=== PATIENT | male | born 1950 | race Caucasian/White ===

== ENCOUNTER 2017-05-31 15:18 | Inpatient (IN) | payer MEDICARE, MEDICAID ==
[~2017-05-31] VITALS: Ht 177.8 cm; Wt 97.5 kg
[2017-05-31 16:43] LABS: Basophils # (auto) 0.1 uL; Basophils % (auto) 0.7 % (0.0-2.0); Eosinophils # (auto) 0 uL; Eosinophils % (auto) 0.2 % (0.0-7.0); Hemoglobin 13.5 g/dL (13.5-17.5); Lymphocytes # (auto) 1.8 uL; Lymphocytes % (auto) 10.9 % (10.0-50.0); Mean Corpuscular Hemoglobin 31.7 pg (28.0-32.0); Mean Corpuscular Hgb Conc. 33.8 g/dL (32.0-36.0); Mean Corpuscular Volume 93.9 fL (80.0-100.0); Monocytes # (auto) 1.3 uL; Monocytes % (auto) 7.5 % (0.0-12.0); Neutrophils # (auto) 13.5 uL; Neutrophils % (auto) 80.7 % (37.0-80.0); Nucleated Red Blood Cells % 0.1 %; Platelet Count (auto) 427 10^3/uL (140-450); Red Blood Cells 4.26 10^6/uL (4.5-5.90); Red Cell Distribution Width 13.4 % (11.8-14.3); White Blood Cell 16.8 10^3/uL (4.4-10.8)
[2017-05-31 16:59] LABS: Albumin 3.6 g/dL (3.4-5.0); BUN/Creatinine Ratio 23.4; Calcium 8.9 mg/dL (8.5-10.1); Potassium 3.9 mmol/L (3.5-5.1)
[2017-05-31 17:01] LABS: Bilirubin, Total 0.5 mg/dL (0.2-1.0); Total Protein 7.9 g/dL (6.4-8.2)
[2017-05-31] MEDS ORDERED: SODIUM CHLORIDE 0.9% 1,000 ML IV ONE ×2 (17:38→23:15)
[2017-05-31] MEDS ORDERED: cefTRIAXone 1GM/10ml IVPUSH 10 ML IV ONE (19:45)
[2017-05-31] MEDS ORDERED: metroNIDAZOLE 500MG/100ML 100 ML IV ONE (19:45)
[2017-05-31] MEDS ORDERED: AZITHROMYCIN 500MG/ 250ML 250 ML IV ONE (20:45)
[2017-05-31] MEDS ORDERED: ACETAMINOPHEN 500 MG TAB PO PRN (20:45)
[2017-05-31] MEDS ORDERED: ONDANSETRON HCL 4 MG/2 ML VIAL IV PRN (20:45)
[2017-05-31 21:06] LABS: Urine Bacteria NONE SEEN /hpf (None Seen); Urine Blood 1+ /uL (Negative); Urine Mucus FEW (None Seen); Urine WBC 3 /hpf (0 - 3)
[2017-05-31] MEDS: HYDROcodone-ACET 5/325MG TAB PO PRN (21:11)
[2017-06-01 00:38] LABS: Alcohol, Urine < 3.0 mg/dL (0-5); Amphetamine Screen, Urine POSITIVE (NEGATIVE); Barbiturate Scree,Urine NEGATIVE (NEGATIVE); Benzodiazephine Screen, Urine POSITIVE (NEGATIVE); Cannabinoid Screen, Urine POSITIVE (NEGATIVE); Cocaine Screen, Urine NEGATIVE (NEGATIVE); Opiate Scree,Urine NEGATIVE (NEGATIVE); Phencyclidine Screen, Urine NEGATIVE (NEGATIVE)
[2017-06-01 07:56] LABS: Basophils # (auto) 0 uL; Basophils % (auto) 0.2 % (0.0-2.0); Eosinophils # (auto) 0.1 uL; Eosinophils % (auto) 1.2 % (0.0-7.0); Hematocrit 38.4 % (41.0-53.0); Hemoglobin 12.8 g/dL (13.5-17.5); Lymphocytes % (auto) 15.7 % (10.0-50.0); Mean Corpuscular Hemoglobin 31.1 pg (28.0-32.0); Mean Corpuscular Hgb Conc. 33.4 g/dL (32.0-36.0); Monocytes # (auto) 1.2 uL; Monocytes % (auto) 9.2 % (0.0-12.0); Neutrophils # (auto) 9.5 uL; Neutrophils % (auto) 73.7 % (37.0-80.0); Platelet Count (auto) 418 10^3/uL (140-450); Red Blood Cells 4.12 10^6/uL (4.5-5.90); Red Cell Distribution Width 13.3 % (11.8-14.3); White Blood Cell 12.9 10^3/uL (4.4-10.8)
[2017-06-01 08:13] LABS: BUN/Creatinine Ratio 17.4; Calcium 8.3 mg/dL (8.5-10.1); Potassium 3.4 mmol/L (3.5-5.1)
[2017-06-01] MEDS: AZITHROMYCIN 500MG/ 250ML 250 ML IV SCH (09:37)
[2017-06-01] MEDS: cefTRIAXone 1GM/10ml IVPUSH 10 ML IV SCH (09:37)
[2017-06-01] MEDS ORDERED: POTASSIUM CHL 20 Meq TABLET PO ONE (12:30)
[2017-06-01 15:52] VITALS: BP 134/74
[2017-06-01 18:34] VITALS: BP 148/76
[2017-06-01] MEDS: HYDROcodone-ACET 5/325MG TAB PO PRN (19:44)
[2017-06-01 20:14] LABS: INR 0.95 (0.9-1.15); Partial Thromboplastin Time 32.2 sec (22.64-33.71); Prothrombin Time 10.3 sec (9.37-12.3)
[2017-06-01 22:45] VITALS: BP 136/75
[2017-06-02 05:29] VITALS: BP 143/90
[2017-06-02] MEDS ORDERED: POVIDONE IODINE 10 % TOPICAL OINT 30GM TOP ONE (06:58)
[2017-06-02] MEDS ORDERED: ceFAZolin 1GM/50ML 50 ML IV ONE (07:01)
[2017-06-02] MEDS ORDERED: GLYCOPYRROLATE 0.2 MG/ML 1ML VIAL IV ONE (08:05)
[2017-06-02] MEDS ORDERED: NEOSTIGMINE 1 MG/ML INJ (10mg/10ML VIAL) IV ONE (08:05)
[2017-06-02] MEDS ORDERED: PROPOFOL 10 MG/ML 20 ML IV ONE (08:11)
[2017-06-02] MEDS ORDERED: MIDAZOLAM HCL 1MG/1ML-2 ML VIAL ONE (08:11)
[2017-06-02] MEDS ORDERED: fentaNYL CITRATE 100 MCG/2 ML VL ONE (08:11)
[2017-06-02] MEDS ORDERED: ROCURONIUM 10MG/ML 10ML VIAL IV ONE (08:11)
[2017-06-02] MEDS ORDERED: hydrALAZINE HCL 20 MG/ML VL IV PRN (09:30)
[2017-06-02] MEDS ORDERED: ONDANSETRON HCL 4 MG/2 ML VIAL IV ONE (09:30)
[2017-06-02] MEDS ORDERED: MORPHINE SULFATE 4 MG/ML SYR/VIAL IV PRN (09:30)
[2017-06-02] MEDS ORDERED: ePHEDrine SULFATE 50 MG/ML AMP IV PRN (09:30)
[2017-06-02] MEDS: cefTRIAXone 1GM/10ml IVPUSH 10 ML IV SCH (10:58)
[2017-06-02] MEDS: AZITHROMYCIN 500MG/ 250ML 250 ML IV SCH (11:01)
[2017-06-02] MEDS ORDERED: D5W/ SOD CHL 0.9%/KCL 20MEQ 1,000 ML IV ONE (11:15)
[2017-06-02] MEDS ORDERED: POTASSIUM CHL 20 Meq TABLET PO ONE (11:15)
[2017-06-02 12:00] VITALS: BP 133/84
[2017-06-02 12:20] LABS: BUN/Creatinine Ratio 14.1; Calcium 8.4 mg/dL (8.5-10.1); Potassium 3.9 mmol/L (3.5-5.1)
[2017-06-02 12:26] LABS: Basophils # (auto) 0 uL; Basophils % (auto) 0.2 % (0.0-2.0); Eosinophils # (auto) 0.1 uL; Eosinophils % (auto) 0.8 % (0.0-7.0); Hematocrit 37.4 % (41.0-53.0); Hemoglobin 12.5 g/dL (13.5-17.5); Lymphocytes # (auto) 1.5 uL; Lymphocytes % (auto) 12.1 % (10.0-50.0); Mean Corpuscular Hemoglobin 30.9 pg (28.0-32.0); Mean Corpuscular Hgb Conc. 33.3 g/dL (32.0-36.0); Mean Corpuscular Volume 92.7 fL (80.0-100.0); Monocytes # (auto) 1.4 uL; Monocytes % (auto) 11.6 % (0.0-12.0); Neutrophils # (auto) 9.2 uL; Neutrophils % (auto) 75.3 % (37.0-80.0); Nucleated Red Blood Cells % 0.2 %; Platelet Count (auto) 452 10^3/uL (140-450); Red Blood Cells 4.04 10^6/uL (4.5-5.90); Red Cell Distribution Width 13.2 % (11.8-14.3); White Blood Cell 12.2 10^3/uL (4.4-10.8)
[2017-06-02 16:47] VITALS: BP 115/74
[2017-06-02] MEDS: HYDROcodone-ACET 5/325MG TAB PO PRN (20:10)
[2017-06-02 22:44] VITALS: BP 133/72
[2017-06-03 05:22] VITALS: BP 123/79
[2017-06-03] MEDS: HYDROcodone-ACET 5/325MG TAB PO PRN ×2 (06:18→19:26)
[2017-06-03 06:34] LABS: Basophils # (auto) 0.1 uL; Basophils % (auto) 0.5 % (0.0-2.0); Eosinophils # (auto) 0.2 uL; Hematocrit 36.2 % (41.0-53.0); Hemoglobin 12.3 g/dL (13.5-17.5); Lymphocytes # (auto) 2.7 uL; Lymphocytes % (auto) 23.9 % (10.0-50.0); Mean Corpuscular Hemoglobin 31.8 pg (28.0-32.0); Mean Corpuscular Hgb Conc. 34.1 g/dL (32.0-36.0); Mean Corpuscular Volume 93.3 fL (80.0-100.0); Monocytes # (auto) 1.6 uL; Monocytes % (auto) 14.7 % (0.0-12.0); Neutrophils # (auto) 6.5 uL; Neutrophils % (auto) 58.9 % (37.0-80.0); Nucleated Red Blood Cells % 0.1 %; Platelet Count (auto) 489 10^3/uL (140-450); Red Blood Cells 3.88 10^6/uL (4.5-5.90); Red Cell Distribution Width 13.3 % (11.8-14.3); White Blood Cell 11.1 10^3/uL (4.4-10.8)
[2017-06-03 06:47] LABS: BUN/Creatinine Ratio 15.7; Calcium 8.3 mg/dL (8.5-10.1); Potassium 4.1 mmol/L (3.5-5.1)
[2017-06-03 08:00] VITALS: BP 134/87
[2017-06-03 09:00] VITALS: BP 134/87
[2017-06-03] MEDS ORDERED: CEFD300C2 PO (09:12)
[2017-06-03] MEDS ORDERED: AZIT250T8 PO (09:12)
[2017-06-03] MEDS: cefTRIAXone 1GM/10ml IVPUSH 10 ML IV SCH (09:49)
[2017-06-03] MEDS: AZITHROMYCIN 500MG/ 250ML 250 ML IV SCH (09:49)
[2017-06-03 13:00] VITALS: BP 129/83
[2017-06-03 16:59] VITALS: BP 129/83
[2017-06-03 17:00] VITALS: BP 151/83
== END 2017-06-03 19:40 | disposition home or self-care (01) | DRG 853 ==
LOC: ER 15:18 → TELE 15:19 → TELE-WESTW 06-01 15:23
PROVIDERS: ADMIT Nurse Practitioner Family; ATTEND Internal Medicine
PROC: 0FT44ZZ Resection of Gallbladder, Percutaneous Endoscopic Approach (ICD-10-PCS; principal; 2017-06-02 08:08)
DX: A41.9 Sepsis, unspecified organism (principal); J18.1 Lobar pneumonia, unspecified organism; E87.1 Hypo-osmolality and hyponatremia; E66.01 Morbid (severe) obesity due to excess calories; K80.10 Calculus of gallbladder with chronic cholecystitis without obstruction; J44.0 Chronic obstructive pulmonary disease with (acute) lower respiratory infection; F12.90 Cannabis use, unspecified, uncomplicated; F17.210 Nicotine dependence, cigarettes, uncomplicated; Z87.442 Personal history of urinary calculi; Z68.30 Body mass index [BMI] 30.0-30.9, adult
CPT/HCPCS: 36415; 71045; 71046; 74176; 76705; 80048; 80053; 80307; 81001; 82247; 83605; 83690; 85025; 85610; 85730; 86850; 86900; 86901; 87040; 87081; 93005; 94761; 96365; 96375; 96376; J0690; J2250; J2405; J2704; J3490

== ENCOUNTER 2017-06-16 16:35 | Emergency (ER) | payer MEDICAID, MEDICARE ==
[~2017-06-16] VITALS: Ht 177.8 cm; Wt 97.5 kg
[~2017-06-16 16:35] MED LIST: AZIT250T8 PO; CEFD300C2 PO
[2017-06-16 16:51] VITALS: BP 148/90
== END 2017-06-16 21:35 | disposition left against medical advice (07) ==
LOC: ER 16:38
DX: Z98.890 Other specified postprocedural states (principal); Z53.21 Procedure and treatment not carried out due to patient leaving prior to being seen by health care provider

== ENCOUNTER → 2017-06-17 12:56 | Emergency (ER) | payer MEDICARE ==
[~2017-06-17] VITALS: Ht 177.8 cm; Wt 97.5 kg
[2017-06-17 18:22] VITALS: BP 144/95
== END | disposition home or self-care (01) ==
LOC: ER 12:56
DX: J44.9 Chronic obstructive pulmonary disease, unspecified (principal); R10.9 Unspecified abdominal pain; F17.210 Nicotine dependence, cigarettes, uncomplicated; Z90.49 Acquired absence of other specified parts of digestive tract; Z98.890 Other specified postprocedural states

== ENCOUNTER 2024-10-26 22:34 | Inpatient (IN) | payer OTHER ==
[~2024-10-26] VITALS: Ht 177.8 cm; Wt 92.0 kg
[~2024-10-26 22:34] MED LIST changes: +AZIT-185 PO; -AZIT250T8 PO
[2024-10-26 22:45] VITALS: PULSE 133; RESP 18; O2SAT 100
--- NOTE | 2024-10-26 22:49 | ED.PDOC ---
SOB-HPI HPI Comments 74 year old male with a Hx of COPD, and HTN was BIBA for the c/c of SOB w/ associated Bilateral Leg Edema, and A-Flutter. Per EMS pt was at an Urgent Care nearby [facility] when the Urgent Care provider noticed his irregular heart rhythm. Pt was then transported to [facility] and is still in A-Flutter in the 130's. Pt Denies ever being Dx with CHF, and denies any CP, ABD pain, N/V/D, or any other associated symptoms at this time. Chief Complaint: Shortness of Breath Time Seen by MD: 22:43 Primary Care Provider: NONE Reviewed notes: Nurses Notes, Manager [employer] Notes, Medications, Allergies Information Source: Patient, Emergency Med Personnel Mode of Arrival: EMS Severity: Moderate Timing: Days Duration: Intermittent, Days Context: At Rest PE Risk Factors: None History of: None Prehospital treatment: 12 Lead EKG, Oxygen Modifying Factors: Exertion Associated Signs and Symptoms: Wheeze Radiation: No Radiation If cough with SOB: Non-Productive Past Medical History PAST MEDICAL HISTORY: COPD, HTN Surgical History: Cholecystectomy, Tonsillectomy Family History Family History: Unobtainable Social History Smoker: Cigarettes Alcohol: Occasionally Drugs: Marijuana Lives In: Home Constitutional: denies: chills, diaphoresis, fatigue, fever, malaise, sweats, weakness, others EENTM: denies: blurred vision, double vision, ear bleeding, ear discharge, ear drainage, ear pain, ear ringing, eye pain, eye redness, hearing loss, mouth pain, mouth swelling, nasal discharge, nose bleeding, nose congestion, nose pain, photophobia, tearing, throat pain, throat swelling, voice changes, others Respiratory: reports: SOB at rest, shortness of breath; denies: cough, hemoptysis, orthopnea, SOB with excertion, stridor, wheezing, others Cardiovascular: denies: chest pain, dizzy spells, diaphoresis, Dyspnea on exertion, edema, irregular heart beat, left arm pain, lightheadedness, palpitations, PND, syncope, others Gastrointestinal: denies: abdomen distended, abdominal pain, blood streaked bowels, constipated, diarrhea, dysphagia, difficulty swallowing, hematemesis, melena, nausea, poor appetite, poor fluid intake, rectal bleeding, rectal pain, vomiting, others Genitourinary: denies: burning, dysuria, flank pain, frequency, hematuria, incontinence, penile discharge, penile sore, pain, testicle pain, testicle s welling, urgency, others Neurological: denies: dizziness, fainting, headache, left sided numbness, left sided weakness, numbness, paresthesia, pre-existing deficit, right sided numbness, right sided weakness, seizure, speech problems, tingling, tremors, weakness, others Musculoskeletal: reports: others (bilateral leg edema); denies: back pain, gout, joint pain, joint swelling, muscle pain, muscle stiffness, neck pain Integumetry: denies: bruises, change in color, change in hair/nails, dryness, laceration, lesions, lumps, rash, wounds, others Allergic/Immunocompromised: denies: Difficulty Healing, Frequent Infections, Hives, Itching, others Hematologic/Lymphatic: denies: anemia, blood clots, easy bleeding, easy bruising, swollen glands, others Endocrine: denies: excessive hunger, excessive sweating, excessive thirst, excessive urination, flushing, intolerance to cold, intolerance to heat, unexplained weight gain, unexplained weight loss, others Psychiatric: denies: anxiety, bipolar disorder, depression, hopeless, panic disorder, schizophrenia, sleepless, suicidal, others All Other Systems: Reviewed and Negative Physical Exam General Appearance: Moderate Distress, Normal, Obese HEENT: Normal ENT Inspection, Pharynx Normal, TMs Normal Neck: Full Range of Motion, Non-Tender, Normal, Normal Inspection Respiratory: Chest Non-Tender, No Accessory Muscle Use, Normal Breath Sounds, Rhonchi, Wheezing Cardiovascular: Irregular, No JVD, No Murmur, Regular Rate/Rhythm, Tachycardia Breast Exam: Deferred Gastrointestinal: Non Tender, No Pulsatile Mass, Normal Bowel Sounds, Soft Genitalia: Deferred Pelvic: Deferred Rectal: Deferred Extremities: Decreased range of motion, Leg edema, No calf tenderness, Normal range of motion, Non-tender, Pedal edema, Swelling Musculoskeletal : Apperance: Normal Neurologic: Alert, No Motor Deficits, Normal Affect, Normal Mood, No Sensory Deficits Cerebellar Function: Normal Reflexes: Normal Skin: Dry, Normal Color, Warm Lymphatic: No Adenopathy Was a procedure done? Was a procedure done?: No Differential Dx Differential Diagnosis: Anxiety, Asthma, Bronchitis, CHF, COPD, Dysrhythmia, Hypertension, Hyponatremia, Panic Attack, Pneumonia, Pneumothorax, Pulmonary Embolism, Respiratory Distress, Sinusitis, Pharyngitis X-Ray, Labs, Meds, VS Vital Signs Date Time Temp Pulse Resp B/P (MAP) Pulse Ox O2 Delivery O2 Flow Rate FiO2 10/27/24 01:04 133 10/26/24 23:52 133 10/26/24 23:20 133 141/106 10/26/24 23:19 141/106 10/26/24 22:58 132 10/26/24 22:45 133 18 100 Nasal Cannula* 2 28 10/26/24 22:45 98.3 133 18 141/106 (118) 100 98.3 10/26/24 22:42 133 10/26/24 22:38 98.5 133 20 135/78 (97) 95 98.5 Lab Test 10/26/24 23:48 10/26/24 22:55 Range/Units Troponin I High Sensitivity 52 60 *H </=54 ng/L White Blood Count 10.9 H 4.4-10.8 10^3/uL Red Blood Count 4.23 L 4.5-5.90 10^6/uL Hemoglobin 13.6 13.5-17.5 g/dL Hematocrit 40.4 L 41.0-53.0 % Mean Corpuscular Volume 95.5 80.0-100.0 fL Mean Corpuscular Hemoglobin 32.2 H 28.0-32.0 pg Mean Corpuscular Hemoglobin Concent 33.7 32.0-36.0 g/dL Red Cell Distribution Width 14.8 H 11.8-14.3 % Platelet Count 482 H 140-450 10^3/uL Mean Platelet Volume 8.0 6.9-10.8 fL Neutrophils (%) (Auto) 85.5 H 37.0-80.0 % Lymphocytes (%) (Auto) 11.4 10.0-50.0 % Monocytes (%) (Auto) 2.4 0.0-12.0 % Eosinophils (%) (Auto) 0.3 0.0-7.0 % Basophils (%) (Auto) 0.4 0.0-2.0 % Neutrophils # (Auto) 9.3 H 1.6-8.6 10 ^3/uL Lymphocytes # (Auto) 1.2 0.4-5.4 10 ^3/uL Monocytes # (Auto) 0.3 0-1.3 10 ^3/uL Eosinophils # (Auto) 0 0-0.8 10 ^3/uL Basophils # (Auto) 0 0-0.2 10 ^3/uL Nucleated Red Blood Cells 0.0 % Prothrombin Time 12.0 H 9.3-11.8 sec Prothrombin Time INR 1.15 0.9-1.15 Activated Partial Thromboplast Time 28.8 24.5-34.5 SEC Sodium Level 142 136-145 mmol/L Potassium Level 4.6 3.5-5.1 mmol/L Chloride Level 105 98-107 mmol/L Carbon Dioxide Level 26 20-31 mmol/L Anion Gap 11 5-15 Blood Urea Nitrogen 22 9-23 mg/dL Creatinine 1.24 0.700-1.30 mg/dL Glomerular Filtration Rate Calc 62 >90 mL/min BUN/Creatinine Ratio 17.7 10.0-20.0 Serum Glucose 151 H 74-106 mg/dL Calcium Level 9.6 8.7-10.4 mg/dL Magnesium Level 1.9 1.6-2.6 mg/dL Total Bilirubin 0.8 0.2-1.0 mg/dL Aspartate Amino Transferase (AST) 43 H 13-40 U/L Alanine Aminotransferase (ALT) 44 H 7-40 U/L Alkaline Phosphatase 171 H 46-116 U/L B-Type Natriuretic Peptide 494.52 0-100 pg/mL Total Protein 7.7 5.7-8.2 g/dL Albumin 4.8 3.2-4.8 g/dL Current Medications Medications (Trade) Dose Ordered Sig/Darin Route Start Time Stop Time Status Last Admin Aspirin 81 mg ONCE ONCE PO 10/26/24 22:45 10/26/24 22:46 DC 10/26/24 23:20 Metoprolol Tartrate (Lopressor) 5 mg Q5M IV 10/26/24 22:45 10/26/24 23:57 DC 10/26/24 23:20 Furosemide (Lasix Injection) 20 mg ONCE ONCE IV 10/26/24 22:45 10/26/24 22:46 DC 10/26/24 23:19 Amiodarone HCl 100 ml @ 600 mls/hr ONCE ONCE IV 10/26/24 23:45 10/26/24 23:54 DC 10/27/24 00:09 PATIENT: ULISES HECTOR ACCT: [id number] UNIT: [id number] : 1950 LOC: ER ROOM / BED: / AGE / SEX: 74 / M ADM STATUS: REG ER SERVICE 41 ORDERING PHYSICIAN: AILYN DANIELS MD PROCEDURE(s): CXRP - CHEST PORTABLE REASON: SOB ORDER NUMBER(s): [id number], ACCESSION NUMBER(s): [id number] CHEST RADIOGRAPH Indication: SOB Technique: Single frontal view of the chest was obtained COMPARISON: None FINDINGS: Lines and Tubes: None Lungs: Mild pulmonary vascular congestion. No pulmonary infiltrates identified. Pleura: No effusion. No pneumothorax. Cardiomediastinal contours: Mild cardiomegaly. IMPRESSION: Mild cardiomegaly and mild pulmonary vascular congestion. Time of 1ST Reevaluation: 23:14 Reevaluation 1ST: Unchanged Patient Education/Counseling: Diagnosis, Treatment, Need For Follow Up Family Education/Counseling: No Family Present SEPSIS Sepsis Screen Physician Orders Chest Portable (10/26/24 22:42) Heplock Iv (10/26/24 22:42) Oxygen (10/26/24 22:42) Collection Specialist (10/26/24 22:42) Troponin-I Hs (10/27/24 01:42) Electrocardigram (10/26/24 23:04) Electrocardigram (10/27/24 00:04) Amiodarone 360mg/200ml Premix (Nexterone (10/27/24 00:00) Amiodarone 360mg/200ml Premix (Nexterone (10/27/24 06:00) Vital Signs Date Time Temp Pulse Resp B/P (MAP) Pulse Ox O2 Delivery O2 Flow Rate FiO2 10/27/24 01:04 133 10/26/24 23:52 133 10/26/24 23:20 133 141/106 10/26/24 23:19 141/106 10/26/24 22:58 132 10/26/24 22:45 133 18 100 Nasal Cannula* 2 28 10/26/24 22:45 98.3 133 18 141/106 (118) 100 98.3 10/26/24 22:42 133 10/26/24 22:38 98.5 133 20 135/78 (97) 95 98.5 Laboratory Tests Test 10/26/24 22:55 White Blood Count 10.9 10^3/uL (4.4-10.8) H Medications Medications Dose Ordered Sig/Darin Route Start Time Stop Time Status Last Admin Dose Admin Amiodarone HCl 100 ml @ 600 mls/hr ONCE ONCE IV 10/26/24 23:45 10/26/24 23:54 DC 10/27/24 00:09 Aspirin 81 mg ONCE ONCE PO 10/26/24 22:45 10/26/24 22:46 DC 10/26/24 23:20 Furosemide 20 mg ONCE ONCE IV 10/26/24 22:45 10/26/24 22:46 DC 10/26/24 23:19 Metoprolol Tartrate 5 mg Q5M IV 10/26/24 22:45 10/26/24 23:57 DC 10/26/24 23:20 Departure 1 Departure Time of Disposition: 01:08 Impression: Primary Impression: New onset atrial fibrillation Additional Impressions: Congestive heart failure Atrial flutter with rapid ventricular response Disposition: ADMITTED INPATIENT Admit to: Tele Condition: Guarded Discharged With: Self Comments Shortness of Breath, Lower Extremity Edema, and New Onset Atrial Fibrillation Chief Complaint: Shortness of breath and bilateral lower extremity edema for 3-4 days History of Present Illness: Patient is a 74-year-old male with a history of COPD and hypertension who presented to the Emergency Department via ambulance with complaints of shortness of breath and bilateral lower extremity swelling for the past 3-4 days. EMS noted that the patient had a rapid irregular heartbeat during transport. The patient has no prior history of atrial fibrillation. His symptoms have been progressively worsening over the past few days, limiting his daily activities. The patient reports increased difficulty breathing, especially when lying flat, and has noticed increasing swelling in both legs below the knees. Review of Systems: Cardiovascular: Palpitations, irregular heartbeat, lower extremity edema. Respiratory: Shortness of breath, dyspnea. Constitutional: No fever reported. All other systems: Limited review due to acute presentation. Medications: Home medications not specified in qc analyst. Medications administered in ED: - Aspirin - IV Metoprolol (dose not specified) - Amiodarone bolus followed by infusion - Furosemide (Lasix) 20 mg IV Allergies: No known allergies documented in qc analyst. Past Medical History: 1. Chronic Obstructive Pulmonary Disease (COPD) 2. Hypertension 3. No prior history of atrial fibrillation Vital Signs: Heart rate: Tachycardic (specific rate not provided) Rhythm: Irregular irregular Other vital signs not specified in qc analyst. Physical Exam: Cardiovascular: Irregular irregular rhythm with tachycardic rate. Respiratory: Mild bibasilar rales on lung examination. Extremities: 2+ pitting edema to bilateral lower extremities below the knee. Other systems not documented in qc analyst. Lab Results: CBC: - WBC: 10.9 (slightly elevated) - Platelets: 482 (elevated) Chemistry: - Glucose: 151 (elevated) - AST: 43 (slightly elevated) - ALT: 44 (slightly elevated) - Alkaline phosphatase: 171 (slightly elevated) Cardiac markers: - Troponin: 60 (borderline elevated) - BNP: 494.5 (elevated) Imaging and Other Relevant Results: Chest X-ray: Shows mild pulmonary vascular congestion consistent with congestive heart failure. Medical Decision Making: Summary Statement: 74-year-old male with history of COPD and hypertension presenting with shortness of breath, bilateral lower extremity edema, and new- onset atrial fibrillation with rapid ventricular response. Clinical findings, elevated BNP, and chest X-ray are consistent with congestive heart failure. Borderline elevated troponin suggests possible acute coronary syndrome. Problem List: 1. New-onset atrial fibrillation with rapid ventricular response 2. Congestive heart failure 3. Possible acute coronary syndrome 4. COPD 5. Hypertension Differential Diagnosis: For the patient's presentation, differential diagnoses include acute decompensated heart failure, new-onset atrial fibrillation, acute coronary syndrome, COPD exacerbation, pulmonary embolism, pneumonia, and volume overload from renal dysfunction. ED Course: Patient was administered aspirin for possible ACS. IV metoprolol was given for rate control but showed no improvement in heart rate. Subsequently, amiodarone bolus and infusion were initiated for rhythm control. Furosemide 20 mg IV was administered to address volume overload and congestive heart failure. Decision was made to admit the patient for further management of acute coronary syndrome, new-onset atrial fibrillation with rapid ventricular response, and congestive heart failure. Assessment and Plan: 1. New-onset Atrial Fibrillation with Rapid Ventricular Response: - Failed rate control with IV metoprolol - Initiated amiodarone bolus and infusion - Continuous cardiac monitoring during admission - Consider anticoagulation after assessing stroke risk - Cardiology consultation 2. Congestive Heart Failure: - Administered Lasix 20 mg IV in ED with good response - Continue diuresis as inpatient - Daily weights and strict I/O monitoring - Echocardiogram to assess cardiac function 3. Acute Coronary Syndrome: - Administered aspirin in ED - Serial cardiac enzymes - Consider cardiac catheterization based on troponin trend 4. COPD: - Continue home medications - Monitor oxygen saturation - Caution with beta-blockers due to COPD history 5. Hypertension: - Continue home antihypertensive medications - Monitor blood pressure during admission Disposition: Admit to telemetry unit under Cardiology service for management of the above conditions. Additional Notes: Patient requires admission for acute coronary syndrome, new onset atrial fibrillation with rapid ventricular response, and congestive heart failure. Billing Information: ICD-10: I48.91 - Unspecified atrial fibrillation ICD-10: I50.9 - Heart failure, unspecified ICD-10: I21.9 - Acute myocardial infarction, unspecified ICD-10: J44.9 - Chronic obstructive pulmonary disease, unspecified ICD-10: I10 - Essential (primary) hypertension Critical Care Note Critical Care Time?: Yes (35 min-critical care time only) Critical care comment: Total critical care time: Approximately 36 minutes Due to a high probability of clinically significant, life threatening deterioration, the patient required my highest level of preparedness to intervene emergently and I personally spent this critical care time directly and personally managing the patient. This critical care time included obtaining a history; examining the patient; pulse oximetry; ordering and review of studies; arranging urgent treatment with development of a management plan; evaluation of patient's response to treatment; frequent reassessment; and, discussions with other providers. This critical care time was performed to assess and manage the high probability of imminent, life-threatening deterioration that could result in multi-organ failure. It was exclusive of separately billable procedures and treating other patients. Stability Stability form required: No Heart Score Heart Score: Heart Score Response (Comments) Value History Moderate Suspicious 1 EKG Repolarization Disturb 1 Age >65 2 Risk Factors >3 or Hx ASHD 2 Troponin 1-2 x's Normal limit 1 Total 7 I personally scribed for AILYN DANIELS MD ([email or web address]) on 10/26/24 at 22:48. Electronically submitted by Kilo Thakur ([email or web address]). I personally scribed for AILYN DANIELS MD ([email or web address]) on 10/26/24 at 23:41. Electronically submitted by Kilo Thakur ([email or web address]). AILYN DANIELS MD Oct 26, 2024 22:48
[2024-10-26 23:06] LABS: Hematocrit 40.4 % (41.0-53.0); Hemoglobin 13.6 g/dL (13.5-17.5); Mean Corpuscular Hemoglobin 32.2 pg (28.0-32.0); Mean Corpuscular Volume 95.5 fL (80.0-100.0); Nucleated Red Blood Cells % 0.0 %
[2024-10-26] MEDS: FUROSEMIDE 20 MG/2 ML VIAL IV ONE (23:19)
[2024-10-26 23:20] LABS: INR 1.15 (0.9-1.15); Partial Thromboplastin Time 28.8 SEC (24.5-34.5); Prothrombin Time 12.0 sec (9.3-11.8)
[2024-10-26] MEDS: METOPROLOL TARTRATE 1MG/1ML-5ML VIAL IV SCH (23:20)
[2024-10-26 23:22] LABS: Albumin 4.8 g/dL (3.2-4.8); Anion Gap 11 (5-15); BUN/Creatinine Ratio 17.7 (10.0-20.0); Blood Urea Nitrogen 22 mg/dL (9-23); Calcium 9.6 mg/dL (8.7-10.4); Carbon Dioxide 26 mmol/L (20-31); Chloride 105 mmol/L (98-107); Magnesium 1.9 mg/dL (1.6-2.6); Potassium 4.6 mmol/L (3.5-5.1); Sodium 142 mmol/L (136-145); Total Protein 7.7 g/dL (5.7-8.2)
[2024-10-26 23:23] LABS: Bilirubin, Total 0.8 mg/dL (0.2-1.0)
[2024-10-26 23:25] LABS: Alanine Aminotransferase 44 U/L (7-40); Alkaline Phosphatase 171 U/L (46-116); Glucose 151 mg/dL (74-106)
--- NOTE | 2024-10-26 23:29 | DVH ---
CHEST RADIOGRAPH Indication: SOB Technique: Single frontal view of the chest was obtained COMPARISON: None FINDINGS: Lines and Tubes: None Lungs: Mild pulmonary vascular congestion. No pulmonary infiltrates identified. Pleura: No effusion. No pneumothorax. Cardiomediastinal contours: Mild cardiomegaly. IMPRESSION: Mild cardiomegaly and mild pulmonary vascular congestion.
[2024-10-27] VITALS (18 sets, daily range): BP systolic 108–125; BP diastolic 87–94; PULSE 102–125; RESP 15–24; TEMP 96.8–98.2; O2SAT 94–100
[2024-10-27] MEDS: AMIODARONE BOLUS KIT 100 ML IV ONE (00:09)
[2024-10-27] MEDS: AMIODARONE 360mg/200mL PREMIX 200 ML IV ONE (00:27)
[2024-10-27] MEDS ORDERED: ONDANSETRON HCL 4 MG/2 ML VIAL IV PRN (02:15)
[2024-10-27] MEDS ORDERED: ACETAMINOPHEN 325 MG TAB PO PRN (02:15)
[2024-10-27] MEDS ORDERED: DOCUSATE SOD 100 MG CAP PO PRN (02:15)
--- NOTE | 2024-10-27 03:10 | DVHHP2 ---
History of Present Illness Reason for Visit: New onset atrial fibrillation History of Present Illness The patient is a 74-year-old male with past medical history of COPD and hypertension who presented to [facility] ED with complaint of shortness of breaths. Patient reports symptoms progressively get worse with pool ateral lower extremity edema, new onset of atrial fibrillation, increased work of breathing, getting worse that prompted this visit. Patient reports he initially went to urgent care, but the provider notice is irregular heart rhythm and was transported to [facility] for higher level of care. Patient was seen and evaluated in the ED with heart rate in the 130s a flutter, temperature 98.3 F, O2 saturation 99% on oxygen, blood pressure 141/106, laboratory data shows WBC 10.9, platelets 482, sodium 140, potassium 4.6, BUN 22, creatinine 1.24, glucose 151, calcium 9.6, troponin 60 trending down to 52, AST 43, ALT 44, BNP 494.52. Chest x-ray revealing mild cardiomegaly and mild pulmonary vascular congestion. Patient was started on amiodarone IV per protocol, please see medication orders section in the computer. On my assessment, patient denied chest pain, no headache, no dizziness, no diaphoresis, currently on oxygen, no nausea, no vomiting, no fever, no chills. Patient was admitted for further evaluation and medical management. Past Medical History COPD, HTN Past Surgical History Cholecystectomy, Tonsillectomy Family History Reviewed, noncontributory to the management of this case. Past Social History The patient lives at home, smokes cigarettes, drinks alcohol occasionally, uses marijuana. Review of Systems Constitutional: No: Fever, Chills, Sweats, Weakness, Malaise, Other Eyes: No: Pain, Vision change, Conjunctivae inflammation, Eyelid inflammation, Other, Redness ENT: No: Ear pain, Ear discharge, Nose pain, Nose discharge, Nose congestion, Mouth pain, Mouth swelling, Throat pain, Throat swelling, Other Respiratory: Shortness of breath, Other (SOB at rest); No: Cough, Dry, SOB with excertion, Wheezing, Hemoptysis, Pleuritic Pain, Sputum, Wheezing Cardiovascular: Other (Atrial fibrillation); No: Chest Pain, Palpitations, Orthopnea, Paroxysmal Noc. Dyspnea, Edema, Lt Headedness Gastrointestinal: No: Nausea, Vomiting, Abdominal Pain, Diarrhea, Constipation, Melena, Hematochezia, Other Genitourinary: No Dysuria, No Frequency, No Incontinence, No Hematuria, No Retention, No Other Musculoskeletal: No: other, neck pain, shoulder pain, arm pain, back pain, hand pain, leg pain, foot pain Skin: No: Rash, Lesions, Jaundice, Bruising, Other Neurological: No: Weakness, Numbness, Incoordination, Change in speech, Confusion, Seizures, Other Allergies: Coded Allergies: NO KNOWN ALLERGIES (Unverified , 05/31/17) Medications Current Medications Medications Dose Ordered Sig/Darin Route Start Time Stop Time Status Last Admin Dose Admin Aspirin 81 mg DAILY PO 10/27/24 10:00 Atorvastatin Calcium 10 mg HS PO 10/27/24 22:00 Carvedilol 12.5 mg Q12HR PO 10/27/24 10:00 Clonidine HCl 0.1 mg Q4HP PRN PO 10/27/24 02:15 Furosemide 20 mg DAILY IV 10/27/24 10:00 Levalbuterol HCl 0.625 mg Q6HR NEB 10/27/24 06:00 Sodium Chloride 10 ml Q8HR IV 10/27/24 06:00 Acetaminophen/ Hydrocodone Bitart 1 tab Q4HP PRN PO 10/27/24 02:15 Ondansetron HCl 4 mg Q4HP PRN IV 10/27/24 02:15 Docusate Sodium 100 mg BIDPRN PRN PO 10/27/24 02:15 Acetaminophen 650 mg Q6HP PRN PO 10/27/24 02:15 Exam Vital Signs Vital Signs Date Time Temp Pulse Resp B/P (MAP) Pulse Ox O2 Delivery O2 Flow Rate FiO2 10/27/24 02:00 126 18 119/94 (102) 100 10/26/24 22:45 Nasal Cannula* 2 28 10/26/24 22:45 98.3 98.3 General Appearance: Alert, Oriented X3, Cooperative, No acute distress HEENT: Atraumatic, PERRLA, EOMI, Mucous membr. moist/pink Respiratory: Normal air movement Cardiovascular: Normal S1, Normal S2, No murmurs, Other (Irregular heart rate) Abdominal: Normal bowel sounds, Soft, No tenderness, No hepatospenomegaly, No masses Extremities: No clubbing, No cyanosis, No edema, Normal pulses, No tendernes s/swelling Skin: No rashes, No breakdown, No significant lesion Neuro: Normal gait, Normal speech, Strength at 5/5 X4 ext, Normal tone, Sensation intact, Cranial nerves 3-12 NL, Reflexes 2+ Psych/Mental Status: Mental status NL, Mood NL Labs/Xrays Labs Test 10/27/24 01:30 10/26/24 22:55 Range/Units Troponin I High Sensitivity 51 </=54 ng/L White Blood Count 10.9 H 4.4-10.8 10^3/uL Red Blood Count 4.23 L 4.5-5.90 10^6/uL Hemoglobin 13.6 13.5-17.5 g/dL Hematocrit 40.4 L 41.0-53.0 % Mean Corpuscular Volume 95.5 80.0-100.0 fL Mean Corpuscular Hemoglobin 32.2 H 28.0-32.0 pg Mean Corpuscular Hemoglobin Concent 33.7 32.0-36.0 g/dL Red Cell Distribution Width 14.8 H 11.8-14.3 % Platelet Count 482 H 140-450 10^3/uL Mean Platelet Volume 8.0 6.9-10.8 fL Neutrophils (%) (Auto) 85.5 H 37.0-80.0 % Lymphocytes (%) (Auto) 11.4 10.0-50.0 % Monocytes (%) (Auto) 2.4 0.0-12.0 % Eosinophils (%) (Auto) 0.3 0.0-7.0 % Basophils (%) (Auto) 0.4 0.0-2.0 % Neutrophils # (Auto) 9.3 H 1.6-8.6 10 ^3/uL Lymphocytes # (Auto) 1.2 0.4-5.4 10 ^3/uL Monocytes # (Auto) 0.3 0-1.3 10 ^3/uL Eosinophils # (Auto) 0 0-0.8 10 ^3/uL Basophils # (Auto) 0 0-0.2 10 ^3/uL Nucleated Red Blood Cells 0.0 % Prothrombin Time 12.0 H 9.3-11.8 sec Prothrombin Time INR 1.15 0.9-1.15 Activated Partial Thromboplast Time 28.8 24.5-34.5 SEC Sodium Level 142 136-145 mmol/L Potassium Level 4.6 3.5-5.1 mmol/L Chloride Level 105 98-107 mmol/L Carbon Dioxide Level 26 20-31 mmol/L Anion Gap 11 5-15 Blood Urea Nitrogen 22 9-23 mg/dL Creatinine 1.24 0.700-1.30 mg/dL Glomerular Filtration Rate Calc 62 >90 mL/min BUN/Creatinine Ratio 17.7 10.0-20.0 Serum Glucose 151 H 74-106 mg/dL Calcium Level 9.6 8.7-10.4 mg/dL Magnesium Level 1.9 1.6-2.6 mg/dL Total Bilirubin 0.8 0.2-1.0 mg/dL Aspartate Amino Transferase (AST) 43 H 13-40 U/L Alanine Aminotransferase (ALT) 44 H 7-40 U/L Alkaline Phosphatase 171 H 46-116 U/L B-Type Natriuretic Peptide 494.52 0-100 pg/mL Total Protein 7.7 5.7-8.2 g/dL Albumin 4.8 3.2-4.8 g/dL PATIENT: ULISES HECTOR ACCT: [id number] UNIT: [id number] : 1950 LOC: ER ROOM / BED: / AGE / SEX: 74 / M ADM STATUS: REG ER SERVICE 41 ORDERING PHYSICIAN: AILYN DANIELS MD PROCEDURE(s): CXRP - CHEST PORTABLE REASON: SOB ORDER NUMBER(s): [id number], ACCESSION NUMBER(s): [id number] CHEST RADIOGRAPH Indication: SOB Technique: Single frontal view of the chest was obtained COMPARISON: None FINDINGS: Lines and Tubes: None Lungs: Mild pulmonary vascular congestion. No pulmonary infiltrates identified. Pleura: No effusion. No pneumothorax. Cardiomediastinal contours: Mild cardiomegaly. IMPRESSION: Mild cardiomegaly and mild pulmonary vascular congestion. SEPSIS Sepsis Screen Date sepsis recognized/suspect: Oct 26, 2024 Time Sepsis recognized/suspect: 2333 Recent Procedure: No On Antibiotic Therapy: No Respiratory Rate >20: No Heart Rate >90: Yes Temp<36 C (96.8 F) or >38.3 C: No SBP <90 or MAP <65 mmHG: No New Acute Mental Status Change: No Is the patient on CPAP, BIPAP,: No Physician Orders Chest Portable (10/26/24 22:42) Heplock Iv (10/26/24 22:42) Oxygen (10/26/24 22:42) Data Assistant (10/26/24 22:42) Electrocardigram (10/26/24 23:04) Electrocardigram (10/27/24 00:04) Amiodarone 360mg/200ml Premix (Nexterone (10/27/24 00:00) Amiodarone 360mg/200ml Premix (Nexterone (10/27/24 06:00) Complete Blood Count (10/27/24 04:00) Comprehensive Metabolic Panel (10/27/24 04:00) Aspirin Tablet (10/27/24 10:00) Atorvastatin (Lipitor) (10/27/24 22:00) Carvedilol Tablet (Coreg Tablet) (10/27/24 10:00) Clonidine Hcl Tablet (Catapres Tablet) (10/27/24 02:15) Furosemide Injection (Lasix Injection) (10/27/24 10:00) Levalbuterol Hcl (Xopenex Medneb) (10/27/24 06:00) Allergies (10/27/24 02:10) Code Status (10/27/24 02:10) Sodium Chloride Lock (Saline Lock Ns) (10/27/24 06:00) Oxygen Per Hour (10/27/24 02:10) Hydrocodone-Acet 5/325mg Tab ([place] 5/32 (10/27/24 02:15) Ondansetron Hcl (Zofran) (10/27/24 02:15) Docusate Sodium Capsule (Colace Capsule) (10/27/24 02:15) Complete Blood Count (10/28/24 04:00) Comprehensive Metabolic Panel (10/28/24 04:00) Cardiac Diet-2gna,Lofat,Lochol (10/27/24 Breakfast) Echo 2d Mode Cardiac Dop (10/27/24 02:10) Condition: Serious (10/27/24 02:10) Acetaminophen Tablet (Tylenol Tablet) (10/27/24 02:15) Bedrest With Bathroom Privileg (10/27/24 02:10) Sequential Compression Device (10/27/24 ) * Cardiology Consult (10/27/24 02:15) Vital Signs Date Time Temp Pulse Resp B/P (MAP) Pulse Ox O2 Delivery O2 Flow Rate FiO2 10/27/24 02:00 126 18 119/94 (102) 100 10/27/24 01:04 133 10/27/24 00:00 132 23 140/113 (122) 100 10/26/24 23:52 133 10/26/24 23:20 133 141/106 10/26/24 23:19 141/106 10/26/24 22:58 132 10/26/24 22:45 133 18 100 Nasal Cannula* 2 28 10/26/24 22:45 98.3 133 18 141/106 (118) 100 98.3 10/26/24 22:42 133 10/26/24 22:38 98.5 133 20 135/78 (97) 95 98.5 Laboratory Tests Test 10/26/24 22:55 White Blood Count 10.9 10^3/uL (4.4-10.8) H Medications Medications Dose Ordered Sig/Darin Route Start Time Stop Time Status Last Admin Dose Admin Amiodarone HCl 100 ml @ 600 mls/hr ONCE ONCE IV 10/26/24 23:45 10/26/24 23:54 DC 10/27/24 00:09 600 MLS/HR Aspirin 81 mg ONCE ONCE PO 10/26/24 22:45 10/26/24 22:46 DC 10/26/24 23:20 81 MG Furosemide 20 mg ONCE ONCE IV 10/26/24 22:45 10/26/24 22:46 DC 10/26/24 23:19 20 MG Metoprolol Tartrate 5 mg Q5M IV 10/26/24 22:45 10/26/24 23:57 DC 10/26/24 23:20 5 MG Assessment/Plan Assessment/Plan New onset atrial fibrillation Hyperglycemia Congestive heart failure Atrial flutter with rapid ventricular response COPD with acute exacerbation Plan 1. Admit to telemetry unit 2. Breathing treatment 3. Pain control management 4. Management of fluids and electrolytes 5. Consultation for Cardiology/hospitalist 6. Diagnostic tests chest x-ray 7. DVT prophylaxis-on aspirin 8. Repeat labs CBC, CMP in a.m. 9. Continue with current medical management 10. Treatment plan discussed with patient and RN. Patient verbalized understanding. Plan discussed with: Patient, Other (RN) My Orders Orders - BISHOP CROOKS DNP Procedure Category Date Status Time Complete Blood Count LAB 10/27/24 Logged 04:00 Comprehensive LAB 10/27/24 Logged Metabolic Panel 04:00 Aspirin Tablet PHA 10/27/24 In Process 10:00 Atorvastatin (Lipitor) PHA 10/27/24 In Process 22:00 Carvedilol Tablet PHA 10/27/24 In Process (Coreg Tablet) 10:00 Clonidine Hcl Tablet PHA 10/27/24 In Process (Catapres Tablet) 02:15 Furosemide Injection PHA 10/27/24 In Process (Lasix Injection) 10:00 Levalbuterol Hcl PHA 10/27/24 In Process (Xopenex Medneb) 06:00 Allergies OLRA 10/27/24 In Process 02:10 Code Status CODE 10/27/24 Transmitted 02:10 Sodium Chloride Lock PHA 10/27/24 In Process (Saline Lock Ns) 06:00 Oxygen Per Hour RT 10/27/24 Transmitted 02:10 Hydrocodone-Acet PHA 10/27/24 In Process 5/325mg Tab ([place] 02:15 Ondansetron Hcl PHA 10/27/24 In Process (Zofran) 02:15 Docusate Sodium PHA 10/27/24 In Process Capsule (Colace 02:15 Complete Blood Count LAB 10/28/24 Verified 04:00 Comprehensive LAB 10/28/24 Verified Metabolic Panel 04:00 Cardiac DIET 10/27/24 Transmitted Diet-2gna,Lofat,Lochol Breakfast Echo 2d Mode Cardiac US 10/27/24 Logged DOP 02:10 Condition: Serious LORA 10/27/24 In Process 02:10 Acetaminophen Tablet PHA 10/27/24 In Process (Tylenol Tablet) 02:15 Bedrest With Bathroom OLRA 10/27/24 In Process Privileg 02:10 Sequential LORA 10/27/24 In Process Compression Device * Cardiology Consult CONS 10/27/24 Transmitted 02:15 Problem List: (1) New onset atrial fibrillation (2) Hyperglycemia (3) Congestive heart failure (4) Atrial flutter with rapid ventricular response (5) COPD with acute exacerbation Date of Service: Oct 27, 2024 Billing Provider: BISHOP CROOKS DNP Common Visit Codes: [id number] INP/OBS CARE (HIGH) BISHOP CROOKS DNP Oct 27, 2024 03:10
[2024-10-27] MEDS ORDERED: NITROGLYCERIN 0.4 MG SL TAB SL PRN (03:15)
[2024-10-27] MEDS ORDERED: MORPHINE SULFATE INJ 2 MG/ml SYRG IV PRN (03:15)
[2024-10-27] MEDS: SODIUM CHLOR 0.9% PF (SALINE LOCK) 10ML VIAL/SYR IV SCH (06:00)
[2024-10-27] MEDS: AMIODARONE 360mg/200mL PREMIX 200 ML IV SCH (06:08)
[2024-10-27] MEDS: LEVALBUTEROL HCL 1.25 MG/3 ML NEB NEB SCH (06:21)
--- NOTE | 2024-10-27 06:41 | ECG ---
[facility] Test Date: 2024-10-26 Test Time: 23:52:29 Pat Name: ULISES HECTOR Department: ED Room: [address] [place] [address] Gender: M Director Equipment: GREGG : 1950 Requested By: AILYN DANIELS Order Number: [id number] Reading MD: Alex Rodriguez Measurements Intervals [place] Rate: 133 P: 243 KS: 144 QRS: 96 QRSD: 84 T: 0 QT: 328 QTc: 488 Interpretive Statements Ectopic atrial tachycardia, unifocal Right axis deviation Anteroseptal infarct, old Repol abnrm suggests ischemia, diffuse leads Electronically Signed On 11-01-2024 17:43:29 PDT by Alex Rodriguez Please click the below link to view image of tracing.
--- NOTE | 2024-10-27 07:24 | ECG ---
[facility] Test Date: 2024-10-26 Test Time: 22:42:24 Pat Name: ULISES HECTOR Department: ED Room: [address] [place] [address] Gender: M Rn Plastic Surgery: GREGG : 1950 Requested By: AILYN DANIELS Order Number: [id number] Reading MD: Alex Rodriguez Measurements Intervals [place] Rate: 133 P: 238 NE: 135 QRS: 90 QRSD: 183 T: -89 QT: 292 QTc: 435 Interpretive Statements Ectopic atrial tachycardia, unifocal IVCD, consider atypical RBBB Anteroseptal infarct, old Borderline ST depression, lateral leads Electronically Signed On 11-01-2024 17:43:19 PDT by Alex Rodriguez Please click the below link to view image of tracing.
[2024-10-27 07:43] LABS: Alanine Aminotransferase 45 U/L (7-40)
[2024-10-27 07:49] LABS: Albumin 4.5 g/dL (3.2-4.8); Anion Gap 11 (5-15); BUN/Creatinine Ratio 18.5 (10.0-20.0); Bilirubin, Total 0.6 mg/dL (0.2-1.0); Blood Urea Nitrogen 22 mg/dL (9-23); Calcium 9.9 mg/dL (8.7-10.4); Carbon Dioxide 22 mmol/L (20-31); Chloride 106 mmol/L (98-107); Potassium 4.5 mmol/L (3.5-5.1); Sodium 139 mmol/L (136-145); Total Protein 7.2 g/dL (5.7-8.2)
[2024-10-27 07:50] LABS: Alkaline Phosphatase 154 U/L (46-116); Glucose 181 mg/dL (74-106)
[2024-10-27 08:51] LABS: Hematocrit 37.2 % (41.0-53.0); Hemoglobin 12.5 g/dL (13.5-17.5); Mean Corpuscular Hemoglobin 31.9 pg (28.0-32.0); Mean Corpuscular Volume 94.8 fL (80.0-100.0); Nucleated Red Blood Cells % 0.0 %
[2024-10-27] MEDS: CARVEDILOL 12.5 MG TAB PO SCH (10:07)
[2024-10-27] MEDS: FUROSEMIDE 20 MG/2 ML VIAL IV SCH ×2 (10:08→17:09)
[2024-10-27] MEDS: ADENOSINE 6 MG/2 ML INJ IV ONE ×4 (13:15→13:57)
--- NOTE | 2024-10-27 15:20 | DVHINCON2 ---
Date Seen: Oct 27, 2024 Referring Physician JAY Holm Reason for Consultation "New onset Afib" History of Present Illness This is a 74-year-old male patient who presents to emergency room with chief complaint of bilateral lower extremity edema and shortness of breath for approximately one week. He decided to come to the emergency room for further evaluation. Initial twelve lead electrocardiogram reveals a narrow complex tachycardia. Attempted to slow down patient's rate to further evaluate rhythm. Adenosine IV was given at bedside, a total of three doses, without success. A twelve lead electrocardiogram using Yang lead placement was obtained and reveals a junctional tachycardia (reviewed with ). Initial troponin level of 60ng/L with down trend thereafter. Significant past medical history includes hypertension, type 2 diabetes mellitus, tobacco use and morbid obesity. The patient denies any history of arrhythmias or ever seeing a educational advisor in the past. Past Medical History Past medical history reviewed. No other significant than mentioned above. Past Surgical History Tonsillectomy Cholecystectomy Family History: Diabetes mellitus AUNT Family History Family history reviewed. Social History Patient has a 35 pack-year history, smokes approximately half a pack per day Admits to occasional marijuana use. Toxicology screen positive for amphetamines Patient states he drinks approximately 1-2 alcoholic drinks per week Allergies: Coded Allergies: NO KNOWN ALLERGIES (Unverified , 05/31/17) Home Meds Active Scripts Azithromycin (ZITHROMAX TABLET) 250 Mg Tb, 250 MG PO DAILY for 5 Days, #5 TAB 0 Refills Prov:ANAYA MEEK 06/03/17 Cefdinir (Cefdinir) 300 Mg Cap, 1 CAP PO BID, #10 CAP Prov:ANAYA MEEK 06/03/17 Home Meds Home medications reviewed. Current Medications Current Medications Medications (Trade) Dose Ordered Sig/Darin Route PRN Reason Start Time Stop Time Status Last Admin Metoprolol Tartrate (Lopressor) 5 mg Q5M IV 10/26/24 22:45 10/26/24 23:57 DC 10/26/24 23:20 Aspirin 81 mg DAILY PO 10/27/24 10:00 10/27/24 10:07 Atorvastatin Calcium (Lipitor) 10 mg HS PO 10/27/24 22:00 Carvedilol (Coreg Tablet) 12.5 mg Q12HR PO 10/27/24 10:00 10/27/24 10:07 Clonidine HCl (Catapres Tablet) 0.1 mg Q4HP PRN PO SBP>150 10/27/24 02:15 Furosemide (Lasix Injection) 20 mg DAILY IV 10/27/24 10:00 10/27/24 10:08 Levalbuterol HCl (Xopenex Medneb) 0.625 mg Q6HR NEB 10/27/24 06:00 10/27/24 11:33 Sodium Chloride (Saline Lock Ns) 10 ml Q8HR IV 10/27/24 06:00 10/27/24 13:58 Acetaminophen/ Hydrocodone Bitart ([place] 5/325MG Tab) 1 tab Q4HP PRN PO MODERATE PAIN (4-6 PAIN SCALE) 10/27/24 02:15 Ondansetron HCl (Zofran) 4 mg Q4HP PRN IV NAUSEA / VOMITING 10/27/24 02:15 Docusate Sodium (Colace Capsule) 100 mg BIDPRN PRN PO FOR CONSTIPATION 10/27/24 02:15 Acetaminophen (Tylenol Tablet) 650 mg Q6HP PRN PO PAIN SCALE 1-3 OR TEMP>100.4 10/27/24 02:15 Nitroglycerin (Ntrostat Sublingual) 0.4 mg Q5MINP PRN SL FOR CHEST PAIN 10/27/24 03:15 Morphine Sulfate 2 mg Q30M PRN IV FOR CHEST PAIN 10/27/24 03:15 Review of Systems Constitutional: No symptom reported Ears, Nose, & Throat: No symptom reported Eyes: No symptom reported Neurological: No symptoms reported Pulmonary/Respiratory: Shortness of breath Cardiovascular: Bilateral lower extremity edema Gastrointestinal: No symptom reported Genitourinary: No symptom reported Musculoskeletal: No symptom reported Skin: No symptom reported Psychiatric: No symptom reported Endocrine: No symptom reported Hematologic/Lymphatic: No symptom reported Vital Signs Vital Signs Date Time Temp Pulse Resp B/P (MAP) Pulse Ox O2 Delivery O2 Flow Rate FiO2 10/27/24 12:37 97.6 123 20 119/94 (102) 95 97.6 10/27/24 11:33 Nasal Cannula* 1 24 Physical Exam General Appearance: Cooperative. Morbidly obese Pulmonary/Respiratory: Clear, bilateral breaths sounds. Cardiovascular/Chest: Regular rate and rhythm. Peripheral Pulses: 2+ Radial (R). 2+ Radial (L). 2+ Pedal (R). 2+ Pedal (L) Abdominal Exam: Normal bowel sounds. Ankle Exam: 3+ pitting edema Lower extremities: 3+ pitting edema Neuro/Mental Status: A/OX4, coherent. Thoughts/Psych: Normal thought pattern. Appropriate mood and affect. Good judgment and insight. Appearance: No acute distress. Skin Exam: Hyperpigmented bilateral lower extremities Labs/Diagnostic Data Labs Test 10/27/24 08:36 10/27/24 01:30 10/26/24 22:55 Range/Units White Blood Count 8.5 4.4-10.8 10^3/uL Red Blood Count 3.92 L 4.5-5.90 10^6/uL Hemoglobin 12.5 L 13.5-17.5 g/dL Hematocrit 37.2 L 41.0-53.0 % Mean Corpuscular Volume 94.8 80.0-100.0 fL Mean Corpuscular Hemoglobin 31.9 28.0-32.0 pg Mean Corpuscular Hemoglobin Concent 33.7 32.0-36.0 g/dL Red Cell Distribution Width 14.6 H 11.8-14.3 % Platelet Count 468 H 140-450 10^3/uL Mean Platelet Volume 8.3 6.9-10.8 fL Neutrophils (%) (Auto) 82.5 H 37.0-80.0 % Lymphocytes (%) (Auto) 14.8 10.0-50.0 % Monocytes (%) (Auto) 2.4 0.0-12.0 % Eosinophils (%) (Auto) 0.0 0.0-7.0 % Basophils (%) (Auto) 0.3 0.0-2.0 % Neutrophils # (Auto) 7.0 1.6-8.6 10 ^3/uL Lymphocytes # (Auto) 1.3 0.4-5.4 10 ^3/uL Monocytes # (Auto) 0.2 0-1.3 10 ^3/uL Eosinophils # (Auto) 0 0-0.8 10 ^3/uL Basophils # (Auto) 0 0-0.2 10 ^3/uL Nucleated Red Blood Cells 0.0 % Hemoglobin A1c 6.8 H <5.7 % A1C Sodium Level 139 136-145 mmol/L Potassium Level 4.5 3.5-5.1 mmol/L Chloride Level 106 98-107 mmol/L Carbon Dioxide Level 22 20-31 mmol/L Anion Gap 11 5-15 Blood Urea Nitrogen 22 9-23 mg/dL Creatinine 1.19 0.700-1.30 mg/dL Glomerular Filtration Rate Calc 65 >90 mL/min BUN/Creatinine Ratio 18.5 10.0-20.0 Serum Glucose 181 H 74-106 mg/dL Calcium Level 9.9 8.7-10.4 mg/dL Total Bilirubin 0.6 0.2-1.0 mg/dL Aspartate Amino Transferase (AST) 44 H 13-40 U/L Alanine Aminotransferase (ALT) 45 H 7-40 U/L Alkaline Phosphatase 154 H 46-116 U/L Troponin I High Sensitivity 51 </=54 ng/L Total Protein 7.2 5.7-8.2 g/dL Albumin 4.5 3.2-4.8 g/dL Prothrombin Time 12.0 H 9.3-11.8 sec Prothrombin Time INR 1.15 0.9-1.15 Activated Partial Thromboplast Time 28.8 24.5-34.5 SEC Magnesium Level 1.9 1.6-2.6 mg/dL B-Type Natriuretic Peptide 494.52 0-100 pg/mL Assessment Junctional tachycardia NSTEMI, likely type 2 secondary to above Rule out structural heart disease Hypertension Type 2 diabetes mellitus Tobacco use Amphetamine use Morbid obesity Plan/Recommendation We will continue with the following plan/recommendations (Dr. Rodriguez): * Transthoracic echocardiogram to evaluate cardiac function * Strict intake and output, daily weights, maintain fluid restriction * Continue amiodarone * Consider beta-graeme after patient properly diuresed * Peripheral arterial ultrasound * Check thyroid level * Close cardiac surveillance Case discussed with . Thank you for allowing us to care for this patient. Please call with any questions or concerns. Critical care time spent: 44 minutes This medical document was created using an electronic medical record system with voice recognition software and computerized dictation system. Although this document has been carefully reviewed, there might still be some phonetic and typographical errors. Occasional wrong-word or ``sound-alike substitutions may have occurred due to the inherent limitations of voice recognition software. These areas are purely typographical due to imperfections of the software programs and do not reflect any compromise in the patient's medical care. Please read the chart carefully and recognize, using context, where these substitutions have occurred. Plan discussed with: Patient NYHA Physical activity limitations: Class3(Marked) ordinary (activity causes symtoms) Date of Service: Oct 27, 2024 Billing Provider: LÓPEZ WEBER Cardiology Common Codes: [id number] INP/OBS CARE (High) Cardiology Consultation Codes: [id number] CONSULT <45MIN LÓPEZ WEBER Oct 27, 2024 15:20
[2024-10-27] MEDS ORDERED: METOPROLOL TARTRATE 1MG/1ML-5ML VIAL IV ONE (15:30)
[2024-10-27 15:42] LABS: Urine Protein, UAD Negative (Negative)
[2024-10-27 15:46] LABS: Triglycerides 36 mg/dL (< 150)
[2024-10-27 15:48] LABS: Cholesterol 136 mg/dL (< 200); HDL Cholesterol 36 mg/dL (40-59)
[2024-10-27 15:59] LABS: Cannabinoid Screen, Urine Neg (NEGATIVE)
[2024-10-27 16:00] LABS: Amphetamine Screen, Urine Pos (NEGATIVE); Barbiturate Scree,Urine Neg (NEGATIVE); Benzodiazephine Screen, Urine Neg (NEGATIVE); Cocaine Screen, Urine Neg (NEGATIVE); Opiate Scree,Urine Neg (NEGATIVE); Phencyclidine Screen, Urine Neg (NEGATIVE)
[2024-10-27] MEDS: HYDROcodone-ACET 5/325MG TAB PO PRN (17:39)
[2024-10-27 19:52] LABS: Free T3 2.02 pg/mL (2.3-4.2); Free T4 (Free Thyroxine) 1.11 ng/dL (0.89-1.76)
--- NOTE | 2024-10-27 20:51 | DVH ---
BILATERAL Lower Extremity Arterial Duplex Date: 10/27/2024 07:29 PM Clinical History: rule out PAD Comparison: None Technique: Duplex Doppler evaluation including color Doppler and spectral/pulsed waveform analysis of the lower extremity arteries was performed. Finding: RIGHT: Peak systolic velocities are as follows: PUBLIC HE[employer] AIDE 54 cm/s Deep femoral 26 cm/s SFA proximal 42 cm/s SFA mid-portion 44 cm/s SFA distal 41 cm/s Popliteal 31 cm/s Posterior tibial 82 cm/s Anterior tibial 49 cm/s Dorsalis pedis 71 cm/s The waveforms are triphasic with diastolic flow. Soft tissue edema of the right lower extremity. LEFT: Peak systolic velocities are as follows: PUBLIC HEALTH AIDE 50 cm/s Deep femoral 19 cm/s SFA proximal 42 cm/s SFA mid-portion 49 cm/s SFA distal 46 cm/s Popliteal 31 cm/s Posterior tibial 77 cm/s Anterior tibial 30 cm/s Dorsalis pedis 7 cm/s The waveforms are triphasic with diastolic flow. Soft tissue edema of the left lower extremity. IMPRESSION: There is about 50% stenosis of bilateral posterior tibial arteries based on peak systolic velocity ra tios. Low velocity within the left dorsalis pedis artery which may be from atherosclerotic disease. REFERENCE VALUES, [facility] ([facility]) vascular Imaging Lab Criteria: Peak systolic velocity ranges (in cm/sec) are as follows: <150 cm/s - <20 % stenosis 150-200 cm/s - 20-49% stenosis 200-300 cm/s - 50-75% stenosis >300 cm/s -> 75% stenosis
[2024-10-27] MEDS: ATORVASTATIN 20 MG TAB PO SCH (21:48)
[2024-10-28] VITALS (21 sets, daily range): BP systolic 105–126; BP diastolic 75–91; PULSE 63–124; RESP 16–24; TEMP 97.5–98; O2SAT 92–100
[2024-10-28] MEDS: LEVALBUTEROL HCL 1.25 MG/3 ML NEB NEB ONE (03:28)
[2024-10-28 04:52] LABS: Hemoglobin 13.3 g/dL (13.5-17.5)
[2024-10-28 04:57] LABS: Hematocrit 39.3 % (41.0-53.0); Mean Corpuscular Hemoglobin 31.8 pg (28.0-32.0); Mean Corpuscular Volume 94.2 fL (80.0-100.0); Nucleated Red Blood Cells % 0.2 %
[2024-10-28 05:12] LABS: Alanine Aminotransferase 201 U/L (7-40); Albumin 4.6 g/dL (3.2-4.8); Alkaline Phosphatase 152 U/L (46-116); Anion Gap 10 (5-15); BUN/Creatinine Ratio 24.6 (10.0-20.0); Blood Urea Nitrogen 41 mg/dL (9-23); Calcium 10.2 mg/dL (8.7-10.4); Carbon Dioxide 28 mmol/L (20-31); Chloride 100 mmol/L (98-107); Glucose 132 mg/dL (74-106); Potassium 4.4 mmol/L (3.5-5.1); Sodium 138 mmol/L (136-145); Total Protein 7.3 g/dL (5.7-8.2)
[2024-10-28 05:13] LABS: Bilirubin, Total 0.6 mg/dL (0.2-1.0)
[2024-10-28] MEDS: FAMOTIDINE (10MG/ML) 2ML VL IV ONE (06:33)
[2024-10-28] MEDS: methylPREDNISolone SOD SUCC 125 MG/2 ML VL IV ONE (06:33)
[2024-10-28] MEDS: FAMOTIDINE (10MG/ML) 2ML VL IV SCH (08:39)
[2024-10-28] MEDS: methylPREDNISolone SOD SUCC 40 MG/ML VL IV SCH (08:39)
[2024-10-28 09:10] LABS: Base Excess -3.6 mmol/L (-2.0-3.0)
--- NOTE | 2024-10-28 09:28 | ECG ---
[facility] Test Date: 2024-10-27 Test Time: 12:42:39 Pat Name: ULISES HECTOR Department: Room: [address] [place] [address] Gender: M Zookeeper: Mika MONTGOMERY : 1950 Requested By: LÓPEZ WEBER Order Number: [id number] Reading MD: Alex Rdoriguez Measurements Intervals [place] Rate: 125 P: 0 NV: 107 QRS: -10 QRSD: 100 T: 146 QT: 354 QTc: 511 Interpretive Statements Sinus tachycardia Anterior infarct, old Repol abnrm suggests ischemia, diffuse leads Prolonged QT interval Baseline wander in lead(s) V2 Electronically Signed On 11-01-2024 13:51:40 PDT by Alex Rodriguez Please click the below link to view image of tracing.
--- NOTE | 2024-10-28 09:40 | DVH ---
XY CHEST XRAY 1 VIEW, HISTORY: SOB COMPARISON: XY CHEST PORTABLE on DOS: 10/26/24 XY CHEST PORTABLE on DOS: 10/26/24 TECHNICAL DATA: 1 view of the chest was obtained. FINDINGS: Lines and tubes: None Cardiomediastinal silhouette: Prominent Pulmonary vasculature: Prominent Lung expansion: normal Lung airspace: normal Lung interstitium: normal Pleura: normal Pneumothorax: no Bones: Unremarkable Other: no IMPRESSION: Cardiomegaly with pulmonary congestion.
[2024-10-28] MEDS: FUROSEMIDE 40 MG/4 ML VIAL IV SCH ×2 (09:43→15:52)
[2024-10-28] MEDS: LORazepam 2MG/ML-1ML VIAL IV ONE ×2 (10:38→15:51)
[2024-10-28 12:18] LABS: Base Excess -5.6 mmol/L (-2.0-3.0)
--- NOTE | 2024-10-28 13:39 | DVHPN2 ---
Progress Note - Dictate Date Seen: Oct 28, 2024 Medical Necessity Reason Pt with a Central, PICC or Fol: Yes Subjective Patient complaining of shortness of breath this morning. Crackles are audibly heard. Patient was noted to use BiPAP earlier but removed due to anxiety. vital signs Vital Sign Date Time Temp Pulse Resp B/P (MAP) Pulse Ox O2 Delivery O2 Flow Rate FiO2 10/28/24 10:59 109 98 Facial BiPAP Mask 30 10/28/24 10:00 3 10/28/24 09:43 126/94 10/28/24 09:00 97.9 22 97.9 Total Intake and Output 10/27/24 10/27/24 10/28/24 15:00 23:00 07:00 Intake Total 1016.66 ml 300 ml Output Total 700 ml Balance 1016.66 ml -400 ml medications Current Medications Medications Dose Ordered Sig/Darin Route Start Time Stop Time Status Last Admin Dose Admin Aspirin 81 mg DAILY PO 10/27/24 10:00 10/28/24 08:38 81 MG Atorvastatin Calcium 10 mg HS PO 10/27/24 22:00 10/27/24 21:48 10 MG Carvedilol 12.5 mg Q12HR PO 10/27/24 10:00 10/28/24 08:40 12.5 MG Clonidine HCl 0.1 mg Q4HP PRN PO 10/27/24 02:15 Levalbuterol HCl 0.625 mg Q6HR NEB 10/27/24 06:00 10/28/24 11:23 0.625 MG Sodium Chloride 10 ml Q8HR IV 10/27/24 06:00 10/28/24 06:21 10 ML Acetaminophen/ Hydrocodone Bitart 1 tab Q4HP PRN PO 10/27/24 02:15 10/28/24 10:45 1 TAB Ondansetron HCl 4 mg Q4HP PRN IV 10/27/24 02:15 Docusate Sodium 100 mg BIDPRN PRN PO 10/27/24 02:15 Acetaminophen 650 mg Q6HP PRN PO 10/27/24 02:15 Nitroglycerin 0.4 mg Q5MINP PRN SL 10/27/24 03:15 Morphine Sulfate 2 mg Q30M PRN IV 10/27/24 03:15 Methylprednisolone Sodium Succinate 40 mg BID IV 10/28/24 10:00 10/28/24 08:39 40 MG Famotidine 20 mg Q12HR IV 10/28/24 10:00 10/28/24 08:39 20 MG Furosemide 40 mg BIDD IV 10/28/24 16:00 objective General appearance: Mild distress Respiratory: Coarse crackles. Cardiovascular: Irregular rate and rhythm, no murmurs. No edema Abdomen: Soft, nondistended, nontender, bowel sounds present MSK: Normal range of motion. Neuro: Alert, no neurological deficits Psych: Appropriate mood and affect. laboratory and microbiology Laboratory Tests 10/28/24 04:31 Test 10/28/24 04:31 Range/Units Serum Glucose 132 H 74-106 mg/dL Problem List 1. Atrial Fibrillation with RVR 2. Acute Respiratory Failure, Hypoxia 3. CHF Exacerbation 4. Morbid Obesity with Risk Factors HTN, CHF 5. KEEGAN Plan: - Cardiology consulted TTE pending - Lasix 40 mg IV twice daily - Strict I's and O's - Started due to pulmonary vascular congestion. Ativan given due to anxiety - Pulmonary consulted for BiPAP management -Nephrology consulted due to KEEGAN. Renal US pending. - Cardiac diet - Daily CBC and BMP - Full code Plan discussed with: Patient NIYA PATTEN DO Oct 28, 2024 13:39
[2024-10-28] MEDS: ALBUMIN 25% 50 ML IV ONE (13:40)
--- NOTE | 2024-10-28 15:40 | DVH ---
EXAM DESCRIPTION: RENAL ULTRASOUND CLINICAL HISTORY: KEEGAN COMPARISON: None TECHNIQUE: Multiplanar ultrasound examination of the kidneys and urinary bladder was performed. FINDINGS: Limited exam with poor visualization. The right kidney measures 11.8 cm. No renal calculus. No hydronephrosis.. No solid renal masses. The left kidney measures 11.1 cm. No renal calculus. No hydronephrosis.. No solid renal masses. The echogenicity of the kidneys is within normal limits. The bladder was not visualized. Small volume ascites noted IMPRESSION: Limited exam with poor visualization. 1. Within the limits, the kidneys are unremarkable. 2. The bladder was not visualized 3. Small volume ascities.
[2024-10-28] MEDS ORDERED: FUROSEMIDE 40 MG/4 ML VIAL IV SCH (16:00)
[2024-10-28] MEDS: HALOPERIDOL LACTATE 5 MG/ML INJ VIAL ONE (17:20)
[2024-10-28] MEDS: HALOPERIDOL LACTATE 5 MG/ML INJ VIAL IM ONE (17:38)
--- NOTE | 2024-10-28 17:47 | DVHPN2 ---
Subjective Shortness of breath Pulmonary congestion Changes from previous H/P or p: Changes Eyes: No Pain, No Vision change, No Conjunctivae inflammation, No Eyelid inflammation, No Other, No Redness ENT: No Ear pain, No Ear discharge, No Nose pain, No Nose discharge, No Nose congestion, No Mouth pain, No Mouth swelling, No Throat pain, No Throat swelling, No Other Cardiovascular: No Chest Pain, No Palpitations, No Orthopnea, No Paroxysmal Noc. Dyspnea, No Edema, No Lt Headedness; Other (Atrial fibrillation) Respiratory: No Cough, No Dry; Shortness of breath; No SOB with excertion, No Wheezing, No Hemoptysis, No Pleuritic Pain, No Sputum; Other (SOB, pulmonary congestion) Gastrointestinal: No Nausea, No Vomiting, No Abdominal Pain, No Diarrhea, No Constipation, No Melena, No Hematochezia, No Other Genitourinary: No Dysuria, No Frequency, No Incontinence, No Hematuria, No Retention, No Other Musculoskeletal: No other, No neck pain, No shoulder pain, No arm pain, No back pain, No hand pain, No leg pain, No foot pain Skin: No Rash, No Lesions, No Jaundice, No Bruising, No Other Objective Vitals Vital Signs Date Time Temp Pulse Resp B/P (MAP) Pulse Ox O2 Delivery O2 Flow Rate FiO2 10/28/24 17:00 97.5 115 20 114/80 (91) 99 97.5 10/28/24 13:43 Facial BiPAP Mask 30 10/28/24 10:00 3 Intake/Output Intake and Output 10/28/24 07:00 Intake Total 1316.66 ml Output Total 700 ml Balance 616.66 ml Intake Oral 1100 ml IV Total 216.66 ml Output Urine Total 700 ml # Voids 2 # Bowel Movements 1 General Appearance: moderate distress, Other (Combative) Cardiovascular: Other (Junctional rhythm) Medications Current Medications Medications Dose Ordered Sig/Darin Route Start Time Stop Time Status Last Admin Dose Admin Aspirin 81 mg DAILY PO 10/27/24 10:00 10/28/24 08:38 81 MG Atorvastatin Calcium 10 mg HS PO 10/27/24 22:00 10/27/24 21:48 10 MG Carvedilol 12.5 mg Q12HR PO 10/27/24 10:00 10/28/24 08:40 12.5 MG Clonidine HCl 0.1 mg Q4HP PRN PO 10/27/24 02:15 Levalbuterol HCl 0.625 mg Q6HR NEB 10/27/24 06:00 10/28/24 11:23 0.625 MG Sodium Chloride 10 ml Q8HR IV 10/27/24 06:00 10/28/24 14:02 10 ML Acetaminophen/ Hydrocodone Bitart 1 tab Q4HP PRN PO 10/27/24 02:15 10/28/24 10:45 1 TAB Ondansetron HCl 4 mg Q4HP PRN IV 10/27/24 02:15 Docusate Sodium 100 mg BIDPRN PRN PO 10/27/24 02:15 Acetaminophen 650 mg Q6HP PRN PO 10/27/24 02:15 Nitroglycerin 0.4 mg Q5MINP PRN SL 10/27/24 03:15 Morphine Sulfate 2 mg Q30M PRN IV 10/27/24 03:15 Methylprednisolone Sodium Succinate 40 mg BID IV 10/28/24 10:00 10/28/24 08:39 40 MG Famotidine 20 mg Q12HR IV 10/28/24 10:00 10/28/24 08:39 20 MG Furosemide 40 mg BIDD IV 10/28/24 16:00 10/28/24 15:52 40 MG Laboratory Results Laboratory Tests 10/28/24 04:31 Chemistry Test 10/28/24 04:31 Albumin 4.6 g/dL (3.2-4.8) Calcium Level 10.2 mg/dL (8.7-10.4) Total Protein 7.3 g/dL (5.7-8.2) Coagulation Test 10/28/24 04:31 D-Dimer, Quantitative 1.87 mg/L FEU (0.0-0.49) H Cardiac Markers Test 10/28/24 09:31 B-Type Natriuretic Peptide 333.33 pg/mL (0-100) LFT Test 10/28/24 04:31 Alanine Aminotransferase (ALT) 201 U/L (7-40) H Alkaline Phosphatase 152 U/L (46-116) H Aspartate Amino Transferase (AST) 227 U/L (13-40) H Total Bilirubin 0.6 mg/dL (0.2-1.0) Urinalysis Test 10/27/24 15:22 Urine Color Colorless (Yellow) Urine Clarity Clear (Clear) Urine pH 5.0 (5.0-9.0) Urine Specific [place] 1.006 (1.001-1.035) Urine Protein Negative (Negative) Urine Ketones Negative (Negative) Urine Blood Negative /uL (Negative) Urine Nitrite Negative (Negative) Urine Bilirubin Negative (Negative) Urine Urobilinogen Normal mg/dL (Negative) Urine Leukocyte Esterase Negative /uL (Negative) Urine RBC None seen /hpf (0 - 3) Urine Microscopic WBC < 1 /HPF (0-3) Urine Squamous Epithelial Cells Few /hpf (<5) Urine Bacteria Few /hpf (None Seen) H Urine Glucose Normal mg/dL (Normal) Blood Gas Results Test 10/28/24 09:04 10/28/24 12:12 Arterial Blood pH 7.330 (7.350-7.450) 7.362 (7.350-7.450) FiO2 % 32.0 30.0 Assessment/Plan Assessment/Plan Junctional tachycardia NSTEMI, likely type 2 secondary to above Rule out structural heart disease Hypertension Type 2 diabetes mellitus Tobacco use Amphetamine use Morbid obesity Plan/Recommendation We will continue with the following plan/recommendations (Dr. 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 To further evaluate the severity of aortic stenosis in the setting of reduced EF, a dobutamine stress echocardiogram is planned to assessed contractile reserve and differentiate true severe from pseudo-severe aortic stenosis. A tentative plan is also in place for left and right heart catheterization to obtain definitive hemodynamic measurements and to evaluate coronary anatomy in preparation or possible valve intervention. In the meantime, the patient will continue on furosemide 40 mg b.i.d. for volume management. Renal function and electrolytes will be closely monitored. Continue with close cardiac surveillance. Case discussed with . Thank you for allowing us to care for this patient. Please call with any questions or concerns. Critical care time spent: 44 minutes This medical document was created using an electronic medical record system with voice recognition software and computerized dictation system. Although this document has been carefully reviewed, there might still be some phonetic and typographical errors. Occasional wrong-word or ``sound-alike substitutions may have occurred due to the inherent limitations of voice recognition software. These areas are purely typographical due to imperfections of the software programs and do not reflect any compromise in the patient's medical care. Please read the chart carefully and recognize, using context, where these substitutions have occurred. Plan discussed with: Patient Plan discussed with: Patient Date of Service: Oct 28, 2024 Billing Provider: LOENEL RODRIGUEZ Sr., MD Common Visit Codes: CONSULT ONLY Consultation Codes: 66036-[id number] CONSULT <60MIN SILVANA DAVALOSP Oct 28, 2024 17:47
--- NOTE | 2024-10-28 18:08 | DVHSR ---
APPROVED REPORT EXAM: Two-dimensional and M-mode echocardiogram with Doppler and color Doppler. Blood Pressure: 108/87 mmHg INDICATION CHF EXACERBATION, UNSPECIFIED RISK FACTORS Obesity: Height: 5'10, Weight: 240 DIMENSIONS LVDd5.2 (3.8-5.7cm)LA (2D)4.1 (1.9-4.0cm)Aortic Root3.5 (2.0-3.7cm) LVDs4.8 (2.5-4.0cm)LA (MM) (1.9-4.0cm)Aortic Cusp Exc0.6 (1.5-2.0cm) EF (%) 15.0 (55-70%)Rt. Atrium4.8 (1.9-4.0cm)Asc. Aorta3.4 cm IVSd1.2 (0.7-1.1cm)RV (D)5.5 (1.8-2.4cm) PWd1.5 (0.7-1.1cm) Mitral Valve MitralMitral Stenosis E wave1.01m/sMV Mean GR.2mmHg A wavem/sMV Peak GR.100mmHg E/A ratio0.02D MVAcm2 Aortic Valve Aortic ValveAortic Stenosis V10.58m/Santy Mean GR.18mmHg V22.67m/Santy Peak GR.27mmHg LVOT Diameter2.7 (1.8-2.4cm)Doppler AVA1.24cm2 AI P 1/2 [id number] Pulmonic Valve V20.56m/s Tricuspid Valve TR Velocity2.78m/s [id number] Other Information Quality : Technically LimitedRhythm : Technically limited study due to PT BREATHING HEAVY, body habitus. Conclusion Technically good study. Undetermined rhythm. Left atrial and left ventricular enlargement. Mitral valve appears to be structurally normal. The aortic valve is sclerotic and calcified. There is significantly diminished movement of the aortic leaflets. Notable aortic stenosis present. The t ricuspid and pulmonic or structurally normal. Left ventricular systolic performance is markedly diminished. EF is approximately 20% with severe gl obal hypokinesis. Diminished right ventricular function. There is moderate tricuspid regurgitation. [id number] mitral insufficiency. Noted pulmonary h ypertension. There appears to be a gradient across the aortic valve however 2D imaging suggests sign ificant aortic stenosis. This is consistent with low gradient aortic stenosis with diminished left v entricular function. Clinical correlation recommended. No pericardial effusion masses or vegetations.
[2024-10-28 18:13] LABS: Base Excess -6.5 mmol/L (-2.0-3.0)
--- NOTE | 2024-10-28 22:23 | DVHINCON2 ---
Date of service: Oct 28, 2024 Referring Physician Abram Clement DO Reason for Consultation Acute hypoxic respiratory failure and COPD exacerbation History of Present Illness A 74-year-old man with past medical history of COPD and hypertension who presented to the ED on 10/27/24 with complaint of shortness of breath. Patient reported symptoms progressively worsened with bilateral lower extremity edema, new onset of atrial fibrillation, and increased work of breathing that prompted this visit. Patient initially went to urgent care, where he was noted to have irregular heart rhythm and was transported to [facility] for higher level of care. Patient was seen and evaluated in the ED with heart rate in the 130s, A-flutter, temperature 98.3 F, O2 saturation 99% on oxygen, blood pressure 141/106. Labs showed WBC 10.9, platelets 482, sodium 140, potassium 4.6, BUN 22, creatinine 1.24, glucose 151, calcium 9.6, troponin 60 trending down to 52, AST 43, ALT 44, BNP 494.52. Chest x-ray revealed mild cardiomegaly and mild pulmonary vascular congestion. Patient was admitted for further care. Pulmonary consultation is requested for evaluation and management of acute hypoxic respiratory failure and COPD exacerbation. Review of Systems: 14-point review of systems negative unless otherwise noted above. Past Medical History COPD and hypertension. Past Surgical History Cholecystectomy, Tonsillectomy Medications: Reviewed. Allergies: No known drug allergies. Family History: No family history of premature CAD. No family history of lung disorders. Social History: The patient smokes cigarettes, drinks alcohol occasionally, and uses marijuana. Family History: Diabetes mellitus AUNT Allergies: Coded Allergies: NO KNOWN ALLERGIES (Unverified , 05/31/17) Home Meds Active Scripts Azithromycin (ZITHROMAX TABLET) 250 Mg Tb, 250 MG PO DAILY for 5 Days, #5 TAB 0 Refills Prov:ANAYA MEEK 06/03/17 Cefdinir (Cefdinir) 300 Mg Cap, 1 CAP PO BID, #10 CAP Prov:ANAYA MEEKCP 06/03/17 Current Medications Current Medications Medications (Trade) Dose Ordered Sig/Darin Route PRN Reason Start Time Stop Time Status Last Admin Methylprednisolone Sodium Succinate (Solu Medrol) 40 mg BID IV 10/28/24 10:00 10/28/24 08:39 Famotidine (Pepcid Injection) 20 mg Q12HR IV 10/28/24 10:00 10/28/24 08:39 Furosemide (Lasix Injection) 40 mg BIDD IV 10/28/24 09:45 10/28/24 13:04 DC 10/28/24 09:43 Furosemide (Lasix Injection) 40 mg BIDD IV 10/28/24 16:00 10/28/24 13:09 DC Furosemide (Lasix Injection) 40 mg BIDD IV 10/28/24 16:00 10/28/24 15:52 Vital Signs Vital Signs Date Time Temp Pulse Resp B/P (MAP) Pulse Ox O2 Delivery O2 Flow Rate FiO2 10/28/24 21:20 97.6 112 18 126/91 (103) 95 97.6 10/28/24 20:00 Nasal Cannula* 2 28 Physical Exam Gen.: Patient lying in bed in no apparent distress. On BiPAP Head: Normocephalic, atraumatic. Eyes: EOMI/PERRLA. Ears: Normal hearing. Normal anatomy. Neck/trachea: Trachea midline, supple. Nose: Normal external anatomy. Mouth: Moist mucous membranes. Chest: Decreased air entry bilaterally. No wheezing or rhonchi. Cardiovascular: Positive S1, positive S2. Regular rate and rhythm. Abdomen: Positive bowel sounds in all 4 quadrants. Soft, non-tender, non- distended. : Deferred. Rectal: Deferred. Skin: Warm, dry. Intact. Extremities: 2+ radial pulses bilaterally. No lower extremity edema. Neuro: Awake, alert, oriented x3. No gross motor or sensory deficits. Cranial nerves II through XII intact. Gait not assessed. Labs/Diagnostic Data Labs Test 10/28/24 18:00 10/28/24 12:12 10/28/24 09:31 10/28/24 04:31 Range/Units Blood Gas Specimen Type Arterial Blood Gas Sample Site Right brachial Blood Gas Patient Temperature 37.0 Arterial Blood Date Drawn [id number] Arterial Blood pH 7.274 L 7.350-7.450 Arterial Blood Partial Pressure CO2 44.7 35.0-48.0 mmHg Arterial Blood Partial Pressure O2 80.3 L 83.0-108.0 mmHg Arterial Blood HCO3 20.3 L 21.0-28.0 mmol/L Arterial Blood Oxygen Saturation 92.1 L 94.0-98.0 % Arterial Blood Base Excess -6.5 L -2.0-3.0 mmol/L Arterial Blood Oxyhemoglobin 91.1 L 94.0-98.0 % Arterial Blood Carboxyhemoglobin 0.7 0.5-1.5 % Arterial Blood Methemoglobin 0.4 0.0-1.5 % Cristhian Test N/a Blood Gas Total Hemoglobin 14.00 13.5-17.5 g/dL Blood Gas Liter Flow 2.00 Blood Gas Modality Nasal cannula FiO2 % 28.0 Blood Gas Set Respiration Rate 16.0 Blood Gas EPAP 6 Blood Gas IPAP 14 B-Type Natriuretic Peptide 333.33 0-100 pg/mL White Blood Count 15.4 #H 4.4-10.8 10^3/uL Red Blood Count 4.17 L 4.5-5.90 10^6/uL Hemoglobin 13.3 L 13.5-17.5 g/dL Hematocrit 39.3 L 41.0-53.0 % Mean Corpuscular Volume 94.2 80.0-100.0 fL Mean Corpuscular Hemoglobin 31.8 28.0-32.0 pg Mean Corpuscular Hemoglobin Concent 33.8 32.0-36.0 g/dL Red Cell Distribution Width 14.5 H 11.8-14.3 % Platelet Count 471 H 140-450 10^3/uL Mean Platelet Volume 8.4 6.9-10.8 fL Neutrophils (%) (Auto) 67.8 37.0-80.0 % Lymphocytes (%) (Auto) 20.2 10.0-50.0 % Monocytes (%) (Auto) 11.4 0.0-12.0 % Eosinophils (%) (Auto) 0.1 0.0-7.0 % Basophils (%) (Auto) 0.5 0.0-2.0 % Neutrophils # (Auto) 10.5 H 1.6-8.6 10 ^3/uL Lymphocytes # (Auto) 3.1 0.4-5.4 10 ^3/uL Monocytes # (Auto) 1.8 H 0-1.3 10 ^3/uL Eosinophils # (Auto) 0 0-0.8 10 ^3/uL Basophils # (Auto) 0.1 0-0.2 10 ^3/uL Nucleated Red Blood Cells 0.2 % D-Dimer, Quantitative 1.87 H 0.0-0.49 mg/L FEU Sodium Level 138 136-145 mmol/L Potassium Level 4.4 3.5-5.1 mmol/L Chloride Level 100 98-107 mmol/L Carbon Dioxide Level 28 20-31 mmol/L Anion Gap 10 5-15 Blood Urea Nitrogen 41 #H 9-23 mg/dL Creatinine 1.67 H 0.700-1.30 mg/dL Glomerular Filtration Rate Calc 43 >90 mL/min BUN/Creatinine Ratio 24.6 H 10.0-20.0 Serum Glucose 132 H 74-106 mg/dL Calcium Level 10.2 8.7-10.4 mg/dL Total Bilirubin 0.6 0.2-1.0 mg/dL Aspartate Amino Transferase (AST) 227 H 13-40 U/L Alanine Aminotransferase (ALT) 201 H 7-40 U/L Alkaline Phosphatase 152 H 46-116 U/L Total Protein 7.3 5.7-8.2 g/dL Albumin 4.6 3.2-4.8 g/dL Test 10/27/24 19:24 10/27/24 15:22 10/27/24 08:36 10/27/24 01:30 Range/Units Free Thyroxine (T4) Calculated 1.11 0.89-1.76 ng/dL Free Triiodothyronine (T3) pg/mL 2.02 L 2.3-4.2 pg/mL Urine Color Colorless Yellow Urine Clarity Clear Clear Urine pH 5.0 5.0-9.0 Urine Specific [place] 1.006 1.001-1.035 Urine Protein Negative Negative Urine Ketones Negative Negative Urine Blood Negative Negative /uL Urine Nitrite Negative Negative Urine Bilirubin Negative Negative Urine Urobilinogen Normal Negative mg/dL Urine Leukocyte Esterase Negative Negative /uL Urine RBC None seen 0 - 3 /hpf Urine Microscopic WBC < 1 0-3 /HPF Urine Squamous Epithelial Cells Few <5 /hpf Urine Bacteria Few H None Seen /hpf Urine Glucose Normal Normal mg/dL Urine Opiates Screen Neg NEGATIVE Urine Fentanyl Screen Neg NEGATIVE Urine Barbiturates Screen Neg NEGATIVE Urine Phencyclidine Screen Neg NEGATIVE Urine Amphetamines Screen Pos NEGATIVE Urine Benzodiazepines Screen Neg NEGATIVE Urine Cocaine Screen Neg NEGATIVE Urine Cannabinoids Screen Neg NEGATIVE Hemoglobin A1c 6.8 H <5.7 % A1C Triglycerides Level 36 < 150 mg/dL Cholesterol Level 136 < 200 mg/dL LDL Cholesterol 90 < 100 mg/dL HDL Cholesterol 36 L 40-59 mg/dL Thyroid Stimulating Hormone (TSH) 0.29 L 0.55-4.78 uIU/mL Troponin I High Sensitivity 51 </=54 ng/L Test 10/26/24 22:55 Range/Units Prothrombin Time 12.0 H 9.3-11.8 sec Prothrombin Time INR 1.15 0.9-1.15 Activated Partial Thromboplast Time 28.8 24.5-34.5 SEC Magnesium Level 1.9 1.6-2.6 mg/dL Assessment Impression: Acute hypoxic respiratory failure On NIPPV Atrial fibrillation CHF, possible Dyspnea COPD exacerbation Nicotine dependence Obesity BMI 34.5 Plan: On BiPAP with IPAP 14, EPAP 6, FiO2 30% Titrate to keep O2 sats above 92%. Taper as tolerated, transition to supplemental oxygen Continue bronchodilators. IV steroids On Amiodarone drip for atrial fibrillation Follow up Cardiology recommendations Diurese with Lasix Fluid and salt restriction Monitor renal function. Monitor electrolytes. Supplement as necessary. Monitor ins and outs. Smoking cessation discussed for greater than 10 minutes DVT prophylaxis. Prognosis: Poor given patient's multiple co-morbidities. Rest of plan per hospitalist and other consultants. Thank you, Dr. Clement, for allowing me to participate in this patient's care. Further recommendations will depend on the patient's clinical course. Please do not hesitate to contact me if you have any questions or concerns. This medical document was created using an electronic medical record system with Wengo dictation system. Although these documentations are being carefully reviewed, there may still be some phonetic and typographical changes. The errors are purely typographical, due to imperfection on the software program, and do not reflect any compromise in the patient's medical care. Plan discussed with: Other (VALENTINA Brennan/) DIRK LEVIN MD Oct 28, 2024 22:23
[2024-10-29] VITALS (17 sets, daily range): BP systolic 116–132; BP diastolic 72–94; PULSE 110–117; RESP 17–22; TEMP 97.6–98.3; O2SAT 94–100
[2024-10-29 12:06] LABS: Hematocrit 38.1 % (41.0-53.0); Hemoglobin 12.9 g/dL (13.5-17.5); Mean Corpuscular Hemoglobin 31.7 pg (28.0-32.0); Mean Corpuscular Volume 93.5 fL (80.0-100.0); Nucleated Red Blood Cells % 0.1 %
[2024-10-29 12:25] LABS: Albumin 3.8 g/dL (3.2-4.8); Anion Gap 12 (5-15); BUN/Creatinine Ratio 30.4 (10.0-20.0); Calcium 9.1 mg/dL (8.7-10.4); Carbon Dioxide 27 mmol/L (20-31); Chloride 99 mmol/L (98-107); Potassium 4.1 mmol/L (3.5-5.1); Sodium 138 mmol/L (136-145); Total Protein 6.1 g/dL (5.7-8.2)
[2024-10-29 12:26] LABS: Alkaline Phosphatase 134 U/L (46-116); Bilirubin, Total 0.6 mg/dL (0.2-1.0); Blood Urea Nitrogen 56 mg/dL (9-23); Glucose 229 mg/dL (74-106)
[2024-10-29 12:38] LABS: Alanine Aminotransferase 1794 U/L (7-40)
--- NOTE | 2024-10-29 13:47 | DVHPN2 ---
Progress Note - Dictate Date Seen: Oct 29, 2024 Medical Necessity Reason Pt with a Central, PICC or Fol: Yes Subjective Patient noted to be very agitated yesterday. Responded well to Haldol. Discussed with patient today positive drug screen methamphetamine use. Patient notes she has been using for many years. He notes his last use was several weeks ago. Discussed findings of heart failure and need for methamphetamine cessation which patient was in agreement. vital signs Vital Sign Date Time Temp Pulse Resp B/P (MAP) Pulse Ox O2 Delivery O2 Flow Rate FiO2 10/29/24 13:00 97.9 115 19 121/80 (94) 95 97.9 10/29/24 11:48 Nasal Cannula 3.0 10/29/24 11:48 32 Total Intake and Output 10/28/24 10/28/24 10/29/24 15:00 23:00 07:00 Intake Total 230 ml 200 ml Output Total 500 ml 1275 ml Balance -270 ml -1075 ml medications Current Medications Medications Dose Ordered Sig/Darin Route Start Time Stop Time Status Last Admin Dose Admin Aspirin 81 mg DAILY PO 10/27/24 10:00 10/29/24 09:15 81 MG Atorvastatin Calcium 10 mg HS PO 10/27/24 22:00 10/27/24 21:48 10 MG Carvedilol 12.5 mg Q12HR PO 10/27/24 10:00 10/29/24 09:20 12.5 MG Clonidine HCl 0.1 mg Q4HP PRN PO 10/27/24 02:15 Levalbuterol HCl 0.625 mg Q6HR NEB 10/27/24 06:00 10/29/24 11:48 0.625 MG Sodium Chloride 10 ml Q8HR IV 10/27/24 06:00 10/29/24 06:01 10 ML Acetaminophen/ Hydrocodone Bitart 1 tab Q4HP PRN PO 10/27/24 02:15 10/28/24 10:45 1 TAB Ondansetron HCl 4 mg Q4HP PRN IV 10/27/24 02:15 Docusate Sodium 100 mg BIDPRN PRN PO 10/27/24 02:15 Acetaminophen 650 mg Q6HP PRN PO 10/27/24 02:15 Nitroglycerin 0.4 mg Q5MINP PRN SL 10/27/24 03:15 Morphine Sulfate 2 mg Q30M PRN IV 10/27/24 03:15 Methylprednisolone Sodium Succinate 40 mg BID IV 10/28/24 10:00 10/29/24 09:15 40 MG Famotidine 20 mg Q12HR IV 10/28/24 10:00 10/29/24 09:15 20 MG Furosemide 40 mg BIDD IV 10/28/24 16:00 10/29/24 06:02 40 MG Haloperidol Lactate 2.5 mg ONCE PRN IV 10/29/24 10:05 objective General appearance:Comfortable Respiratory: Crackles Cardiovascular: Irregular rate and rhythm, no murmurs. No edema Abdomen: Soft, nondistended, nontender, bowel sounds present MSK: Normal range of motion. Neuro: Alert, lethargic, A/O x2 name and , not date Psych: Appropriate mood and affect. laboratory and microbiology Laboratory Tests 10/29/24 11:58 Test 10/29/24 11:58 Range/Units Serum Glucose 229 H 74-106 mg/dL Problem List 1. Atrial Fibrillation with RVR 2. Acute Respiratory Failure, Hypoxia 3. CHF Exacerbation 4. Morbid Obesity with Risk Factors HTN, CHF 5. KEEGAN 6. Methamphetamine abuse Plan: - Cardiology consulted - TTE shows end-stage CHF with aortic stenosis. - Lasix 40 mg IV twice daily - Strict I's and O's - Started due to pulmonary vascular congestion. Ativan given due to anxiety. Haldol PRN ordered - Pulmonary consulted for acute respiratory failure. Continue nasal cannula -Nephrology consulted due to KEEGAN. Renal US wnl. Shows some ascites. Renal function worsening today. -Lasix decreased to 40mg IV daily due to worsening KEEGAN. -Counseled on methamphetamine cessation - Cardiac diet - Daily CBC and BMP - Full code Dietary Evaluation Review Recommendations by RD: Dietary education by RD Comments: 1) Initiate MVI @ 1 tb qd 2) Add 60g CCHO restriction to cardiac diet 3) Advise patient to limit intake of added sugars including sugar-sweetened beverages, desserts, candy, etc. Aim for a consistent intake of complex carbohydrates spread throughout the day, paired with protein to promote glycemic control 4) Send order for glucometer to pharmacy. Review ADA SMBG guidelines: 80-130 mg/dL before meals and < 180 mg/dL 2-hr postprandial 5) Encourage optimal PO intake 6) Refer to outpatient RD/[facility] for diabetes education and weight management 7) Follow-up with cardiology, pulmonology, and nephrology 8) Follow-upw with delinquency prevention social worker r/t substance abuse 9) Continue to monitor I&O, labs, and skin integrity Expected Outcomes/Goals: 1) appetite and labs to improve 2) wound to improve 3) f/u in 3-5 days Plan discussed with: Patient NIYA PATTEN DO Oct 29, 2024 13:47
[2024-10-29 16:25] LABS: Urine Protein, UAD Negative (Negative)
[2024-10-29] MEDS: HALOPERIDOL LACTATE 5 MG/ML INJ VIAL IV PRN (16:35)
--- NOTE | 2024-10-29 18:04 | DVHINCON2 ---
Date of service: Oct 29, 2024 Referring Physician Urbano Reason for Consultation Elevated RFT History of Present Illness 74-year-old male with history of COPD, HTN, Type 2 diabetes, chief complaint of dyspnea and worsening BLE edema. Was admitted with a diagnosis of new onset A- Fib, CHF. The patient reports he was in urgent care, and the provider recommended he go the hospital due to irregular heart rhythm. The patient also has history of HTN x1 year has not been controlled. The patient reports history of meth use. The patient denies history of CKD. Although he reports he does not follow up with PCP regularly. The patient denies NSAID use. Denies issues including gross hematuria. On admission patient presented with creatinine 1.24, GFR 62. Repeat labs on 10/29 BUN 56 creatinine 1.84, GFR 38. The patient is currently on per furosemide cardiology recommendations. Consult received for elevated RFT Past Medical History COPD, HTN Allergies: Coded Allergies: NO KNOWN ALLERGIES (Unverified , 05/31/17) Home Meds Active Scripts Azithromycin (ZITHROMAX TABLET) 250 Mg Tb, 250 MG PO DAILY for 5 Days, #5 TAB 0 Refills Prov:ANAYA MEEK 06/03/17 Cefdinir (Cefdinir) 300 Mg Cap, 1 CAP PO BID, #10 CAP Prov:ANAYA MEEKCP 06/03/17 Current Medications Current Medications Medications (Trade) Dose Ordered Sig/Darin Route PRN Reason Start Time Stop Time Status Last Admin Haloperidol Lactate (Haldol) 2.5 mg ONCE PRN IV AGITATION 10/29/24 10:05 10/29/24 16:35 Furosemide (Lasix Injection) 40 mg DAILY IV 10/30/24 10:00 Family History: Diabetes mellitus AUNT Review of Systems 10 systems reviewed and negative except as per HPI H&P Exam Vital Signs/I&O Vital Sign Date Time Temp Pulse Resp B/P (MAP) Pulse Ox O2 Delivery O2 Flow Rate FiO2 10/29/24 17:04 115 19 100 10/29/24 17:04 98.2 118/94 (102) 98.2 10/29/24 16:58 Nasal Cannula* 3 32 Intake and Output 10/28/24 10/29/24 19:00 07:00 Intake Total 230 ml 200 ml Output Total 500 ml 1275 ml Balance -270 ml -1075 ml Intake Oral 0 ml 0 ml IV Total 230 ml 200 ml Output Urine Total 500 ml 1275 ml Physical Exam Gen: Appears stated age, NAD HEENT: PERRLA, mucous membranes moist. Lungs: Bilateral air entry, wheezing Heart: Irregular rate and rhythm Abd: Soft, nondistended, normoactive bowel sounds Ext: BLE edema Neuro: Alert and oriented x4 Labs/Diagnostic Data Labs/Diagnostic Data Laboratory Tests Test 10/29/24 15:25 10/29/24 11:58 10/28/24 18:00 10/28/24 12:12 Range/Units Urine Color Yellow Yellow Urine Clarity Clear Clear Urine pH 5.0 5.0-9.0 Urine Specific [place] 1.018 1.001-1.035 Urine Protein Negative Negative Urine Ketones Negative Negative Urine Blood 2+ H Negative /uL Urine Nitrite Negative Negative Urine Bilirubin Negative Negative Urine Urobilinogen Normal Negative mg/dL Urine Leukocyte Esterase Negative Negative /uL Urine RBC 8 0 - 3 /hpf Urine Microscopic WBC 3 0-3 /HPF Urine Squamous Epithelial Cells Few <5 /hpf Urine Bacteria None seen None Seen /hpf Urine Hyaline Casts Few 0 - 2 /lpf Urine Mucus Few None Seen Urine Creatinine 88.52 30.0-125.0 mg/dL Urine Sodium < 10 L 40-220 mmol/L Urine Glucose Normal Normal mg/dL White Blood Count 10.7 # 4.4-10.8 10^3/uL Red Blood Count 4.08 L 4.5-5.90 10^6/uL Hemoglobin 12.9 L 13.5-17.5 g/dL Hematocrit 38.1 L 41.0-53.0 % Mean Corpuscular Volume 93.5 80.0-100.0 fL Mean Corpuscular Hemoglobin 31.7 28.0-32.0 pg Mean Corpuscular Hemoglobin Concent 33.9 32.0-36.0 g/dL Red Cell Distribution Width 14.6 H 11.8-14.3 % Platelet Count 376 140-450 10^3/uL Mean Platelet Volume 8.3 6.9-10.8 fL Neutrophils (%) (Auto) 87.2 H 37.0-80.0 % Lymphocytes (%) (Auto) 6.3 L 10.0-50.0 % Monocytes (%) (Auto) 6.5 0.0-12.0 % Eosinophils (%) (Auto) 0.0 0.0-7.0 % Basophils (%) (Auto) 0.0 0.0-2.0 % Neutrophils # (Auto) 9.4 H 1.6-8.6 10 ^3/uL Lymphocytes # (Auto) 0.7 0.4-5.4 10 ^3/uL Monocytes # (Auto) 0.7 0-1.3 10 ^3/uL Eosinophils # (Auto) 0 0-0.8 10 ^3/uL Basophils # (Auto) 0 0-0.2 10 ^3/uL Nucleated Red Blood Cells 0.1 % Sodium Level 138 136-145 mmol/L Potassium Level 4.1 3.5-5.1 mmol/L Chloride Level 99 98-107 mmol/L Carbon Dioxide Level 27 20-31 mmol/L Anion Gap 12 5-15 Blood Urea Nitrogen 56 #H 9-23 mg/dL Creatinine 1.84 H 0.700-1.30 mg/dL Glomerular Filtration Rate Calc 38 >90 mL/min BUN/Creatinine Ratio 30.4 H 10.0-20.0 Serum Glucose 229 H 74-106 mg/dL Calcium Level 9.1 8.7-10.4 mg/dL Total Bilirubin 0.6 0.2-1.0 mg/dL Aspartate Amino Transferase (AST) 1550 H 13-40 U/L Alanine Aminotransferase (ALT) 1794 H 7-40 U/L Alkaline Phosphatase 134 H 46-116 U/L Total Protein 6.1 5.7-8.2 g/dL Albumin 3.8 3.2-4.8 g/dL Blood Gas Specimen Type Arterial Arterial Blood Gas Sample Site Right brachial Left radial Blood Gas Patient Temperature 37.0 37.0 Arterial Blood Date Drawn [id number] Arterial Blood pH 7.274 L 7.362 7.350-7.450 Arterial Blood Partial Pressure CO2 44.7 34.1 L 35.0-48.0 mmHg Arterial Blood Partial Pressure O2 80.3 L 75.5 L 83.0-108.0 mmHg Arterial Blood HCO3 20.3 L 18.9 L 21.0-28.0 mmol/L Arterial Blood Oxygen Saturation 92.1 L 92.2 L 94.0-98.0 % Arterial Blood Base Excess -6.5 L -5.6 L -2.0-3.0 mmol/L Arterial Blood Oxyhemoglobin 91.1 L 91.5 L 94.0-98.0 % Arterial Blood Carboxyhemoglobin 0.7 0.6 0.5-1.5 % Arterial Blood Methemoglobin 0.4 0.2 0.0-1.5 % Cristhian Test N/a Yes Blood Gas Total Hemoglobin 14.00 14.20 13.5-17.5 g/dL Blood Gas Liter Flow 2.00 Blood Gas Modality Nasal cannula Mask - bipap FiO2 % 28.0 30.0 Blood Gas Set Respiration Rate 16.0 Blood Gas EPAP 6 Blood Gas IPAP 14 Test 10/28/24 09:31 10/28/24 09:04 10/28/24 04:31 10/27/24 19:24 Range/Units B-Type Natriuretic Peptide 333.33 0-100 pg/mL Blood Gas Specimen Type Arterial Blood Gas Sample Site Left radial Blood Gas Patient Temperature 37.0 Arterial Blood Date Drawn [id number] Arterial Blood pH 7.330 L 7.350-7.450 Arterial Blood Partial Pressure CO2 43.1 35.0-48.0 mmHg Arterial Blood Partial Pressure O2 80.6 L 83.0-108.0 mmHg Arterial Blood HCO3 22.2 21.0-28.0 mmol/L Arterial Blood Oxygen Saturation 93.1 L 94.0-98.0 % Arterial Blood Base Excess -3.6 L -2.0-3.0 mmol/L Arterial Blood Oxyhemoglobin 92.1 L 94.0-98.0 % Arterial Blood Carboxyhemoglobin 0.7 0.5-1.5 % Arterial Blood Methemoglobin 0.4 0.0-1.5 % Cristhian Test Yes Blood Gas Total Hemoglobin 14.00 13.5-17.5 g/dL Blood Gas Liter Flow 3.00 Blood Gas Modality Nasal cannula FiO2 % 32.0 White Blood Count 15.4 #H 4.4-10.8 10^3/uL Red Blood Count 4.17 L 4.5-5.90 10^6/uL Hemoglobin 13.3 L 13.5-17.5 g/dL Hematocrit 39.3 L 41.0-53.0 % Mean Corpuscular Volume 94.2 80.0-100.0 fL Mean Corpuscular Hemoglobin 31.8 28.0-32.0 pg Mean Corpuscular Hemoglobin Concent 33.8 32.0-36.0 g/dL Red Cell Distribution Width 14.5 H 11.8-14.3 % Platelet Count 471 H 140-450 10^3/uL Mean Platelet Volume 8.4 6.9-10.8 fL Neutrophils (%) (Auto) 67.8 37.0-80.0 % Lymphocytes (%) (Auto) 20.2 10.0-50.0 % Monocytes (%) (Auto) 11.4 0.0-12.0 % Eosinophils (%) (Auto) 0.1 0.0-7.0 % Basophils (%) (Auto) 0.5 0.0-2.0 % Neutrophils # (Auto) 10.5 H 1.6-8.6 10 ^3/uL Lymphocytes # (Auto) 3.1 0.4-5.4 10 ^3/uL Monocytes # (Auto) 1.8 H 0-1.3 10 ^3/uL Eosinophils # (Auto) 0 0-0.8 10 ^3/uL Basophils # (Auto) 0.1 0-0.2 10 ^3/uL Nucleated Red Blood Cells 0.2 % D-Dimer, Quantitative 1.87 H 0.0-0.49 mg/L FEU Sodium Level 138 136-145 mmol/L Potassium Level 4.4 3.5-5.1 mmol/L Chloride Level 100 98-107 mmol/L Carbon Dioxide Level 28 20-31 mmol/L Anion Gap 10 5-15 Blood Urea Nitrogen 41 #H 9-23 mg/dL Creatinine 1.67 H 0.700-1.30 mg/dL Glomerular Filtration Rate Calc 43 >90 mL/min BUN/Creatinine Ratio 24.6 H 10.0-20.0 Serum Glucose 132 H 74-106 mg/dL Calcium Level 10.2 8.7-10.4 mg/dL Total Bilirubin 0.6 0.2-1.0 mg/dL Aspartate Amino Transferase (AST) 227 H 13-40 U/L Alanine Aminotransferase (ALT) 201 H 7-40 U/L Alkaline Phosphatase 152 H 46-116 U/L Total Protein 7.3 5.7-8.2 g/dL Albumin 4.6 3.2-4.8 g/dL Free Thyroxine (T4) Calculated 1.11 0.89-1.76 ng/dL Free Triiodothyronine (T3) pg/mL 2.02 L 2.3-4.2 pg/mL Test 10/27/24 15:22 10/27/24 08:36 10/27/24 01:30 10/26/24 23:48 Range/Units Urine Color Colorless Yellow Urine Clarity Clear Clear Urine pH 5.0 5.0-9.0 Urine Specific [place] 1.006 1.001-1.035 Urine Protein Negative Negative Urine Ketones Negative Negative Urine Blood Negative Negative /uL Urine Nitrite Negative Negative Urine Bilirubin Negative Negative Urine Urobilinogen Normal Negative mg/dL Urine Leukocyte Esterase Negative Negative /uL Urine RBC None seen 0 - 3 /hpf Urine Microscopic WBC < 1 0-3 /HPF Urine Squamous Epithelial Cells Few <5 /hpf Urine Bacteria Few H None Seen /hpf Urine Glucose Normal Normal mg/dL Urine Opiates Screen Neg NEGATIVE Urine Fentanyl Screen Neg NEGATIVE Urine Barbiturates Screen Neg NEGATIVE Urine Phencyclidine Screen Neg NEGATIVE Urine Amphetamines Screen Pos NEGATIVE Urine Benzodiazepines Screen Neg NEGATIVE Urine Cocaine Screen Neg NEGATIVE Urine Cannabinoids Screen Neg NEGATIVE White Blood Count 8.5 4.4-10.8 10^3/uL Red Blood Count 3.92 L 4.5-5.90 10^6/uL Hemoglobin 12.5 L 13.5-17.5 g/dL Hematocrit 37.2 L 41.0-53.0 % Mean Corpuscular Volume 94.8 80.0-100.0 fL Mean Corpuscular Hemoglobin 31.9 28.0-32.0 pg Mean Corpuscular Hemoglobin Concent 33.7 32.0-36.0 g/dL Red Cell Distribution Width 14.6 H 11.8-14.3 % Platelet Count 468 H 140-450 10^3/uL Mean Platelet Volume 8.3 6.9-10.8 fL Neutrophils (%) (Auto) 82.5 H 37.0-80.0 % Lymphocytes (%) (Auto) 14.8 10.0-50.0 % Monocytes (%) (Auto) 2.4 0.0-12.0 % Eosinophils (%) (Auto) 0.0 0.0-7.0 % Basophils (%) (Auto) 0.3 0.0-2.0 % Neutrophils # (Auto) 7.0 1.6-8.6 10 ^3/uL Lymphocytes # (Auto) 1.3 0.4-5.4 10 ^3/uL Monocytes # (Auto) 0.2 0-1.3 10 ^3/uL Eosinophils # (Auto) 0 0-0.8 10 ^3/uL Basophils # (Auto) 0 0-0.2 10 ^3/uL Nucleated Red Blood Cells 0.0 % Hemoglobin A1c 6.8 H <5.7 % A1C Triglycerides Level 36 < 150 mg/dL Cholesterol Level 136 < 200 mg/dL LDL Cholesterol 90 < 100 mg/dL HDL Cholesterol 36 L 40-59 mg/dL Thyroid Stimulating Hormone (TSH) 0.29 L 0.55-4.78 uIU/mL Sodium Level 139 136-145 mmol/L Potassium Level 4.5 3.5-5.1 mmol/L Chloride Level 106 98-107 mmol/L Carbon Dioxide Level 22 20-31 mmol/L Anion Gap 11 5-15 Blood Urea Nitrogen 22 9-23 mg/dL Creatinine 1.19 0.700-1.30 mg/dL Glomerular Filtration Rate Calc 65 >90 mL/min BUN/Creatinine Ratio 18.5 10.0-20.0 Serum Glucose 181 H 74-106 mg/dL Calcium Level 9.9 8.7-10.4 mg/dL Total Bilirubin 0.6 0.2-1.0 mg/dL Aspartate Amino Transferase (AST) 44 H 13-40 U/L Alanine Aminotransferase (ALT) 45 H 7-40 U/L Alkaline Phosphatase 154 H 46-116 U/L Troponin I High Sensitivity 51 52 </=54 ng/L Total Protein 7.2 5.7-8.2 g/dL Albumin 4.5 3.2-4.8 g/dL Test 10/26/24 22:55 Range/Units White Blood Count 10.9 H 4.4-10.8 10^3/uL Red Blood Count 4.23 L 4.5-5.90 10^6/uL Hemoglobin 13.6 13.5-17.5 g/dL Hematocrit 40.4 L 41.0-53.0 % Mean Corpuscular Volume 95.5 80.0-100.0 fL Mean Corpuscular Hemoglobin 32.2 H 28.0-32.0 pg Mean Corpuscular Hemoglobin Concent 33.7 32.0-36.0 g/dL Red Cell Distribution Width 14.8 H 11.8-14.3 % Platelet Count 482 H 140-450 10^3/uL Mean Platelet Volume 8.0 6.9-10.8 fL Neutrophils (%) (Auto) 85.5 H 37.0-80.0 % Lymphocytes (%) (Auto) 11.4 10.0-50.0 % Monocytes (%) (Auto) 2.4 0.0-12.0 % Eosinophils (%) (Auto) 0.3 0.0-7.0 % Basophils (%) (Auto) 0.4 0.0-2.0 % Neutrophils # (Auto) 9.3 H 1.6-8.6 10 ^3/uL Lymphocytes # (Auto) 1.2 0.4-5.4 10 ^3/uL Monocytes # (Auto) 0.3 0-1.3 10 ^3/uL Eosinophils # (Auto) 0 0-0.8 10 ^3/uL Basophils # (Auto) 0 0-0.2 10 ^3/uL Nucleated Red Blood Cells 0.0 % Prothrombin Time 12.0 H 9.3-11.8 sec Prothrombin Time INR 1.15 0.9-1.15 Activated Partial Thromboplast Time 28.8 24.5-34.5 SEC Sodium Level 142 136-145 mmol/L Potassium Level 4.6 3.5-5.1 mmol/L Chloride Level 105 98-107 mmol/L Carbon Dioxide Level 26 20-31 mmol/L Anion Gap 11 5-15 Blood Urea Nitrogen 22 9-23 mg/dL Creatinine 1.24 0.700-1.30 mg/dL Glomerular Filtration Rate Calc 62 >90 mL/min BUN/Creatinine Ratio 17.7 10.0-20.0 Serum Glucose 151 H 74-106 mg/dL Calcium Level 9.6 8.7-10.4 mg/dL Magnesium Level 1.9 1.6-2.6 mg/dL Total Bilirubin 0.8 0.2-1.0 mg/dL Aspartate Amino Transferase (AST) 43 H 13-40 U/L Alanine Aminotransferase (ALT) 44 H 7-40 U/L Alkaline Phosphatase 171 H 46-116 U/L Troponin I High Sensitivity 60 *H </=54 ng/L B-Type Natriuretic Peptide 494.52 0-100 pg/mL Total Protein 7.7 5.7-8.2 g/dL Albumin 4.8 3.2-4.8 g/dL Plan/Recommendation IMP 1. KEEGAN hemodynamically mediated on CKD-baseline serum creatinine unknown to this medical writer 2. CHF 3. New onset AFib 4. History of HTN-not well-controlled 5. History of meth use 6. COPD 7. Type 2 diabetes REC -serial chemistry panels -CBC with differential, phos, uric acid, UA, urine creatinine, urine sodium -renal ultrasound -agree with the use of loop diuretics to achieve ECF volume -cardiology on board -blood pressure control, glycemic control -avoidance of nephrotoxins during time course of KEEGAN -avoidance of contrast studies if able -strict I&Os Thank you for the consultation Case discussed with Dr. Henrik Francois Plan discussed with: Patient [facility] Oct 29, 2024 18:04
--- NOTE | 2024-10-29 20:44 | DVHPN2 ---
Subjective Denies chest pain or shortness of breath No cardiac event reported Changes from previous H/P or p: No Changes Eyes: No Pain, No Vision change, No Conjunctivae inflammation, No Eyelid inflammation, No Other, No Redness ENT: No Ear pain, No Ear discharge, No Nose pain, No Nose discharge, No Nose congestion, No Mouth pain, No Mouth swelling, No Throat pain, No Throat swelling, No Other Cardiovascular: No Chest Pain, No Palpitations, No Orthopnea, No Paroxysmal Noc. Dyspnea, No Edema, No Lt Headedness; Other (Atrial fibrillation) Respiratory: No Cough, No Dry; Shortness of breath; No SOB with excertion, No Wheezing, No Hemoptysis, No Pleuritic Pain, No Sputum; Other Gastrointestinal: No Nausea, No Vomiting, No Abdominal Pain, No Diarrhea, No Constipation, No Melena, No Hematochezia, No Other Genitourinary: No Dysuria, No Frequency, No Incontinence, No Hematuria, No Retention, No Other Musculoskeletal: No other, No neck pain, No shoulder pain, No arm pain, No back pain, No hand pain, No leg pain, No foot pain Skin: No Rash, No Lesions, No Jaundice, No Bruising, No Other Objective Vitals Vital Signs Date Time Temp Pulse Resp B/P (MAP) Pulse Ox O2 Delivery O2 Flow Rate FiO2 10/29/24 20:08 97 Nasal Cannula* 2 28 10/29/24 17:04 115 19 10/29/24 17:04 98.2 118/94 (102) 98.2 Intake/Output Intake and Output 10/29/24 07:00 Intake Total 430 ml Output Total 1775 ml Balance -1345 ml Intake Oral 0 ml IV Total 430 ml Output Urine Total 1775 ml General Appearance: moderate distress, Other (Combative) Cardiovascular: Other (Atrial ) Medications Current Medications Medications Dose Ordered Sig/Darin Route Start Time Stop Time Status Last Admin Dose Admin Aspirin 81 mg DAILY PO 10/27/24 10:00 10/29/24 09:15 81 MG Atorvastatin Calcium 10 mg HS PO 10/27/24 22:00 10/27/24 21:48 10 MG Carvedilol 12.5 mg Q12HR PO 10/27/24 10:00 10/29/24 09:20 12.5 MG Clonidine HCl 0.1 mg Q4HP PRN PO 10/27/24 02:15 Levalbuterol HCl 0.625 mg Q6HR NEB 10/27/24 06:00 10/29/24 16:58 0.625 MG Sodium Chloride 10 ml Q8HR IV 10/27/24 06:00 10/29/24 14:30 10 ML Acetaminophen/ Hydrocodone Bitart 1 tab Q4HP PRN PO 10/27/24 02:15 10/28/24 10:45 1 TAB Ondansetron HCl 4 mg Q4HP PRN IV 10/27/24 02:15 Docusate Sodium 100 mg BIDPRN PRN PO 10/27/24 02:15 Acetaminophen 650 mg Q6HP PRN PO 10/27/24 02:15 Nitroglycerin 0.4 mg Q5MINP PRN SL 10/27/24 03:15 Morphine Sulfate 2 mg Q30M PRN IV 10/27/24 03:15 Methylprednisolone Sodium Succinate 40 mg BID IV 10/28/24 10:00 10/29/24 09:15 40 MG Famotidine 20 mg Q12HR IV 10/28/24 10:00 10/29/24 09:15 20 MG Haloperidol Lactate 2.5 mg ONCE PRN IV 10/29/24 10:05 10/29/24 16:35 2.5 MG Furosemide 40 mg DAILY IV 10/30/24 10:00 Laboratory Results Laboratory Tests 10/29/24 11:58 Chemistry Test 10/29/24 11:58 Albumin 3.8 g/dL (3.2-4.8) Calcium Level 9.1 mg/dL (8.7-10.4) Total Protein 6.1 g/dL (5.7-8.2) LFT Test 10/29/24 11:58 Alanine Aminotransferase (ALT) 1794 U/L (7-40) H Alkaline Phosphatase 134 U/L (46-116) H Aspartate Amino Transferase (AST) 1550 U/L (13-40) H Total Bilirubin 0.6 mg/dL (0.2-1.0) Urinalysis Test 10/29/24 15:25 Urine Color Yellow (Yellow) Urine Clarity Clear (Clear) Urine pH 5.0 (5.0-9.0) Urine Specific [place] 1.018 (1.001-1.035) Urine Protein Negative (Negative) Urine Ketones Negative (Negative) Urine Blood 2+ /uL (Negative) H Urine Nitrite Negative (Negative) Urine Bilirubin Negative (Negative) Urine Urobilinogen Normal mg/dL (Negative) Urine Leukocyte Esterase Negative /uL (Negative) Urine RBC 8 /hpf (0 - 3) Urine Microscopic WBC 3 /HPF (0-3) Urine Squamous Epithelial Cells Few /hpf (<5) Urine Bacteria None seen /hpf (None Seen) Urine Hyaline Casts Few /lpf (0 - 2) Urine Mucus Few (None Seen) Urine Creatinine 88.52 mg/dL (30.0-125.0) Urine Sodium < 10 mmol/L (40-220) L Urine Glucose Normal mg/dL (Normal) Assessment/Plan Assessment/Plan Junctional tachycardia NSTEMI, likely type 2 secondary to above Rule out structural heart disease Hypertension Type 2 diabetes mellitus Tobacco use Amphetamine use Morbid obesity Plan/Recommendation We will continue with the following plan/recommendations (Dr. Rodriguez): 10/29/24 -- A-flutter 115. Continue with carvedilol, amiodarone drip, and Lasix 40mg qd. Monitor kidney function closely. 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 To further evaluate the severity of aortic stenosis in the setting of reduced EF, a dobutamine stress echocardiogram is planned to assessed contractile reserve and differentiate true severe from pseudo-severe aortic stenosis. A tentative plan is also in place for left and right heart catheterization to obtain definitive hemodynamic measurements and to evaluate coronary anatomy in preparation or possible valve intervention. In the meantime, the patient will continue on furosemide 40 mg b.i.d. for volume management. Renal function and electrolytes will be closely monitored. Continue with close cardiac surveillance. Case discussed with . Thank you for allowing us to care for this patient. Please call with any questions or concerns. Critical care time spent: 44 minutes This medical document was created using an electronic medical record system with voice recognition software and computerized dictation system. Although this document has been carefully reviewed, there might still be some phonetic and typographical errors. Occasional wrong-word or ``sound-alike substitutions may have occurred due to the inherent limitations of voice recognition software. These areas are purely typographical due to imperfections of the software programs and do not reflect any compromise in the patient's medical care. Please read the chart carefully and recognize, using context, where these substitutions have occurred. Plan discussed with: Patient Plan discussed with: Patient Date of Service: Oct 29, 2024 Billing Provider: LEONEL RODRIGUEZ Sr., MD Common Visit Codes: CONSULT ONLY Consultation Codes: [id number] CONSULT <45MIN [facility] CONSULTANT Oct 29, 2024 20:44
[2024-10-29] MEDS: LORazepam 2MG/ML-1ML VIAL IV ONE (23:33)
--- NOTE | 2024-10-29 23:37 | DVHPN2 ---
Progress Note - Dictate Date Seen: Oct 29, 2024 Medical Necessity Reason Pt with a Central, PICC or Fol: Yes The following are medically ne: Shah Catheter Reason for shah catheter: Strict I&O Subjective Patient seen and examined at bedside. Currently on supplemental oxygen Overnight events reviewed. vital signs Vital Sign Date Time Temp Pulse Resp B/P (MAP) Pulse Ox O2 Delivery O2 Flow Rate FiO2 10/29/24 22:21 117 125/92 10/29/24 21:00 98.3 22 99 98.3 10/29/24 20:08 Nasal Cannula* 2 28 Total Intake and Output 10/28/24 10/28/24 10/29/24 15:00 23:00 07:00 Intake Total 230 ml 200 ml Output Total 500 ml 1275 ml Balance -270 ml -1075 ml medications Current Medications Medications Dose Ordered Sig/Darin Route Start Time Stop Time Status Last Admin Dose Admin Aspirin 81 mg DAILY PO 10/27/24 10:00 10/29/24 09:15 81 MG Atorvastatin Calcium 10 mg HS PO 10/27/24 22:00 10/29/24 21:21 10 MG Carvedilol 12.5 mg Q12HR PO 10/27/24 10:00 10/29/24 21:21 12.5 MG Clonidine HCl 0.1 mg Q4HP PRN PO 10/27/24 02:15 Levalbuterol HCl 0.625 mg Q6HR NEB 10/27/24 06:00 10/29/24 16:58 0.625 MG Sodium Chloride 10 ml Q8HR IV 10/27/24 06:00 10/29/24 21:21 10 ML Acetaminophen/ Hydrocodone Bitart 1 tab Q4HP PRN PO 10/27/24 02:15 10/28/24 10:45 1 TAB Ondansetron HCl 4 mg Q4HP PRN IV 10/27/24 02:15 Docusate Sodium 100 mg BIDPRN PRN PO 10/27/24 02:15 Acetaminophen 650 mg Q6HP PRN PO 10/27/24 02:15 Nitroglycerin 0.4 mg Q5MINP PRN SL 10/27/24 03:15 Morphine Sulfate 2 mg Q30M PRN IV 10/27/24 03:15 Methylprednisolone Sodium Succinate 40 mg BID IV 10/28/24 10:00 10/29/24 21:20 40 MG Famotidine 20 mg Q12HR IV 10/28/24 10:00 10/29/24 21:21 20 MG Haloperidol Lactate 2.5 mg ONCE PRN IV 10/29/24 10:05 10/29/24 16:35 2.5 MG Furosemide 40 mg DAILY IV 10/30/24 10:00 objective Gen.: Patient lying in bed in no apparent distress. On supplemental oxygen Head: Normocephalic, atraumatic. Eyes: EOMI/PERRLA. Ears: Normal hearing. Normal anatomy. Neck/trachea: Trachea midline, supple. Nose: Normal external anatomy. Mouth: Moist mucous membranes. Chest: Decreased air entry bilaterally. No wheezing or rhonchi. Cardiovascular: Positive S1, positive S2. Regular rate and rhythm. Abdomen: Positive bowel sounds in all 4 quadrants. Soft, non-tender, non- distended. : Deferred. Rectal: Deferred. Skin: Warm, dry. Intact. Extremities: 2+ radial pulses bilaterally. No lower extremity edema. Neuro: Awake, alert, oriented x3. No gross motor or sensory deficits. Cranial nerves II through XII intact. Gait not assessed. laboratory and microbiology Laboratory Tests 10/29/24 11:58 Test 10/29/24 11:58 Range/Units Serum Glucose 229 H 74-106 mg/dL Assessment/Plan Impression: Acute hypoxic respiratory failure Dependence on supplemental oxygen Atrial fibrillation CHF, possible Dyspnea COPD exacerbation Nicotine dependence Events: Off BiPAP Currently on supplemental oxygen at 3 LPM NC Taper O2 as tolerated Patient received Haldol Maintaining 1:1 sitter for safety. Continue bronchodilators - on Xopenex due to tachycardia IV steroids Amiodarone drip for AFib Follow up Cardiology recs Plan for stress echo Pepcid for GI prophylaxis Labs and imaging reviewed. Rest of plan as noted below. Plan: Supplemental oxygen Titrate to keep O2 sats above 92%. Continue bronchodilators. IV steroids On Amiodarone drip for atrial fibrillation Follow up Cardiology recommendations Diurese with Lasix Fluid and salt restriction Monitor renal function. Monitor electrolytes. Supplement as necessary. Monitor ins and outs. Smoking cessation discussed for greater than 10 minutes DVT prophylaxis. Prognosis: Poor given patient's multiple co-morbidities. Rest of plan per hospitalist and other consultants. Thank you, Dr. Clement, for allowing me to participate in this patient's care. Further recommendations will depend on the patient's clinical course. Please do not hesitate to contact me if you have any questions or concerns. This medical document was created using an electronic medical record system with [employer] dictation system. Although these documentations are being carefully reviewed, there may still be some phonetic and typographical changes. The errors are purely typographical, due to imperfection on the software program, and do not reflect any compromise in the patient's medical care. Dietary Evaluation Review Recommendations by RD: Dietary education by RD Comments: 1) Initiate MVI @ 1 tb qd 2) Add 60g CCHO restriction to cardiac diet 3) Advise patient to limit intake of added sugars including sugar-sweetened beverages, desserts, candy, etc. Aim for a consistent intake of complex carbohydrates spread throughout the day, paired with protein to promote glycemic control 4) Send order for glucometer to pharmacy. Review ADA SMBG guidelines: 80-130 mg/dL before meals and < 180 mg/dL 2-hr postprandial 5) Encourage optimal PO intake 6) Refer to outpatient RD/CDCES for diabetes education and weight management 7) Follow-up with cardiology, pulmonology, and nephrology 8) Follow-upw with social media strategist r/t substance abuse 9) Continue to monitor I&O, labs, and skin integrity Expected Outcomes/Goals: 1) appetite and labs to improve 2) wound to improve 3) f/u in 3-5 days Plan discussed with: Patient, Other (VALENTINA Miller) DIRK LEVIN MD Oct 29, 2024 23:37
[2024-10-30] VITALS (18 sets, daily range): BP systolic 118–159; BP diastolic 74–100; PULSE 115–119; RESP 18–22; TEMP 97.3–98.4; O2SAT 94–99
[2024-10-30 07:07] LABS: Hematocrit 38.8 % (41.0-53.0); Hemoglobin 13.1 g/dL (13.5-17.5); Mean Corpuscular Hemoglobin 32.1 pg (28.0-32.0); Mean Corpuscular Volume 95.2 fL (80.0-100.0); Nucleated Red Blood Cells % 0.0 %
[2024-10-30 07:13] LABS: Albumin 3.9 g/dL (3.2-4.8); Anion Gap 8 (5-15); BUN/Creatinine Ratio 32.7 (10.0-20.0); Bilirubin, Total 0.5 mg/dL (0.2-1.0); Carbon Dioxide 28 mmol/L (20-31); Chloride 101 mmol/L (98-107); Potassium 4.4 mmol/L (3.5-5.1); Sodium 137 mmol/L (136-145); Total Protein 6.3 g/dL (5.7-8.2)
[2024-10-30 07:27] LABS: Alanine Aminotransferase 1491 U/L (7-40); Alkaline Phosphatase 139 U/L (46-116); Blood Urea Nitrogen 50 mg/dL (9-23); Calcium 8.6 mg/dL (8.7-10.4); Glucose 198 mg/dL (74-106); Uric Acid 13.1 mg/dL (3.7-9.2)
[2024-10-30] MEDS: FUROSEMIDE 40 MG/4 ML VIAL IV SCH (08:52)
[2024-10-30] MEDS: HYALURONIDASE 150 UNIT/1 ML SUBCUT ONE (11:35)
--- NOTE | 2024-10-30 13:20 | DVHPN2 ---
Progress Note - Dictate Date Seen: Oct 30, 2024 Medical Necessity Reason Pt with a Central, PICC or Fol: Yes The following are medically ne: Shah Catheter Reason for shah catheter: Strict I&O Subjective Patient comfortable this AM. No overnight events. vital signs Vital Sign Date Time Temp Pulse Resp B/P (MAP) Pulse Ox O2 Delivery O2 Flow Rate FiO2 10/30/24 11:26 118 18 99 10/30/24 11:20 Nasal Cannula* 2 10/30/24 09:53 128/98 10/30/24 09:00 97.6 97.6 Total Intake and Output 10/29/24 10/29/24 10/30/24 15:00 23:00 07:00 Intake Total 866 ml 410 ml Output Total 1400 ml 750 ml Balance -534 ml -340 ml medications Current Medications Medications Dose Ordered Sig/Darin Route Start Time Stop Time Status Last Admin Dose Admin Aspirin 81 mg DAILY PO 10/27/24 10:00 10/30/24 08:53 81 MG Atorvastatin Calcium 10 mg HS PO 10/27/24 22:00 10/29/24 21:21 10 MG Clonidine HCl 0.1 mg Q4HP PRN PO 10/27/24 02:15 Levalbuterol HCl 0.625 mg Q6HR NEB 10/27/24 06:00 10/30/24 11:20 0.625 MG Sodium Chloride 10 ml Q8HR IV 10/27/24 06:00 10/30/24 06:42 10 ML Acetaminophen/ Hydrocodone Bitart 1 tab Q4HP PRN PO 10/27/24 02:15 10/30/24 08:54 1 TAB Ondansetron HCl 4 mg Q4HP PRN IV 10/27/24 02:15 Docusate Sodium 100 mg BIDPRN PRN PO 10/27/24 02:15 Acetaminophen 650 mg Q6HP PRN PO 10/27/24 02:15 Nitroglycerin 0.4 mg Q5MINP PRN SL 10/27/24 03:15 Morphine Sulfate 2 mg Q30M PRN IV 10/27/24 03:15 Methylprednisolone Sodium Succinate 40 mg BID IV 10/28/24 10:00 10/30/24 08:50 40 MG Famotidine 20 mg Q12HR IV 10/28/24 10:00 10/30/24 08:50 20 MG Furosemide 40 mg DAILY IV 10/30/24 10:00 10/30/24 08:52 40 MG Lorazepam 1 mg Q6HP PRN IV 10/30/24 09:45 Carvedilol 25 mg Q12HR PO 10/30/24 18:00 UNV objective General appearance:Comfortable Respiratory: Fine basilar crackles Cardiovascular: Irregular rate and rhythm, no murmurs. No edema Abdomen: Soft, nondistended, nontender, bowel sounds present MSK: Normal range of motion. Neuro: Alert Psych: Appropriate mood and affect. laboratory and microbiology Laboratory Tests 10/30/24 05:30 Test 10/30/24 05:30 Range/Units Serum Glucose 198 H 74-106 mg/dL Problem List 1. Atrial Fibrillation with RVR 2. Acute Respiratory Failure, Hypoxia 3. CHF Exacerbation 4. Morbid Obesity with Risk Factors HTN, CHF 5. KEEGAN 6. Methamphetamine abuse Plan: - Cardiology consulted - TTE shows end-stage CHF with aortic stenosis. - Lasix 40 mg IV once daily - Strict I's and O's - Ativan PRN for agitation. - Pulmonary consulted for acute respiratory failure. Continue nasal cannula. Home oxygen ordered. -Nephrology consulted due to KEEGAN. Renal US wnl. Shows some ascites. Renal function stable today. -Counseled on methamphetamine cessation - Cardiac diet -Coreg increased to 25mg BID due to tachycardia - Daily CBC and BMP - Full code Dietary Evaluation Review Recommendations by RD: Dietary education by RD Comments: 1) Initiate MVI @ 1 tb qd 2) Add 60g CCHO restriction to cardiac diet 3) Advise patient to limit intake of added sugars including sugar-sweetened beverages, desserts, candy, etc. Aim for a consistent intake of complex carbohydrates spread throughout the day, paired with protein to promote glycemic control 4) Send order for glucometer to pharmacy. Review ADA SMBG guidelines: 80-130 mg/dL before meals and < 180 mg/dL 2-hr postprandial 5) Encourage optimal PO intake 6) Refer to outpatient RD/CDCES for diabetes education and weight management 7) Follow-up with cardiology, pulmonology, and nephrology 8) Follow-upw with social sciences professor r/t substance abuse 9) Continue to monitor I&O, labs, and skin integrity Expected Outcomes/Goals: 1) appetite and labs to improve 2) wound to improve 3) f/u in 3-5 days Plan discussed with: Patient SANDORNIYA Ortiz DO Oct 30, 2024 13:20
[2024-10-30] MEDS: CARVEDILOL 12.5 MG TAB PO ONE (14:13)
--- NOTE | 2024-10-30 15:19 | DVHPN2 ---
Progress Note Date Seen: Oct 30, 2024 Medical Necessity Reason Pt with a Central, PICC or Fol: Yes The following are medically ne: Shah Catheter Reason for shah catheter: Strict I&O Subjective Patient reports: No new complaints Review of Systems: Deferred Objective vital signs Vital Sign Date Time Temp Pulse Resp B/P (MAP) Pulse Ox O2 Delivery O2 Flow Rate FiO2 10/30/24 14:13 115 132/80 10/30/24 13:00 98.4 18 96 98.4 10/30/24 11:20 Nasal Cannula* 2 28 Total Intake and Output 10/29/24 10/29/24 10/30/24 15:00 23:00 07:00 Intake Total 866 ml 410 ml Output Total 1400 ml 750 ml Balance -534 ml -340 ml medications Current Medications Medications Dose Ordered Sig/Darin Route Start Time Stop Time Status Last Admin Dose Admin Aspirin 81 mg DAILY PO 10/27/24 10:00 10/30/24 08:53 81 MG Atorvastatin Calcium 10 mg HS PO 10/27/24 22:00 10/29/24 21:21 10 MG Clonidine HCl 0.1 mg Q4HP PRN PO 10/27/24 02:15 Levalbuterol HCl 0.625 mg Q6HR NEB 10/27/24 06:00 10/30/24 11:20 0.625 MG Sodium Chloride 10 ml Q8HR IV 10/27/24 06:00 10/30/24 13:32 10 ML Acetaminophen/ Hydrocodone Bitart 1 tab Q4HP PRN PO 10/27/24 02:15 10/30/24 08:54 1 TAB Ondansetron HCl 4 mg Q4HP PRN IV 10/27/24 02:15 Docusate Sodium 100 mg BIDPRN PRN PO 10/27/24 02:15 Acetaminophen 650 mg Q6HP PRN PO 10/27/24 02:15 Nitroglycerin 0.4 mg Q5MINP PRN SL 10/27/24 03:15 Morphine Sulfate 2 mg Q30M PRN IV 10/27/24 03:15 Methylprednisolone Sodium Succinate 40 mg BID IV 10/28/24 10:00 10/30/24 08:50 40 MG Famotidine 20 mg Q12HR IV 10/28/24 10:00 10/30/24 08:50 20 MG Furosemide 40 mg DAILY IV 10/30/24 10:00 10/30/24 08:52 40 MG Lorazepam 1 mg Q6HP PRN IV 10/30/24 09:45 Carvedilol 25 mg Q12HR PO 10/30/24 22:00 Examination: GENERAL:Normal, CVS:Abnormal, MSK:Normal, NEURO:Normal laboratory and microbiology Laboratory Tests 10/30/24 05:30 Test 10/30/24 05:30 Range/Units Serum Glucose 198 H 74-106 mg/dL Problem List/Assessment/Plan Problem List/Assessment/Plan 1. KEEGAN hemodynamically mediated on CKD-baseline serum creatinine unknown 2. CHF 3. New onset AFib 4. History of HTN-not well-controlled 5. History of meth use 6. COPD 7. Type 2 diabetes recs On IV Lasix Renal function stable We will follow closely Plan discussed with: Patient Dietary Evaluation Review Recommendations by RD: Dietary education by RD Comments: 1) Initiate MVI @ 1 tb qd 2) Add 60g CCHO restriction to cardiac diet 3) Advise patient to limit intake of added sugars including sugar-sweetened beverages, desserts, candy, etc. Aim for a consistent intake of complex carbohydrates spread throughout the day, paired with protein to promote glycemic control 4) Send order for glucometer to pharmacy. Review ADA SMBG guidelines: 80-130 mg/dL before meals and < 180 mg/dL 2-hr postprandial 5) Encourage optimal PO intake 6) Refer to outpatient RD/CDCES for diabetes education and weight management 7) Follow-up with cardiology, pulmonology, and nephrology 8) Follow-upw with high school social science teacher r/t substance abuse 9) Continue to monitor I&O, labs, and skin integrity Expected Outcomes/Goals: 1) appetite and labs to improve 2) wound to improve 3) f/u in 3-5 days REE RIOS MD Oct 30, 2024 15:19
[2024-10-30] MEDS: LORazepam 2MG/ML-1ML VIAL IV PRN (15:48)
[2024-10-30] MEDS: BUMETANIDE 1mg/4ml VIAL (0.25mg/ml) IV ONE (15:48)
[2024-10-30] MEDS: NICOTINE 21MG/24 HR TOPICAL PATCH TD SCH (19:48)
[2024-10-30] MEDS: BUDESONIDE (INHALATION) 0.5 MG/2 ML NEB NEB SCH (19:54)
--- NOTE | 2024-10-30 20:00 | DVH ---
COMPUTERIZED TOMOGRAPHY OF THE HEAD WITHOUT CONTRAST REASON FOR STUDY: AMS COMPARISON: None TECHNIQUE: Helical tomographic scans were obtained through the brain. 2-D coronal and sagittal refor matted images are provided. Radiation optimization: All CT scans at this facility use at least one of these dose optimization techniques: Automated exposure control mA and/or kV adjustment per patient s ize (includes targeted exams where dose is matched to clinical indication) or iterative reconstructio n. RADIATION DOSE: CTDI: 61 mGy DLP: 1472 mGy-cm FINDINGS: Evaluation is degraded by motion artifact. No suspicious intracranial hyperdensity to sugge st acute blood. 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 There is no mass effect no r midline shift. There is mild generalized volume loss with compensatory enlargement of the CSF space s. There is no hydrocephalus. The suprasellar cistern is intact. There are scattered periventricular and deep white matter hypodensities that are most consistent with chronic microangiopathic changes. T he calvarium is intact. The visualized mastoid air cells and paranasal sinuses are clear. IMPRESSION: No acute intracranial abnormality within the limitations of motion artifact. Mild generalized volume loss with chronic small vessel ischemic change.
[2024-10-30] MEDS: CARVEDILOL 12.5 MG TAB PO SCH (21:30)
--- NOTE | 2024-10-30 21:59 | DVHPN2 ---
Progress Note - Dictate Date Seen: Oct 30, 2024 Medical Necessity Reason Pt with a Central, PICC or Fol: Yes The following are medically ne: Shah Catheter Reason for shah catheter: Strict I&O Subjective Patient seen and examined at bedside. Remains on supplemental oxygen Overnight events reviewed. vital signs Vital Sign Date Time Temp Pulse Resp B/P (MAP) Pulse Ox O2 Delivery O2 Flow Rate FiO2 10/30/24 21:30 115 120/87 10/30/24 20:15 20 97 Nasal Cannula* 2 10/30/24 17:00 98.0 98.0 Total Intake and Output 10/29/24 10/29/24 10/30/24 15:00 23:00 07:00 Intake Total 866 ml 410 ml Output Total 1400 ml 750 ml Balance -534 ml -340 ml medications Current Medications Medications Dose Ordered Sig/Darin Route Start Time Stop Time Status Last Admin Dose Admin Aspirin 81 mg DAILY PO 10/27/24 10:00 10/30/24 08:53 81 MG Atorvastatin Calcium 10 mg HS PO 10/27/24 22:00 10/30/24 21:31 10 MG Clonidine HCl 0.1 mg Q4HP PRN PO 10/27/24 02:15 Levalbuterol HCl 0.625 mg Q6HR NEB 10/27/24 06:00 10/30/24 19:54 0.625 MG Sodium Chloride 10 ml Q8HR IV 10/27/24 06:00 10/30/24 21:30 10 ML Acetaminophen/ Hydrocodone Bitart 1 tab Q4HP PRN PO 10/27/24 02:15 10/30/24 19:34 1 TAB Ondansetron HCl 4 mg Q4HP PRN IV 10/27/24 02:15 Docusate Sodium 100 mg BIDPRN PRN PO 10/27/24 02:15 Acetaminophen 650 mg Q6HP PRN PO 10/27/24 02:15 Nitroglycerin 0.4 mg Q5MINP PRN SL 10/27/24 03:15 Morphine Sulfate 2 mg Q30M PRN IV 10/27/24 03:15 Methylprednisolone Sodium Succinate 40 mg BID IV 10/28/24 10:00 10/30/24 21:30 40 MG Famotidine 20 mg Q12HR IV 10/28/24 10:00 10/30/24 21:30 20 MG Furosemide 40 mg DAILY IV 10/30/24 10:00 10/30/24 08:52 40 MG Lorazepam 1 mg Q6HP PRN IV 10/30/24 09:45 10/30/24 15:48 1 MG Carvedilol 25 mg Q12HR PO 10/30/24 22:00 10/30/24 21:30 25 MG Budesonide 0.5 mg BID NEB 10/30/24 22:00 10/30/24 19:54 0.5 MG Lorazepam 2 mg ONCE PRN IV 10/30/24 18:00 Nicotine 1 patch DAILY TD 10/30/24 19:45 10/30/24 19:48 1 PATCH objective Gen.: Patient lying in bed in no apparent distress. On supplemental oxygen Head: Normocephalic, atraumatic. Eyes: EOMI/PERRLA. Ears: Normal hearing. Normal anatomy. Neck/trachea: Trachea midline, supple. Nose: Normal external anatomy. Mouth: Moist mucous membranes. Chest: Decreased air entry bilaterally. Wheezing heard. No rhonchi. Cardiovascular: Positive S1, positive S2. Regular rate and rhythm. Abdomen: Positive bowel sounds in all 4 quadrants. Soft, non-tender, non- distended. : Deferred. Rectal: Deferred. Skin: Warm, dry. Intact. Extremities: 2+ radial pulses bilaterally. No lower extremity edema. Neuro: Awake, alert, oriented x3. No gross motor or sensory deficits. Cranial nerves II through XII intact. Gait not assessed. laboratory and microbiology Laboratory Tests 10/30/24 05:30 Test 10/30/24 05:30 Range/Units Serum Glucose 198 H 74-106 mg/dL Assessment/Plan Impression: Acute hypoxic respiratory failure Dependence on supplemental oxygen Atrial fibrillation CHF, possible Dyspnea COPD exacerbation Nicotine dependence Obesity BMI 34.5 Events: Remains on supplemental oxygen at 3 LPM NC Taper O2 as tolerated Maintaining 1:1 sitter for safety. Received Haldol yesterday. Continue bronchodilators - on Xopenex due to tachycardia Wheezing - on IV steroids Start Pulmicort 0.5 mg q.12 hours. Blood pressure control Amiodarone drip for AFib Follow up Cardiology recs Awaiting stress echocardiogram. Pepcid for GI prophylaxis Diurese with Bumex and Lasix Monitor renal function Monitor ins and outs Shah removed. Obtain chest x-ray in AM to assess for interval changes. Labs and imaging reviewed. Rest of plan as noted below. Plan: Supplemental oxygen Titrate to keep O2 sats above 92%. Continue bronchodilators. IV steroids On Amiodarone drip for atrial fibrillation Follow up Cardiology recommendations Diurese to euvolemia Fluid and salt restriction Monitor renal function. Monitor electrolytes. Supplement as necessary. Monitor ins and outs. Smoking cessation discussed for greater than 10 minutes DVT prophylaxis. Prognosis: Poor given patient's multiple co-morbidities. Rest of plan per hospitalist and other consultants. Thank you, Dr. Clement, for allowing me to participate in this patient's care. Further recommendations will depend on the patient's clinical course. Please do not hesitate to contact me if you have any questions or concerns. This medical document was created using an electronic medical record system with [employer] system. Although these documentations are being carefully reviewed, there may still be some phonetic and typographical changes. The errors are purely typographical, due to imperfection on the software program, and do not reflect any compromise in the patient's medical care. Dietary Evaluation Review Recommendations by RD: Dietary education by RD Comments: 1) Initiate MVI @ 1 tb qd 2) Add 60g CCHO restriction to cardiac diet 3) Advise patient to limit intake of added sugars including sugar-sweetened beverages, desserts, candy, etc. Aim for a consistent intake of complex carbohydrates spread throughout the day, paired with protein to promote glycemic control 4) Send order for glucometer to pharmacy. Review ADA SMBG guidelines: 80-130 mg/dL before meals and < 180 mg/dL 2-hr postprandial 5) Encourage optimal PO intake 6) Refer to outpatient RD/CDCES for diabetes education and weight management 7) Follow-up with cardiology, pulmonology, and nephrology 8) Follow-upw with social insurance specialist r/t substance abuse 9) Continue to monitor I&O, labs, and skin integrity Expected Outcomes/Goals: 1) appetite and labs to improve 2) wound to improve 3) f/u in 3-5 days Plan discussed with: Patient, Other (VALENTINA Hart) DIRK LEVIN MD Oct 30, 2024 21:59
[2024-10-31] VITALS (15 sets, daily range): BP systolic 102–135; BP diastolic 61–85; PULSE 68–121; RESP 17–22; TEMP 97.1–97.6; O2SAT 94–100
[2024-10-31] MEDS: LORazepam 2MG/ML-1ML VIAL IV PRN (04:24)
--- NOTE | 2024-10-31 06:28 | DVH ---
CHEST RADIOGRAPH Indication: Interval changes Technique: Single frontal view of the chest was obtained COMPARISON: XY CHEST XRAY 1 VIEW on DOS: 10/28/24, XY CHEST PORTABLE on DOS: 10/26/24 FINDINGS: Lines and Tubes: None Lungs: New mild right hemidiaphragmatic elevation. Right basilar pulmonary airspace disease and/or pl eural effusion is not excluded. The left lung is clear. No pneumothorax. Cardiomediastinal contours: Unremarkable Bones: Unremarkable IMPRESSION: 1. Right hemidiaphragmatic elevation with question of right basilar pulmonary airspace disease and/or pleural effusion.
[2024-10-31 07:36] LABS: Alanine Aminotransferase 911 U/L (7-40); Albumin 3.9 g/dL (3.2-4.8); Alkaline Phosphatase 131 U/L (46-116); Anion Gap 12 (5-15); BUN/Creatinine Ratio 29.7 (10.0-20.0); Bilirubin, Total 0.5 mg/dL (0.2-1.0); Blood Urea Nitrogen 58 mg/dL (9-23); Calcium 9.5 mg/dL (8.7-10.4); Carbon Dioxide 27 mmol/L (20-31); Chloride 96 mmol/L (98-107); Glucose 317 mg/dL (74-106); Potassium 4.4 mmol/L (3.5-5.1); Sodium 135 mmol/L (136-145); Total Protein 6.1 g/dL (5.7-8.2)
[2024-10-31] MEDS ORDERED: DEXTROSE (50%) 50ML SYRG IV PRN (09:00)
[2024-10-31] MEDS: ALBUMIN 25% 100 ML IV ONE (10:36)
[2024-10-31] MEDS: methylPREDNISolone SOD SUCC 40 MG/ML VL IV SCH (10:37)
--- NOTE | 2024-10-31 11:20 | DVHPN2 ---
Progress Note - Dictate Date Seen: Oct 31, 2024 Medical Necessity Reason Pt with a Central, PICC or Fol: Yes The following are medically ne: Shah Catheter Reason for shah catheter: Strict I&O Subjective Patient noted to have episodes of confusion and agitation overnight. vital signs Vital Sign Date Time Temp Pulse Resp B/P (MAP) Pulse Ox O2 Delivery O2 Flow Rate FiO2 10/31/24 10:37 114 155/78 10/31/24 08:58 97.2 18 100 97.2 10/31/24 06:21 Nasal Cannula 5.0 10/31/24 06:21 40 Total Intake and Output 10/30/24 10/30/24 10/31/24 15:00 23:00 07:00 Intake Total 200 ml 800 ml 1000 ml Output Total 950 ml 700 ml Balance 200 ml -150 ml 300 ml medications Current Medications Medications Dose Ordered Sig/Darin Route Start Time Stop Time Status Last Admin Dose Admin Aspirin 81 mg DAILY PO 10/27/24 10:00 10/30/24 08:53 81 MG Atorvastatin Calcium 10 mg HS PO 10/27/24 22:00 10/30/24 21:31 10 MG Clonidine HCl 0.1 mg Q4HP PRN PO 10/27/24 02:15 Levalbuterol HCl 0.625 mg Q6HR NEB 10/27/24 06:00 10/31/24 06:21 0.625 MG Sodium Chloride 10 ml Q8HR IV 10/27/24 06:00 10/31/24 05:00 10 ML Acetaminophen/ Hydrocodone Bitart 1 tab Q4HP PRN PO 10/27/24 02:15 10/31/24 02:47 1 TAB Ondansetron HCl 4 mg Q4HP PRN IV 10/27/24 02:15 Docusate Sodium 100 mg BIDPRN PRN PO 10/27/24 02:15 Acetaminophen 650 mg Q6HP PRN PO 10/27/24 02:15 Nitroglycerin 0.4 mg Q5MINP PRN SL 10/27/24 03:15 Morphine Sulfate 2 mg Q30M PRN IV 10/27/24 03:15 Famotidine 20 mg Q12HR IV 10/28/24 10:00 10/31/24 10:36 20 MG Furosemide 40 mg DAILY IV 10/30/24 10:00 10/31/24 10:36 40 MG Lorazepam 1 mg Q6HP PRN IV 10/30/24 09:45 10/31/24 10:54 1 MG Carvedilol 25 mg Q12HR PO 10/30/24 22:00 10/30/24 21:30 25 MG Budesonide 0.5 mg BID NEB 10/30/24 22:00 10/31/24 06:21 0.5 MG Lorazepam 2 mg ONCE PRN IV 10/30/24 18:00 10/31/24 04:24 2 MG Nicotine 1 patch DAILY TD 10/30/24 19:45 10/30/24 19:48 1 PATCH Methylprednisolone Sodium Succinate 40 mg DAILY IV 10/31/24 10:00 10/31/24 10:37 40 MG Diagnostic Test (Pha) 1 strip ACHS 10/31/24 11:30 Insulin Human Regular ACHS SC 10/31/24 11:30 Dextrose 50 ml UD PRN IV 10/31/24 09:00 objective General appearance:Comfortable Respiratory: Fine basilar crackles Cardiovascular: Irregular rate and rhythm, no murmurs. No edema Abdomen: Soft, nondistended, nontender, bowel sounds present MSK: Normal range of motion. Neuro: Alert Psych: Appropriate mood and affect. laboratory and microbiology Laboratory Tests 10/31/24 06:05 10/30/24 05:30 Test 10/31/24 06:05 Range/Units Serum Glucose 317 #H 74-106 mg/dL Problem List 1. Atrial Fibrillation with RVR 2. Acute Respiratory Failure, Hypoxia 3. CHF Exacerbation 4. Morbid Obesity with Risk Factors HTN, CHF 5. KEEGAN 6. Methamphetamine abuse 7. Metabolic Encephalopathy Plan: - Cardiology consulted - TTE shows end-stage CHF with aortic stenosis. - Lasix 40 mg IV once daily - Strict I's and O's - Ativan PRN for agitation. - Pulmonary consulted for acute respiratory failure. Continue nasal cannula. Home oxygen ordered. -Nephrology consulted due to KEEGAN. Renal US wnl. Shows some ascites. Renal function worsening likely exacerbated by diuresis. -Counseled on methamphetamine cessation - Cardiac diet -Coreg increased to 25mg BID due to tachycardia -CT Brain WO contrast done, negative. Confusion multifactorial due to drug use, uremia, hypoxia. -PT eval ordered -Blood cultures ordered due to tachycardia -Solumedrol decreased. Accuchecks ordered with ICS. -Ativan PRN for agitation - Daily CBC and BMP - Full code Dietary Evaluation Review Recommendations by RD: Dietary education by RD Comments: 1) Initiate MVI @ 1 tb qd 2) Add 60g CCHO restriction to cardiac diet 3) Advise patient to limit intake of added sugars including sugar-sweetened beverages, desserts, candy, etc. Aim for a consistent intake of complex carbohydrates spread throughout the day, paired with protein to promote glycemic control 4) Send order for glucometer to pharmacy. Review ADA SMBG guidelines: 80-130 mg/dL before meals and < 180 mg/dL 2-hr postprandial 5) Encourage optimal PO intake 6) Refer to outpatient RD/CDCES for diabetes education and weight management 7) Follow-up with cardiology, pulmonology, and nephrology 8) Follow-upw with social media manager r/t substance abuse 9) Continue to monitor I&O, labs, and skin integrity Expected Outcomes/Goals: 1) appetite and labs to improve 2) wound to improve 3) f/u in 3-5 days Plan discussed with: Other NIYA PATTEN DO Oct 31, 2024 11:20
[2024-10-31] MEDS: InsuLIN REG 1unit/0.01ml Soln (100units/ml) SC SCH (11:30)
[2024-10-31] MEDS: ACCU-CHEK COMFORT CURVE STRIP VI SCH (11:30)
--- NOTE | 2024-10-31 11:56 | DVH ---
CHEST RADIOGRAPH Indication: SOB Technique: Single frontal view of the chest was obtained Comparison: XY CHEST XRAY 1 VIEW on DOS: 10/31/24, XY CHEST XRAY 1 VIEW on DOS: 10/28/24, XY CHEST PORT ABLE on DOS: 10/26/24 FINDINGS: Lines and Tubes: None Lungs: No focal consolidation. Pleura: No effusion. No pneumothorax. Cardiomediastinal contours: Cardiomegaly Bones: No acute osseous abnormality. IMPRESSION: Cardiomgealy with chf
--- NOTE | 2024-10-31 14:28 | DVHPN2 ---
Consult Progress Note Subjective Other Systems: The patient became combative overnight. The patient having episodes of confusion Objective vital signs Vital Sign Date Time Temp Pulse Resp B/P (MAP) Pulse Ox O2 Delivery O2 Flow Rate FiO2 10/31/24 11:37 120 20 100 10/31/24 11:31 Nasal Cannula* 5 40 10/31/24 10:37 155/78 10/31/24 08:58 97.2 97.2 Total Intake and Output 10/30/24 10/30/24 10/31/24 15:00 23:00 07:00 Intake Total 200 ml 800 ml 1000 ml Output Total 950 ml 700 ml Balance 200 ml -150 ml 300 ml medications Current Medications Medications Dose Ordered Sig/Darin Route Start Time Stop Time Status Last Admin Dose Admin Aspirin 81 mg DAILY PO 10/27/24 10:00 10/30/24 08:53 81 MG Atorvastatin Calcium 10 mg HS PO 10/27/24 22:00 10/30/24 21:31 10 MG Clonidine HCl 0.1 mg Q4HP PRN PO 10/27/24 02:15 Levalbuterol HCl 0.625 mg Q6HR NEB 10/27/24 06:00 10/31/24 11:31 0.625 MG Sodium Chloride 10 ml Q8HR IV 10/27/24 06:00 10/31/24 14:16 10 ML Acetaminophen/ Hydrocodone Bitart 1 tab Q4HP PRN PO 10/27/24 02:15 10/31/24 02:47 1 TAB Ondansetron HCl 4 mg Q4HP PRN IV 10/27/24 02:15 Docusate Sodium 100 mg BIDPRN PRN PO 10/27/24 02:15 Acetaminophen 650 mg Q6HP PRN PO 10/27/24 02:15 Nitroglycerin 0.4 mg Q5MINP PRN SL 10/27/24 03:15 Morphine Sulfate 2 mg Q30M PRN IV 10/27/24 03:15 Famotidine 20 mg Q12HR IV 10/28/24 10:00 10/31/24 10:36 20 MG Lorazepam 1 mg Q6HP PRN IV 10/30/24 09:45 10/31/24 10:54 1 MG Carvedilol 25 mg Q12HR PO 10/30/24 22:00 10/30/24 21:30 25 MG Budesonide 0.5 mg BID NEB 10/30/24 22:00 10/31/24 06:21 0.5 MG Lorazepam 2 mg ONCE PRN IV 10/30/24 18:00 10/31/24 04:24 2 MG Nicotine 1 patch DAILY TD 10/30/24 19:45 10/30/24 19:48 1 PATCH Methylprednisolone Sodium Succinate 40 mg DAILY IV 10/31/24 10:00 10/31/24 10:37 40 MG Diagnostic Test (Pha) 1 strip ACHS 10/31/24 11:30 Insulin Human Regular ACHS SC 10/31/24 11:30 Dextrose 50 ml UD PRN IV 10/31/24 09:00 Furosemide 40 mg BID IV 10/31/24 22:00 Examination: LUNGS:Normal, CVS:Abnormal (Atrial flutter), NEURO:Abnormal (Confused) laboratory and microbiology Laboratory Tests 10/31/24 06:05 10/30/24 05:30 Test 10/31/24 06:05 Range/Units Serum Glucose 317 #H 74-106 mg/dL Problem List/Assessment/Plan Problem List/Assessment/Plan Atrial flutter, new onset Junctional tachycardia NSTEMI, likely type 2 secondary to above Moderate tricuspid valve regurgitation Hypertension Type 2 diabetes mellitus Pulmonary hypertension Tobacco use Amphetamine use Morbid obesity Plan/recommendations (Dr. Rodriguez): Case discussed with Dr. Rodriguez. A transthoracic echocardiogram reveals an EF of approximately 20% with severe global hypokinesis, RVSP 51 mmHg. There are also findings to suggest low gradient aortic valve stenosis. Given these findings, the patient is recommended to undergo a dobutamine stress echocardiogram. The patient became combative overnight and altered this morning, this patient not an ideal candidate at this time to undergo procedure. In the meantime, continue guideline directed medical therapy for CHF as renal function permits. Initiate ARNI with improved creatinine function. Hold off on MRA (spironolactone) at this time given worsening renal function. Hold off on SGLT2i, given low GFR at this time. Consider left and right heart catheterization eventually to obtain definitive hemodynamic measurements and evaluate coronary anatomy. [id number] score: 3 points, HAS-BLED: 1 point. Initiate therapeutic Lovenox, consider transitioning to NOAC therapy when appropriate. Continue amiodarone drip. Continue beta-graeme for rate control. Continue with close cardiac surveillance. Thank you for allowing us to care for this patient. Please call with any questions or concerns. This medical document was created using an electronic medical record system with voice recognition software and computerized dictation system. Although this document has been carefully reviewed, there might still be some phonetic and typographical errors. Occasional wrong-word or ``sound-alike substitutions may have occurred due to the inherent limitations of voice recognition software. These areas are purely typographical due to imperfections of the software programs and do not reflect any compromise in the patient's medical care. Please read the chart carefully and recognize, using context, where these substitutions have occurred. Plan discussed with: Patient Dietary Evaluation Review Recommendations by RD: Dietary education by RD Comments: 1) Initiate MVI @ 1 tb qd 2) Add 60g CCHO restriction to cardiac diet 3) Advise patient to limit intake of added sugars including sugar-sweetened beverages, desserts, candy, etc. Aim for a consistent intake of complex carbohydrates spread throughout the day, paired with protein to promote glycemic control 4) Send order for glucometer to pharmacy. Review ADA SMBG guidelines: 80-130 mg/dL before meals and < 180 mg/dL 2-hr postprandial 5) Encourage optimal PO intake 6) Refer to outpatient RD/CDCES for diabetes education and weight management 7) Follow-up with cardiology, pulmonology, and nephrology 8) Follow-upw with mental health social worker r/t substance abuse 9) Continue to monitor I&O, labs, and skin integrity Expected Outcomes/Goals: 1) appetite and labs to improve 2) wound to improve 3) f/u in 3-5 days Date of Service: Oct 31, 2024 Billing Provider: LÓPEZ WEBER Common Visit Codes: [id number] INP/OBS CARE(HIGH) LÓPEZ WEBER Oct 31, 2024 14:28
--- NOTE | 2024-10-31 15:57 | DVHINCON2 ---
Date of service: Oct 31, [address] Rizvi Reason for Consultation Elevated LFTS History of Present Illness The patient is a 74-year-old male with past medical history of COPD and hypertension who admitted via ER with complaint of shortness of breaths. Patient reports symptoms progressively get worse with bilateral lower extremity edema, new onset of atrial fibrillation, increased work of breathing, getting worse that prompted this visit. In the ED with heart rate in the 130s a fib flutter, , BNP 494.52. Chest x-ray revealing mild cardiomegaly and mild pulmonary vascular congestion. Patient was started on amiodarone IV per protocol and now he is on oral amiodarone. GI was consulted because of elevated liver enzymes. Patient had moderate elevation of his transaminases over 1000 which are now trending down. There was no nausea vomiting GI bleeding or melena., patient had periods of agitation and confusion last night Past Medical History Past Medical History COPD, HTN Past Surgical History Past Surgical History Cholecystectomy, Tonsillectomy;Vasectomy Family History: Diabetes mellitus AUNT Social History Family History Reviewed, noncontributory to the management of this case. Past Social History The patient lives at home, smokes cigarettes, drinks alcohol occasionally, uses marijuana. Allergies: Coded Allergies: NO KNOWN ALLERGIES (Unverified , 05/31/17) Home Meds Active Scripts Azithromycin (ZITHROMAX TABLET) 250 Mg Tb, 250 MG PO DAILY for 5 Days, #5 TAB 0 Refills Prov:ANAYA MEEK 06/03/17 Cefdinir (Cefdinir) 300 Mg Cap, 1 CAP PO BID, #10 CAP Prov:ANAYA MEEKCP 06/03/17 Current Medications Current Medications Medications (Trade) Dose Ordered Sig/Darin Route PRN Reason Start Time Stop Time Status Last Admin Carvedilol (Coreg Tablet) 25 mg Q12HR PO 10/30/24 22:00 10/30/24 21:30 Budesonide (Pulmicort) 0.5 mg BID NEB 10/30/24 22:00 10/31/24 06:21 Lorazepam (Ativan Inj) 2 mg ONCE PRN IV agitation 10/30/24 18:00 10/31/24 04:24 Nicotine (Nicoderm 21MG/ 24HR) 1 patch DAILY TD 10/30/24 19:45 10/30/24 19:48 Methylprednisolone Sodium Succinate (Solu Medrol) 40 mg DAILY IV 10/31/24 10:00 10/31/24 10:37 Diagnostic Test (Pha) (Accu-Chek Comfort Curve T) 1 strip ACHS 10/31/24 11:30 Insulin Human Regular (InsuLIN R) ACHS SC 10/31/24 11:30 Dextrose 50 ml UD PRN IV Blood Sugar LESS THAN 60 10/31/24 09:00 Furosemide (Lasix Injection) 40 mg BID IV 10/31/24 22:00 Enoxaparin Sodium (Lovenox) 110 mg Q12HR SC 10/31/24 22:00 Vital Signs Vital Signs Date Time Temp Pulse Resp B/P (MAP) Pulse Ox O2 Delivery O2 Flow Rate FiO2 10/31/24 11:37 120 20 100 10/31/24 11:31 Nasal Cannula* 5 40 10/31/24 10:37 155/78 10/31/24 08:58 97.2 97.2 Physical Exam Examination: LUNGS:Normal, CVS:Abnormal (Atrial flutter), NEURO:Abnormal (Confused) Labs/Diagnostic Data Labs Test 10/31/24 09:51 10/31/24 06:05 10/30/24 05:30 10/29/24 15:25 Range/Units Ammonia 29 11-32 umol/L Sodium Level 135 L 136-145 mmol/L Potassium Level 4.4 3.5-5.1 mmol/L Chloride Level 96 L 98-107 mmol/L Carbon Dioxide Level 27 20-31 mmol/L Anion Gap 12 5-15 Blood Urea Nitrogen 58 H 9-23 mg/dL Creatinine 1.95 H 0.700-1.30 mg/dL Glomerular Filtration Rate Calc 36 >90 mL/min BUN/Creatinine Ratio 29.7 H 10.0-20.0 Serum Glucose 317 #H 74-106 mg/dL Calcium Level 9.5 8.7-10.4 mg/dL Total Bilirubin 0.5 0.2-1.0 mg/dL Aspartate Amino Transferase (AST) 256 H 13-40 U/L Alanine Aminotransferase (ALT) 911 H 7-40 U/L Alkaline Phosphatase 131 H 46-116 U/L Total Protein 6.1 5.7-8.2 g/dL Albumin 3.9 3.2-4.8 g/dL White Blood Count 11.8 H 4.4-10.8 10^3/uL Red Blood Count 4.07 L 4.5-5.90 10^6/uL Hemoglobin 13.1 L 13.5-17.5 g/dL Hematocrit 38.8 L 41.0-53.0 % Mean Corpuscular Volume 95.2 80.0-100.0 fL Mean Corpuscular Hemoglobin 32.1 H 28.0-32.0 pg Mean Corpuscular Hemoglobin Concent 33.8 32.0-36.0 g/dL Red Cell Distribution Width 14.6 H 11.8-14.3 % Platelet Count 334 140-450 10^3/uL Mean Platelet Volume 8.8 6.9-10.8 fL Neutrophils (%) (Auto) 88.0 H 37.0-80.0 % Lymphocytes (%) (Auto) 5.2 L 10.0-50.0 % Monocytes (%) (Auto) 6.8 0.0-12.0 % Eosinophils (%) (Auto) 0.0 0.0-7.0 % Basophils (%) (Auto) 0.0 0.0-2.0 % Neutrophils # (Auto) 10.3 H 1.6-8.6 10 ^3/uL Lymphocytes # (Auto) 0.6 0.4-5.4 10 ^3/uL Monocytes # (Auto) 0.8 0-1.3 10 ^3/uL Eosinophils # (Auto) 0 0-0.8 10 ^3/uL Basophils # (Auto) 0 0-0.2 10 ^3/uL Nucleated Red Blood Cells 0.0 % Uric Acid 13.1 H 3.7-9.2 mg/dL Phosphorus Level 4.0 2.4-5.1 mg/dL Urine Color Yellow Yellow Urine Clarity Clear Clear Urine pH 5.0 5.0-9.0 Urine Specific [place] 1.018 1.001-1.035 Urine Protein Negative Negative Urine Ketones Negative Negative Urine Blood 2+ H Negative /uL Urine Nitrite Negative Negative Urine Bilirubin Negative Negative Urine Urobilinogen Normal Negative mg/dL Urine Leukocyte Esterase Negative Negative /uL Urine RBC 8 0 - 3 /hpf Urine Microscopic WBC 3 0-3 /HPF Urine Squamous Epithelial Cells Few <5 /hpf Urine Bacteria None seen None Seen /hpf Urine Hyaline Casts Few 0 - 2 /lpf Urine Mucus Few None Seen Urine Creatinine 88.52 30.0-125.0 mg/dL Urine Sodium < 10 L 40-220 mmol/L Urine Glucose Normal Normal mg/dL Test 10/28/24 18:00 10/28/24 12:12 10/28/24 09:31 10/28/24 04:31 Range/Units Blood Gas Specimen Type Arterial Blood Gas Sample Site Right brachial Blood Gas Patient Temperature 37.0 Arterial Blood Date Drawn [id number] Arterial Blood pH 7.274 L 7.350-7.450 Arterial Blood Partial Pressure CO2 44.7 35.0-48.0 mmHg Arterial Blood Partial Pressure O2 80.3 L 83.0-108.0 mmHg Arterial Blood HCO3 20.3 L 21.0-28.0 mmol/L Arterial Blood Oxygen Saturation 92.1 L 94.0-98.0 % Arterial Blood Base Excess -6.5 L -2.0-3.0 mmol/L Arterial Blood Oxyhemoglobin 91.1 L 94.0-98.0 % Arterial Blood Carboxyhemoglobin 0.7 0.5-1.5 % Arterial Blood Methemoglobin 0.4 0.0-1.5 % Cristhian Test N/a Blood Gas Total Hemoglobin 14.00 13.5-17.5 g/dL Blood Gas Liter Flow 2.00 Blood Gas Modality Nasal cannula FiO2 % 28.0 Blood Gas Set Respiration Rate 16.0 Blood Gas EPAP 6 Blood Gas IPAP 14 B-Type Natriuretic Peptide 333.33 0-100 pg/mL D-Dimer, Quantitative 1.87 H 0.0-0.49 mg/L FEU Test 10/27/24 19:24 10/27/24 15:22 10/27/24 08:36 10/27/24 01:30 Range/Units Free Thyroxine (T4) Calculated 1.11 0.89-1.76 ng/dL Free Triiodothyronine (T3) pg/mL 2.02 L 2.3-4.2 pg/mL Urine Opiates Screen Neg NEGATIVE Urine Fentanyl Screen Neg NEGATIVE Urine Barbiturates Screen Neg NEGATIVE Urine Phencyclidine Screen Neg NEGATIVE Urine Amphetamines Screen Pos NEGATIVE Urine Benzodiazepines Screen Neg NEGATIVE Urine Cocaine Screen Neg NEGATIVE Urine Cannabinoids Screen Neg NEGATIVE Hemoglobin A1c 6.8 H <5.7 % A1C Triglycerides Level 36 < 150 mg/dL Cholesterol Level 136 < 200 mg/dL LDL Cholesterol 90 < 100 mg/dL HDL Cholesterol 36 L 40-59 mg/dL Thyroid Stimulating Hormone (TSH) 0.29 L 0.55-4.78 uIU/mL Troponin I High Sensitivity 51 </=54 ng/L Test 10/26/24 22:55 Range/Units Prothrombin Time 12.0 H 9.3-11.8 sec Prothrombin Time INR 1.15 0.9-1.15 Activated Partial Thromboplast Time 28.8 24.5-34.5 SEC Magnesium Level 1.9 1.6-2.6 mg/dL Problems(with codes): (1) COPD with acute exacerbation (2) Atrial flutter with rapid ventricular response (3) New onset atrial fibrillation (4) Congestive heart failure (5) Hyperglycemia Plan/Recommendation Assessment plan Suspected elevated liver enzymes likely related to hypoxic liver injury due to cardiac arrhythmia hypotension Liver enzymes are trending down and patient just needs continued observation Hepatitis panel, ferritin, right upper quadrant ultrasound, monitor labs;check ammonia I will follow up patient with you Plan discussed with: Other (None) KRISTY GONZALEZ MD Oct 31, 2024 15:57
[2024-10-31 16:08] LABS: Amphetamine Screen, Urine Neg (NEGATIVE); Barbiturate Scree,Urine Neg (NEGATIVE); Benzodiazephine Screen, Urine Neg (NEGATIVE); Cannabinoid Screen, Urine Pos (NEGATIVE); Cocaine Screen, Urine Neg (NEGATIVE); Opiate Scree,Urine Neg (NEGATIVE); Phencyclidine Screen, Urine Neg (NEGATIVE)
[2024-10-31] MEDS: METOPROLOL TARTRATE 1MG/1ML-5ML VIAL IV ONE (16:45)
--- NOTE | 2024-10-31 16:49 | DVH ---
ULTRASOUND ABDOMEN, LIMITED RIGHT UPPER QUADRANT: REASON FOR EXAM: elevated liver tests COMPARISON: RENAL ULTRASOUND 10/28/2024 TECHNIQUE: Real-time sector scans in the transverse and longitudinal planes were obtained through th e right upper quadrant of the abdomen. FINDINGS: The liver is enlarged at 19.3 cm in length. The liver demonstrates coarse echogenicity an d there is nodularity of the capsule. There is hepatopetal flow in the portal vein. There is no intr ahepatic nor extrahepatic biliary ductal dilatation. The common bile duct is not visualized due to b owel gas. The gallbladder is absent. There is no sonographic stone's sign. The pancreas is obscured by bowel gas. The right kidney appears grossly unchanged from the recent renal ultrasound. The visualized portions of the abdominal aorta demonstrate no evidence of aneurysmal dilatation. The visualized inferior vena cava is unremarkable. There is small to moderate ascites, the largest pocket seen in the right lower quadrant. There is inc idental note of trace bilateral pleural effusion. IMPRESSION: Enlarged, nodular liver consistent with cirrhosis. Small to moderate ascites with the largest pocket seen in the right lower quadrant. Incidental note of trace bilateral pleural effusions. Prior cholecystectomy
--- NOTE | 2024-10-31 17:15 | DVHPN2 ---
Progress Note Date Seen: Oct 31, 2024 Medical Necessity Reason Pt with a Central, PICC or Fol: Yes The following are medically ne: Shah Catheter Reason for shah catheter: Strict I&O Subjective Patient reports: Other Objective vital signs Vital Sign Date Time Temp Pulse Resp B/P (MAP) Pulse Ox O2 Delivery O2 Flow Rate FiO2 10/31/24 16:45 117 129/100 10/31/24 16:45 97.1 18 96 97.1 10/31/24 11:31 Nasal Cannula* 5 40 Total Intake and Output 10/30/24 10/30/24 10/31/24 15:00 23:00 07:00 Intake Total 200 ml 800 ml 1000 ml Output Total 950 ml 700 ml Balance 200 ml -150 ml 300 ml medications Current Medications Medications Dose Ordered Sig/Darin Route Start Time Stop Time Status Last Admin Dose Admin Aspirin 81 mg DAILY PO 10/27/24 10:00 10/30/24 08:53 81 MG Atorvastatin Calcium 10 mg HS PO 10/27/24 22:00 10/30/24 21:31 10 MG Clonidine HCl 0.1 mg Q4HP PRN PO 10/27/24 02:15 Levalbuterol HCl 0.625 mg Q6HR NEB 10/27/24 06:00 10/31/24 11:31 0.625 MG Sodium Chloride 10 ml Q8HR IV 10/27/24 06:00 10/31/24 14:16 10 ML Acetaminophen/ Hydrocodone Bitart 1 tab Q4HP PRN PO 10/27/24 02:15 10/31/24 02:47 1 TAB Ondansetron HCl 4 mg Q4HP PRN IV 10/27/24 02:15 Docusate Sodium 100 mg BIDPRN PRN PO 10/27/24 02:15 Acetaminophen 650 mg Q6HP PRN PO 10/27/24 02:15 Nitroglycerin 0.4 mg Q5MINP PRN SL 10/27/24 03:15 Morphine Sulfate 2 mg Q30M PRN IV 10/27/24 03:15 Famotidine 20 mg Q12HR IV 10/28/24 10:00 10/31/24 10:36 20 MG Lorazepam 1 mg Q6HP PRN IV 10/30/24 09:45 10/31/24 10:54 1 MG Carvedilol 25 mg Q12HR PO 10/30/24 22:00 10/30/24 21:30 25 MG Budesonide 0.5 mg BID NEB 10/30/24 22:00 10/31/24 06:21 0.5 MG Lorazepam 2 mg ONCE PRN IV 10/30/24 18:00 10/31/24 04:24 2 MG Nicotine 1 patch DAILY TD 10/30/24 19:45 10/30/24 19:48 1 PATCH Methylprednisolone Sodium Succinate 40 mg DAILY IV 10/31/24 10:00 10/31/24 10:37 40 MG Diagnostic Test (Pha) 1 strip ACHS 10/31/24 11:30 Insulin Human Regular ACHS SC 10/31/24 11:30 Dextrose 50 ml UD PRN IV 10/31/24 09:00 Furosemide 40 mg BID IV 10/31/24 22:00 Enoxaparin Sodium 110 mg Q12HR SC 10/31/24 22:00 Examination: GENERAL:Abnormal, NEURO:Abnormal (altered) laboratory and microbiology Laboratory Tests 10/31/24 06:05 10/30/24 05:30 Test 10/31/24 06:05 Range/Units Serum Glucose 317 #H 74-106 mg/dL Problem List/Assessment/Plan Problem List/Assessment/Plan 1. KEEGAN hemodynamically mediated on CKD-baseline serum creatinine unknown 2. CHF 3. New onset AFib 4. History of HTN-not well-controlled 5. History of meth use 6. COPD 7. Type 2 diabetes transaminitis-- recs On IV Lasix We will follow closely gi eval Plan discussed with: Spouse My Orders My Orders Orders - REE RIOS MD Procedure Category Date Status Time Furosemide Injection PHA 10/31/24 In Process (Lasix Injection) 22:00 Dietary Evaluation Review Recommendations by RD: Dietary education by RD Comments: 1) Initiate MVI @ 1 tb qd 2) Add 60g CCHO restriction to cardiac diet 3) Advise patient to limit intake of added sugars including sugar-sweetened beverages, desserts, candy, etc. Aim for a consistent intake of complex carbohydrates spread throughout the day, paired with protein to promote glycemic control 4) Send order for glucometer to pharmacy. Review ADA SMBG guidelines: 80-130 mg/dL before meals and < 180 mg/dL 2-hr postprandial 5) Encourage optimal PO intake 6) Refer to outpatient RD/CDCES for diabetes education and weight management 7) Follow-up with cardiology, pulmonology, and nephrology 8) Follow-upw with high school social science teacher r/t substance abuse 9) Continue to monitor I&O, labs, and skin integrity Expected Outcomes/Goals: 1) appetite and labs to improve 2) wound to improve 3) f/u in 3-5 days REE RIOS MD Oct 31, 2024 17:15
[2024-10-31] MEDS: LORazepam 2MG/ML-1ML VIAL IV ONE (17:30)
[2024-10-31] MEDS: FUROSEMIDE 40 MG/4 ML VIAL IV SCH (22:48)
[2024-10-31] MEDS: ENOXAPARIN SOD 100 MG/1 ML SYRINGE SC SCH (22:48)
--- NOTE | 2024-10-31 22:49 | DVHPN2 ---
Progress Note - Dictate Date Seen: Oct 31, 2024 Medical Necessity Reason Pt with a Central, PICC or Fol: Yes The following are medically ne: Shah Catheter Reason for shah catheter: Strict I&O Subjective Patient seen and examined at bedside. Remains on supplemental oxygen Overnight events reviewed. vital signs Vital Sign Date Time Temp Pulse Resp B/P (MAP) Pulse Ox O2 Delivery O2 Flow Rate FiO2 10/31/24 21:00 97.3 118 17 115/65 (82) 96 97.3 10/31/24 20:23 Nasal Cannula* 4 36 Total Intake and Output 10/30/24 10/30/24 10/31/24 15:00 23:00 07:00 Intake Total 200 ml 800 ml 1000 ml Output Total 950 ml 700 ml Balance 200 ml -150 ml 300 ml medications Current Medications Medications Dose Ordered Sig/Darin Route Start Time Stop Time Status Last Admin Dose Admin Aspirin 81 mg DAILY PO 10/27/24 10:00 10/30/24 08:53 81 MG Atorvastatin Calcium 10 mg HS PO 10/27/24 22:00 10/30/24 21:31 10 MG Clonidine HCl 0.1 mg Q4HP PRN PO 10/27/24 02:15 Levalbuterol HCl 0.625 mg Q6HR NEB 10/27/24 06:00 10/31/24 11:31 0.625 MG Sodium Chloride 10 ml Q8HR IV 10/27/24 06:00 10/31/24 14:16 10 ML Acetaminophen/ Hydrocodone Bitart 1 tab Q4HP PRN PO 10/27/24 02:15 10/31/24 02:47 1 TAB Ondansetron HCl 4 mg Q4HP PRN IV 10/27/24 02:15 Docusate Sodium 100 mg BIDPRN PRN PO 10/27/24 02:15 Acetaminophen 650 mg Q6HP PRN PO 10/27/24 02:15 Nitroglycerin 0.4 mg Q5MINP PRN SL 10/27/24 03:15 Morphine Sulfate 2 mg Q30M PRN IV 10/27/24 03:15 Famotidine 20 mg Q12HR IV 10/28/24 10:00 10/31/24 10:36 20 MG Lorazepam 1 mg Q6HP PRN IV 10/30/24 09:45 10/31/24 20:10 1 MG Carvedilol 25 mg Q12HR PO 10/30/24 22:00 10/30/24 21:30 25 MG Budesonide 0.5 mg BID NEB 10/30/24 22:00 10/31/24 06:21 0.5 MG Lorazepam 2 mg ONCE PRN IV 10/30/24 18:00 10/31/24 04:24 2 MG Nicotine 1 patch DAILY TD 10/30/24 19:45 10/30/24 19:48 1 PATCH Methylprednisolone Sodium Succinate 40 mg DAILY IV 10/31/24 10:00 10/31/24 10:37 40 MG Diagnostic Test (Pha) 1 strip ACHS 10/31/24 11:30 10/31/24 17:30 1 STRIP Insulin Human Regular ACHS SC 10/31/24 11:30 10/31/24 17:30 6 UNITS Dextrose 50 ml UD PRN IV 10/31/24 09:00 Furosemide 40 mg BID IV 10/31/24 22:00 Enoxaparin Sodium 110 mg Q12HR SC 10/31/24 22:00 objective Gen.: Patient lying in bed in no apparent distress. On supplemental oxygen Head: Normocephalic, atraumatic. Eyes: EOMI/PERRLA. Ears: Normal hearing. Normal anatomy. Neck/trachea: Trachea midline, supple. Nose: Normal external anatomy. Mouth: Moist mucous membranes. Chest: Decreased air entry bilaterally. Wheezing heard. No rhonchi. Cardiovascular: Positive S1, positive S2. Regular rate and rhythm. Abdomen: Positive bowel sounds in all 4 quadrants. Soft, non-tender, non- distended. : Deferred. Rectal: Deferred. Skin: Warm, dry. Intact. Extremities: 2+ radial pulses bilaterally. No lower extremity edema. Neuro: Awake, alert, oriented x3. No gross motor or sensory deficits. Cranial nerves II through XII intact. Gait not assessed. laboratory and microbiology Laboratory Tests 10/31/24 06:05 10/30/24 05:30 Test 10/31/24 06:05 Range/Units Serum Glucose 317 #H 74-106 mg/dL Assessment/Plan Impression: Acute hypoxic respiratory failure Dependence on supplemental oxygen Atrial fibrillation CHF, possible Dyspnea COPD exacerbation Nicotine dependence Obesity BMI 34.5 Events: Remains on supplemental oxygen Currently on 3 LPM -->4 LPM NC Taper O2 as tolerated Maintaining 1:1 sitter for safety. Patient is AAO x1. Head of bed elevation Aspiration precautions. CXR reviewed, notable for right lower lobe opacities. Continue bronchodilators - on Xopenex due to tachycardia Wheezing - on IV steroids Pulmicort 0.5 mg q.12 hours. Blood pressure control Follow up Cardiology recs Awaiting stress echocardiogram. Pepcid for GI prophylaxis Diurese with Bumex BID Monitor renal function Monitor ins and outs Shah removed. Obtain chest x-ray in AM to assess for interval changes. Labs and imaging reviewed. Rest of plan as noted below. Plan: Supplemental oxygen Titrate to keep O2 sats above 92%. Continue bronchodilators. IV steroids Follow up Cardiology recommendations Diurese to euvolemia Fluid and salt restriction Monitor renal function. Monitor electrolytes. Supplement as necessary. Monitor ins and outs. Smoking cessation discussed for greater than 10 minutes DVT prophylaxis. Prognosis: Poor given patient's multiple co-morbidities. Rest of plan per hospitalist and other consultants. Thank you, Dr. Clement, for allowing me to participate in this patient's care. Further recommendations will depend on the patient's clinical course. Please do not hesitate to contact me if you have any questions or concerns. This medical document was created using an electronic medical record system with [employer] computerized dictation system. Although these documentations are being carefully reviewed, there may still be some phonetic and typographical changes. The errors are purely typographical, due to imperfection on the software program, and do not reflect any compromise in the patient's medical care. Dietary Evaluation Review Recommendations by RD: Dietary education by RD Comments: 1) Initiate MVI @ 1 tb qd 2) Add 60g CCHO restriction to cardiac diet 3) Advise patient to limit intake of added sugars including sugar-sweetened beverages, desserts, candy, etc. Aim for a consistent intake of complex carbohydrates spread throughout the day, paired with protein to promote glycemic control 4) Send order for glucometer to pharmacy. Review ADA SMBG guidelines: 80-130 mg/dL before meals and < 180 mg/dL 2-hr postprandial 5) Encourage optimal PO intake 6) Refer to outpatient RD/CDCES for diabetes education and weight management 7) Follow-up with cardiology, pulmonology, and nephrology 8) Follow-upw with social security assessor r/t substance abuse 9) Continue to monitor I&O, labs, and skin integrity Expected Outcomes/Goals: 1) appetite and labs to improve 2) wound to improve 3) f/u in 3-5 days Plan discussed with: Patient, Other (VALENTINA Hart) DIRK LEVIN MD Oct 31, 2024 22:49
[2024-11-01] VITALS (51 sets, daily range): BP systolic 103–168; BP diastolic 79–112; PULSE 91–123; RESP 15–29; TEMP 96.8–98.7; O2SAT 90–100
--- NOTE | 2024-11-01 06:34 | DVH ---
CHEST RADIOGRAPH Indication: interval changes Technique: Single frontal view of the chest was obtained COMPARISON: XY CHEST XRAY 1 VIEW on DOS: 10/31/24, XY CHEST XRAY 1 VIEW on DOS: 10/31/24, XY CHEST XRAY 1 VIEW on DOS: 10/28/24, XY CHEST PORTABLE on DOS: 10/26/24 FINDINGS: Lines and Tubes: None Lungs: Grossly Stable appearing moderate diffuse increased prominence of the pulmonary vasculature wi thout evidence of focal consolidation. Pleura: No effusion. No pneumothorax. Cardiomediastinal contours: Cardiomegaly. Bones: Unremarkable IMPRESSION: 1. Cardiomegaly and stable appearing moderate diffuse increased prominence of the pulmonary vasculatu re without evidence of focal consolidation.
[2024-11-01 07:53] LABS: Anion Gap 10 (5-15); BUN/Creatinine Ratio 31.5 (10.0-20.0); Calcium 9.6 mg/dL (8.7-10.4); Carbon Dioxide 30 mmol/L (20-31); Chloride 99 mmol/L (98-107); Potassium 4.1 mmol/L (3.5-5.1); Sodium 139 mmol/L (136-145); Total Protein 6.3 g/dL (5.7-8.2)
[2024-11-01 07:54] LABS: Albumin 4.1 g/dL (3.2-4.8); Bilirubin, Total 0.8 mg/dL (0.2-1.0)
[2024-11-01 08:00] LABS: Alkaline Phosphatase 125 U/L (46-116); Blood Urea Nitrogen 56 mg/dL (9-23); Glucose 184 mg/dL (74-106)
[2024-11-01 08:01] LABS: Alanine Aminotransferase 789 U/L (7-40); Bilirubin, Direct 0.4 mg/dL (<0.3)
[2024-11-01] MEDS: METOPROLOL TARTRATE 1MG/1ML-5ML VIAL IV SCH (10:11)
[2024-11-01 11:13] LABS: Hepatitis A Total Antibody Negative (Negative); Hepatitis B Surface Antigen Negative (Negative); Hepatitis C Antibody Negative (Negative)
--- NOTE | 2024-11-01 11:21 | DVHPN2 ---
Progress Note - Dictate Date Seen: Nov 01, 2024 Medical Necessity Reason Pt with a Central, PICC or Fol: Yes The following are medically ne: Shah Catheter Reason for shah catheter: Strict I&O Subjective Patient remains alert and oriented to self only. Mental status worsening. No focal deficits noted. vital signs Vital Sign Date Time Temp Pulse Resp B/P (MAP) Pulse Ox O2 Delivery O2 Flow Rate FiO2 11/01/24 08:30 98.7 116 22 144/103 (117) 96 98.7 11/01/24 06:20 Nasal Cannula 3.0 11/01/24 06:20 32 Total Intake and Output 10/31/24 10/31/24 11/01/24 15:00 23:00 07:00 Intake Total 300 ml 200 ml 340 ml Output Total 1100 ml 2100 ml Balance 300 ml -900 ml -1760 ml medications Current Medications Medications Dose Ordered Sig/Darin Route Start Time Stop Time Status Last Admin Dose Admin Aspirin 81 mg DAILY PO 10/27/24 10:00 10/30/24 08:53 81 MG Atorvastatin Calcium 10 mg HS PO 10/27/24 22:00 10/30/24 21:31 10 MG Clonidine HCl 0.1 mg Q4HP PRN PO 10/27/24 02:15 Levalbuterol HCl 0.625 mg Q6HR NEB 10/27/24 06:00 11/01/24 06:20 0.625 MG Sodium Chloride 10 ml Q8HR IV 10/27/24 06:00 11/01/24 05:06 10 ML Acetaminophen/ Hydrocodone Bitart 1 tab Q4HP PRN PO 10/27/24 02:15 10/31/24 02:47 1 TAB Ondansetron HCl 4 mg Q4HP PRN IV 10/27/24 02:15 Docusate Sodium 100 mg BIDPRN PRN PO 10/27/24 02:15 Acetaminophen 650 mg Q6HP PRN PO 10/27/24 02:15 Nitroglycerin 0.4 mg Q5MINP PRN SL 10/27/24 03:15 Morphine Sulfate 2 mg Q30M PRN IV 10/27/24 03:15 Famotidine 20 mg Q12HR IV 10/28/24 10:00 10/31/24 22:48 20 MG Budesonide 0.5 mg BID NEB 10/30/24 22:00 11/01/24 06:20 0.5 MG Lorazepam 2 mg ONCE PRN IV 10/30/24 18:00 10/31/24 04:24 2 MG Nicotine 1 patch DAILY TD 10/30/24 19:45 10/30/24 19:48 1 PATCH Methylprednisolone Sodium Succinate 40 mg DAILY IV 10/31/24 10:00 10/31/24 10:37 40 MG Diagnostic Test (Pha) 1 strip ACHS 10/31/24 11:30 11/01/24 06:53 1 STRIP Insulin Human Regular ACHS SC 10/31/24 11:30 11/01/24 06:54 3 UNITS Dextrose 50 ml UD PRN IV 10/31/24 09:00 Furosemide 40 mg BID IV 10/31/24 22:00 10/31/24 22:48 40 MG Enoxaparin Sodium 110 mg Q12HR SC 10/31/24 22:00 10/31/24 22:48 110 MG Lorazepam 2 mg Q6HP PRN IV 11/01/24 12:00 Metoprolol Tartrate 5 mg BID IV 11/01/24 10:00 objective General appearance:Confused Respiratory: Fine basilar crackles Cardiovascular: Irregular rate and rhythm, no murmurs. No edema Abdomen: Soft, nondistended, nontender, bowel sounds present MSK: Normal range of motion. Neuro: Alert to self only Psych: Agitated laboratory and microbiology Laboratory Tests 11/01/24 06:37 10/30/24 05:30 Test 11/01/24 06:37 Range/Units Serum Glucose 184 #H 74-106 mg/dL Problem List 1. Atrial Fibrillation with RVR 2. Acute Respiratory Failure, Hypoxia 3. CHF Exacerbation 4. Morbid Obesity with Risk Factors HTN, CHF 5. KEEGAN 6. Methamphetamine abuse 7. Metabolic Encephalopathy Plan: - Cardiology consulted. Requesting stress test. - TTE shows end-stage CHF with aortic stenosis. -Lovenox for atrial fibrillation - Lasix 40 mg IV increased to BID - Strict I's and O's - Ativan PRN for agitation. - Pulmonary consulted for acute respiratory failure. Continue nasal cannula. Home oxygen ordered. -Nephrology consulted due to KEEGAN. Renal US wnl. Shows some ascites. Renal function worsening likely exacerbated by diuresis. - Cardiac diet -Coreg increased to 25mg BID due to tachycardia -CT Brain WO contrast done, negative. Confusion multifactorial due to drug use, uremia, hypoxia. -Blood cultures ordered due to tachycardia -Solumedrol decreased. Accuchecks ordered with ICS. -Ativan PRN for agitation -Neurology consulted for AMS. MRI brain ordered. Mittens placed due to pulling on lines. Pupils noted to be equal and reactive. Patient only responding to name - Daily CBC and BMP - Full code AMA Discussion: Discussed with , Celina who is requesting take the patient AMA given his worsening neurological status. Discussion was held via phone at bedside. Nurse Piedra with washhouse worker present at time of call. Risk-management was made aware of the case as well. An extensive discussion was had at approximately 9:42 AM on 11/01/2024. Patient's is noted to be the decision maker as patient is altered. She was able to provide marriage certificate proof. She expressed frustration with patient's worsening neurological status. I reviewed the patient's clinical course and informed her that the patient has indeed declined neurologically. CT brain without contrast was done 2 days prior which did not reveal any acute intracranial abnormalities. I informed her that the patient was noted to continue to decline after this point was initially presumed that his altered mental status was multifactorial secondary to methamphetamine use, KEEGAN, hypoxia and end-stage CHF. I informed her that his altered mental status has become concerning given its change. I informed her that we are still pending MRI brain and neurology consult at this time. I advised against taking the patient out of the hospital given his critical condition. I informed her that the patient has a very high chance of deteriorating and even . Celina replied "I understand these risks. I would like to take him to [address]." I again reiterated that this is a very risky move given the patient's condition and again recommended against it. She notes that she has oxygen to bring from home. She insisted on taking the patient AMA. I again reiterated the risk of decompensation and . AMA form was ultimately signed. Dietary Evaluation Review Recommendations by RD: Dietary education by RD Comments: 1) Initiate MVI @ 1 tb qd 2) Add 60g CCHO restriction to cardiac diet 3) Advise patient to limit intake of added sugars including sugar-sweetened beverages, desserts, candy, etc. Aim for a consistent intake of complex carbohydrates spread throughout the day, paired with protein to promote glycemic control 4) Send order for glucometer to pharmacy. Review ADA SMBG guidelines: 80-130 mg/dL before meals and < 180 mg/dL 2-hr postprandial 5) Encourage optimal PO intake 6) Refer to outpatient RD/CDCES for diabetes education and weight management 7) Follow-up with cardiology, pulmonology, and nephrology 8) Follow-upw with social services designee r/t substance abuse 9) Continue to monitor I&O, labs, and skin integrity Expected Outcomes/Goals: 1) appetite and labs to improve 2) wound to improve 3) f/u in 3-5 days Plan discussed with: Spouse NIYA PATTEN DO Nov 01, 2024 11:21
[2024-11-01] MEDS: NALOXONE HCL 1MG/ML 2ML SYRINGE IV ONE ×2 (11:30→11:57)
[2024-11-01 12:11] LABS: Base Excess 4.8 mmol/L (-2.0-3.0)
--- NOTE | 2024-11-01 12:15 | DVH ---
PROCEDURE: MRI BRAIN HEAD WO CONTRAST INDICATION: AMS EXAM DATE: 11/01/2024 11:33 AM COMPARISON: CT HEAD WITHOUT CONTRAST on DOS: 10/30/24 TECHNIQUE: MRI of the brain without intravenous contrast. FINDINGS: Diffusion weighted images of the brain demonstrate no evidence of acute infarction. There is no evidence of acute intracranial hemorrhage, extra-axial collection, mass effect, midline s hift, herniation or hydrocephalus. The ventricles, sulci and cisterns appear age appropriate. [id number] changes of chronic microvascular ischemic disease. Fluid signal tracking along the bilateral optic nerves. There are no signal abnormalities on the susceptibility weighted sequences. The major vascular flow voids are present. The visualized paranasal sinuses and mastoid air cells are clear. The surrounding soft tissues and o sseous structures are unremarkable. IMPRESSION: 1. No evidence of acute infarction, intracranial hemorrhage, mass effect or hydrocephalus. Mild-to-mo derate changes of chronic microvascular ischemic disease. Fluid tracking along the bilateral optic n erves which can be seen with papilledema. Clinical correlation is recommended. HS:Y
[2024-11-01] MEDS: ROCURONIUM 10MG/ML 10ML VIAL IV ONE (12:26)
[2024-11-01] MEDS: NOREPINEPHRINE 8 MG/250ML KIT 0 ML IV ONE (12:26)
[2024-11-01] MEDS: ETOMIDATE (2MG/ML) 20ML VIAL IV ONE (12:26)
[2024-11-01] MEDS: NALOXONE HCL 1MG/ML 2ML SYRINGE ONE (12:29)
[2024-11-01] MEDS: NALOXONE HCL 0.4 MG/ML VIAL ONE (12:29)
[2024-11-01] MEDS: PROPOFOL 100 ML IV SCH (12:45)
[2024-11-01] MEDS: NOREPINEPHRINE 8 MG/250ML KIT 250 ML IV SCH (12:45)
[2024-11-01] MEDS: MIDAZOLAM DRIP 50 mg/50mL 50 ML IV SCH (12:45)
[2024-11-01] MEDS: NALOXONE HCL 0.4 MG/ML VIAL IV ONE (12:45)
[2024-11-01] MEDS: fentaNYL Drip 2500mCg/250mlNS 250 ML IV SCH (12:45)
[2024-11-01] MEDS ORDERED: NALOXONE HCL 1MG/ML 2ML SYRINGE IV ONE (12:45)
[2024-11-01 14:36] LABS: Amphetamine Screen, Urine Neg (NEGATIVE); Barbiturate Scree,Urine Neg (NEGATIVE); Benzodiazephine Screen, Urine Neg (NEGATIVE)
[2024-11-01 14:37] LABS: Cannabinoid Screen, Urine Pos (NEGATIVE); Cocaine Screen, Urine Neg (NEGATIVE); Opiate Scree,Urine Neg (NEGATIVE); Phencyclidine Screen, Urine Neg (NEGATIVE)
--- NOTE | 2024-11-01 16:53 | DVHPN2 ---
Progress Note Date Seen: Nov 01, 2024 Medical Necessity Reason Pt with a Central, PICC or Fol: Yes The following are medically ne: Shah Catheter Reason for shah catheter: Strict I&O Subjective Patient reports: Other (Patient seen and examined in ICU with bedside) Review of Systems: Deferred Objective vital signs Vital Sign Date Time Temp Pulse Resp B/P (MAP) Pulse Ox O2 Delivery O2 Flow Rate FiO2 11/01/24 12:45 130/104 11/01/24 10:00 94 Nasal Cannula 2.0 11/01/24 10:00 28 11/01/24 08:30 98.7 116 22 98.7 Total Intake and Output 10/31/24 10/31/24 11/01/24 15:00 23:00 07:00 Intake Total 300 ml 200 ml 340 ml Output Total 1100 ml 2100 ml Balance 300 ml -900 ml -1760 ml medications Current Medications Medications Dose Ordered Sig/Darin Route Start Time Stop Time Status Last Admin Dose Admin Aspirin 81 mg DAILY PO 10/27/24 10:00 10/30/24 08:53 81 MG Atorvastatin Calcium 10 mg HS PO 10/27/24 22:00 10/30/24 21:31 10 MG Clonidine HCl 0.1 mg Q4HP PRN PO 10/27/24 02:15 Levalbuterol HCl 0.625 mg Q6HR NEB 10/27/24 06:00 11/01/24 06:20 0.625 MG Sodium Chloride 10 ml Q8HR IV 10/27/24 06:00 11/01/24 14:00 10 ML Acetaminophen/ Hydrocodone Bitart 1 tab Q4HP PRN PO 10/27/24 02:15 10/31/24 02:47 1 TAB Ondansetron HCl 4 mg Q4HP PRN IV 10/27/24 02:15 Docusate Sodium 100 mg BIDPRN PRN PO 10/27/24 02:15 Acetaminophen 650 mg Q6HP PRN PO 10/27/24 02:15 Nitroglycerin 0.4 mg Q5MINP PRN SL 10/27/24 03:15 Morphine Sulfate 2 mg Q30M PRN IV 10/27/24 03:15 Famotidine 20 mg Q12HR IV 10/28/24 10:00 10/31/24 22:48 20 MG Budesonide 0.5 mg BID NEB 10/30/24 22:00 11/01/24 06:20 0.5 MG Lorazepam 2 mg ONCE PRN IV 10/30/24 18:00 10/31/24 04:24 2 MG Nicotine 1 patch DAILY TD 10/30/24 19:45 10/30/24 19:48 1 PATCH Methylprednisolone Sodium Succinate 40 mg DAILY IV 10/31/24 10:00 10/31/24 10:37 40 MG Diagnostic Test (Pha) 1 strip ACHS 10/31/24 11:30 11/01/24 06:53 1 STRIP Insulin Human Regular ACHS SC 10/31/24 11:30 11/01/24 06:54 3 UNITS Dextrose 50 ml UD PRN IV 10/31/24 09:00 Furosemide 40 mg BID IV 10/31/24 22:00 10/31/24 22:48 40 MG Enoxaparin Sodium 110 mg Q12HR SC 10/31/24 22:00 10/31/24 22:48 110 MG Lorazepam 2 mg Q6HP PRN IV 11/01/24 12:00 Metoprolol Tartrate 5 mg BID IV 11/01/24 10:00 Norepinephrine Bitartrate 250 ml @ 3.75 mls/hr Q24H IV 11/01/24 12:45 Propofol 100 ml @ 3.246 mls/ hr Q24H IV 11/01/24 12:45 Midazolam HCl 50 ml @ 1 mls/hr Q24H IV 11/01/24 12:45 Fentanyl Citrate 250 ml @ 2.5 mls/hr Q24H IV 11/01/24 12:45 Examination: MSK:Abnormal (Positive edema), NEURO:Abnormal (Altered) laboratory and microbiology Laboratory Tests 11/01/24 06:37 10/30/24 05:30 Test 11/01/24 06:37 Range/Units Serum Glucose 184 #H 74-106 mg/dL Microbiology Date/Time Source Procedure Growth Status 10/31/24 09:51 Blood Blood Culture - Preliminary NO GROWTH AFTER 24 HOURS OF INCUBATION. Resulted Problem List/Assessment/Plan Problem List/Assessment/Plan 1. KEEGAN hemodynamically mediated on CKD-baseline serum creatinine unknown 2. CHF 3. New onset AFib 4. History of HTN-not well-controlled 5. History of meth use 6. COPD 7. Type 2 diabetes transaminitis-- recs On IV Lasix We will follow closely Seen in ICU Remains nonoliguric Stable renal function Plan discussed with: Spouse Dietary Evaluation Review Recommendations by RD: Dietary education by RD Comments: 1) Initiate MVI @ 1 tb qd 2) Add 60g CCHO restriction to cardiac diet 3) Advise patient to limit intake of added sugars including sugar-sweetened beverages, desserts, candy, etc. Aim for a consistent intake of complex carbohydrates spread throughout the day, paired with protein to promote glycemic control 4) Send order for glucometer to pharmacy. Review ADA SMBG guidelines: 80-130 mg/dL before meals and < 180 mg/dL 2-hr postprandial 5) Encourage optimal PO intake 6) Refer to outpatient RD/CDCES for diabetes education and weight management 7) Follow-up with cardiology, pulmonology, and nephrology 8) Follow-upw with oncology social worker r/t substance abuse 9) Continue to monitor I&O, labs, and skin integrity Expected Outcomes/Goals: 1) appetite and labs to improve 2) wound to improve 3) f/u in 3-5 days REE RIOS MD Nov 01, 2024 16:53
--- NOTE | 2024-11-01 18:26 | DVHPN2 ---
Progress Note - Dictate Date Seen: Nov 01, 2024 Medical Necessity Reason Pt with a Central, PICC or Fol: Yes The following are medically ne: Shah Catheter Reason for shah catheter: Strict I&O Subjective Patient was seen in ICU bed 111 Patient was very agitated today and finally has been sedated enough for further management Liver enzymes are trending down, ammonia level was up to 100 today vital signs Vital Sign Date Time Temp Pulse Resp B/P (MAP) Pulse Ox O2 Delivery O2 Flow Rate FiO2 11/01/24 18:00 121 17 130/95 (107) 96 11/01/24 17:49 Nasal Cannula* 3 32 11/01/24 16:00 97.6 97.6 Total Intake and Output 10/31/24 10/31/24 11/01/24 15:00 23:00 07:00 Intake Total 300 ml 200 ml 340 ml Output Total 1100 ml 2100 ml Balance 300 ml -900 ml -1760 ml medications Current Medications Medications Dose Ordered Sig/Darin Route Start Time Stop Time Status Last Admin Dose Admin Aspirin 81 mg DAILY PO 10/27/24 10:00 10/30/24 08:53 81 MG Atorvastatin Calcium 10 mg HS PO 10/27/24 22:00 10/30/24 21:31 10 MG Clonidine HCl 0.1 mg Q4HP PRN PO 10/27/24 02:15 Levalbuterol HCl 0.625 mg Q6HR NEB 10/27/24 06:00 11/01/24 18:15 0.625 MG Sodium Chloride 10 ml Q8HR IV 10/27/24 06:00 11/01/24 14:00 10 ML Acetaminophen/ Hydrocodone Bitart 1 tab Q4HP PRN PO 10/27/24 02:15 10/31/24 02:47 1 TAB Ondansetron HCl 4 mg Q4HP PRN IV 10/27/24 02:15 Docusate Sodium 100 mg BIDPRN PRN PO 10/27/24 02:15 Acetaminophen 650 mg Q6HP PRN PO 10/27/24 02:15 Nitroglycerin 0.4 mg Q5MINP PRN SL 10/27/24 03:15 Morphine Sulfate 2 mg Q30M PRN IV 10/27/24 03:15 Famotidine 20 mg Q12HR IV 10/28/24 10:00 10/31/24 22:48 20 MG Budesonide 0.5 mg BID NEB 10/30/24 22:00 11/01/24 18:15 0.5 MG Lorazepam 2 mg ONCE PRN IV 10/30/24 18:00 11/01/24 17:04 2 MG Nicotine 1 patch DAILY TD 10/30/24 19:45 10/30/24 19:48 1 PATCH Methylprednisolone Sodium Succinate 40 mg DAILY IV 10/31/24 10:00 10/31/24 10:37 40 MG Diagnostic Test (Pha) 1 strip ACHS 10/31/24 11:30 11/01/24 17:05 1 STRIP Insulin Human Regular ACHS SC 10/31/24 11:30 11/01/24 17:10 3 UNITS Dextrose 50 ml UD PRN IV 10/31/24 09:00 Furosemide 40 mg BID IV 10/31/24 22:00 10/31/24 22:48 40 MG Enoxaparin Sodium 110 mg Q12HR SC 10/31/24 22:00 10/31/24 22:48 110 MG Lorazepam 2 mg Q6HP PRN IV 11/01/24 12:00 Metoprolol Tartrate 5 mg BID IV 11/01/24 10:00 Norepinephrine Bitartrate 250 ml @ 3.75 mls/hr Q24H IV 11/01/24 12:45 Propofol 100 ml @ 3.246 mls/ hr Q24H IV 11/01/24 12:45 Midazolam HCl 50 ml @ 1 mls/hr Q24H IV 11/01/24 12:45 Fentanyl Citrate 250 ml @ 2.5 mls/hr Q24H IV 11/01/24 12:45 objective General appearance:Confused Respiratory: Fine basilar crackles Cardiovascular: Irregular rate and rhythm, tachycardic no murmurs. No edema Abdomen: Soft, nondistended, nontender, bowel sounds present MSK: Normal range of motion. Neuro: Alert to self only Psych: Agitated laboratory and microbiology Laboratory Tests 11/01/24 06:37 10/30/24 05:30 Test 11/01/24 06:37 Range/Units Serum Glucose 184 #H 74-106 mg/dL Right upper quadrant ultrasound IMPRESSION: Enlarged, nodular liver consistent with cirrhosis. Small to moderate ascites with the largest pocket seen in the right lower quadrant. Incidental note of trace bilateral pleural effusions. Prior cholecystectomy Problems(with codes): (1) Hepatic encephalopathy (2) Shock liver (3) Elevated liver enzymes (4) COPD with acute exacerbation (5) Hyperglycemia (6) Atrial flutter with rapid ventricular response (7) New onset atrial fibrillation (8) Congestive heart failure (9) Ascites (10) Cirrhosis of liver Prognosis Plan Insert NG tube or OG tube Patient will be given lactulose 30 mL via NG tube twice a day Add antibiotic coverage for possible underlying SBP MELD score is 16 points Arrange ultrasound-guided paracentesis when the patient is more stable Continue to monitor labs Prognosis remains guarded Dietary Evaluation Review Recommendations by RD: Dietary education by RD Comments: 1) Initiate MVI @ 1 tb qd 2) Add 60g CCHO restriction to cardiac diet 3) Advise patient to limit intake of added sugars including sugar-sweetened beverages, desserts, candy, etc. Aim for a consistent intake of complex carbohydrates spread throughout the day, paired with protein to promote glycemic control 4) Send order for glucometer to pharmacy. Review ADA SMBG guidelines: 80-130 mg/dL before meals and < 180 mg/dL 2-hr postprandial 5) Encourage optimal PO intake 6) Refer to outpatient RD/CDCES for diabetes education and weight management 7) Follow-up with cardiology, pulmonology, and nephrology 8) Follow-upw with pediatric social worker r/t substance abuse 9) Continue to monitor I&O, labs, and skin integrity Expected Outcomes/Goals: 1) appetite and labs to improve 2) wound to improve 3) f/u in 3-5 days Plan discussed with: Other (Nurse Green) KRISTY GONZALEZ MD Nov 01, 2024 18:26
[2024-11-01] MEDS: LORazepam 2MG/ML-1ML VIAL IV PRN (21:27)
[2024-11-01] MEDS: LACTULOSE 20Gm/30ML SOLN PO SCH (21:43)
--- NOTE | 2024-11-01 22:34 | DVHINCON2 ---
Date of service: Nov 01, [address] Clement Reason for Consultation AMS History of Present Illness Mr. Mejia is a 74 years old gentleman with a history of hypertension, COPD, congestive heart failure, new onset AFib (1st noticed on 10/26/2024), he came to the [facility] on 10/26/2024 with a chief company of shortness breath, bilateral leg edema. On 11/01/2024, his requested the patient to leave AMA, and she signed the AMA paperwork, when the patient was in the wheelchair, about to leave, suddenly he became completely obtunded and started in the wheelchair (Dr. Clement's note on 11/01/2024 1351) and rapidly responsive to him was activated ( Hoda's note at 11/01/202404 03), he was resuscitated, and transferred to the ICU In the ICU, the patient was agitated, combative, he just received Ativan before I came, as a result, is only responsive to stroke painful stimuli He was signed out AMA by his , he was about to leave in the wheelchair but suddenly became complete obtunded and slumping in the wheelchair (Dr. Clement's note on 11/01/2024 1351) Rapid response ( Hoda's note at 11/01/2024 30) UDS, 10/27/2024: Amphetamine Urinalysis, 10/27/2024: No UTI ABG 10/28/24: Hypoxia, metabolic acidosis WBC/HB/PLT/MCV, 10/30/2024: 11.8/13.1/334/95.2 BUN/CR, 10/26/2024: Normal, 10/28/2024: 41/1.67, : 50/1.53, 11/01/2024: 66/1.78. TBI/AST/ALT/AP, 10/26/2024: 0.8/43/44/171, 10/28/24: 0.09/2270/201/152, 10/30/2024: 0.5/711/1491/139, 11/01/24: 0.8/172/789/125 NH3, 10/31/24: 29, 11/01/2024: 100 TG/HDL/LDL/HDL, 10/27/2024: 36/136/90/36 Chest x-ray, 11/01/2024: Cardiomegaly and stable appearing moderate diffuse increased prominence of the pulmonary vasculature without evidence of focal consolidation. MR head, 11/01/2024: No evidence of acute infarction, intracranial hemorrhage, mass effect or hydrocephalus. [id number] changes of chronic microvascular ischemic disease. Fluid tracking along the bilateral optic nerves which can be seen with papilledema. Clinical correlation is recommended Past Medical History Hypertension, COPD, congestive heart failure, new onset AFib (10/26/2024) Past Surgical History Cholecystectomy, tonsillectomy Family History: Diabetes mellitus AUNT Family History Diabetes Social History Smoker: Cigarettes Alcohol: Heavy alcohol consumption Drugs: Marijuana, methamphetamine Lives In: Home Allergies: Coded Allergies: NO KNOWN ALLERGIES (Unverified , 05/31/17) Home Meds Active Scripts Azithromycin (ZITHROMAX TABLET) 250 Mg Tb, 250 MG PO DAILY for 5 Days, #5 TAB 0 Refills Prov:ANAYA MEEK 06/03/17 Cefdinir (Cefdinir) 300 Mg Cap, 1 CAP PO BID, #10 CAP Prov:ANAYA MEEKCP 06/03/17 Current Medications Current Medications Medications (Trade) Dose Ordered Sig/Darin Route PRN Reason Start Time Stop Time Status Last Admin Lorazepam (Ativan Inj) 2 mg Q6HP PRN IV AGITATION 11/01/24 12:00 11/01/24 21:27 Metoprolol Tartrate (Lopressor) 5 mg BID IV 11/01/24 10:00 Norepinephrine Bitartrate 250 ml @ 3.75 mls/hr Q24H IV 11/01/24 12:45 Propofol 100 ml @ 3.246 mls/ hr Q24H IV 11/01/24 12:45 Midazolam HCl 50 ml @ 1 mls/hr Q24H IV 11/01/24 12:45 Fentanyl Citrate 250 ml @ 2.5 mls/hr Q24H IV 11/01/24 12:45 Ceftriaxone Sodium 50 ml @ 100 mls/hr DAILY@09 IV 11/02/24 09:00 Lactulose 30 ml BID PO 11/01/24 22:00 11/01/24 21:43 Review of Systems Unobtainable Vital Signs Vital Signs Date Time Temp Pulse Resp B/P (MAP) Pulse Ox O2 Delivery O2 Flow Rate FiO2 11/01/24 21:36 146/107 11/01/24 18:21 120 18 97 11/01/24 18:15 Nasal Cannula* 2 28 11/01/24 16:00 97.6 97.6 Physical Exam The patient is well-nourished and well-developed with no distress. HEENT: Normocephalic, neck supple, no carotid bruits Lungs: Clear to auscultation Cardiovascular: Regular rate and region, S1, S2, no murmurs Abdomen: Soft, nontender, normal bowel sounds MENTAL STATUS: Responsive to stroke painful stimuli CRANIAL NERVES: Pupils are equal, round and reactive.There are corneal reflexes and doll's eyes phenomenon. No signs of facial weakness. SENSATION: Responses to pain stimuli. MOTOR: Normal tone in the upper and lower extremity. Normal muscle bulk. No fasciculations. No spontaneous movement. REFLEXES: Deep tendon reflexes are symmetrical. No pathological reflexes. CEREBELLAR/COORDINATION: Deferred GAIT/STATION: deferred. Labs/Diagnostic Data Labs Test 11/01/24 21:57 11/01/24 14:05 11/01/24 12:05 11/01/24 06:37 Range/Units POC Glucose 167 H 70-106 mg/dl Urine Opiates Screen Neg NEGATIVE Urine Fentanyl Screen Neg NEGATIVE Urine Barbiturates Screen Neg NEGATIVE Urine Phencyclidine Screen Neg NEGATIVE Urine Amphetamines Screen Neg NEGATIVE Urine Benzodiazepines Screen Neg NEGATIVE Urine Cocaine Screen Neg NEGATIVE Urine Cannabinoids Screen Pos NEGATIVE Blood Gas Specimen Type Arterial Blood Gas Sample Site Right radial Blood Gas Patient Temperature 37.0 Arterial Blood Date Drawn [id number] Arterial Blood pH 7.414 7.350-7.450 Arterial Blood Partial Pressure CO2 48.6 H 35.0-48.0 mmHg Arterial Blood Partial Pressure O2 64.6 L 83.0-108.0 mmHg Arterial Blood HCO3 30.4 H 21.0-28.0 mmol/L Arterial Blood Oxygen Saturation 90.2 L 94.0-98.0 % Arterial Blood Base Excess 4.8 H -2.0-3.0 mmol/L Arterial Blood Oxyhemoglobin 88.9 L 94.0-98.0 % Arterial Blood Carboxyhemoglobin 1.0 0.5-1.5 % Arterial Blood Methemoglobin 0.4 0.0-1.5 % Cristhian Test Yes Blood Gas Total Hemoglobin 14.20 13.5-17.5 g/dL Blood Gas Liter Flow 3.00 Blood Gas Modality Nasal cannula FiO2 % 32.0 Sodium Level 139 136-145 mmol/L Potassium Level 4.1 3.5-5.1 mmol/L Chloride Level 99 98-107 mmol/L Carbon Dioxide Level 30 20-31 mmol/L Anion Gap 10 5-15 Blood Urea Nitrogen 56 H 9-23 mg/dL Creatinine 1.78 H 0.700-1.30 mg/dL Glomerular Filtration Rate Calc 40 >90 mL/min BUN/Creatinine Ratio 31.5 H 10.0-20.0 Serum Glucose 184 #H 74-106 mg/dL Calcium Level 9.6 8.7-10.4 mg/dL Ferritin 102.7 22-322 ng/mL Total Bilirubin 0.8 0.2-1.0 mg/dL Direct Bilirubin 0.4 H <0.3 mg/dL Aspartate Amino Transferase (AST) 172 H 13-40 U/L Alanine Aminotransferase (ALT) 789 H 7-40 U/L Alkaline Phosphatase 125 H 46-116 U/L Ammonia 100 H 11-32 umol/L Total Protein 6.3 5.7-8.2 g/dL Albumin 4.1 3.2-4.8 g/dL Hepatitis A Antibody Total Negative Negative Hepatitis B Surface Antigen Negative Negative Hepatitis B Surface Antibody Negative Negative Hepatitis B Core Total Antibody Negative Negative Hepatitis C Antibody Negative Negative Test 10/30/24 05:30 10/29/24 15:25 10/28/24 12:12 10/28/24 09:31 Range/Units White Blood Count 11.8 H 4.4-10.8 10^3/uL Red Blood Count 4.07 L 4.5-5.90 10^6/uL Hemoglobin 13.1 L 13.5-17.5 g/dL Hematocrit 38.8 L 41.0-53.0 % Mean Corpuscular Volume 95.2 80.0-100.0 fL Mean Corpuscular Hemoglobin 32.1 H 28.0-32.0 pg Mean Corpuscular Hemoglobin Concent 33.8 32.0-36.0 g/dL Red Cell Distribution Width 14.6 H 11.8-14.3 % Platelet Count 334 140-450 10^3/uL Mean Platelet Volume 8.8 6.9-10.8 fL Neutrophils (%) (Auto) 88.0 H 37.0-80.0 % Lymphocytes (%) (Auto) 5.2 L 10.0-50.0 % Monocytes (%) (Auto) 6.8 0.0-12.0 % Eosinophils (%) (Auto) 0.0 0.0-7.0 % Basophils (%) (Auto) 0.0 0.0-2.0 % Neutrophils # (Auto) 10.3 H 1.6-8.6 10 ^3/uL Lymphocytes # (Auto) 0.6 0.4-5.4 10 ^3/uL Monocytes # (Auto) 0.8 0-1.3 10 ^3/uL Eosinophils # (Auto) 0 0-0.8 10 ^3/uL Basophils # (Auto) 0 0-0.2 10 ^3/uL Nucleated Red Blood Cells 0.0 % Uric Acid 13.1 H 3.7-9.2 mg/dL Phosphorus Level 4.0 2.4-5.1 mg/dL Urine Color Yellow Yellow Urine Clarity Clear Clear Urine pH 5.0 5.0-9.0 Urine Specific [place] 1.018 1.001-1.035 Urine Protein Negative Negative Urine Ketones Negative Negative Urine Blood 2+ H Negative /uL Urine Nitrite Negative Negative Urine Bilirubin Negative Negative Urine Urobilinogen Normal Negative mg/dL Urine Leukocyte Esterase Negative Negative /uL Urine RBC 8 0 - 3 /hpf Urine Microscopic WBC 3 0-3 /HPF Urine Squamous Epithelial Cells Few <5 /hpf Urine Bacteria None seen None Seen /hpf Urine Hyaline Casts Few 0 - 2 /lpf Urine Mucus Few None Seen Urine Creatinine 88.52 30.0-125.0 mg/dL Urine Sodium < 10 L 40-220 mmol/L Urine Glucose Normal Normal mg/dL Blood Gas Set Respiration Rate 16.0 Blood Gas EPAP 6 Blood Gas IPAP 14 B-Type Natriuretic Peptide 333.33 0-100 pg/mL Test 10/28/24 04:31 10/27/24 19:24 10/27/24 08:36 10/27/24 01:30 Range/Units D-Dimer, Quantitative 1.87 H 0.0-0.49 mg/L FEU Free Thyroxine (T4) Calculated 1.11 0.89-1.76 ng/dL Free Triiodothyronine (T3) pg/mL 2.02 L 2.3-4.2 pg/mL Hemoglobin A1c 6.8 H <5.7 % A1C Triglycerides Level 36 < 150 mg/dL Cholesterol Level 136 < 200 mg/dL LDL Cholesterol 90 < 100 mg/dL HDL Cholesterol 36 L 40-59 mg/dL Thyroid Stimulating Hormone (TSH) 0.29 L 0.55-4.78 uIU/mL Troponin I High Sensitivity 51 </=54 ng/L Test 10/26/24 22:55 Range/Units Prothrombin Time 12.0 H 9.3-11.8 sec Prothrombin Time INR 1.15 0.9-1.15 Activated Partial Thromboplast Time 28.8 24.5-34.5 SEC Magnesium Level 1.9 1.6-2.6 mg/dL Microbiology Date/Time Source Procedure Growth Status 10/31/24 09:51 Blood Blood Culture - Preliminary NO GROWTH AFTER 24 HOURS OF INCUBATION. Resulted Assessment Altered mental status Metabolic encephalopathy Hypoxic encephalopathy Toxic encephalopathy Alcohol abuse Substance abuse Congestive heart failure COPD/respiratory failure Atrial fibrillation Plan/Recommendation Monitoring Supportive treatment ICU care Follow-up lab EEG Stabilize vitals Respiratory support Oxygen Lovenox 110 mg subcu b.i.d. Lipitor 10 mg daily Haldol 2.5 mg intramuscular Q 6 hours p.r.n. for agitation More recommendation per clinical course Prognosis: Poor, Critical Critical care time spent is 45 minutes This medical document was created using an electronic medical record system with [employer] dictation system. Although this document has been carefully reviewed, there may still be some phonetic and typographical errors. These areas are purely typographical due to imperfections of the software programs, and do not reflect any compromise in the patient's medical care. Plan discussed with: Other KOLBY MAHARAJ MD Nov 01, 2024 22:34
--- NOTE | 2024-11-01 22:58 | DVHPN2 ---
Progress Note - Dictate Date Seen: Nov 01, 2024 Medical Necessity Reason Pt with a Central, PICC or Fol: Yes The following are medically ne: Shah Catheter Reason for shah catheter: Strict I&O Subjective Patient seen and examined at bedside. Remains on supplemental oxygen Overnight events reviewed. vital signs Vital Sign Date Time Temp Pulse Resp B/P (MAP) Pulse Ox O2 Delivery O2 Flow Rate FiO2 11/01/24 21:36 146/107 11/01/24 18:21 120 18 97 11/01/24 18:15 Nasal Cannula* 2 11/01/24 16:00 97.6 97.6 Total Intake and Output 10/31/24 10/31/24 11/01/24 15:00 23:00 07:00 Intake Total 300 ml 200 ml 340 ml Output Total 1100 ml 2100 ml Balance 300 ml -900 ml -1760 ml medications Current Medications Medications Dose Ordered Sig/Darin Route Start Time Stop Time Status Last Admin Dose Admin Aspirin 81 mg DAILY PO 10/27/24 10:00 10/30/24 08:53 81 MG Atorvastatin Calcium 10 mg HS PO 10/27/24 22:00 10/30/24 21:31 10 MG Clonidine HCl 0.1 mg Q4HP PRN PO 10/27/24 02:15 Levalbuterol HCl 0.625 mg Q6HR NEB 10/27/24 06:00 11/01/24 18:15 0.625 MG Sodium Chloride 10 ml Q8HR IV 10/27/24 06:00 11/01/24 21:39 10 ML Acetaminophen/ Hydrocodone Bitart 1 tab Q4HP PRN PO 10/27/24 02:15 10/31/24 02:47 1 TAB Ondansetron HCl 4 mg Q4HP PRN IV 10/27/24 02:15 Docusate Sodium 100 mg BIDPRN PRN PO 10/27/24 02:15 Acetaminophen 650 mg Q6HP PRN PO 10/27/24 02:15 Nitroglycerin 0.4 mg Q5MINP PRN SL 10/27/24 03:15 Morphine Sulfate 2 mg Q30M PRN IV 10/27/24 03:15 Famotidine 20 mg Q12HR IV 10/28/24 10:00 11/01/24 21:43 20 MG Budesonide 0.5 mg BID NEB 10/30/24 22:00 11/01/24 18:15 0.5 MG Lorazepam 2 mg ONCE PRN IV 10/30/24 18:00 11/01/24 17:04 2 MG Nicotine 1 patch DAILY TD 10/30/24 19:45 10/30/24 19:48 1 PATCH Methylprednisolone Sodium Succinate 40 mg DAILY IV 10/31/24 10:00 10/31/24 10:37 40 MG Diagnostic Test (Pha) 1 strip ACHS 10/31/24 11:30 11/01/24 22:04 1 STRIP Insulin Human Regular ACHS SC 10/31/24 11:30 11/01/24 22:07 3 UNITS Dextrose 50 ml UD PRN IV 10/31/24 09:00 Furosemide 40 mg BID IV 10/31/24 22:00 11/01/24 21:36 40 MG Enoxaparin Sodium 110 mg Q12HR SC 10/31/24 22:00 11/01/24 21:37 110 MG Lorazepam 2 mg Q6HP PRN IV 11/01/24 12:00 11/01/24 21:27 2 MG Metoprolol Tartrate 5 mg BID IV 11/01/24 10:00 Norepinephrine Bitartrate 250 ml @ 3.75 mls/hr Q24H IV 11/01/24 12:45 Propofol 100 ml @ 3.246 mls/ hr Q24H IV 11/01/24 12:45 Midazolam HCl 50 ml @ 1 mls/hr Q24H IV 11/01/24 12:45 Fentanyl Citrate 250 ml @ 2.5 mls/hr Q24H IV 11/01/24 12:45 Ceftriaxone Sodium 50 ml @ 100 mls/hr DAILY@09 IV 11/02/24 09:00 Lactulose 30 ml BID PO 11/01/24 22:00 11/01/24 21:43 30 ML objective Gen.: Patient lying in bed in no apparent distress. On supplemental oxygen Head: Normocephalic, atraumatic. Eyes: EOMI/PERRLA. Ears: Normal hearing. Normal anatomy. Neck/trachea: Trachea midline, supple. Nose: Normal external anatomy. Mouth: Moist mucous membranes. Chest: Decreased air entry bilaterally. Wheezing heard. No rhonchi. Cardiovascular: Positive S1, positive S2. Regular rate and rhythm. Abdomen: Positive bowel sounds in all 4 quadrants. Soft, non-tender, non- distended. : Deferred. Rectal: Deferred. Skin: Warm, dry. Intact. Extremities: 2+ radial pulses bilaterally. No lower extremity edema. Neuro: Awake, alert, oriented x3. No gross motor or sensory deficits. Cranial nerves II through XII intact. Gait not assessed. laboratory and microbiology Laboratory Tests 11/01/24 06:37 10/30/24 05:30 Test 11/01/24 06:37 Range/Units Serum Glucose 184 #H 74-106 mg/dL Assessment/Plan Impression: Acute hypoxic respiratory failure Dependence on supplemental oxygen Atrial fibrillation CHF, possible Dyspnea COPD exacerbation Nicotine dependence Cannabinoid use Obesity BMI 34.5 Events: Remains on supplemental oxygen On 3 LPM NC Taper O2 as tolerated Maintaining 1:1 sitter for safety. Patient is AAO x1. Head of bed elevation Aspiration precautions. CXR reviewed, notable for cardiomegaly and stable-appearing moderate diffuse increased prominence of the pulmonary vasculature w/o evidence of focal consolidation. Brain MRI showed no acute infarction or intracranial hemorrhage. Nath-pb-shhtkjfu changes of chronic microvascular ischemic disease. Continue bronchodilators - on Xopenex due to tachycardia Pulmicort 0.5 mg q.12 hours. Blood pressure control Follow up Cardiology recs Awaiting stress echocardiogram. Note, rapid response was called U-tox noted to be cannabinoid positive. Patient received doses of Narcan Concern for patient getting substances from spouse. Pepcid for GI prophylaxis Accu-Cheks, ISS Diurese with Lasix Monitor renal function Monitor ins and outs - Shah was removed Labs and imaging reviewed. Rest of plan as noted below. Plan: Supplemental oxygen Titrate to keep O2 sats above 92%. Continue bronchodilators. Pulmicort BID Follow up Cardiology recommendations Diurese to euvolemia Fluid and salt restriction Monitor renal function. Monitor electrolytes. Supplement as necessary. Monitor ins and outs. Smoking cessation discussed for greater than 10 minutes Counseled against substance abuse. DVT prophylaxis. Prognosis: Poor given patient's multiple co-morbidities. Condition: Critical Rest of plan per hospitalist and other consultants. A total of 35 minutes of critical care time was spent reviewing the patient record, examining the patient, making a diagnostic and therapeutic plan, discussing this plan with the medical personnel, following up on diagnostic studies and following the patient for clinical stability excluding any and all procedures. At least 50% of this time was spent in direct, kerb-[id number] contact. Thank you, Dr. Clement, for allowing me to participate in this patient's care. Further recommendations will depend on the patient's clinical course. Please do not hesitate to contact me if you have any questions or concerns. This medical document was created using an electronic medical record system with [employer] dictation system. Although these documentations are being carefully reviewed, there may still be some phonetic and typographical changes. The errors are purely typographical, due to imperfection on the software program, and do not reflect any compromise in the patient's medical care. Dietary Evaluation Review Recommendations by RD: Dietary education by RD Comments: 1) Initiate MVI @ 1 tb qd 2) Add 60g CCHO restriction to cardiac diet 3) Advise patient to limit intake of added sugars including sugar-sweetened beverages, desserts, candy, etc. Aim for a consistent intake of complex carbohydrates spread throughout the day, paired with protein to promote glycemic control 4) Send order for glucometer to pharmacy. Review ADA SMBG guidelines: 80-130 mg/dL before meals and < 180 mg/dL 2-hr postprandial 5) Encourage optimal PO intake 6) Refer to outpatient RD/CDCES for diabetes education and weight management 7) Follow-up with cardiology, pulmonology, and nephrology 8) Follow-upw with director of social work r/t substance abuse 9) Continue to monitor I&O, labs, and skin integrity Expected Outcomes/Goals: 1) appetite and labs to improve 2) wound to improve 3) f/u in 3-5 days Plan discussed with: Other (VALENTINA Drummond) Critical Care Time(min): 35 DIRK LEVIN MD Nov 01, 2024 22:58
[2024-11-01] MEDS: FOLIC ACID 1 MG in D5W 5% 50 ML INJ ONE (23:45)
[2024-11-02] VITALS (68 sets, daily range): BP systolic 99–152; BP diastolic 59–108; PULSE 53–120; RESP 12–26; TEMP 98; O2SAT 88–100
--- NOTE | 2024-11-02 00:21 | DVH ---
CHEST RADIOGRAPH Indication: CONFIRM LEFT NGT PLACEMENT Technique: Single frontal view of the chest was obtained COMPARISON: XY CHEST XRAY 1 VIEW on DOS: 11/01/24, XY CHEST XRAY 1 VIEW on DOS: 10/31/24, XY CHEST XRAY 1 VIEW on DOS: 10/31/24, XY CHEST XRAY 1 VIEW on DOS: 10/28/24, XY CHEST PORTABLE on DOS: 10/26/24 FINDINGS: Lines and Tubes: Enteric catheter terminates within the left upper quadrant, presumably within the ga stric lumen. Lungs: Progressive right basilar pulmonary airspace disease and probable right pleural effusion. No pneumothorax. Cardiomediastinal contours: Cardiomegaly. Bones: Unremarkable IMPRESSION: 1. Enteric catheter as above. 2. Progressive right basilar pulmonary airspace disease and probable right pleural effusion. 3. Cardiomegaly.
[2024-11-02] MEDS: AMIODARONE 360mg/200mL PREMIX 200 ML IV SCH (01:26)
[2024-11-02] MEDS: THIAMINE 100mg/ml INJ (200mg/2ml VIAL) IV ONE (01:26)
[2024-11-02] MEDS: HALOPERIDOL LACTATE 5 MG/ML INJ VIAL IM PRN (02:20)
[2024-11-02 04:12] LABS: Hematocrit 42.5 % (41.0-53.0); Hemoglobin 14.1 g/dL (13.5-17.5); Mean Corpuscular Hemoglobin 30.9 pg (28.0-32.0); Mean Corpuscular Volume 93.2 fL (80.0-100.0); Nucleated Red Blood Cells % 0.2 %
[2024-11-02 04:31] LABS: Albumin 4.1 g/dL (3.2-4.8); Anion Gap 9 (5-15); BUN/Creatinine Ratio 36.9 (10.0-20.0); Bilirubin, Total 1.1 mg/dL (0.2-1.0); Calcium 9.2 mg/dL (8.7-10.4); Chloride 100 mmol/L (98-107); Potassium 3.8 mmol/L (3.5-5.1); Sodium 142 mmol/L (136-145); Total Protein 6.3 g/dL (5.7-8.2)
[2024-11-02 04:56] LABS: Alanine Aminotransferase 601 U/L (7-40); Alkaline Phosphatase 129 U/L (46-116); Blood Urea Nitrogen 55 mg/dL (9-23); Carbon Dioxide 33 mmol/L (20-31); Glucose 162 mg/dL (74-106)
--- NOTE | 2024-11-02 07:19 | DVHPN2 ---
Progress Note Date Seen: Nov 02, 2024 Has the PT tested + for MRSA If YES, has PT been informed?: No Medical Necessity Reason Pt with a Central, PICC or Fol: Yes The following are medically ne: Shah Catheter Reason for shah catheter: Strict I&O Subjective Patient reports: No new complaints Review of Systems: HEENT:Normal, CVS:Abnormal, RESPIRATORY:Abnormal, GI:Normal Objective vital signs Vital Sign Date Time Temp Pulse Resp B/P (MAP) Pulse Ox O2 Delivery O2 Flow Rate FiO2 11/02/24 06:54 115 14 100 11/02/24 06:46 Nasal Cannula* 3 32 11/02/24 00:08 118/88 11/01/24 23:45 96.8 96.8 Total Intake and Output 11/01/24 11/01/24 11/02/24 15:00 23:00 07:00 Intake Total 0 ml 60 ml Output Total 275 ml 1650 ml Balance -275 ml -1590 ml medications Current Medications Medications Dose Ordered Sig/Darin Route Start Time Stop Time Status Last Admin Dose Admin Aspirin 81 mg DAILY PO 10/27/24 10:00 10/30/24 08:53 81 MG Atorvastatin Calcium 10 mg HS PO 10/27/24 22:00 11/02/24 01:27 10 MG Clonidine HCl 0.1 mg Q4HP PRN PO 10/27/24 02:15 Levalbuterol HCl 0.625 mg Q6HR NEB 10/27/24 06:00 11/02/24 06:46 0.625 MG Sodium Chloride 10 ml Q8HR IV 10/27/24 06:00 11/02/24 05:59 10 ML Acetaminophen/ Hydrocodone Bitart 1 tab Q4HP PRN PO 10/27/24 02:15 10/31/24 02:47 1 TAB Ondansetron HCl 4 mg Q4HP PRN IV 10/27/24 02:15 Docusate Sodium 100 mg BIDPRN PRN PO 10/27/24 02:15 Acetaminophen 650 mg Q6HP PRN PO 10/27/24 02:15 Nitroglycerin 0.4 mg Q5MINP PRN SL 10/27/24 03:15 Morphine Sulfate 2 mg Q30M PRN IV 10/27/24 03:15 Famotidine 20 mg Q12HR IV 10/28/24 10:00 11/01/24 21:43 20 MG Budesonide 0.5 mg BID NEB 10/30/24 22:00 11/02/24 06:46 0.5 MG Lorazepam 2 mg ONCE PRN IV 10/30/24 18:00 11/01/24 17:04 2 MG Nicotine 1 patch DAILY TD 10/30/24 19:45 10/30/24 19:48 1 PATCH Methylprednisolone Sodium Succinate 40 mg DAILY IV 10/31/24 10:00 10/31/24 10:37 40 MG Diagnostic Test (Pha) 1 strip ACHS 10/31/24 11:30 11/02/24 07:00 1 STRIP Insulin Human Regular ACHS SC 10/31/24 11:30 11/02/24 06:00 3 UNITS Dextrose 50 ml UD PRN IV 10/31/24 09:00 Furosemide 40 mg BID IV 10/31/24 22:00 11/01/24 21:36 40 MG Enoxaparin Sodium 110 mg Q12HR SC 10/31/24 22:00 11/01/24 21:37 110 MG Lorazepam 2 mg Q6HP PRN IV 11/01/24 12:00 11/01/24 21:27 2 MG Metoprolol Tartrate 5 mg BID IV 11/01/24 10:00 11/01/24 23:08 5 MG Norepinephrine Bitartrate 250 ml @ 3.75 mls/hr Q24H IV 11/01/24 12:45 Propofol 100 ml @ 3.246 mls/ hr Q24H IV 11/01/24 12:45 Midazolam HCl 50 ml @ 1 mls/hr Q24H IV 11/01/24 12:45 Fentanyl Citrate 250 ml @ 2.5 mls/hr Q24H IV 11/01/24 12:45 Ceftriaxone Sodium 50 ml @ 100 mls/hr DAILY@09 IV 11/02/24 09:00 Lactulose 30 ml BID PO 11/01/24 22:00 11/02/24 01:00 30 ML Haloperidol Lactate 2.5 mg Q6HP PRN IM 11/01/24 23:45 11/02/24 02:20 2.5 MG Thiamine HCl 100 mg DAILY IV 11/02/24 10:00 Folic Acid 1 mg/ Dextrose 50.2 ml @ 200.8 mls/ hr DAILY INJ 11/02/24 10:00 Examination: GENERAL:Normal, LUNGS:Abnormal, CVS:Abnormal, ABDOMEN:Normal laboratory and microbiology Laboratory Tests 11/02/24 03:35 Test 11/02/24 03:35 Range/Units Serum Glucose 162 H 74-106 mg/dL Problem List/Assessment/Plan Problem List/Assessment/Plan 1) Acute respiratory failure, on 3L O2 2) Metabolic encephalopathy 3) Afib RVR 4) sCHF EF 20% 5) 6) Pulm HTN 7) KEEGAN 8) Meth abuse plan; 11/02------remains on 3L o2, amio gtt for afib RVR, echo shows ef 20% with and PHTN, cardio to plan for stress test, IV lasix for CHF, Cr downtrending, on IV rocephin, sitter at bedside for agitation and AMS, downgrade to tele, daily labs, will follow along, concern for possibly giving substances to patient Plan discussed with: Other (n) Dietary Evaluation Review Recommendations by RD: Dietary education by RD Comments: 1) Initiate MVI @ 1 tb qd 2) Add 60g CCHO restriction to cardiac diet 3) Advise patient to limit intake of added sugars including sugar-sweetened beverages, desserts, candy, etc. Aim for a consistent intake of complex carbohydrates spread throughout the day, paired with protein to promote glycemic control 4) Send order for glucometer to pharmacy. Review ADA SMBG guidelines: 80-130 mg/dL before meals and < 180 mg/dL 2-hr postprandial 5) Encourage optimal PO intake 6) Refer to outpatient RD/CDCES for diabetes education and weight management 7) Follow-up with cardiology, pulmonology, and nephrology 8) Follow-upw with sr. social media & mobile manager r/t substance abuse 9) Continue to monitor I&O, labs, and skin integrity Expected Outcomes/Goals: 1) appetite and labs to improve 2) wound to improve 3) f/u in 3-5 days HERO VAZQUEZ MD Nov 02, 2024 07:19
[2024-11-02] MEDS: THIAMINE 100mg/ml INJ (200mg/2ml VIAL) IV SCH (09:37)
[2024-11-02] MEDS: cefTRIAXone 1GM/50ML D5W 50 ML IV SCH (09:41)
--- NOTE | 2024-11-02 10:16 | DVH ---
PROCEDURE: Ultrasound-guided paracentesis Procedural Personnel Attending physician(s): Prince James Fellow physician(s): None Resident physician(s): None Advanced practice provider(s): None Pre-procedure diagnosis: Ascites Post-procedure diagnosis: Same Indication: ASCITES Additional clinical history: None Complications: No immediate complications. IMPRESSION: Ultrasound-guided paracentesis with drainage of 1100 mL of serous fluid. Plan: Resume care by clinical team. PROCEDURE SUMMARY: - Ultrasound-guided paracentesis - Additional procedure(s): None PROCEDURE DETAILS: Pre-procedure Consent: Informed consent for the procedure including risks, benefits and alternatives was obtained a nd time-out was performed prior to the procedure. Preparation: The site was prepared and draped using maximal sterile barrier technique including cutan eous antisepsis. Anesthesia/sedation Level of anesthesia/sedation: No sedation Anesthesia/sedation administered by: Not applicable Total intra-service sedation time (minutes): Not applicable Initial abdominal ultrasound Initial abdominal ultrasound was performed. Findings: Small ascites. Paracentesis Local anesthesia was administered. A safe window for paracentesis was identified with ultrasound. The peritoneal cavity was accessed and fluid return confirmed position. Ascites was drained. The cathete r was removed and a sterile dressing was applied. Catheter size (Fr):5 Fluid appearance: serous Volume drained (mL): 1100 Post-drainage ultrasound: No visible ascites Albumin Administration Grams of albumin given intravenously: None Additional Details Additional description of procedure: None Registry event: V/3/f Device used: None Equipment details: None Specimens removed: Aspirated fluid was sent for analysis. Estimated blood loss (mL): Less than 10 Standardized report: [email or web address] Attestation Signer name: Prince James I attest that I was present for the entire procedure. I reviewed the stored images and agree with the report as written.
--- NOTE | 2024-11-02 10:17 | DVHPN2 ---
Progress Note - Dictate Date Seen: Nov 02, 2024 Has the PT tested + for MRSA If YES, has PT been informed?: No Medical Necessity Reason Pt with a Central, PICC or Fol: Yes The following are medically ne: Shah Catheter Reason for shah catheter: Strict I&O Subjective Mr. Mejia is a 74 years old gentleman with a history of hypertension, COPD, congestive heart failure, new onset AFib (1st noticed on 10/26/2024), he came to the [facility] on 10/26/2024 with a chief company of shortness breath, bilateral leg edema. On 11/01/2024, his requested the patient to leave AMA, and she signed the A paperwork, when the patient was in the wheelchair, about to leave, suddenly he became completely obtunded and started in the wheelchair (Dr. Clement's note on 11/01/2024 1351) and rapidly responsive to him was activated ( Hoda's note at 11/01/2024 12 30), he was resuscitated, and transferred to the ICU I have seen and examined the patient, I have discussed with his nurse and other medical staff, he is awake, but does not know respond to verbal commands, he is moaning, keeps moving the arms UDS, 10/27/2024: Amphetamine, 10/31/24: Cannabinoids, 11/01/2024: Cannabinoids Urinalysis, 10/27/2024: No UTI ABG 10/28/24: Hypoxia, metabolic acidosis WBC/HB/PLT/MCV, 10/30/2024: 11.8/13.1/334/95.2 BUN/CR, 10/26/2024: Normal, 10/28/2024: 41/1.67, : 50/1.53, 11/01/2024: 66/1.78. TBI/AST/ALT/AP, 10/26/2024: 0.8/43/44/171, 10/28/24: 0.09/2270/201/152, 10/30/2024: 0.5/711/1491/139, 11/01/24: 0.8/172/789/125 NH3, 10/31/24: 29, 11/01/2024: 100 TG/HDL/LDL/HDL, 10/27/2024: 36/136/90/36 Chest x-ray, 11/01/2024: Cardiomegaly and stable appearing moderate diffuse increased prominence of the pulmonary vasculature without evidence of focal consolidation. MR head, 11/01/2024: No evidence of acute infarction, intracranial hemorrhage, mass effect or hydrocephalus. [id number] changes of chronic microvascular ischemic disease. Fluid tracking along the bilateral optic nerves which can be seen with papilledema. Clinical correlation is recommended vital signs Vital Sign Date Time Temp Pulse Resp B/P (MAP) Pulse Ox O2 Delivery O2 Flow Rate FiO2 11/02/24 09:38 133/98 11/02/24 09:37 117 11/02/24 06:54 14 100 11/02/24 06:46 Nasal Cannula* 3 32 11/01/24 23:45 96.8 96.8 Total Intake and Output 11/01/24 11/01/24 11/02/24 15:00 23:00 07:00 Intake Total 99.99 ml 326.64 ml Output Total 275 ml 1650 ml Balance -175.01 ml -1323.36 ml medications Current Medications Medications Dose Ordered Sig/Darni Route Start Time Stop Time Status Last Admin Dose Admin Aspirin 81 mg DAILY PO 10/27/24 10:00 11/02/24 09:36 81 MG Atorvastatin Calcium 10 mg HS PO 10/27/24 22:00 11/02/24 01:27 10 MG Clonidine HCl 0.1 mg Q4HP PRN PO 10/27/24 02:15 Levalbuterol HCl 0.625 mg Q6HR NEB 10/27/24 06:00 11/02/24 06:46 0.625 MG Sodium Chloride 10 ml Q8HR IV 10/27/24 06:00 11/02/24 05:59 10 ML Acetaminophen/ Hydrocodone Bitart 1 tab Q4HP PRN PO 10/27/24 02:15 11/02/24 09:53 1 TAB Ondansetron HCl 4 mg Q4HP PRN IV 10/27/24 02:15 Docusate Sodium 100 mg BIDPRN PRN PO 10/27/24 02:15 Acetaminophen 650 mg Q6HP PRN PO 10/27/24 02:15 Nitroglycerin 0.4 mg Q5MINP PRN SL 10/27/24 03:15 Morphine Sulfate 2 mg Q30M PRN IV 10/27/24 03:15 Famotidine 20 mg Q12HR IV 10/28/24 10:00 11/02/24 09:37 20 MG Budesonide 0.5 mg BID NEB 10/30/24 22:00 11/02/24 06:46 0.5 MG Lorazepam 2 mg ONCE PRN IV 10/30/24 18:00 11/01/24 17:04 2 MG Nicotine 1 patch DAILY TD 10/30/24 19:45 11/02/24 09:35 1 PATCH Methylprednisolone Sodium Succinate 40 mg DAILY IV 10/31/24 10:00 11/02/24 09:37 40 MG Diagnostic Test (Pha) 1 strip ACHS 10/31/24 11:30 11/02/24 07:00 1 STRIP Insulin Human Regular ACHS SC 10/31/24 11:30 11/02/24 06:00 3 UNITS Dextrose 50 ml UD PRN IV 10/31/24 09:00 Furosemide 40 mg BID IV 10/31/24 22:00 11/02/24 09:38 40 MG Enoxaparin Sodium 110 mg Q12HR SC 10/31/24 22:00 11/02/24 09:36 110 MG Lorazepam 2 mg Q6HP PRN IV 11/01/24 12:00 11/02/24 09:56 2 MG Metoprolol Tartrate 5 mg BID IV 11/01/24 10:00 11/02/24 09:37 5 MG Norepinephrine Bitartrate 250 ml @ 3.75 mls/hr Q24H IV 11/01/24 12:45 Propofol 100 ml @ 3.246 mls/ hr Q24H IV 11/01/24 12:45 Midazolam HCl 50 ml @ 1 mls/hr Q24H IV 11/01/24 12:45 Fentanyl Citrate 250 ml @ 2.5 mls/hr Q24H IV 11/01/24 12:45 Ceftriaxone Sodium 50 ml @ 100 mls/hr DAILY@09 IV 11/02/24 09:00 11/02/24 09:41 100 MLS/HR Lactulose 30 ml BID PO 11/01/24 22:00 11/02/24 09:36 30 ML Haloperidol Lactate 2.5 mg Q6HP PRN IM 11/01/24 23:45 11/02/24 02:20 2.5 MG Thiamine HCl 100 mg DAILY IV 11/02/24 10:00 11/02/24 09:37 100 MG Folic Acid 1 mg/ Dextrose 50.2 ml @ 200.8 mls/ hr DAILY INJ 11/02/24 10:00 objective The patient is well-nourished and well-developed with no distress. MENTAL STATUS: Subjective CRANIAL NERVES: Pupils are equal, round and reactive.There are corneal reflexes and doll's eyes phenomenon. No signs of facial weakness. SENSATION: Responses to pain stimuli. MOTOR: Normal tone in the upper and lower extremity. Normal muscle bulk. No fasciculations. He moves the arms and legs REFLEXES: Deep tendon reflexes are symmetrical. No pathological reflexes. CEREBELLAR/COORDINATION: Deferred GAIT/STATION: deferred laboratory and microbiology Laboratory Tests 11/02/24 03:35 Test 11/02/24 03:35 Range/Units Serum Glucose 162 H 74-106 mg/dL Problem List Altered mental status Metabolic encephalopathy Hypoxic encephalopathy Toxic encephalopathy Alcohol abuse Substance abuse Congestive heart failure COPD/respiratory failure Atrial fibrillation Assessment/Plan Monitoring Supportive treatment ICU care Follow-up lab EEG Stabilize vitals Respiratory support Oxygen Lovenox 110 mg subcu b.i.d. Lipitor 10 mg daily Haldol 2.5 mg intramuscular Q 6 hours p.r.n. for agitation More recommendation per clinical course This medical document was created using an electronic medical record system with [employer] dictation system. Although this document has been carefully reviewed, there may still be some phonetic and typographical errors. These areas are purely typographical due to imperfections of the software programs, and do not reflect any compromise in the patient's medical care. Prognosis Poor Dietary Evaluation Review Recommendations by RD: Dietary education by RD Comments: 1) Initiate MVI @ 1 tb qd 2) Add 60g CCHO restriction to cardiac diet 3) Advise patient to limit intake of added sugars including sugar-sweetened beverages, desserts, candy, etc. Aim for a consistent intake of complex carbohydrates spread throughout the day, paired with protein to promote glycemic control 4) Send order for glucometer to pharmacy. Review ADA SMBG guidelines: 80-130 mg/dL before meals and < 180 mg/dL 2-hr postprandial 5) Encourage optimal PO intake 6) Refer to outpatient RD/CDCES for diabetes education and weight management 7) Follow-up with cardiology, pulmonology, and nephrology 8) Follow-upw with social media director r/t substance abuse 9) Continue to monitor I&O, labs, and skin integrity Expected Outcomes/Goals: 1) appetite and labs to improve 2) wound to improve 3) f/u in 3-5 days Plan discussed with: Other Critical Care Time(min): 35 KOLBY MAHARAJ MD Nov 02, 2024 10:17
[2024-11-02] MEDS: FOLIC ACID 1 MG in D5W 5% 50 ML INJ SCH (10:20)
--- NOTE | 2024-11-02 14:27 | DVHPN2 ---
Consult Progress Note Subjective Other Systems: The patient currently undergoing EEG at time of assessment. Objective vital signs Vital Sign Date Time Temp Pulse Resp B/P (MAP) Pulse Ox O2 Delivery O2 Flow Rate FiO2 11/02/24 14:00 113 12 122/87 (99) 100 11/02/24 14:00 Nasal Cannula* 3 32 11/01/24 23:45 96.8 96.8 Total Intake and Output 11/01/24 11/01/24 11/02/24 15:00 23:00 07:00 Intake Total 99.99 ml 326.64 ml Output Total 275 ml 1650 ml Balance -175.01 ml -1323.36 ml medications Current Medications Medications Dose Ordered Sig/Darin Route Start Time Stop Time Status Last Admin Dose Admin Aspirin 81 mg DAILY PO 10/27/24 10:00 11/02/24 09:36 81 MG Atorvastatin Calcium 10 mg HS PO 10/27/24 22:00 11/02/24 01:27 10 MG Clonidine HCl 0.1 mg Q4HP PRN PO 10/27/24 02:15 Levalbuterol HCl 0.625 mg Q6HR NEB 10/27/24 06:00 11/02/24 11:52 0.625 MG Sodium Chloride 10 ml Q8HR IV 10/27/24 06:00 11/02/24 14:01 10 ML Acetaminophen/ Hydrocodone Bitart 1 tab Q4HP PRN PO 10/27/24 02:15 11/02/24 09:53 1 TAB Ondansetron HCl 4 mg Q4HP PRN IV 10/27/24 02:15 Docusate Sodium 100 mg BIDPRN PRN PO 10/27/24 02:15 Acetaminophen 650 mg Q6HP PRN PO 10/27/24 02:15 Nitroglycerin 0.4 mg Q5MINP PRN SL 10/27/24 03:15 Morphine Sulfate 2 mg Q30M PRN IV 10/27/24 03:15 Famotidine 20 mg Q12HR IV 10/28/24 10:00 11/02/24 09:37 20 MG Budesonide 0.5 mg BID NEB 10/30/24 22:00 11/02/24 06:46 0.5 MG Lorazepam 2 mg ONCE PRN IV 10/30/24 18:00 11/01/24 17:04 2 MG Nicotine 1 patch DAILY TD 10/30/24 19:45 11/02/24 09:35 1 PATCH Methylprednisolone Sodium Succinate 40 mg DAILY IV 10/31/24 10:00 11/02/24 09:37 40 MG Diagnostic Test (Pha) 1 strip ACHS 10/31/24 11:30 11/02/24 12:37 1 STRIP Insulin Human Regular ACHS SC 10/31/24 11:30 11/02/24 11:30 4 UNITS Dextrose 50 ml UD PRN IV 10/31/24 09:00 Furosemide 40 mg BID IV 10/31/24 22:00 11/02/24 09:38 40 MG Enoxaparin Sodium 110 mg Q12HR SC 10/31/24 22:00 11/02/24 09:36 110 MG Lorazepam 2 mg Q6HP PRN IV 11/01/24 12:00 11/02/24 09:56 2 MG Metoprolol Tartrate 5 mg BID IV 11/01/24 10:00 11/02/24 09:37 5 MG Norepinephrine Bitartrate 250 ml @ 3.75 mls/hr Q24H IV 11/01/24 12:45 Propofol 100 ml @ 3.246 mls/ hr Q24H IV 11/01/24 12:45 Midazolam HCl 50 ml @ 1 mls/hr Q24H IV 11/01/24 12:45 Fentanyl Citrate 250 ml @ 2.5 mls/hr Q24H IV 11/01/24 12:45 Ceftriaxone Sodium 50 ml @ 100 mls/hr DAILY@09 IV 11/02/24 09:00 11/02/24 09:41 100 MLS/HR Lactulose 30 ml BID PO 11/01/24 22:00 11/02/24 09:36 30 ML Haloperidol Lactate 2.5 mg Q6HP PRN IM 11/01/24 23:45 11/02/24 02:20 2.5 MG Thiamine HCl 100 mg DAILY IV 11/02/24 10:00 11/02/24 09:37 100 MG Folic Acid 1 mg/ Dextrose 50.2 ml @ 200.8 mls/ hr DAILY INJ 11/02/24 10:00 11/02/24 10:20 200.8 MLS/HR Examination: GENERAL:Abnormal (Generalized weakness), LUNGS:Normal, CVS:Normal (A flutter), NEURO:Abnormal (Confused) laboratory and microbiology Laboratory Tests 11/02/24 03:35 Test 11/02/24 03:35 Range/Units Serum Glucose 162 H 74-106 mg/dL Problem List/Assessment/Plan Problem List/Assessment/Plan Atrial flutter, new onset Junctional tachycardia NSTEMI, likely type 2 secondary to above Aortic valve stenosis Moderate tricuspid valve regurgitation Hypertension Type 2 diabetes mellitus Pulmonary hypertension Tobacco use Amphetamine use Morbid obesity Plan/recommendations (Dr. Rodriguez): Case discussed with Dr. Rodriguez. A transthoracic echocardiogram reveals an EF of approximately 20% with severe global hypokinesis, RVSP 51 mmHg. There are also findings to suggest low gradient aortic valve stenosis. Given these findings, the patient is recommended to undergo a dobutamine stress echocardiogram. The patient remains combative and confused. Unable to undergo dobutamine stress test at this time. In the meantime, continue guideline directed medical therapy for CHF as renal function permits. Initiate ARNI with improved creatinine function. Hold off on MRA (spironolactone) at this time given worsening renal function. Hold off on SGLT2i, given low GFR at this time. Consider left and right heart catheterization eventually to obtain definitive hemodynamic measurements and evaluate coronary anatomy. [id number] score: 3 points, HAS- BLED: 1 point. Continue therapeutic Lovenox, consider transitioning to NOAC therapy when appropriate. Continue amiodarone drip. Continue beta-graeme for rate control. Continue with close cardiac surveillance. Thank you for allowing us to care for this patient. Please call with any questions or concerns. This medical document was created using an electronic medical record system with voice recognition software and computerized dictation system. Although this document has been carefully reviewed, there might still be some phonetic and typographical errors. Occasional wrong-word or ``sound-alike substitutions may have occurred due to the inherent limitations of voice recognition software. These areas are purely typographical due to imperfections of the software programs and do not reflect any compromise in the patient's medical care. Please read the chart carefully and recognize, using context, where these substitutions have occurred. Plan discussed with: Other (Bedside RN) Dietary Evaluation Review Recommendations by RD: Dietary education by RD Comments: 1) Initiate MVI @ 1 tb qd 2) Add 60g CCHO restriction to cardiac diet 3) Advise patient to limit intake of added sugars including sugar-sweetened beverages, desserts, candy, etc. Aim for a consistent intake of complex carbohydrates spread throughout the day, paired with protein to promote glycemic control 4) Send order for glucometer to pharmacy. Review ADA SMBG guidelines: 80-130 mg/dL before meals and < 180 mg/dL 2-hr postprandial 5) Encourage optimal PO intake 6) Refer to outpatient RD/CDCES for diabetes education and weight management 7) Follow-up with cardiology, pulmonology, and nephrology 8) Follow-upw with social work manager r/t substance abuse 9) Continue to monitor I&O, labs, and skin integrity Expected Outcomes/Goals: 1) appetite and labs to improve 2) wound to improve 3) f/u in 3-5 days Date of Service: Nov 02, 2024 Billing Provider: LÓPEZ WEBER Common Visit Codes: [id number]-[id number] CARE 30-74 MIN LÓPEZ WEBER Nov 02, 2024 14:27
--- NOTE | 2024-11-02 21:16 | DVHEEG2 ---
Neurology EEG Procedural Note Procedural Note EXAM DATE: 11/02/2024 REFERRING DOCTOR: Dr. Maharaj TECHNIQUE: Eighteen channels of EEG, 2 channels of EOG, and 1 channel of EKG were recorded using the [employer] 10/20 system. CLINICAL DATA: The patient was referred for an EEG evaluation for the evidence of seizure disorder. MEDICATIONS: See the chart BACKGROUND ACTIVITY: There was movement in the recording, the record showed diffuse low amplitude theta activity, possibly worse on the left side ACTIVATION: Hyperventilation: Not down Photic Stimulation: Not done Sleep: Not seen IMPRESSION: This is an abnormal EEG, this EEG seen in cerebral dysfunction due to metabolic/hypoxic encephalopathy or medication effects, please correlate clinically The EKG channel showed a regular heart rate of 66 per minute [place] [address] KOLBY MAHARAJ MD Nov 02, 2024 21:16
--- NOTE | 2024-11-02 21:31 | DVHPN2 ---
Progress Note Date Seen: Nov 02, 2024 Resident Creating Document: CAILIN GUERRA RESIDENT Has the PT tested + for MRSA If YES, has PT been informed?: No Medical Necessity Reason Pt with a Central, PICC or Fol: Yes The following are medically ne: Shah Catheter Reason for shah catheter: Strict I&O Subjective Review of Systems 74 year-old male patient with cirrhosis (hepatitis serologies negative, THC positive), atrial flutter/fibrillation on amiodarone, and recent agitation for 3 days. * Agitation: Patient intermittently sedated; sitter at bedside for safety. * Encephalopathy: Elevated ammonia (100), managed with lactulose via NG tube. * Nutrition: NG tube confirmed in gastric lumen by chest radiograph; tube feeds scheduled to start tomorrow. * Recent Procedure: Underwent ultrasound-guided paracentesis today with drainage of 1100 mL serous fluid, no complications. * Antibiotics: Started on ceftriaxone for spontaneous bacterial peritonitis (SBP) prophylaxis. * Other Findings: Liver enzymes (AST 104, ALT 601) trending downward. Todays Progress / New Relevant Findings * Vitals: Tachycardia (HR 115-116), BP fluctuating (152/99 to 118/59), O2 sat 8996% on 3L NC, RR stable. * Imaging: * Chest X-ray: NG tube in proper position; progressive right basilar pulmonary airspace disease with probable right pleural effusion; cardiomegaly. * RUQ Ultrasound: Cirrhotic liver, small to moderate ascites, trace bilateral pleural effusions. * MRI Brain: No acute infarction; chronic microvascular ischemic disease; mild papilledema. * Labs: * WBC 12.8, Hgb 14.1, Plt 372. * BUN 55, Cr 1.49 (KEEGAN), CO2 33. * Albumin 4.1, Total bilirubin 1.1, AST 104, ALT 601. * Peritoneal fluid: WBC 130 (mononuclear predominant), RBC 242; protein/glucose/LDH pending. * Ascitic Fluid: No immediate evidence of SBP; cultures pending. Objective vital signs Vital Sign Date Time Temp Pulse Resp B/P (MAP) Pulse Ox O2 Delivery O2 Flow Rate FiO2 11/02/24 19:46 116 19 118/59 (78) 89 11/02/24 19:45 Nasal Cannula* 3 32 11/01/24 23:45 96.8 96.8 Total Intake and Output 711/01/24 11/02/24 15:00 23:00 07:00 Intake Total 99.99 ml 326.64 ml Output Total 275 ml 1650 ml Balance -175.01 ml -1323.36 ml medications Current Medications Medications Dose Ordered Sig/Darin Route Start Time Stop Time Status Last Admin Dose Admin Aspirin 81 mg DAILY PO 10/27/24 10:00 11/02/24 09:36 81 MG Atorvastatin Calcium 10 mg HS PO 10/27/24 22:00 11/02/24 01:27 10 MG Clonidine HCl 0.1 mg Q4HP PRN PO 10/27/24 02:15 Levalbuterol HCl 0.625 mg Q6HR NEB 10/27/24 06:00 11/02/24 18:43 0.625 MG Sodium Chloride 10 ml Q8HR IV 10/27/24 06:00 11/02/24 14:01 10 ML Acetaminophen/ Hydrocodone Bitart 1 tab Q4HP PRN PO 10/27/24 02:15 11/02/24 16:57 1 TAB Ondansetron HCl 4 mg Q4HP PRN IV 10/27/24 02:15 Docusate Sodium 100 mg BIDPRN PRN PO 10/27/24 02:15 Acetaminophen 650 mg Q6HP PRN PO 10/27/24 02:15 Nitroglycerin 0.4 mg Q5MINP PRN SL 10/27/24 03:15 Morphine Sulfate 2 mg Q30M PRN IV 10/27/24 03:15 Famotidine 20 mg Q12HR IV 10/28/24 10:00 11/02/24 09:37 20 MG Budesonide 0.5 mg BID NEB 10/30/24 22:00 11/02/24 06:46 0.5 MG Lorazepam 2 mg ONCE PRN IV 10/30/24 18:00 11/02/24 21:24 2 MG Nicotine 1 patch DAILY TD 10/30/24 19:45 11/02/24 09:35 1 PATCH Methylprednisolone Sodium Succinate 40 mg DAILY IV 10/31/24 10:00 11/02/24 09:37 40 MG Diagnostic Test (Pha) 1 strip ACHS 10/31/24 11:30 11/02/24 17:29 1 STRIP Insulin Human Regular ACHS SC 10/31/24 11:30 11/02/24 17:30 3 UNITS Dextrose 50 ml UD PRN IV 10/31/24 09:00 Furosemide 40 mg BID IV 10/31/24 22:00 11/02/24 09:38 40 MG Enoxaparin Sodium 110 mg Q12HR SC 10/31/24 22:00 11/02/24 09:36 110 MG Lorazepam 2 mg Q6HP PRN IV 11/01/24 12:00 11/02/24 09:56 2 MG Metoprolol Tartrate 5 mg BID IV 11/01/24 10:00 11/02/24 09:37 5 MG Norepinephrine Bitartrate 250 ml @ 3.75 mls/hr Q24H IV 11/01/24 12:45 Propofol 100 ml @ 3.246 mls/ hr Q24H IV 11/01/24 12:45 Midazolam HCl 50 ml @ 1 mls/hr Q24H IV 11/01/24 12:45 Fentanyl Citrate 250 ml @ 2.5 mls/hr Q24H IV 11/01/24 12:45 Ceftriaxone Sodium 50 ml @ 100 mls/hr DAILY@09 IV 11/02/24 09:00 11/02/24 09:41 100 MLS/HR Lactulose 30 ml BID PO 11/01/24 22:00 11/02/24 09:36 30 ML Haloperidol Lactate 2.5 mg Q6HP PRN IM 11/01/24 23:45 11/02/24 02:20 2.5 MG Thiamine HCl 100 mg DAILY IV 11/02/24 10:00 11/02/24 09:37 100 MG Folic Acid 1 mg/ Dextrose 50.2 ml @ 200.8 mls/ hr DAILY INJ 11/02/24 10:00 11/02/24 10:20 200.8 MLS/HR Examination * General: Sedated, intermittently agitated when arousable. * Abdomen: Distended but improved; soft, non-peritoneal signs; paracentesis site clean. * Bowel Sounds: Hypoactive. * Skin: No jaundice or stigmata of bleeding. * Other systems: Managed by primary and ICU teams. laboratory and microbiology Laboratory Tests 11/02/24 03:35 Test 11/02/24 03:35 Range/Units Serum Glucose 162 H 74-106 mg/dL Microbiology Date/Time Source Procedure Growth Status 10/31/24 09:51 Blood Blood Culture - Preliminary NO GROWTH AFTER 48 HOURS OF INCUBATION. Resulted Problem List/Assessment/Plan Problem List/Assessment/Plan Assessment 1. Decompensated Cirrhosis hepatitis negative, THC positive; MELD score 16. 2. Ascites s/p paracentesis with removal of 1100 mL fluid. 3. Hepatic Encephalopathy hyperammonemia, improved with NG lactulose. 4. Spontaneous Bacterial Peritonitis prophylaxis started with ceftriaxone . 5. Abnormal Liver Enzymes trending downward, likely shock liver in the setting of cirrhosis. 6. Malnutrition Risk enteral feeding initiation planned. Plan Gastrointestinal / Hepatic * Continue lactulose via NG 30 mL BID, titrate to 23 BMs/day. * Continue ceftriaxone IV for SBP prophylaxis until cultures confirm no infection. * Monitor for signs of infection; review ascitic fluid cultures once available. * Trend LFTs, INR, ammonia, renal function daily. * Consider adding rifaximin if hepatic encephalopathy persists. * Maintain low-sodium diet (<2 g/day) and fluid restriction if hyponatremia develops. Nutrition * Start tube feeding via NG tomorrow per dietitian protocol, advance as tolerated. * Provide albumin infusion if future paracentesis >5L is performed. Monitoring * Strict I/O and daily weight monitoring. * Abdominal girth assessment daily. * Repeat paracentesis only if symptomatic or if ascites reaccumulates rapidly. Case discussed in detail with the attending physician, including the clinical presentation, diagnostic workup, and comprehensive management plan. Plan discussed with: Spouse, Other (RN) Dietary Evaluation Review Recommendations by RD: Dietary education by RD Comments: 1) Initiate MVI @ 1 tb qd 2) Add 60g CCHO restriction to cardiac diet 3) Advise patient to limit intake of added sugars including sugar-sweetened beverages, desserts, candy, etc. Aim for a consistent intake of complex carbohydrates spread throughout the day, paired with protein to promote glycemic control 4) Send order for glucometer to pharmacy. Review ADA SMBG guidelines: 80-130 mg/dL before meals and < 180 mg/dL 2-hr postprandial 5) Encourage optimal PO intake 6) Refer to outpatient RD/CDCES for diabetes education and weight management 7) Follow-up with cardiology, pulmonology, and nephrology 8) Follow-upw with bilingual social worker r/t substance abuse 9) Continue to monitor I&O, labs, and skin integrity Expected Outcomes/Goals: 1) appetite and labs to improve 2) wound to improve 3) f/u in 3-5 days CAILIN GUERRA RESIDENT Nov 02, 2024 21:31
--- NOTE | 2024-11-02 21:47 | DVHPN2 ---
Progress Note Date Seen: Nov 02, 2024 Has the PT tested + for MRSA If YES, has PT been informed?: No Medical Necessity Reason Pt with a Central, PICC or Fol: Yes The following are medically ne: Shah Catheter Reason for shah catheter: Strict I&O Subjective Patient reports: No new complaints Review of Systems: Deferred Objective vital signs Vital Sign Date Time Temp Pulse Resp B/P (MAP) Pulse Ox O2 Delivery O2 Flow Rate FiO2 11/02/24 19:46 116 19 118/59 (78) 89 11/02/24 19:45 Nasal Cannula* 3 32 11/01/24 23:45 96.8 96.8 Total Intake and Output 11/01/24 11/01/24 11/02/24 15:00 23:00 07:00 Intake Total 99.99 ml 326.64 ml Output Total 275 ml 1650 ml Balance -175.01 ml -1323.36 ml medications Current Medications Medications Dose Ordered Sig/Darin Route Start Time Stop Time Status Last Admin Dose Admin Aspirin 81 mg DAILY PO 10/27/24 10:00 11/02/24 09:36 81 MG Atorvastatin Calcium 10 mg HS PO 10/27/24 22:00 11/02/24 01:27 10 MG Clonidine HCl 0.1 mg Q4HP PRN PO 10/27/24 02:15 Levalbuterol HCl 0.625 mg Q6HR NEB 10/27/24 06:00 11/02/24 18:43 0.625 MG Sodium Chloride 10 ml Q8HR IV 10/27/24 06:00 11/02/24 14:01 10 ML Acetaminophen/ Hydrocodone Bitart 1 tab Q4HP PRN PO 10/27/24 02:15 11/02/24 16:57 1 TAB Ondansetron HCl 4 mg Q4HP PRN IV 10/27/24 02:15 Docusate Sodium 100 mg BIDPRN PRN PO 10/27/24 02:15 Acetaminophen 650 mg Q6HP PRN PO 10/27/24 02:15 Nitroglycerin 0.4 mg Q5MINP PRN SL 10/27/24 03:15 Morphine Sulfate 2 mg Q30M PRN IV 10/27/24 03:15 Famotidine 20 mg Q12HR IV 10/28/24 10:00 11/02/24 09:37 20 MG Budesonide 0.5 mg BID NEB 10/30/24 22:00 11/02/24 06:46 0.5 MG Lorazepam 2 mg ONCE PRN IV 10/30/24 18:00 11/02/24 21:24 2 MG Nicotine 1 patch DAILY TD 10/30/24 19:45 11/02/24 09:35 1 PATCH Methylprednisolone Sodium Succinate 40 mg DAILY IV 10/31/24 10:00 11/02/24 09:37 40 MG Diagnostic Test (Pha) 1 strip ACHS 10/31/24 11:30 11/02/24 17:29 1 STRIP Insulin Human Regular ACHS SC 10/31/24 11:30 11/02/24 17:30 3 UNITS Dextrose 50 ml UD PRN IV 10/31/24 09:00 Furosemide 40 mg BID IV 10/31/24 22:00 11/02/24 09:38 40 MG Enoxaparin Sodium 110 mg Q12HR SC 10/31/24 22:00 11/02/24 09:36 110 MG Lorazepam 2 mg Q6HP PRN IV 11/01/24 12:00 11/02/24 09:56 2 MG Metoprolol Tartrate 5 mg BID IV 11/01/24 10:00 11/02/24 09:37 5 MG Norepinephrine Bitartrate 250 ml @ 3.75 mls/hr Q24H IV 11/01/24 12:45 Propofol 100 ml @ 3.246 mls/ hr Q24H IV 11/01/24 12:45 Midazolam HCl 50 ml @ 1 mls/hr Q24H IV 11/01/24 12:45 Fentanyl Citrate 250 ml @ 2.5 mls/hr Q24H IV 11/01/24 12:45 Ceftriaxone Sodium 50 ml @ 100 mls/hr DAILY@09 IV 11/02/24 09:00 11/02/24 09:41 100 MLS/HR Lactulose 30 ml BID PO 11/01/24 22:00 11/02/24 09:36 30 ML Haloperidol Lactate 2.5 mg Q6HP PRN IM 11/01/24 23:45 11/02/24 02:20 2.5 MG Thiamine HCl 100 mg DAILY IV 11/02/24 10:00 11/02/24 09:37 100 MG Folic Acid 1 mg/ Dextrose 50.2 ml @ 200.8 mls/ hr DAILY INJ 11/02/24 10:00 11/02/24 10:20 200.8 MLS/HR Examination: GENERAL:Abnormal, LUNGS:Abnormal, CVS:Abnormal, NEURO:Abnormal laboratory and microbiology Laboratory Tests 11/02/24 03:35 Test 11/02/24 03:35 Range/Units Serum Glucose 162 H 74-106 mg/dL Microbiology Date/Time Source Procedure Growth Status 10/31/24 09:51 Blood Blood Culture - Preliminary NO GROWTH AFTER 48 HOURS OF INCUBATION. Resulted Problem List/Assessment/Plan Problem List/Assessment/Plan 1. KEEGAN hemodynamically mediated on CKD-baseline serum creatinine unknown 2. CHF 3. New onset AFib 4. History of HTN-not well-controlled 5. History of meth use 6. COPD 7. Type 2 diabetes transaminitis-- recs IV Lasix We will follow closely Remains nonoliguric Stable renal function Plan discussed with: Other Dietary Evaluation Review Recommendations by RD: Dietary education by RD Comments: 1) Initiate MVI @ 1 tb qd 2) Add 60g CCHO restriction to cardiac diet 3) Advise patient to limit intake of added sugars including sugar-sweetened beverages, desserts, candy, etc. Aim for a consistent intake of complex carbohydrates spread throughout the day, paired with protein to promote glycemic control 4) Send order for glucometer to pharmacy. Review ADA SMBG guidelines: 80-130 mg/dL before meals and < 180 mg/dL 2-hr postprandial 5) Encourage optimal PO intake 6) Refer to outpatient RD/CDCES for diabetes education and weight management 7) Follow-up with cardiology, pulmonology, and nephrology 8) Follow-upw with director social service r/t substance abuse 9) Continue to monitor I&O, labs, and skin integrity Expected Outcomes/Goals: 1) appetite and labs to improve 2) wound to improve 3) f/u in 3-5 days REE RIOS MD Nov 02, 2024 21:47
[2024-11-02] MEDS: HALOPERIDOL LACTATE 5 MG/ML INJ VIAL IM ONE (22:50)
--- NOTE | 2024-11-02 23:51 | DVHPN2 ---
Progress Note - Dictate Date Seen: Nov 02, 2024 Has the PT tested + for MRSA If YES, has PT been informed?: No Medical Necessity Reason Pt with a Central, PICC or Fol: Yes The following are medically ne: Shah Catheter Reason for shah catheter: Strict I&O Subjective Patient seen and examined at bedside. Remains on supplemental oxygen Overnight events reviewed. vital signs Vital Sign Date Time Temp Pulse Resp B/P (MAP) Pulse Ox O2 Delivery O2 Flow Rate FiO2 11/02/24 23:38 114 129/87 11/02/24 23:27 22 98 11/02/24 23:19 Nasal Cannula* 3 32 11/02/24 21:00 98.0 98.0 Total Intake and Output 11/01/24 11/01/24 11/02/24 14:59 22:59 06:59 Intake Total 66.66 ml 326.64 ml Output Total 275 ml 1650 ml Balance -208.34 ml -1323.36 ml medications Current Medications Medications Dose Ordered Sig/Darin Route Start Time Stop Time Status Last Admin Dose Admin Aspirin 81 mg DAILY PO 10/27/24 10:00 11/02/24 09:36 81 MG Atorvastatin Calcium 10 mg HS PO 10/27/24 22:00 11/02/24 22:12 10 MG Clonidine HCl 0.1 mg Q4HP PRN PO 10/27/24 02:15 Levalbuterol HCl 0.625 mg Q6HR NEB 10/27/24 06:00 11/02/24 23:19 0.625 MG Sodium Chloride 10 ml Q8HR IV 10/27/24 06:00 11/02/24 22:13 10 ML Acetaminophen/ Hydrocodone Bitart 1 tab Q4HP PRN PO 10/27/24 02:15 11/02/24 16:57 1 TAB Ondansetron HCl 4 mg Q4HP PRN IV 10/27/24 02:15 Docusate Sodium 100 mg BIDPRN PRN PO 10/27/24 02:15 Acetaminophen 650 mg Q6HP PRN PO 10/27/24 02:15 Nitroglycerin 0.4 mg Q5MINP PRN SL 10/27/24 03:15 Morphine Sulfate 2 mg Q30M PRN IV 10/27/24 03:15 Famotidine 20 mg Q12HR IV 10/28/24 10:00 11/02/24 22:11 20 MG Budesonide 0.5 mg BID NEB 10/30/24 22:00 11/02/24 23:20 0.5 MG Lorazepam 2 mg ONCE PRN IV 10/30/24 18:00 11/02/24 21:24 2 MG Nicotine 1 patch DAILY TD 10/30/24 19:45 11/02/24 09:35 1 PATCH Methylprednisolone Sodium Succinate 40 mg DAILY IV 10/31/24 10:00 11/02/24 09:37 40 MG Diagnostic Test (Pha) 1 strip ACHS 10/31/24 11:30 11/02/24 22:24 1 STRIP Insulin Human Regular ACHS SC 10/31/24 11:30 11/02/24 22:16 8 UNITS Dextrose 50 ml UD PRN IV 10/31/24 09:00 Furosemide 40 mg BID IV 10/31/24 22:00 11/02/24 22:12 40 MG Enoxaparin Sodium 110 mg Q12HR SC 10/31/24 22:00 11/02/24 22:13 110 MG Lorazepam 2 mg Q6HP PRN IV 11/01/24 12:00 11/02/24 09:56 2 MG Metoprolol Tartrate 5 mg BID IV 11/01/24 10:00 11/02/24 22:12 5 MG Norepinephrine Bitartrate 250 ml @ 3.75 mls/hr Q24H IV 11/01/24 12:45 Propofol 100 ml @ 3.246 mls/ hr Q24H IV 11/01/24 12:45 Midazolam HCl 50 ml @ 1 mls/hr Q24H IV 11/01/24 12:45 Fentanyl Citrate 250 ml @ 2.5 mls/hr Q24H IV 11/01/24 12:45 Ceftriaxone Sodium 50 ml @ 100 mls/hr DAILY@09 IV 11/02/24 09:00 11/02/24 09:41 100 MLS/HR Lactulose 30 ml BID PO 11/01/24 22:00 11/02/24 22:11 30 ML Thiamine HCl 100 mg DAILY IV 11/02/24 10:00 11/02/24 09:37 100 MG Folic Acid 1 mg/ Dextrose 50.2 ml @ 200.8 mls/ hr DAILY INJ 11/02/24 10:00 11/02/24 10:20 200.8 MLS/HR Haloperidol Lactate 2.5 mg Q4HP PRN IM 11/02/24 22:30 objective Gen.: Patient lying in bed in no apparent distress. On supplemental oxygen Head: Normocephalic, atraumatic. Eyes: EOMI/PERRLA. Ears: Normal hearing. Normal anatomy. Neck/trachea: Trachea midline, supple. Nose: Normal external anatomy. Mouth: Moist mucous membranes. Chest: Decreased air entry bilaterally. Wheezing heard. No rhonchi. Cardiovascular: Positive S1, positive S2. Regular rate and rhythm. Abdomen: Positive bowel sounds in all 4 quadrants. Soft, non-tender, non- distended. : Deferred. Rectal: Deferred. Skin: Warm, dry. Intact. Extremities: 2+ radial pulses bilaterally. No lower extremity edema. Neuro: Arousable to painful stimuli. GCS of 9. No gross motor or sensory deficits. Cranial nerves II through XII intact. laboratory and microbiology Laboratory Tests 11/02/24 03:35 Test 11/02/24 03:35 Range/Units Serum Glucose 162 H 74-106 mg/dL Assessment/Plan Impression: Acute hypoxic respiratory failure Dependence on supplemental oxygen Atrial fibrillation CHF, possible Dyspnea COPD exacerbation Nicotine dependence Cannabinoid use Obesity BMI 34.5 Events: Remains on supplemental oxygen On 3 LPM NC Taper O2 as tolerated Maintaining 1:1 sitter for safety. Patient is arousable to painful stimuli. GCS of 9. Protecting the airway Head of bed elevation Aspiration precautions. Patient is s/p ultrasound-guided paracentesis today with drainage of 1100 mL of serous fluid. Continue bronchodilators - on Xopenex due to tachycardia Pulmicort 0.5 mg q.[address] - coffee-ground material Monitor hemoglobin On amiodarone Blood pressure control Follow up Cardiology recs Unable to do stress echocardiogram at this time. Obtain EEG - follow up results Follow up Neurology recommendations Rapid response was called on 11/01/24 - U-tox noted to be cannabinoid positive. Patient received doses of Narcan Concern for patient getting substances from spouse. Pepcid for GI prophylaxis Accu-Cheks, ISS Diurese with Lasix Monitor renal function Monitor ins and outs - Shah was removed Patient is stable for downgrade from the pulmonary standpoint. CXR on 11/01 notable for cardiomegaly and stable-appearing moderate diffuse increased prominence of the pulmonary vasculature w/o evidence of focal consolidation. Brain MRI showed no acute infarction or intracranial hemorrhage. [id number] changes of chronic microvascular ischemic disease. Labs and imaging reviewed. Rest of plan as noted below. Plan: Supplemental oxygen Titrate to keep O2 sats above 92%. Continue bronchodilators. Pulmicort BID Follow up Neurology recommendations Follow up Cardiology recommendations NGT in place Monitor hemoglobin Diurese to euvolemia Fluid and salt restriction Monitor renal function. Monitor electrolytes. Supplement as necessary. Monitor ins and outs. Smoking cessation discussed for greater than 10 minutes Counseled against substance abuse. DVT prophylaxis. Prognosis: Poor given patient's multiple co-morbidities. Condition: Critical Rest of plan per hospitalist and other consultants. A total of 35 minutes of critical care time was spent reviewing the patient record, examining the patient, making a diagnostic and therapeutic plan, discussing this plan with the medical personnel, following up on diagnostic studies and following the patient for clinical stability excluding any and all procedures. At least 50% of this time was spent in direct, [id number] contact. Thank you, Dr. Clement, for allowing me to participate in this patient's care. Further recommendations will depend on the patient's clinical course. Please do not hesitate to contact me if you have any questions or concerns. This medical document was created using an electronic medical record system with [employer] dictation system. Although these documentations are being carefully reviewed, there may still be some phonetic and typographical changes. The errors are purely typographical, due to imperfection on the software program, and do not reflect any compromise in the patient's medical care. Dietary Evaluation Review Recommendations by RD: Dietary education by RD Comments: 1) Initiate MVI @ 1 tb qd 2) Add 60g CCHO restriction to cardiac diet 3) Advise patient to limit intake of added sugars including sugar-sweetened beverages, desserts, candy, etc. Aim for a consistent intake of complex carbohydrates spread throughout the day, paired with protein to promote glycemic control 4) Send order for glucometer to pharmacy. Review ADA SMBG guidelines: 80-130 mg/dL before meals and < 180 mg/dL 2-hr postprandial 5) Encourage optimal PO intake 6) Refer to outpatient RD/CDCES for diabetes education and weight management 7) Follow-up with cardiology, pulmonology, and nephrology 8) Follow-upw with social research assistant r/t substance abuse 9) Continue to monitor I&O, labs, and skin integrity Expected Outcomes/Goals: 1) appetite and labs to improve 2) wound to improve 3) f/u in 3-5 days Plan discussed with: Other (VALENTINA Aguirre) Critical Care Time(min): 35 DIRK LEVIN MD Nov 02, 2024 23:51
[2024-11-03] VITALS (57 sets, daily range): BP systolic 95–138; BP diastolic 64–97; PULSE 90–118; RESP 11–30; TEMP 96.9–98.5; O2SAT 90–100
[2024-11-03 00:06] LABS: Opiate Scree,Urine Neg (NEGATIVE)
[2024-11-03 00:07] LABS: Cannabinoid Screen, Urine Neg (NEGATIVE)
[2024-11-03 00:18] LABS: Amphetamine Screen, Urine Neg (NEGATIVE); Barbiturate Scree,Urine Neg (NEGATIVE); Benzodiazephine Screen, Urine Neg (NEGATIVE); Cocaine Screen, Urine Neg (NEGATIVE); Phencyclidine Screen, Urine Neg (NEGATIVE)
[2024-11-03] MEDS: HALOPERIDOL LACTATE 5 MG/ML INJ VIAL IM PRN ×2 (05:18→15:15)
[2024-11-03 05:48] LABS: Hematocrit 44.7 % (41.0-53.0); Hemoglobin 14.8 g/dL (13.5-17.5); Mean Corpuscular Hemoglobin 31.1 pg (28.0-32.0); Mean Corpuscular Volume 93.5 fL (80.0-100.0); Nucleated Red Blood Cells % 0.1 %
[2024-11-03 05:59] LABS: BUN/Creatinine Ratio 31.0 (10.0-20.0); Calcium 9.7 mg/dL (8.7-10.4); Potassium 4.1 mmol/L (3.5-5.1); Total Protein 5.9 g/dL (5.7-8.2)
[2024-11-03 06:00] LABS: Albumin 3.9 g/dL (3.2-4.8); Bilirubin, Total 0.8 mg/dL (0.2-1.0)
[2024-11-03 06:09] LABS: Alanine Aminotransferase 469 U/L (7-40); Alkaline Phosphatase 132 U/L (46-116); Anion Gap 9.99999 (5-15); Blood Urea Nitrogen 48 mg/dL (9-23); Chloride 96 mmol/L (98-107); Glucose 152 mg/dL (74-106); Sodium 146 mmol/L (136-145)
[2024-11-03 06:11] LABS: Carbon Dioxide > 40 mmol/L (20-31)
--- NOTE | 2024-11-03 07:29 | DVHPN2 ---
Progress Note Date Seen: Nov 03, 2024 Has the PT tested + for MRSA If YES, has PT been informed?: No Medical Necessity Reason Pt with a Central, PICC or Fol: Yes The following are medically ne: Shah Catheter Reason for shah catheter: Strict I&O Subjective Patient reports: No new complaints Review of Systems: Not Done Objective vital signs Vital Sign Date Time Temp Pulse Resp B/P (MAP) Pulse Ox O2 Delivery O2 Flow Rate FiO2 11/03/24 07:00 118 24 113/78 (90) 98 11/03/24 06:18 Nasal Cannula* 3 32 11/03/24 05:00 98.1 98.1 Total Intake and Output 11/02/24 11/02/24 11/03/24 15:00 23:00 07:00 Intake Total 366.84 ml 666.64 ml 133.32 ml Output Total 2052 ml 250 ml Balance 366.84 ml -1385.36 ml -116.68 ml medications Current Medications Medications Dose Ordered Sig/Darin Route Start Time Stop Time Status Last Admin Dose Admin Aspirin 81 mg DAILY PO 10/27/24 10:00 11/02/24 09:36 81 MG Atorvastatin Calcium 10 mg HS PO 10/27/24 22:00 11/02/24 22:12 10 MG Clonidine HCl 0.1 mg Q4HP PRN PO 10/27/24 02:15 Levalbuterol HCl 0.625 mg Q6HR NEB 10/27/24 06:00 11/03/24 06:18 0.625 MG Sodium Chloride 10 ml Q8HR IV 10/27/24 06:00 11/03/24 06:00 10 ML Acetaminophen/ Hydrocodone Bitart 1 tab Q4HP PRN PO 10/27/24 02:15 11/02/24 16:57 1 TAB Ondansetron HCl 4 mg Q4HP PRN IV 10/27/24 02:15 Docusate Sodium 100 mg BIDPRN PRN PO 10/27/24 02:15 Acetaminophen 650 mg Q6HP PRN PO 10/27/24 02:15 Nitroglycerin 0.4 mg Q5MINP PRN SL 10/27/24 03:15 Morphine Sulfate 2 mg Q30M PRN IV 10/27/24 03:15 Famotidine 20 mg Q12HR IV 10/28/24 10:00 11/02/24 22:11 20 MG Budesonide 0.5 mg BID NEB 10/30/24 22:00 11/03/24 06:18 0.5 MG Lorazepam 2 mg ONCE PRN IV 10/30/24 18:00 11/02/24 21:24 2 MG Nicotine 1 patch DAILY TD 10/30/24 19:45 11/02/24 09:35 1 PATCH Methylprednisolone Sodium Succinate 40 mg DAILY IV 10/31/24 10:00 11/02/24 09:37 40 MG Diagnostic Test (Pha) 1 strip ACHS 10/31/24 11:30 11/03/24 07:01 1 STRIP Insulin Human Regular ACHS SC 10/31/24 11:30 11/03/24 07:01 3 UNITS Dextrose 50 ml UD PRN IV 10/31/24 09:00 Furosemide 40 mg BID IV 10/31/24 22:00 11/02/24 22:12 40 MG Enoxaparin Sodium 110 mg Q12HR SC 10/31/24 22:00 11/02/24 22:13 110 MG Lorazepam 2 mg Q6HP PRN IV 11/01/24 12:00 11/02/24 09:56 2 MG Metoprolol Tartrate 5 mg BID IV 11/01/24 10:00 11/02/24 22:12 5 MG Norepinephrine Bitartrate 250 ml @ 3.75 mls/hr Q24H IV 11/01/24 12:45 Propofol 100 ml @ 3.246 mls/ hr Q24H IV 11/01/24 12:45 Midazolam HCl 50 ml @ 1 mls/hr Q24H IV 11/01/24 12:45 Fentanyl Citrate 250 ml @ 2.5 mls/hr Q24H IV 11/01/24 12:45 Ceftriaxone Sodium 50 ml @ 100 mls/hr DAILY@09 IV 11/02/24 09:00 11/02/24 09:41 100 MLS/HR Lactulose 30 ml BID PO 11/01/24 22:00 11/02/24 22:11 30 ML Thiamine HCl 100 mg DAILY IV 11/02/24 10:00 11/02/24 09:37 100 MG Folic Acid 1 mg/ Dextrose 50.2 ml @ 200.8 mls/ hr DAILY INJ 11/02/24 10:00 11/02/24 10:20 200.8 MLS/HR Haloperidol Lactate 2.5 mg Q4HP PRN IM 11/02/24 22:30 11/03/24 05:18 2.5 MG Examination: GENERAL:Normal, LUNGS:Abnormal, CVS:Abnormal laboratory and microbiology Laboratory Tests 11/03/24 05:15 Test 11/03/24 05:15 Range/Units Serum Glucose 152 H 74-106 mg/dL Problem List/Assessment/Plan Problem List/Assessment/Plan n1) Acute respiratory failure, on 3L O2 2) Metabolic encephalopathy 3) Afib RVR 4) sCHF EF 20% 5) 6) Pulm HTN 7) KEEGAN 8) Meth abuse plan; 11/02------remains on 3L o2, amio gtt for afib RVR, echo shows ef 20% with and PHTN, cardio to plan for stress test, IV lasix for CHF, Cr downtrending, on IV rocephin, sitter at bedside for agitation and AMS, downgrade to tele, daily labs, will follow along, concern for possibly giving substances to patient 11/03---now transferred to [facility], remains on 3L, was agitated overnight as per nursing and received IM haldol, on amio gtt and not stable for stress test given overall condition, cardio recs appreciated, had paracentesis yesterday with 1.1L fluid out and remains on IV rocephin for SBP ppx, ammonia level <10 this AM, GI on board and recs appreciated, repeat UTox negative, EEG done yesterday by neuro, continue current care and will await to see if mental status improves enough for possible tele downgrade, cardio/renal/GI/neuro/pulm all on board Plan discussed with: Other (n) Dietary Evaluation Review Recommendations by RD: Dietary education by RD Comments: 1) Initiate MVI @ 1 tb qd 2) Add 60g CCHO restriction to cardiac diet 3) Advise patient to limit intake of added sugars including sugar-sweetened beverages, desserts, candy, etc. Aim for a consistent intake of complex carbohydrates spread throughout the day, paired with protein to promote glycemic control 4) Send order for glucometer to pharmacy. Review ADA SMBG guidelines: 80-130 mg/dL before meals and < 180 mg/dL 2-hr postprandial 5) Encourage optimal PO intake 6) Refer to outpatient RD/CDCES for diabetes education and weight management 7) Follow-up with cardiology, pulmonology, and nephrology 8) Follow-upw with social problems specialist r/t substance abuse 9) Continue to monitor I&O, labs, and skin integrity Expected Outcomes/Goals: 1) appetite and labs to improve 2) wound to improve 3) f/u in 3-5 days HERO VAZQUEZ MD Nov 03, 2024 07:28
--- NOTE | 2024-11-03 09:10 | DVHPN2 ---
Consult Progress Note Subjective Other Systems: Patient remains altered. Objective vital signs Vital Sign Date Time Temp Pulse Resp B/P (MAP) Pulse Ox O2 Delivery O2 Flow Rate FiO2 11/03/24 07:00 118 24 113/78 (90) 98 11/03/24 06:18 Nasal Cannula* 3 32 11/03/24 05:00 98.1 98.1 Total Intake and Output 11/02/24 11/02/24 11/03/24 15:00 23:00 07:00 Intake Total 366.84 ml 666.64 ml 233.31 ml Output Total 2052 ml 250 ml Balance 366.84 ml -1385.36 ml -16.69 ml medications Current Medications Medications Dose Ordered Sig/Darin Route Start Time Stop Time Status Last Admin Dose Admin Aspirin 81 mg DAILY PO 10/27/24 10:00 11/02/24 09:36 81 MG Atorvastatin Calcium 10 mg HS PO 10/27/24 22:00 11/02/24 22:12 10 MG Clonidine HCl 0.1 mg Q4HP PRN PO 10/27/24 02:15 Levalbuterol HCl 0.625 mg Q6HR NEB 10/27/24 06:00 11/03/24 06:18 0.625 MG Sodium Chloride 10 ml Q8HR IV 10/27/24 06:00 11/03/24 06:00 10 ML Acetaminophen/ Hydrocodone Bitart 1 tab Q4HP PRN PO 10/27/24 02:15 11/02/24 16:57 1 TAB Ondansetron HCl 4 mg Q4HP PRN IV 10/27/24 02:15 Docusate Sodium 100 mg BIDPRN PRN PO 10/27/24 02:15 Acetaminophen 650 mg Q6HP PRN PO 10/27/24 02:15 Nitroglycerin 0.4 mg Q5MINP PRN SL 10/27/24 03:15 Morphine Sulfate 2 mg Q30M PRN IV 10/27/24 03:15 Famotidine 20 mg Q12HR IV 10/28/24 10:00 11/02/24 22:11 20 MG Budesonide 0.5 mg BID NEB 10/30/24 22:00 11/03/24 06:18 0.5 MG Lorazepam 2 mg ONCE PRN IV 10/30/24 18:00 11/02/24 21:24 2 MG Nicotine 1 patch DAILY TD 10/30/24 19:45 11/02/24 09:35 1 PATCH Methylprednisolone Sodium Succinate 40 mg DAILY IV 10/31/24 10:00 11/02/24 09:37 40 MG Diagnostic Test (Pha) 1 strip ACHS 10/31/24 11:30 11/03/24 07:01 1 STRIP Insulin Human Regular ACHS SC 10/31/24 11:30 11/03/24 07:01 3 UNITS Dextrose 50 ml UD PRN IV 10/31/24 09:00 Enoxaparin Sodium 110 mg Q12HR SC 10/31/24 22:00 11/02/24 22:13 110 MG Lorazepam 2 mg Q6HP PRN IV 11/01/24 12:00 11/02/24 09:56 2 MG Metoprolol Tartrate 5 mg BID IV 11/01/24 10:00 11/02/24 22:12 5 MG Norepinephrine Bitartrate 250 ml @ 3.75 mls/hr Q24H IV 11/01/24 12:45 Propofol 100 ml @ 3.246 mls/ hr Q24H IV 11/01/24 12:45 Midazolam HCl 50 ml @ 1 mls/hr Q24H IV 11/01/24 12:45 Fentanyl Citrate 250 ml @ 2.5 mls/hr Q24H IV 11/01/24 12:45 Ceftriaxone Sodium 50 ml @ 100 mls/hr DAILY@09 IV 11/02/24 09:00 11/02/24 09:41 100 MLS/HR Lactulose 30 ml BID PO 11/01/24 22:00 11/02/24 22:11 30 ML Thiamine HCl 100 mg DAILY IV 11/02/24 10:00 11/02/24 09:37 100 MG Folic Acid 1 mg/ Dextrose 50.2 ml @ 200.8 mls/ hr DAILY INJ 11/02/24 10:00 11/02/24 10:20 200.8 MLS/HR Haloperidol Lactate 5 mg Q4HP PRN IM 11/03/24 08:00 Furosemide 40 mg BIDD IV 11/03/24 09:00 Examination: GENERAL:Abnormal, LUNGS:Normal, CVS:Normal, NEURO:Abnormal (Confusion) laboratory and microbiology Laboratory Tests 11/03/24 05:15 Test 11/03/24 05:15 Range/Units Serum Glucose 152 H 74-106 mg/dL Problem List/Assessment/Plan Problem List/Assessment/Plan Atrial flutter, new onset Junctional tachycardia NSTEMI, likely type 2 secondary to above Aortic valve stenosis Moderate tricuspid valve regurgitation Hypertension Type 2 diabetes mellitus Pulmonary hypertension Altered mental status Tobacco use Amphetamine use Morbid obesity Plan/recommendations (Dr. Rodriguez): Case discussed with Dr. Rodriguez. A transthoracic echocardiogram reveals an EF of approximately 20% with severe global hypokinesis, RVSP 51 mmHg. There are also findings to suggest low gradient aortic valve stenosis. Given these findings, the patient is recommended to undergo a dobutamine stress echocardiogram. The patient remains confused. Unable to undergo dobutamine stress test at this time. In the meantime, continue guideline directed medical therapy for CHF as renal function permits. Initiate ARNI with improved creatinine function. Hold off on MRA (spironolactone) at this time given worsening renal function. Hold off on SGLT2i, given low GFR at this time. Consider left and right heart catheterization eventually to obtain definitive hemodynamic measurements and evaluate coronary anatomy. [id number] score: 3 points, HAS-BLED: 1 point. Continue therapeutic Lovenox, consider transitioning to NOAC therapy when appropriate. Continue amiodarone drip. Continue beta-graeme for rate control. Continue with close cardiac surveillance. Thank you for allowing us to care for this patient. Please call with any questions or concerns. This medical document was created using an electronic medical record system with voice recognition software and computerized dictation system. Although this document has been carefully reviewed, there might still be some phonetic and typographical errors. Occasional wrong-word or ``sound-alike substitutions may have occurred due to the inherent limitations of voice recognition software. These areas are purely typographical due to imperfections of the software programs and do not reflect any compromise in the patient's medical care. Please read the chart carefully and recognize, using context, where these substitutions have occurred. Plan discussed with: Other (Bedside RN) Dietary Evaluation Review Recommendations by RD: Dietary education by RD Comments: 1) Initiate MVI @ 1 tb qd 2) Add 60g CCHO restriction to cardiac diet 3) Advise patient to limit intake of added sugars including sugar-sweetened beverages, desserts, candy, etc. Aim for a consistent intake of complex carbohydrates spread throughout the day, paired with protein to promote glycemic control 4) Send order for glucometer to pharmacy. Review ADA SMBG guidelines: 80-130 mg/dL before meals and < 180 mg/dL 2-hr postprandial 5) Encourage optimal PO intake 6) Refer to outpatient RD/CDCES for diabetes education and weight management 7) Follow-up with cardiology, pulmonology, and nephrology 8) Follow-upw with manager social media r/t substance abuse 9) Continue to monitor I&O, labs, and skin integrity Expected Outcomes/Goals: 1) appetite and labs to improve 2) wound to improve 3) f/u in 3-5 days Date of Service: Nov 03, 2024 Billing Provider: LÓPEZ WEBER Common Visit Codes: [id number] CARE 30-74 MIN LÓPEZ WEBER Nov 03, 2024 09:10
[2024-11-03] MEDS: FUROSEMIDE 40 MG/4 ML VIAL IV SCH (11:09)
--- NOTE | 2024-11-03 11:18 | DVH ---
CHEST RADIOGRAPH Indication: verify ng tube placement Technique: Single frontal view of the chest was obtained Comparison: XY CHEST PORTABLE on DOS: 11/01/24 FINDINGS: Lines and Tubes: The enteric tube courses below the left hemidiaphragm but the tip extends outside is suggested view. Lungs: Patchy bilateral airspace disease. Pleura: No effusion. No pneumothorax. Cardiomediastinal contours: Unremarkable Bones: No acute osseous abnormality. IMPRESSION: 1. Enteric tube terminates below the left hemidiaphragm and outside the field of view. 2. Patchy bilateral airspace disease which may reflect multifocal pneumonia.
[2024-11-03 12:07] LABS: Glucose, Body Fluid 174.0 mg/dL (.); LD, Body Fluid 90.0 IU/L (.)
[2024-11-03 13:25] LABS: Base Excess 13.6 mmol/L (-2.0-3.0)
[2024-11-03] MEDS ORDERED: VANCOMYCIN PER PHARMACY 0 MG IV SCH (14:15)
[2024-11-03] MEDS ORDERED: VANCOMYCIN 1GM/200ML PM 250 ML IV SCH (14:45)
--- NOTE | 2024-11-03 15:44 | DVHPN2 ---
Progress Note Date Seen: Nov 03, 2024 Has the PT tested + for MRSA If YES, has PT been informed?: No Medical Necessity Reason Pt with a Central, PICC or Fol: Yes The following are medically ne: Shah Catheter Reason for shah catheter: Strict I&O Subjective Review of Systems Pt will be having CT scan. Objective vital signs Vital Sign Date Time Temp Pulse Resp B/P (MAP) Pulse Ox O2 Delivery O2 Flow Rate FiO2 11/03/24 12:36 118 123/64 11/03/24 11:13 14 99 11/03/24 11:07 Nasal Cannula* 3 32 11/03/24 05:00 98.1 98.1 Total Intake and Output 11/02/24 11/02/24 11/03/24 15:00 23:00 07:00 Intake Total 366.84 ml 666.64 ml 233.31 ml Output Total 2052 ml 250 ml Balance 366.84 ml -1385.36 ml -16.69 ml medications Current Medications Medications Dose Ordered Sig/Darin Route Start Time Stop Time Status Last Admin Dose Admin Aspirin 81 mg DAILY PO 10/27/24 10:00 11/03/24 11:15 81 MG Atorvastatin Calcium 10 mg HS PO 10/27/24 22:00 11/02/24 22:12 10 MG Clonidine HCl 0.1 mg Q4HP PRN PO 10/27/24 02:15 Levalbuterol HCl 0.625 mg Q6HR NEB 10/27/24 06:00 11/03/24 11:07 0.625 MG Sodium Chloride 10 ml Q8HR IV 10/27/24 06:00 11/03/24 14:25 10 ML Acetaminophen/ Hydrocodone Bitart 1 tab Q4HP PRN PO 10/27/24 02:15 11/02/24 16:57 1 TAB Ondansetron HCl 4 mg Q4HP PRN IV 10/27/24 02:15 Docusate Sodium 100 mg BIDPRN PRN PO 10/27/24 02:15 Acetaminophen 650 mg Q6HP PRN PO 10/27/24 02:15 Nitroglycerin 0.4 mg Q5MINP PRN SL 10/27/24 03:15 Morphine Sulfate 2 mg Q30M PRN IV 10/27/24 03:15 Famotidine 20 mg Q12HR IV 10/28/24 10:00 11/03/24 11:36 20 MG Budesonide 0.5 mg BID NEB 10/30/24 22:00 11/03/24 06:18 0.5 MG Lorazepam 2 mg ONCE PRN IV 10/30/24 18:00 11/02/24 21:24 2 MG Nicotine 1 patch DAILY TD 10/30/24 19:45 11/03/24 11:17 1 PATCH Methylprednisolone Sodium Succinate 40 mg DAILY IV 10/31/24 10:00 11/03/24 11:15 40 MG Diagnostic Test (Pha) 1 strip ACHS 10/31/24 11:30 11/03/24 11:30 1 STRIP Insulin Human Regular ACHS SC 10/31/24 11:30 11/03/24 11:30 3 UNITS Dextrose 50 ml UD PRN IV 10/31/24 09:00 Enoxaparin Sodium 110 mg Q12HR SC 10/31/24 22:00 11/03/24 11:10 100 MG Lorazepam 2 mg Q6HP PRN IV 11/01/24 12:00 11/02/24 09:56 2 MG Metoprolol Tartrate 5 mg BID IV 11/01/24 10:00 11/03/24 11:36 5 MG Norepinephrine Bitartrate 250 ml @ 3.75 mls/hr Q24H IV 11/01/24 12:45 Propofol 100 ml @ 3.246 mls/ hr Q24H IV 11/01/24 12:45 Midazolam HCl 50 ml @ 1 mls/hr Q24H IV 11/01/24 12:45 Fentanyl Citrate 250 ml @ 2.5 mls/hr Q24H IV 11/01/24 12:45 Lactulose 30 ml BID PO 11/01/24 22:00 11/03/24 11:15 30 ML Thiamine HCl 100 mg DAILY IV 11/02/24 10:00 11/03/24 11:13 100 MG Folic Acid 1 mg/ Dextrose 50.2 ml @ 200.8 mls/ hr DAILY INJ 11/02/24 10:00 11/03/24 11:36 200.8 MLS/HR Haloperidol Lactate 5 mg Q4HP PRN IM 11/03/24 08:00 11/03/24 15:15 5 MG Furosemide 40 mg BIDD IV 11/03/24 09:00 11/03/24 11:09 40 MG Vancomycin HCl 0 ml @ 0 mls/hr UD IV 11/03/24 14:15 Piperacillin Sod/ Tazobactam Sod 100 ml @ 25 mls/hr Q8HR IV 11/03/24 22:00 Vancomycin HCl 250 ml @ 250 mls/hr Q1H IV 11/03/24 14:45 11/03/24 16:44 Cancel Enteral Nutritional Formula 1,000 ml 30ML/HR NG 11/03/24 15:45 UNV Examination Gen: NAD Lungs:bilateral air entry Heart: irregular RR Abd: Distended Ext: +edema Neuro: altered mental status laboratory and microbiology Laboratory Tests 11/03/24 05:15 Test 11/03/24 05:15 Range/Units Serum Glucose 152 H 74-106 mg/dL Microbiology Date/Time Source Procedure Growth Status 11/02/24 11:10 Ascities Fluid Gram Stain - Final Resulted 11/02/24 11:10 Ascities Fluid Body Fluid Culture - Preliminary Resulted 10/31/24 09:51 Blood Blood Culture - Preliminary NO GROWTH AFTER 72 HOURS OF INCUBATION. Resulted Labs and/or images reviewed: Labs reviewed by me Problem List/Assessment/Plan Problem List/Assessment/Plan IMP 1. KEEGAN hemodynamically mediated on CKD-baseline serum creatinine unknown 2. CHF 3. New onset AFib 4. History of HTN-not well-controlled 5. History of meth use 6. COPD 7. Type 2 diabetes 8.Transaminitis REC -Stable renal function eGFR 47 -Agree with diuresis with IV Lasix -Chemistry panel -We will continue to follow Plan discussed with: Other Dietary Evaluation Review Recommendations by RD: Dietary education by RD Comments: 1) Initiate MVI @ 1 tb qd 2) Add 60g CCHO restriction to cardiac diet 3) Advise patient to limit intake of added sugars including sugar-sweetened beverages, desserts, candy, etc. Aim for a consistent intake of complex carbohydrates spread throughout the day, paired with protein to promote glycemic control 4) Send order for glucometer to pharmacy. Review ADA SMBG guidelines: 80-130 mg/dL before meals and < 180 mg/dL 2-hr postprandial 5) Encourage optimal PO intake 6) Refer to outpatient RD/CDCES for diabetes education and weight management 7) Follow-up with cardiology, pulmonology, and nephrology 8) Follow-upw with social media intern r/t substance abuse 9) Continue to monitor I&O, labs, and skin integrity Expected Outcomes/Goals: 1) appetite and labs to improve 2) wound to improve 3) f/u in 3-5 days SANTIAGO QUEZADA [employer]IST Nov 03, 2024 15:44
[2024-11-03] MEDS ORDERED: Nepro With Carb Steady 1 Liter Bottle NG SCH (15:45)
--- NOTE | 2024-11-03 15:57 | DVH ---
CT CHEST WITHOUT CONTRAST INDICATION: INCREASED WORK OF BREATHING/ALOC EXAM DATE: 11/03/2024 03:17 PM COMPARISON: XY CHEST PORTABLE on DOS: 11/03/24, XY CHEST PORTABLE on DOS: 11/01/24, XY CHEST XRAY 1 VIEW on DOS: 11/01/24 RADIATION DOSE: CTDIvol: 29.65 mGy, DLP: 1115.7 mGy*cm PROCEDURE: Helical CT images were obtained of the chest without intravenous contrast. Sagittal and c oronal reconstructions are provided. ADDITIONAL IMAGES / REFORMATS: None All CT scans at this medical facility are performed using dose modulation techniques as appropriate t o a performed exam including the following: Automated exposure control was utilized; adjustment of th e MA and/or KV according to patient size; and use of iterative reconstruction technique. FINDINGS: Bones: Scattered degenerative changes are noted. Visualized Abdomen: Trace perihepatic fluid. Chest Wall: Normal. Soft tissues: Normal. Mediastinum: Normal. Heart: Coronary artery calcifications are noted. Vessels: Normal. Lymph Nodes: Normal. Pleura: Small bilateral effusion. Airways: Normal. Lung: Small bibasilar consolidation. Other: None IMPRESSION: Small bibasilar consolidation. Small bilateral effusion.
--- NOTE | 2024-11-03 16:12 | DVHPN2 ---
Progress Note Date Seen: Nov 03, 2024 Resident Creating Document: CAILIN GUERRA RESIDENT Has the PT tested + for MRSA If YES, has PT been informed?: No Medical Necessity Reason Pt with a Central, PICC or Fol: Yes The following are medically ne: Shah Catheter Reason for shah catheter: Strict I&O Subjective Review of Systems The patient is a [74]-year-old with decompensated cirrhosis (hepatitis , THC positive), admitted with hepatic encephalopathy and agitation. He has a history of atrial flutter/fibrillation on amiodarone, CHF with severely reduced EF, COPD, and KEEGAN. * Today: The patient remains restless and agitated. * Ammonia: Decreased to <12, suggesting improvement in hepatic encephalopathy. * Bowel Movements: Two bowel movements today. * Nutrition: NG tube in place; currently receiving Nepro with carb steady at 30 mL/hr. * Infections: WBC spiked to 13.9 (neutrophils 81%); repeat blood and sputum cultures sent, peritoneal cultures still pending. * Antibiotics: Currently on vancomycin + Zosyn for broad coverage. * Recent Procedures/Imaging: * Ultrasound-guided paracentesis previously performed (1100 mL serous ascitic fluid removed); fluid studies not consistent with SBP. * Transthoracic echocardiogram revealed EF ~20% with severe global hypokinesis and RVSP 51 mmHg. * Head CT and Chest CT performed today; reports pending. * Chest X-ray: NG tube terminates below left hemidiaphragm (outside field of view); patchy bilateral airspace disease, likely multilobar pneumonia. Todays Progress / New Relevant Findings * Vitals: HR 118 (tachycardia), BP stable, SpO? 99% on 3L nasal cannula. * Labs: * WBC 13.9 (?), neutrophils 81% (?). * Creatinine 1.55 (?), BUN elevated. * AST 63, ALT 496 (still elevated but trending downward). * Ammonia <12 (improved). * Peritoneal fluid: WBC 130 (not suggestive of SBP), RBC 242, mononuclear cells 95%, polymorphs 5%; cultures pending. * Imaging: * Chest X-ray with multilobar pneumonia pattern. * Chest CT/Head CT pending read. Objective vital signs Vital Sign Date Time Temp Pulse Resp B/P (MAP) Pulse Ox O2 Delivery O2 Flow Rate FiO2 11/03/24 12:36 118 123/64 11/03/24 11:13 14 99 11/03/24 11:07 Nasal Cannula* 3 32 11/03/24 05:00 98.1 98.1 Total Intake and Output 11/02/24 11/02/24 11/03/24 15:00 23:00 07:00 Intake Total 366.84 ml 666.64 ml 233.31 ml Output Total 2052 ml 250 ml Balance 366.84 ml -1385.36 ml -16.69 ml medications Current Medications Medications Dose Ordered Sig/Darin Route Start Time Stop Time Status Last Admin Dose Admin Aspirin 81 mg DAILY PO 10/27/24 10:00 11/03/24 11:15 81 MG Atorvastatin Calcium 10 mg HS PO 10/27/24 22:00 11/02/24 22:12 10 MG Clonidine HCl 0.1 mg Q4HP PRN PO 10/27/24 02:15 Levalbuterol HCl 0.625 mg Q6HR NEB 10/27/24 06:00 11/03/24 11:07 0.625 MG Sodium Chloride 10 ml Q8HR IV 10/27/24 06:00 11/03/24 14:25 10 ML Acetaminophen/ Hydrocodone Bitart 1 tab Q4HP PRN PO 10/27/24 02:15 11/02/24 16:57 1 TAB Ondansetron HCl 4 mg Q4HP PRN IV 10/27/24 02:15 Docusate Sodium 100 mg BIDPRN PRN PO 10/27/24 02:15 Acetaminophen 650 mg Q6HP PRN PO 10/27/24 02:15 Nitroglycerin 0.4 mg Q5MINP PRN SL 10/27/24 03:15 Morphine Sulfate 2 mg Q30M PRN IV 10/27/24 03:15 Famotidine 20 mg Q12HR IV 10/28/24 10:00 11/03/24 11:36 20 MG Budesonide 0.5 mg BID NEB 10/30/24 22:00 11/03/24 06:18 0.5 MG Lorazepam 2 mg ONCE PRN IV 10/30/24 18:00 11/02/24 21:24 2 MG Nicotine 1 patch DAILY TD 10/30/24 19:45 11/03/24 11:17 1 PATCH Methylprednisolone Sodium Succinate 40 mg DAILY IV 10/31/24 10:00 11/03/24 11:15 40 MG Diagnostic Test (Pha) 1 strip ACHS 10/31/24 11:30 11/03/24 11:30 1 STRIP Insulin Human Regular ACHS SC 10/31/24 11:30 11/03/24 11:30 3 UNITS Dextrose 50 ml UD PRN IV 10/31/24 09:00 Enoxaparin Sodium 110 mg Q12HR SC 10/31/24 22:00 11/03/24 11:10 100 MG Lorazepam 2 mg Q6HP PRN IV 11/01/24 12:00 11/02/24 09:56 2 MG Metoprolol Tartrate 5 mg BID IV 11/01/24 10:00 11/03/24 11:36 5 MG Norepinephrine Bitartrate 250 ml @ 3.75 mls/hr Q24H IV 11/01/24 12:45 Propofol 100 ml @ 3.246 mls/ hr Q24H IV 11/01/24 12:45 Midazolam HCl 50 ml @ 1 mls/hr Q24H IV 11/01/24 12:45 Fentanyl Citrate 250 ml @ 2.5 mls/hr Q24H IV 11/01/24 12:45 Lactulose 30 ml BID PO 11/01/24 22:00 11/03/24 11:15 30 ML Thiamine HCl 100 mg DAILY IV 11/02/24 10:00 11/03/24 11:13 100 MG Folic Acid 1 mg/ Dextrose 50.2 ml @ 200.8 mls/ hr DAILY INJ 11/02/24 10:00 11/03/24 11:36 200.8 MLS/HR Haloperidol Lactate 5 mg Q4HP PRN IM 11/03/24 08:00 11/03/24 15:15 5 MG Furosemide 40 mg BIDD IV 11/03/24 09:00 11/03/24 11:09 40 MG Vancomycin HCl 0 ml @ 0 mls/hr UD IV 11/03/24 14:15 Piperacillin Sod/ Tazobactam Sod 100 ml @ 25 mls/hr Q8HR IV 11/03/24 22:00 Vancomycin HCl 250 ml @ 250 mls/hr Q1H IV 11/03/24 14:45 11/03/24 16:44 Cancel Enteral Nutritional Formula 1,000 ml 30ML/HR NG 11/03/24 15:45 Examination * General: Restless, intermittently sedated. * Abdomen: Mildly distended, soft; no rebound or guarding. Paracentesis site clean. * Bowel Sounds: Hypoactive but present. * Skin: No jaundice. * Other: As per ICU. laboratory and microbiology Laboratory Tests 11/03/24 05:15 Test 11/03/24 05:15 Range/Units Serum Glucose 152 H 74-106 mg/dL Microbiology Date/Time Source Procedure Growth Status 11/02/24 11:10 Ascities Fluid Gram Stain - Final Resulted 11/02/24 11:10 Ascities Fluid Body Fluid Culture - Preliminary Resulted 10/31/24 09:51 Blood Blood Culture - Preliminary NO GROWTH AFTER 72 HOURS OF INCUBATION. Resulted Problem List/Assessment/Plan Problem List/Assessment/Plan Assessment 1. Decompensated Cirrhosis hepatitis negative, THC positive; MELD 16. 2. Ascites s/p paracentesis, no SBP by cell count, culture pending. 3. Hepatic Encephalopathy improving with lactulose; ammonia <12. 4. Abnormal Liver Enzymes ) still elevated but trending downward. 5. Malnutrition Risk receiving Nepro at 30 mL/hr via NG. 6. Pneumonia bilateral patchy infiltrates on CXR, likely multilobar pneumonia; on broad antibiotics. 7. Sepsis Concern WBC spike, neutrophilia, cultures pending. 8. Severely Reduced EF Heart Failure EF 20% with severe hypokinesis, RVSP 51 mmHg. Plan Gastrointestinal / Hepatic * Continue lactulose 30 mL NG BID, titrate to 23 bowel movements daily. * Maintain NG feeding with Nepro at 30 mL/hr; titrate as tolerated. * Monitor for ascites recurrence; repeat paracentesis only if indicated. * Continue vancomycin + Zosyn (covers SBP and pneumonia until cultures finalized). * Avoid hepatotoxic drugs; adjust medications for liver function. * Daily LFTs, INR, ammonia, monitor renal function closely. Infectious Disease * Broad antibiotics continued (Zosyn + Vanco) for pneumonia and SBP prophylaxis pending culture results. * Monitor culture results (blood, sputum, peritoneal fluid). * Consider de-escalation when sensitivities return. Nutrition * Continue enteral nutrition (Nepro) via NG, monitor for tolerance. * Supplement with vitamins (thiamine, folate) to prevent deficiency. Monitoring * Strict I/O (Shah output 0.91 mL/kg/hr). * Daily abdominal girth measurement. * Daily labs and imaging follow-up (Chest/Head CT results pending). * Observe for GI bleeding. Case discussed in detail with the attending physician, including the clinical presentation, diagnostic workup, and comprehensive management plan. Plan discussed with: Other (RN) My Orders My Orders Orders - CAILIN GUERRA Procedure Category Date Status Time Urine Bacterial LEO 11/03/24 In Process Culture 14:31 Dietary Evaluation Review Recommendations by RD: Dietary education by RD Comments: 1) Initiate MVI @ 1 tb qd 2) Add 60g CCHO restriction to cardiac diet 3) Advise patient to limit intake of added sugars including sugar-sweetened beverages, desserts, candy, etc. Aim for a consistent intake of complex carbohydrates spread throughout the day, paired with protein to promote glycemic control 4) Send order for glucometer to pharmacy. Review ADA SMBG guidelines: 80-130 mg/dL before meals and < 180 mg/dL 2-hr postprandial 5) Encourage optimal PO intake 6) Refer to outpatient RD/[facility] for diabetes education and weight management 7) Follow-up with cardiology, pulmonology, and nephrology 8) Follow-upw with social and human services assistant r/t substance abuse 9) Continue to monitor I&O, labs, and skin integrity Expected Outcomes/Goals: 1) appetite and labs to improve 2) wound to improve 3) f/u in 3-5 days CAILIN GUERRA RESIDENT Nov 03, 2024 16:12
--- NOTE | 2024-11-03 16:14 | DVH ---
CT HEAD WITHOUT CONTRAST INDICATION: ALOC EXAM DATE: 11/03/2024 03:14 PM COMPARISON: MRI BRAIN HEAD WO CONTRAST on DOS: 11/01/24, CT HEAD WITHOUT CONTRAST on DOS: 10/30/24 RADIATION DOSE: CTDIvol: 48 mGy, DLP: 908 mGy*cm PROCEDURE: CT scans of the head were obtained from the vertex to the skull base. Sagittal and coronal reconstructions were provided. All CT scans at this medical facility are performed using dose modulation techniques as appropriate t o a performed exam including the following: Automated exposure control was utilized; adjustment of th e MA and/or KV according to patient size; and use of iterative reconstruction technique. FINDINGS: There is sulcal and ventricular prominence. The brainshows normal morphology and rosas-whi te matter differentiation, without intracranial hemorrhage, extra-axial fluid collection, mass effect or acute large vessel infarct. The ventricles are normal in size. The basal cisterns are patent. The skull and visible facial bones are intact. The paranasal sinuses, mastoid air cells and middle ear c avities are well-aerated. The soft tissues of the scalp are unremarkable. IMPRESSION: No acute intracranial abnormality.
[2024-11-03] MEDS: VANCOMYCIN 1.5GM/300ML 300 ML IV ONE (16:39)
[2024-11-03] MEDS: PIPERACILLIN-TAZOB 3.375GM 100 ML IV ONE (16:39)
[2024-11-03] MEDS: PIPERACILLIN-TAZOB 3.375GM 100 ML IV SCH (22:00)
--- NOTE | 2024-11-03 22:18 | DVH ---
CHEST RADIOGRAPH Indication: NGT insertion Technique: Single frontal view of the chest was obtained Comparison: CT CHEST WITHOUT CONTRAST on DOS: 11/03/24, XY CHEST PORTABLE on DOS: 11/03/24, XY CHEST PORT ABLE on DOS: 11/01/24, XY CHEST XRAY 1 VIEW on DOS: 11/01/24, XY CHEST XRAY 1 VIEW on DOS: 10/31/24 FINDINGS: Lines and Tubes: Overlying leads. Lungs: Decreased lung volumes with vascular crowding, diffuse interstitial prominence, and patchy bib asilar airspace disease likely representing atelectasis. Pleura: Persistent small pleural effusions. Cardiomediastinal contours: Unchanged, mildly enlarged. Bones: Unchanged. IMPRESSION: 1. Decreased lung volumes without other significant interval change from same day comparison exams. P ersistent interstitial opacities and pleural effusions likely related to heart failure. Bibasilar air space disease most consistent with atelectasis.
--- NOTE | 2024-11-03 23:46 | DVHPN2 ---
Progress Note - Dictate Date Seen: Nov 03, 2024 Has the PT tested + for MRSA If YES, has PT been informed?: No Medical Necessity Reason Pt with a Central, PICC or Fol: Yes The following are medically ne: Shah Catheter Reason for shah catheter: Strict I&O Subjective Patient seen and examined at bedside. Remains on supplemental oxygen Overnight events reviewed. vital signs Vital Sign Date Time Temp Pulse Resp B/P (MAP) Pulse Ox O2 Delivery O2 Flow Rate FiO2 11/03/24 22:00 114 11/03/24 22:00 12 95 Nasal Cannula* 6 44 11/03/24 21:57 110/80 11/03/24 16:49 97.9 97.9 Total Intake and Output 11/02/24 11/02/24 11/03/24 15:00 23:00 07:00 Intake Total 366.84 ml 666.64 ml 266.64 ml Output Total 2052 ml 250 ml Balance 366.84 ml -1385.36 ml 16.64 ml medications Current Medications Medications Dose Ordered Sig/Darin Route Start Time Stop Time Status Last Admin Dose Admin Aspirin 81 mg DAILY PO 10/27/24 10:00 11/03/24 11:15 81 MG Atorvastatin Calcium 10 mg HS PO 10/27/24 22:00 11/03/24 21:59 10 MG Clonidine HCl 0.1 mg Q4HP PRN PO 10/27/24 02:15 Levalbuterol HCl 0.625 mg Q6HR NEB 10/27/24 06:00 11/03/24 19:42 0.625 MG Sodium Chloride 10 ml Q8HR IV 10/27/24 06:00 11/03/24 22:02 10 ML Acetaminophen/ Hydrocodone Bitart 1 tab Q4HP PRN PO 10/27/24 02:15 11/02/24 16:57 1 TAB Ondansetron HCl 4 mg Q4HP PRN IV 10/27/24 02:15 Docusate Sodium 100 mg BIDPRN PRN PO 10/27/24 02:15 Acetaminophen 650 mg Q6HP PRN PO 10/27/24 02:15 Nitroglycerin 0.4 mg Q5MINP PRN SL 10/27/24 03:15 Morphine Sulfate 2 mg Q30M PRN IV 10/27/24 03:15 Famotidine 20 mg Q12HR IV 10/28/24 10:00 11/03/24 21:59 20 MG Budesonide 0.5 mg BID NEB 10/30/24 22:00 11/03/24 06:18 0.5 MG Lorazepam 2 mg ONCE PRN IV 10/30/24 18:00 11/03/24 20:11 2 MG Nicotine 1 patch DAILY TD 10/30/24 19:45 11/03/24 11:17 1 PATCH Methylprednisolone Sodium Succinate 40 mg DAILY IV 10/31/24 10:00 11/03/24 11:15 40 MG Diagnostic Test (Pha) 1 strip ACHS 10/31/24 11:30 11/03/24 21:59 1 STRIP Insulin Human Regular ACHS SC 10/31/24 11:30 11/03/24 22:00 4 UNITS Dextrose 50 ml UD PRN IV 10/31/24 09:00 Enoxaparin Sodium 110 mg Q12HR SC 10/31/24 22:00 11/03/24 22:10 110 MG Lorazepam 2 mg Q6HP PRN IV 11/01/24 12:00 11/02/24 09:56 2 MG Metoprolol Tartrate 5 mg BID IV 11/01/24 10:00 11/03/24 21:57 5 MG Norepinephrine Bitartrate 250 ml @ 3.75 mls/hr Q24H IV 11/01/24 12:45 Propofol 100 ml @ 3.246 mls/ hr Q24H IV 11/01/24 12:45 Midazolam HCl 50 ml @ 1 mls/hr Q24H IV 11/01/24 12:45 Fentanyl Citrate 250 ml @ 2.5 mls/hr Q24H IV 11/01/24 12:45 Lactulose 30 ml BID PO 11/01/24 22:00 11/03/24 21:59 30 ML Thiamine HCl 100 mg DAILY IV 11/02/24 10:00 11/03/24 11:13 100 MG Folic Acid 1 mg/ Dextrose 50.2 ml @ 200.8 mls/ hr DAILY INJ 11/02/24 10:00 11/03/24 11:36 200.8 MLS/HR Haloperidol Lactate 5 mg Q4HP PRN IM 11/03/24 08:00 11/03/24 15:15 5 MG Furosemide 40 mg BIDD IV 11/03/24 09:00 11/03/24 19:00 40 MG Vancomycin HCl 0 ml @ 0 mls/hr UD IV 11/03/24 14:15 Piperacillin Sod/ Tazobactam Sod 100 ml @ 25 mls/hr Q8HR IV 11/03/24 22:00 Vancomycin HCl 250 ml @ 250 mls/hr Q1H IV 11/03/24 14:45 11/03/24 16:44 Cancel Enteral Nutritional Formula 1,000 ml 30ML/HR NG 11/03/24 15:45 objective Gen.: Patient lying in bed in no apparent distress. On supplemental oxygen Head: Normocephalic, atraumatic. Eyes: EOMI/PERRLA. Ears: Normal hearing. Normal anatomy. Neck/trachea: Trachea midline, supple. Nose: Normal external anatomy. Mouth: Moist mucous membranes. Chest: Decreased air entry bilaterally. Wheezing heard. No rhonchi. Cardiovascular: Positive S1, positive S2. Regular rate and rhythm. Abdomen: Positive bowel sounds in all 4 quadrants. Soft, non-tender, non- distended. : Deferred. Rectal: Deferred. Skin: Warm, dry. Intact. Extremities: 2+ radial pulses bilaterally. No lower extremity edema. Neuro: Awake, alert, agitated. No gross motor or sensory deficits. Cranial nerves II through XII intact. laboratory and microbiology Laboratory Tests 11/03/24 05:15 Test 11/03/24 05:15 Range/Units Serum Glucose 152 H 74-106 mg/dL Assessment/Plan Impression: Acute hypoxic respiratory failure Dependence on supplemental oxygen Atrial fibrillation CHF, possible Dyspnea COPD exacerbation Nicotine dependence Cannabinoid use Obesity BMI 34.5 Events: Remains on supplemental oxygen On 3 LPM --> 4 LPM NC Taper O2 as tolerated Maintaining 1:1 sitter for safety. Patient is agitated. ABG reviewed, notable for alkalemia CT chest revealed small bibasilar consolidation. Small bilateral pleural effusions and atelectasis. Head of bed elevation Aspiration precautions. Plan for right thoracentesis for evacuation of pleural effusion. Updated next of kin at bedside. Risks and benefits of the procedure were explained in detail and all questions answered to their satisfaction. S/p ultrasound-guided paracentesis on 11/02/24 with drainage of 1100 mL of serous fluid. Continue bronchodilators - on Xopenex due to tachycardia Pulmicort 0.5 mg q.12 hours. IV steroids NGT with coffee-ground material - Monitor hemoglobin Blood pressure control Follow up Cardiology recs CT head revealed no intracranial hemorrhage or stroke. Neurology recommendations appreciated. Follow up results of EEG Rapid response was called on 11/01/24 - U-tox noted to be cannabinoid positive. Patient received doses of Narcan Concern for patient getting substances from spouse. Pepcid for GI prophylaxis Accu-Cheks, ISS Monitor renal function Monitor electrolytes, supplement as necessary K of 4.1 Monitor ins and outs - Shah in place Labs and imaging reviewed. Rest of plan as noted below. Plan: Supplemental oxygen Titrate to keep O2 sats above 92%. Continue bronchodilators. Pulmicort BID IV steroids Follow up Neurology recommendations Follow up Cardiology recommendations NGT in place Monitor hemoglobin Diurese to euvolemia Fluid and salt restriction Monitor renal function. Monitor electrolytes. Supplement as necessary. Monitor ins and outs. Smoking cessation discussed for greater than 10 minutes Counseled against substance abuse. DVT prophylaxis. Prognosis: Poor given patient's multiple co-morbidities. Rest of plan per hospitalist and other consultants. Thank you, Dr. Clement, for allowing me to participate in this patient's care. Further recommendations will depend on the patient's clinical course. Please do not hesitate to contact me if you have any questions or concerns. This medical document was created using an electronic medical record system with [employer] dictation system. Although these documentations are being carefully reviewed, there may still be some phonetic and typographical changes. The errors are purely typographical, due to imperfection on the software program, and do not reflect any compromise in the patient's medical care. Dietary Evaluation Review Recommendations by RD: Dietary education by RD Comments: 1) Initiate MVI @ 1 tb qd 2) Add 60g CCHO restriction to cardiac diet 3) Advise patient to limit intake of added sugars including sugar-sweetened beverages, desserts, candy, etc. Aim for a consistent intake of complex carbohydrates spread throughout the day, paired with protein to promote glycemic control 4) Send order for glucometer to pharmacy. Review ADA SMBG guidelines: 80-130 mg/dL before meals and < 180 mg/dL 2-hr postprandial 5) Encourage optimal PO intake 6) Refer to outpatient RD/CD[facility] for diabetes education and weight management 7) Follow-up with cardiology, pulmonology, and nephrology 8) Follow-upw with social work professor r/t substance abuse 9) Continue to monitor I&O, labs, and skin integrity Expected Outcomes/Goals: 1) appetite and labs to improve 2) wound to improve 3) f/u in 3-5 days Plan discussed with: Patient, Other (VALENTINA Lindsay) DIRK LEVIN MD Nov 03, 2024 23:46
[2024-11-04] VITALS (56 sets, daily range): BP systolic 90–133; BP diastolic 54–98; PULSE 113–120; RESP 10–22; TEMP 96.4–98.5; O2SAT 92–100
[2024-11-04 07:11] LABS: Hematocrit 41.5 % (41.0-53.0); Hemoglobin 14.1 g/dL (13.5-17.5); Mean Corpuscular Hemoglobin 31.4 pg (28.0-32.0); Mean Corpuscular Volume 92.5 fL (80.0-100.0); Nucleated Red Blood Cells % 0.2 %
[2024-11-04 07:20] LABS: Albumin 3.7 g/dL (3.2-4.8); BUN/Creatinine Ratio 26.1 (10.0-20.0); Calcium 8.9 mg/dL (8.7-10.4); Potassium 3.6 mmol/L (3.5-5.1); Total Protein 5.7 g/dL (5.7-8.2)
[2024-11-04 07:21] LABS: Bilirubin, Total 0.8 mg/dL (0.2-1.0)
--- NOTE | 2024-11-04 07:21 | DVHPN2 ---
Progress Note Date Seen: Nov 04, 2024 Has the PT tested + for MRSA If YES, has PT been informed?: No Medical Necessity Reason Pt with a Central, PICC or Fol: Yes The following are medically ne: Shah Catheter Reason for shah catheter: Strict I&O Subjective Patient reports: Other Review of Systems: Not Done Objective vital signs Vital Sign Date Time Temp Pulse Resp B/P (MAP) Pulse Ox O2 Delivery O2 Flow Rate FiO2 11/04/24 06:30 114 19 103/65 (78) 98 11/04/24 06:02 Nasal Cannula 3.0 11/04/24 06:02 32 11/04/24 04:00 96.4 96.4 Total Intake and Output 11/03/24 11/03/24 11/04/24 14:59 22:59 06:59 Intake Total 266.64 ml 299.97 ml 366.64 ml Output Total 1600 ml 2450 ml Balance 266.64 ml -1300.03 ml -2083.36 ml medications Current Medications Medications Dose Ordered Sig/Darin Route Start Time Stop Time Status Last Admin Dose Admin Aspirin 81 mg DAILY PO 10/27/24 10:00 11/03/24 11:15 81 MG Atorvastatin Calcium 10 mg HS PO 10/27/24 22:00 11/03/24 21:59 10 MG Clonidine HCl 0.1 mg Q4HP PRN PO 10/27/24 02:15 Levalbuterol HCl 0.625 mg Q6HR NEB 10/27/24 06:00 11/04/24 06:02 0.625 MG Sodium Chloride 10 ml Q8HR IV 10/27/24 06:00 11/04/24 05:38 10 ML Acetaminophen/ Hydrocodone Bitart 1 tab Q4HP PRN PO 10/27/24 02:15 11/02/24 16:57 1 TAB Ondansetron HCl 4 mg Q4HP PRN IV 10/27/24 02:15 Docusate Sodium 100 mg BIDPRN PRN PO 10/27/24 02:15 Acetaminophen 650 mg Q6HP PRN PO 10/27/24 02:15 Nitroglycerin 0.4 mg Q5MINP PRN SL 10/27/24 03:15 Morphine Sulfate 2 mg Q30M PRN IV 10/27/24 03:15 Famotidine 20 mg Q12HR IV 10/28/24 10:00 11/03/24 21:59 20 MG Budesonide 0.5 mg BID NEB 10/30/24 22:00 11/04/24 06:02 0.5 MG Lorazepam 2 mg ONCE PRN IV 10/30/24 18:00 11/03/24 20:11 2 MG Nicotine 1 patch DAILY TD 10/30/24 19:45 11/03/24 11:17 1 PATCH Methylprednisolone Sodium Succinate 40 mg DAILY IV 10/31/24 10:00 11/03/24 11:15 40 MG Diagnostic Test (Pha) 1 strip ACHS 10/31/24 11:30 11/04/24 06:29 1 STRIP Insulin Human Regular ACHS SC 10/31/24 11:30 11/04/24 06:29 3 UNITS Dextrose 50 ml UD PRN IV 10/31/24 09:00 Enoxaparin Sodium 110 mg Q12HR SC 10/31/24 22:00 11/03/24 22:10 110 MG Lorazepam 2 mg Q6HP PRN IV 11/01/24 12:00 11/04/24 04:49 2 MG Metoprolol Tartrate 5 mg BID IV 11/01/24 10:00 11/03/24 21:57 5 MG Norepinephrine Bitartrate 250 ml @ 3.75 mls/hr Q24H IV 11/01/24 12:45 Propofol 100 ml @ 3.246 mls/ hr Q24H IV 11/01/24 12:45 Midazolam HCl 50 ml @ 1 mls/hr Q24H IV 11/01/24 12:45 Fentanyl Citrate 250 ml @ 2.5 mls/hr Q24H IV 11/01/24 12:45 Lactulose 30 ml BID PO 11/01/24 22:00 11/03/24 21:59 30 ML Thiamine HCl 100 mg DAILY IV 11/02/24 10:00 11/03/24 11:13 100 MG Folic Acid 1 mg/ Dextrose 50.2 ml @ 200.8 mls/ hr DAILY INJ 11/02/24 10:00 11/03/24 11:36 200.8 MLS/HR Haloperidol Lactate 5 mg Q4HP PRN IM 11/03/24 08:00 11/04/24 02:44 5 MG Furosemide 40 mg BIDD IV 11/03/24 09:00 11/04/24 05:38 40 MG Vancomycin HCl 0 ml @ 0 mls/hr UD IV 11/03/24 14:15 Piperacillin Sod/ Tazobactam Sod 100 ml @ 25 mls/hr Q8HR IV 11/03/24 22:00 11/04/24 05:38 25 MLS/HR Vancomycin HCl 250 ml @ 250 mls/hr Q1H IV 11/03/24 14:45 11/03/24 16:44 Cancel Enteral Nutritional Formula 1,000 ml 30ML/HR NG 11/03/24 15:45 Examination: GENERAL:Normal, LUNGS:Abnormal, CVS:Abnormal laboratory and microbiology Laboratory Tests 11/04/24 06:23 Test 11/04/24 06:23 Range/Units Serum Glucose Pending Problem List/Assessment/Plan Problem List/Assessment/Plan n1) Acute respiratory failure, on 3L O2 2) Metabolic encephalopathy 3) Afib RVR 4) sCHF EF 20% 5) 6) Pulm HTN 7) KEEGAN 8) Meth abuse plan; 11/02------remains on 3L o2, amio gtt for afib RVR, echo shows ef 20% with and PHTN, cardio to plan for stress test, IV lasix for CHF, Cr downtrending, on IV rocephin, sitter at bedside for agitation and AMS, downgrade to tele, daily labs, will follow along, concern for possibly giving substances to patient 11/03---now transferred to [facility], remains on 3L, was agitated overnight as per nursing and received IM haldol, on amio gtt and not stable for stress test given overall condition, cardio recs appreciated, had paracentesis yesterday with 1.1L fluid out and remains on IV rocephin for SBP ppx, ammonia level <10 this AM, GI on board and recs appreciated, repeat UTox negative, EEG done yesterday by neuro, continue current care and will await to see if mental status improves enough for possible tele downgrade, cardio/renal/GI/neuro/pulm all on board 11/04----remains in [place], still on 3L o2, remains confused with episodes of agitation, had to be given ativan/haldol overnight, head CT from yesterday negative, CT chest from yesterday essentially no acute findings, IV Abx broadened to vanco/zosyn with repeat BCx and sputum if he is able to offer one, renewable energy consultant input from cardio/pulm/renal/GI appreciated, continue care, will discuss with family in regards to really no improvement in mental status over last few days Plan discussed with: Other (n) Dietary Evaluation Review Recommendations by RD: Dietary education by RD Comments: 1) Initiate MVI @ 1 tb qd 2) Add 60g CCHO restriction to cardiac diet 3) Advise patient to limit intake of added sugars including sugar-sweetened beverages, desserts, candy, etc. Aim for a consistent intake of complex carbohydrates spread throughout the day, paired with protein to promote glycemic control 4) Send order for glucometer to pharmacy. Review ADA SMBG guidelines: 80-130 mg/dL before meals and < 180 mg/dL 2-hr postprandial 5) Encourage optimal PO intake 6) Refer to outpatient RD/[facility] for diabetes education and weight management 7) Follow-up with cardiology, pulmonology, and nephrology 8) Follow-upw with protective services social worker r/t substance abuse 9) Continue to monitor I&O, labs, and skin integrity Expected Outcomes/Goals: 1) appetite and labs to improve 2) wound to improve 3) f/u in 3-5 days HERO VAZQUEZ MD Nov 04, 2024 07:21
[2024-11-04 07:23] LABS: Anion Gap 10.99999 (5-15); Chloride 94 mmol/L (98-107); Glucose 171 mg/dL (74-106); Sodium 145 mmol/L (136-145)
[2024-11-04 07:24] LABS: Alanine Aminotransferase 343 U/L (7-40); Alkaline Phosphatase 127 U/L (46-116); Blood Urea Nitrogen 37 mg/dL (9-23)
[2024-11-04 07:28] LABS: Carbon Dioxide > 40 mmol/L (20-31)
--- NOTE | 2024-11-04 10:56 | DVHPN2 ---
Progress Note - Dictate Date Seen: Nov 04, 2024 Has the PT tested + for MRSA If YES, has PT been informed?: No Medical Necessity Reason Pt with a Central, PICC or Fol: Yes The following are medically ne: Shah Catheter Reason for shah catheter: Strict I&O Subjective Patient was [place] 244 5 On 3L o2, remains confused with episodes of agitation Ativan/haldol overnight, head CT from yesterday negative, CT chest from yesterday essentially no acute findings, IV Abx broadened to vanco/zosyn with repeat BCx and sputum if he is able to offer one, LFTs are trending downwards Ammonia level was normal yesterday Underlying cirrhosis with a ascites Hepatitis panel negative Mild leukocytosis likely from steroids Ascitic fluid showed no evidence of SBP vital signs Vital Sign Date Time Temp Pulse Resp B/P (MAP) Pulse Ox O2 Delivery O2 Flow Rate FiO2 11/04/24 10:30 116 12 102/73 (83) 95 11/04/24 10:00 Nasal Cannula 3.0 11/04/24 10:00 32 11/04/24 08:00 97.7 97.7 Total Intake and Output 11/03/24 11/03/24 11/04/24 15:00 23:00 07:00 Intake Total 266.64 ml 299.97 ml 333.31 ml Output Total 1600 ml 2450 ml Balance 266.64 ml -1300.03 ml -2116.69 ml medications Current Medications Medications Dose Ordered Sig/Darin Route Start Time Stop Time Status Last Admin Dose Admin Aspirin 81 mg DAILY PO 10/27/24 10:00 11/04/24 09:52 81 MG Atorvastatin Calcium 10 mg HS PO 10/27/24 22:00 11/03/24 21:59 10 MG Clonidine HCl 0.1 mg Q4HP PRN PO 10/27/24 02:15 Levalbuterol HCl 0.625 mg Q6HR NEB 10/27/24 06:00 11/04/24 06:02 0.625 MG Sodium Chloride 10 ml Q8HR IV 10/27/24 06:00 11/04/24 05:38 10 ML Acetaminophen/ Hydrocodone Bitart 1 tab Q4HP PRN PO 10/27/24 02:15 11/02/24 16:57 1 TAB Ondansetron HCl 4 mg Q4HP PRN IV 10/27/24 02:15 Docusate Sodium 100 mg BIDPRN PRN PO 10/27/24 02:15 Acetaminophen 650 mg Q6HP PRN PO 10/27/24 02:15 Nitroglycerin 0.4 mg Q5MINP PRN SL 10/27/24 03:15 Morphine Sulfate 2 mg Q30M PRN IV 10/27/24 03:15 Famotidine 20 mg Q12HR IV 10/28/24 10:00 11/04/24 09:48 20 MG Budesonide 0.5 mg BID NEB 10/30/24 22:00 11/04/24 06:02 0.5 MG Lorazepam 2 mg ONCE PRN IV 10/30/24 18:00 11/03/24 20:11 2 MG Nicotine 1 patch DAILY TD 10/30/24 19:45 11/04/24 09:53 1 PATCH Methylprednisolone Sodium Succinate 40 mg DAILY IV 10/31/24 10:00 11/04/24 09:48 40 MG Diagnostic Test (Pha) 1 strip ACHS 10/31/24 11:30 11/04/24 06:29 1 STRIP Insulin Human Regular ACHS SC 10/31/24 11:30 11/04/24 06:29 3 UNITS Dextrose 50 ml UD PRN IV 10/31/24 09:00 Enoxaparin Sodium 110 mg Q12HR SC 10/31/24 22:00 11/04/24 09:53 110 MG Lorazepam 2 mg Q6HP PRN IV 11/01/24 12:00 11/04/24 04:49 2 MG Metoprolol Tartrate 5 mg BID IV 11/01/24 10:00 11/03/24 21:57 5 MG Norepinephrine Bitartrate 250 ml @ 3.75 mls/hr Q24H IV 11/01/24 12:45 Propofol 100 ml @ 3.246 mls/ hr Q24H IV 11/01/24 12:45 Midazolam HCl 50 ml @ 1 mls/hr Q24H IV 11/01/24 12:45 Fentanyl Citrate 250 ml @ 2.5 mls/hr Q24H IV 11/01/24 12:45 Lactulose 30 ml BID PO 11/01/24 22:00 11/04/24 09:52 30 ML Thiamine HCl 100 mg DAILY IV 11/02/24 10:00 11/04/24 09:49 100 MG Haloperidol Lactate 5 mg Q4HP PRN IM 11/03/24 08:00 11/04/24 02:44 5 MG Furosemide 40 mg BIDD IV 11/03/24 09:00 11/04/24 05:38 40 MG Vancomycin HCl 0 ml @ 0 mls/hr UD IV 11/03/24 14:15 Piperacillin Sod/ Tazobactam Sod 100 ml @ 25 mls/hr Q8HR IV 11/03/24 22:00 11/04/24 05:38 25 MLS/HR Vancomycin HCl 250 ml @ 250 mls/hr Q1H IV 11/03/24 14:45 11/03/24 16:44 Cancel Enteral Nutritional Formula 1,000 ml 30ML/HR NG 11/03/24 15:45 objective General appearance:Confused Respiratory: Fine basilar crackles Cardiovascular: Irregular rate and rhythm, tachycardic no murmurs. No edema Abdomen: Soft, nondistended, nontender, bowel sounds present MSK: Normal range of motion. Neuro: Alert to self only Psych: Agitated laboratory and microbiology Laboratory Tests 11/04/24 06:23 Test 11/04/24 06:23 Range/Units Serum Glucose 171 H 74-106 mg/dL Problems(with codes): (1) Cirrhosis of liver (2) Ascites (3) Shock liver (4) Elevated liver enzymes (5) Hepatic encephalopathy (6) COPD with acute exacerbation (7) Atrial flutter with rapid ventricular response (8) Congestive heart failure Prognosis PLAN Gastrointestinal / Hepatic * Continue lactulose 30 mL NG BID, titrate to 23 bowel movements daily. * Maintain NG feeding with Nepro at 30 mL/hr; titrate as tolerated. * Monitor for ascites recurrence; repeat paracentesis only if indicated. * Continue vancomycin + Zosyn (covers SBP and pneumonia until cultures finalized). * Avoid hepatotoxic drugs; adjust medications for liver function. * Daily LFTs, INR, ammonia, monitor renal function closely. * Observe for GI bleeding. Dietary Evaluation Review Recommendations by RD: Dietary education by RD Comments: 1) Initiate MVI @ 1 tb qd 2) Add 60g CCHO restriction to cardiac diet 3) Advise patient to limit intake of added sugars including sugar-sweetened beverages, desserts, candy, etc. Aim for a consistent intake of complex carbohydrates spread throughout the day, paired with protein to promote glycemic control 4) Send order for glucometer to pharmacy. Review ADA SMBG guidelines: 80-130 mg/dL before meals and < 180 mg/dL 2-hr postprandial 5) Encourage optimal PO intake 6) Refer to outpatient RD/[facility] for diabetes education and weight management 7) Follow-up with cardiology, pulmonology, and nephrology 8) Follow-upw with marriage and family social worker r/t substance abuse 9) Continue to monitor I&O, labs, and skin integrity Expected Outcomes/Goals: 1) appetite and labs to improve 2) wound to improve 3) f/u in 3-5 days Plan discussed with: Other (Dr Muniz) KRISTY GNOZALEZ MD Nov 04, 2024 10:56
[2024-11-04] MEDS: VANCOMYCIN 1.25GM/250ML 250 ML IV ONE (14:25)
--- NOTE | 2024-11-04 14:41 | DVHPN2 ---
Progress Note Date Seen: Nov 04, 2024 Has the PT tested + for MRSA If YES, has PT been informed?: No Medical Necessity Reason Pt with a Central, PICC or Fol: Yes The following are medically ne: Shah Catheter Reason for shah catheter: Strict I&O Subjective Patient reports: No new complaints Objective vital signs Vital Sign Date Time Temp Pulse Resp B/P (MAP) Pulse Ox O2 Delivery O2 Flow Rate FiO2 11/04/24 13:21 97.1 97.1 11/04/24 13:00 116 13 99 11/04/24 12:00 Nasal Cannula* 3 32 Total Intake and Output 11/03/24 11/03/24 11/04/24 15:00 23:00 07:00 Intake Total 266.64 ml 299.97 ml 366.64 ml Output Total 1600 ml 2450 ml Balance 266.64 ml -1300.03 ml -2083.36 ml medications Current Medications Medications Dose Ordered Sig/Darin Route Start Time Stop Time Status Last Admin Dose Admin Aspirin 81 mg DAILY PO 10/27/24 10:00 11/04/24 09:52 81 MG Atorvastatin Calcium 10 mg HS PO 10/27/24 22:00 11/03/24 21:59 10 MG Clonidine HCl 0.1 mg Q4HP PRN PO 10/27/24 02:15 Levalbuterol HCl 0.625 mg Q6HR NEB 10/27/24 06:00 11/04/24 11:22 0.625 MG Sodium Chloride 10 ml Q8HR IV 10/27/24 06:00 11/04/24 13:26 10 ML Acetaminophen/ Hydrocodone Bitart 1 tab Q4HP PRN PO 10/27/24 02:15 11/02/24 16:57 1 TAB Ondansetron HCl 4 mg Q4HP PRN IV 10/27/24 02:15 Docusate Sodium 100 mg BIDPRN PRN PO 10/27/24 02:15 Acetaminophen 650 mg Q6HP PRN PO 10/27/24 02:15 Nitroglycerin 0.4 mg Q5MINP PRN SL 10/27/24 03:15 Morphine Sulfate 2 mg Q30M PRN IV 10/27/24 03:15 Famotidine 20 mg Q12HR IV 10/28/24 10:00 11/04/24 09:48 20 MG Budesonide 0.5 mg BID NEB 10/30/24 22:00 11/04/24 06:02 0.5 MG Lorazepam 2 mg ONCE PRN IV 10/30/24 18:00 11/03/24 20:11 2 MG Nicotine 1 patch DAILY TD 10/30/24 19:45 11/04/24 09:53 1 PATCH Methylprednisolone Sodium Succinate 40 mg DAILY IV 10/31/24 10:00 11/04/24 09:48 40 MG Diagnostic Test (Pha) 1 strip ACHS 10/31/24 11:30 11/04/24 11:38 1 STRIP Insulin Human Regular ACHS SC 10/31/24 11:30 11/04/24 06:29 3 UNITS Dextrose 50 ml UD PRN IV 10/31/24 09:00 Enoxaparin Sodium 110 mg Q12HR SC 10/31/24 22:00 11/04/24 09:53 110 MG Lorazepam 2 mg Q6HP PRN IV 11/01/24 12:00 11/04/24 04:49 2 MG Metoprolol Tartrate 5 mg BID IV 11/01/24 10:00 11/03/24 21:57 5 MG Lactulose 30 ml BID PO 11/01/24 22:00 11/04/24 09:52 30 ML Thiamine HCl 100 mg DAILY IV 11/02/24 10:00 11/04/24 09:49 100 MG Haloperidol Lactate 5 mg Q4HP PRN IM 11/03/24 08:00 11/04/24 02:44 5 MG Furosemide 40 mg BIDD IV 11/03/24 09:00 11/04/24 05:38 40 MG Vancomycin HCl 0 ml @ 0 mls/hr UD IV 11/03/24 14:15 Piperacillin Sod/ Tazobactam Sod 100 ml @ 25 mls/hr Q8HR IV 11/03/24 22:00 11/04/24 14:24 25 MLS/HR Vancomycin HCl 250 ml @ 250 mls/hr Q1H IV 11/03/24 14:45 11/03/24 16:44 Cancel Enteral Nutritional Formula 1,000 ml 30ML/HR NG 11/03/24 15:45 Examination Gen: NAD Lungs:bilateral air entry Heart: irregular RR Abd: Distended Ext: No edema Neuro: altered mental status laboratory and microbiology Laboratory Tests 11/04/24 06:23 Test 11/04/24 06:23 Range/Units Serum Glucose 171 H 74-106 mg/dL Microbiology Date/Time Source Procedure Growth Status 11/02/24 23:00 Urine - [place] Urine Culture - Preliminary Resulted 11/02/24 11:10 Ascities Fluid Gram Stain - Final Resulted 11/02/24 11:10 Ascities Fluid Body Fluid Culture - Preliminary Resulted 11/02/24 03:35 Nose MRSA Screen - Final Complete 10/31/24 09:51 Blood Blood Culture - Preliminary NO GROWTH AFTER 72 HOURS OF INCUBATION. Resulted Problem List/Assessment/Plan Problem List/Assessment/Plan IMP 1. KEEGAN hemodynamically mediated on CKD-baseline serum creatinine unknown 2. CHF 3. New onset AFib 4. History of HTN-not well-controlled 5. History of meth use 6. COPD 7. Type 2 diabetes 8.Transaminitis REC -Continued improvement in renal function 53, downtrending serum creat 1.42 -Agree with diuresis with IV Lasix -Chemistry panel in am -We will continue to follow Case discussed with Dr. Henrik Francois Plan discussed with: Other Dietary Evaluation Review Recommendations by RD: Dietary education by RD Comments: 1) Initiate MVI @ 1 tb qd 2) Add 60g CCHO restriction to cardiac diet 3) Advise patient to limit intake of added sugars including sugar-sweetened beverages, desserts, candy, etc. Aim for a consistent intake of complex carbohydrates spread throughout the day, paired with protein to promote glycemic control 4) Send order for glucometer to pharmacy. Review ADA SMBG guidelines: 80-130 mg/dL before meals and < 180 mg/dL 2-hr postprandial 5) Encourage optimal PO intake 6) Refer to outpatient RD/CDCES for diabetes education and weight management 7) Follow-up with cardiology, pulmonology, and nephrology 8) Follow-upw with social welfare clerk r/t substance abuse 9) Continue to monitor I&O, labs, and skin integrity Expected Outcomes/Goals: 1) appetite and labs to improve 2) wound to improve 3) f/u in 3-5 days SANTIAGO QUEZADA Nov 04, 2024 14:40
--- NOTE | 2024-11-04 23:42 | DVHPN2 ---
Progress Note - Dictate Date Seen: Nov 04, 2024 Has the PT tested + for MRSA If YES, has PT been informed?: No Medical Necessity Reason Pt with a Central, PICC or Fol: Yes The following are medically ne: Shah Catheter Reason for shah catheter: Strict I&O Subjective Patient seen and examined at bedside. Remains on supplemental oxygen Overnight events reviewed. vital signs Vital Sign Date Time Temp Pulse Resp B/P (MAP) Pulse Ox O2 Delivery O2 Flow Rate FiO2 11/04/24 23:01 117 16 133/93 (106) 95 11/04/24 22:00 Nasal Cannula* 3 32 11/04/24 17:00 98.5 98.5 Total Intake and Output 11/03/24 11/03/24 11/04/24 15:00 23:00 07:00 Intake Total 266.64 ml 299.97 ml 366.64 ml Output Total 1600 ml 2450 ml Balance 266.64 ml -1300.03 ml -2083.36 ml medications Current Medications Medications Dose Ordered Sig/Darin Route Start Time Stop Time Status Last Admin Dose Admin Aspirin 81 mg DAILY PO 10/27/24 10:00 11/04/24 09:52 81 MG Atorvastatin Calcium 10 mg HS PO 10/27/24 22:00 11/04/24 21:50 10 MG Clonidine HCl 0.1 mg Q4HP PRN PO 10/27/24 02:15 Levalbuterol HCl 0.625 mg Q6HR NEB 10/27/24 06:00 11/04/24 19:13 0.625 MG Sodium Chloride 10 ml Q8HR IV 10/27/24 06:00 11/04/24 21:51 10 ML Acetaminophen/ Hydrocodone Bitart 1 tab Q4HP PRN PO 10/27/24 02:15 11/04/24 16:00 1 TAB Ondansetron HCl 4 mg Q4HP PRN IV 10/27/24 02:15 Docusate Sodium 100 mg BIDPRN PRN PO 10/27/24 02:15 Acetaminophen 650 mg Q6HP PRN PO 10/27/24 02:15 Nitroglycerin 0.4 mg Q5MINP PRN SL 10/27/24 03:15 Morphine Sulfate 2 mg Q30M PRN IV 10/27/24 03:15 Famotidine 20 mg Q12HR IV 10/28/24 10:00 11/04/24 21:49 20 MG Budesonide 0.5 mg BID NEB 10/30/24 22:00 11/04/24 19:13 0.5 MG Lorazepam 2 mg ONCE PRN IV 10/30/24 18:00 11/03/24 20:11 2 MG Nicotine 1 patch DAILY TD 10/30/24 19:45 11/04/24 09:53 1 PATCH Methylprednisolone Sodium Succinate 40 mg DAILY IV 10/31/24 10:00 11/04/24 09:48 40 MG Diagnostic Test (Pha) 1 strip ACHS 10/31/24 11:30 11/04/24 21:52 1 STRIP Insulin Human Regular ACHS SC 10/31/24 11:30 11/04/24 21:54 4 UNITS Dextrose 50 ml UD PRN IV 10/31/24 09:00 Enoxaparin Sodium 110 mg Q12HR SC 10/31/24 22:00 11/04/24 21:52 110 MG Lorazepam 2 mg Q6HP PRN IV 11/01/24 12:00 11/04/24 04:49 2 MG Metoprolol Tartrate 5 mg BID IV 11/01/24 10:00 11/04/24 21:51 5 MG Lactulose 30 ml BID PO 11/01/24 22:00 11/04/24 21:47 30 ML Thiamine HCl 100 mg DAILY IV 11/02/24 10:00 11/04/24 09:49 100 MG Haloperidol Lactate 5 mg Q4HP PRN IM 11/03/24 08:00 11/04/24 16:00 5 MG Furosemide 40 mg BIDD IV 11/03/24 09:00 11/04/24 17:38 40 MG Vancomycin HCl 0 ml @ 0 mls/hr UD IV 11/03/24 14:15 Piperacillin Sod/ Tazobactam Sod 100 ml @ 25 mls/hr Q8HR IV 11/03/24 22:00 11/04/24 21:47 25 MLS/HR Vancomycin HCl 250 ml @ 250 mls/hr Q1H IV 11/03/24 14:45 11/03/24 16:44 Cancel Enteral Nutritional Formula 1,000 ml 30ML/HR NG 11/03/24 15:45 objective Gen.: Patient lying in bed in no apparent distress. On supplemental oxygen Head: Normocephalic, atraumatic. Eyes: EOMI/PERRLA. Ears: Normal hearing. Normal anatomy. Neck/trachea: Trachea midline, supple. Nose: Normal external anatomy. Mouth: Moist mucous membranes. Chest: Decreased air entry bilaterally. Wheezing heard. No rhonchi. Cardiovascular: Positive S1, positive S2. Regular rate and rhythm. Abdomen: Positive bowel sounds in all 4 quadrants. Soft, non-tender, non- distended. : Deferred. Rectal: Deferred. Skin: Warm, dry. Intact. Extremities: 2+ radial pulses bilaterally. No lower extremity edema. Neuro: Awake, alert, altered. No gross motor or sensory deficits. Cranial nerves II through XII intact. laboratory and microbiology Laboratory Tests 11/04/24 06:23 Test 11/04/24 06:23 Range/Units Serum Glucose 171 H 74-106 mg/dL Assessment/Plan Impression: Acute hypoxic respiratory failure Dependence on supplemental oxygen Atrial fibrillation CHF, possible Dyspnea COPD exacerbation Nicotine dependence Cannabinoid use Obesity BMI 34.5 Events: Remains on supplemental oxygen On 4 LPM via nasal cannula Taper O2 as tolerated Maintaining 1:1 sitter for safety. Patient is altered. It is felt unsafe to do right thoracentesis at this moment. Head of bed elevation Aspiration precautions. Continue bronchodilators - on Xopenex due to tachycardia Pulmicort 0.5 mg q.12 hours. Continue antibiotics IV steroids NGT with coffee-ground material - Monitor hemoglobin Monitor BP. Abnormal EEG Neurology recommendations appreciated. Pepcid for GI prophylaxis Accu-Cheks, ISS Diurese with Lasix Monitor renal function Monitor electrolytes, supplement as necessary Monitor ins and outs - Shah in place Poor prognosis Recommend Hospice evaluation. Labs and imaging reviewed. Rest of plan as noted below. Plan: Supplemental oxygen Titrate to keep O2 sats above 92%. Patient is s/p ultrasound-guided paracentesis on 11/02/24 with drainage of 1100 mL of serous fluid. Note, Rapid response was called on 11/01/24 - U-tox noted to be cannabinoid positive. Patient received doses of Narcan Concern for patient getting substances from spouse. Continue bronchodilators. Pulmicort BID IV steroids Follow up Neurology recommendations Follow up Cardiology recommendations NGT in place Monitor hemoglobin Diurese to euvolemia Fluid and salt restriction Monitor renal function. Monitor electrolytes. Supplement as necessary. Monitor ins and outs. Smoking cessation counseling Counseled against substance abuse. Poor prognosis Recommend Hospice evaluation. DVT prophylaxis. Prognosis: Poor given patient's multiple co-morbidities. Rest of plan per hospitalist and other consultants. Thank you, Dr. Clement, for allowing me to participate in this patient's care. Further recommendations will depend on the patient's clinical course. Please do not hesitate to contact me if you have any questions or concerns. This medical document was created using an electronic medical record system with [employer] dictation system. Although these documentations are being carefully reviewed, there may still be some phonetic and typographical changes. The errors are purely typographical, due to imperfection on the software program, and do not reflect any compromise in the patient's medical care. Dietary Evaluation Review Recommendations by RD: Dietary education by RD Comments: 1) Initiate MVI @ 1 tb qd 2) Add 60g CCHO restriction to cardiac diet 3) Advise patient to limit intake of added sugars including sugar-sweetened beverages, desserts, candy, etc. Aim for a consistent intake of complex carbohydrates spread throughout the day, paired with protein to promote glycemic control 4) Send order for glucometer to pharmacy. Review ADA SMBG guidelines: 80-130 mg/dL before meals and < 180 mg/dL 2-hr postprandial 5) Encourage optimal PO intake 6) Refer to outpatient RD/CDCES for diabetes education and weight management 7) Follow-up with cardiology, pulmonology, and nephrology 8) Follow-upw with social services coordinator r/t substance abuse 9) Continue to monitor I&O, labs, and skin integrity Expected Outcomes/Goals: 1) appetite and labs to improve 2) wound to improve 3) f/u in 3-5 days Plan discussed with: Other (VALENTINA Burgos) DIRK LEVIN MD Nov 04, 2024 23:42
[2024-11-05] VITALS (68 sets, daily range): BP systolic 104–144; BP diastolic 71–102; PULSE 106–123; RESP 9–45; TEMP 96.7–98.6; O2SAT 91–100
[2024-11-05] MEDS ORDERED: POTASSIUM CHL 20MEQ/100ML 100 ML IV SCH (05:45)
[2024-11-05 06:42] LABS: Hematocrit 45.6 % (41.0-53.0); Hemoglobin 15.9 g/dL (13.5-17.5); Mean Corpuscular Hemoglobin 32.0 pg (28.0-32.0); Mean Corpuscular Volume 91.9 fL (80.0-100.0); Nucleated Red Blood Cells % 0.0 %
[2024-11-05 06:57] LABS: BUN/Creatinine Ratio 20.5 (10.0-20.0); Calcium 9.0 mg/dL (8.7-10.4); Sodium 142 mmol/L (136-145); Total Protein 6.1 g/dL (5.7-8.2)
[2024-11-05 06:58] LABS: Albumin 3.9 g/dL (3.2-4.8); Bilirubin, Total 1.1 mg/dL (0.2-1.0)
[2024-11-05 07:01] LABS: Alanine Aminotransferase 262 U/L (7-40); Alkaline Phosphatase 132 U/L (46-116); Anion Gap 8.99999 (5-15); Blood Urea Nitrogen 30 mg/dL (9-23); Chloride 93 mmol/L (98-107); Glucose 166 mg/dL (74-106); Potassium 3.0 mmol/L (3.5-5.1)
[2024-11-05 07:04] LABS: Carbon Dioxide > 40 mmol/L (20-31)
[2024-11-05 07:14] LABS: INR 1.32 (0.9-1.15); Partial Thromboplastin Time 35.9 SEC (24.5-34.5); Prothrombin Time 13.6 sec (9.3-11.8)
[2024-11-05] MEDS: POTASSIUM CHL 20 Meq TABLET PO ONE (07:15)
--- NOTE | 2024-11-05 08:45 | DVH ---
CHEST RADIOGRAPH Indication: On continious Bipap Technique: Single frontal view of the chest was obtained COMPARISON: XY CHEST PORTABLE on DOS: 11/03/24, CT CHEST WITHOUT CONTRAST on DOS: 11/03/24, XY CHEST PORT ABLE on DOS: 11/03/24, XY CHEST PORTABLE on DOS: 11/01/24, XY CHEST XRAY 1 VIEW on DOS: 11/01/24 FINDINGS: Lines and Tubes: None Lungs: Mild congestion Pleura: No effusion. No pneumothorax. Cardiomediastinal contours: Cardiomegaly Bones: Unremarkable IMPRESSION: Mild congestion, slightly improved.
--- NOTE | 2024-11-05 10:37 | DVHPN2 ---
Progress Note - Dictate Date Seen: Nov 05, 2024 Has the PT tested + for MRSA If YES, has PT been informed?: No Medical Necessity Reason Pt with a Central, PICC or Fol: Yes The following are medically ne: Shah Catheter Reason for shah catheter: Strict I&O Subjective Patient seen in [place], lethargic. patient's RN at bedside. vital signs Vital Sign Date Time Temp Pulse Resp B/P (MAP) Pulse Ox O2 Delivery O2 Flow Rate FiO2 11/05/24 10:07 120 116/91 11/05/24 08:58 18 97 3.0 32 11/05/24 08:00 96.7 96.7 11/05/24 06:31 Nasal Cannula Total Intake and Output 11/04/24 11/04/24 11/05/24 15:00 23:00 07:00 Intake Total 266.64 ml 331.64 ml 541.64 ml Output Total 2425 ml 1520 ml Balance 266.64 ml -2093.36 ml -978.36 ml medications Current Medications Medications Dose Ordered Sig/Darin Route Start Time Stop Time Status Last Admin Dose Admin Aspirin 81 mg DAILY PO 10/27/24 10:00 11/04/24 09:52 81 MG Atorvastatin Calcium 10 mg HS PO 10/27/24 22:00 11/04/24 21:50 10 MG Clonidine HCl 0.1 mg Q4HP PRN PO 10/27/24 02:15 Levalbuterol HCl 0.625 mg Q6HR NEB 10/27/24 06:00 11/05/24 06:31 0.625 MG Sodium Chloride 10 ml Q8HR IV 10/27/24 06:00 11/05/24 06:06 10 ML Ondansetron HCl 4 mg Q4HP PRN IV 10/27/24 02:15 Docusate Sodium 100 mg BIDPRN PRN PO 10/27/24 02:15 Acetaminophen 650 mg Q6HP PRN PO 10/27/24 02:15 Nitroglycerin 0.4 mg Q5MINP PRN SL 10/27/24 03:15 Famotidine 20 mg Q12HR IV 10/28/24 10:00 11/05/24 10:10 20 MG Budesonide 0.5 mg BID NEB 10/30/24 22:00 11/05/24 06:31 0.5 MG Lorazepam 2 mg ONCE PRN IV 10/30/24 18:00 11/03/24 20:11 2 MG Nicotine 1 patch DAILY TD 10/30/24 19:45 11/05/24 10:16 1 PATCH Methylprednisolone Sodium Succinate 40 mg DAILY IV 10/31/24 10:00 11/05/24 10:06 40 MG Diagnostic Test (Pha) 1 strip ACHS 10/31/24 11:30 11/05/24 06:31 1 STRIP Insulin Human Regular ACHS SC 10/31/24 11:30 11/05/24 06:34 3 UNITS Dextrose 50 ml UD PRN IV 10/31/24 09:00 Enoxaparin Sodium 110 mg Q12HR SC 10/31/24 22:00 11/05/24 10:16 110 MG Lorazepam 2 mg Q6HP PRN IV 11/01/24 12:00 11/04/24 04:49 2 MG Metoprolol Tartrate 5 mg BID IV 11/01/24 10:00 11/05/24 10:07 5 MG Lactulose 30 ml BID PO 11/01/24 22:00 11/04/24 21:47 30 ML Thiamine HCl 100 mg DAILY IV 11/02/24 10:00 11/05/24 10:09 100 MG Haloperidol Lactate 5 mg Q4HP PRN IM 11/03/24 08:00 11/04/24 16:00 5 MG Vancomycin HCl 0 ml @ 0 mls/hr UD IV 11/03/24 14:15 Piperacillin Sod/ Tazobactam Sod 100 ml @ 25 mls/hr Q8HR IV 11/03/24 22:00 11/05/24 06:06 25 MLS/HR Vancomycin HCl 250 ml @ 250 mls/hr Q1H IV 11/03/24 14:45 11/03/24 16:44 Cancel Enteral Nutritional Formula 1,000 ml 30ML/HR NG 11/03/24 15:45 objective Gen: nad, supine, chronically ill-appearing heent: nc/at, mmm lungs: cta anteriorly cvs: no rub abd: soft, bowel sounds audible laboratory and microbiology Laboratory Tests 11/05/24 06:25 Test 11/05/24 06:25 Range/Units Serum Glucose 166 H 74-106 mg/dL Assessment/Plan IMP 1. KEEGAN hemodynamically mediated on CKD-baseline serum creatinine unknown 2. CHF 3. New onset AFib 4. History of HTN-not well-controlled 5. History of meth use 6. COPD 7. Type 2 diabetes 8.Transaminitis REC - we will hold loop diuretic - acetazolamide x1 dose due to metabolic alkalosis - continued potassium repletion as needed - noted plans for pursuing hospice, palliation Dietary Evaluation Review Recommendations by RD: Dietary education by RD Comments: 1) Initiate MVI @ 1 tb qd 2) Add 60g CCHO restriction to cardiac diet 3) Advise patient to limit intake of added sugars including sugar-sweetened beverages, desserts, candy, etc. Aim for a consistent intake of complex carbohydrates spread throughout the day, paired with protein to promote glycemic control 4) Send order for glucometer to pharmacy. Review ADA SMBG guidelines: 80-130 mg/dL before meals and < 180 mg/dL 2-hr postprandial 5) Encourage optimal PO intake 6) Refer to outpatient RD/CDCES for diabetes education and weight management 7) Follow-up with cardiology, pulmonology, and nephrology 8) Follow-upw with social media developer r/t substance abuse 9) Continue to monitor I&O, labs, and skin integrity Expected Outcomes/Goals: 1) appetite and labs to improve 2) wound to improve 3) f/u in 3-5 days Plan discussed with: BOBBY Gore MD Nov 05, 2024 10:36
--- NOTE | 2024-11-05 10:59 | DVHDS2 ---
New Physician D'charge PN Admitting Diagnosis Admitting Diagnosis sob Discharge Diagnosis encepahlopathy chf ef 20% respiratory failure aflutter rvr Operations or Procedures none Reason(s) For Hospitalization Surgery Hospital Course 74 M who comes to ER for SOB was noted to be in aflutter with RVR and admitted to the hospital on IV amio gtt. He was seen by cardiology and echo showed EF 20%. He was started on IV ABx for possible PNA and seen by pulmonary throughout the hospital course. He became altered and agitated requiring a sitter at bedside and spent a few days in ICU as initially we thought he may need to be intubated for airway protection however he was NOT intubated and then downgraded to [place]. Despite aggressive care and measures he remained altered and agitated needing ativan and haldol administration, Neurology saw him and he had EEG, head CT and MRI brain which showed no acute findings.Neurology was also consulted and offered their recommendations. He was treated for hyperammonemia with lactulose via NG tube by GI and despite ammonial levels correcting he still remained altered for several days now. He was covered with broad spectrum IV ABx and his BCx were negative. CT chest also did not reveal any acute findings. He was diuresed with lasix iv bid with good UOP given his low EF of 20%. He was recommended to undergo stress test by cardiology however they were unable to do so given the patients AMS and overall condition with bouts of agitation. Renal saw him for KEEGAN and now his Cr is stable he did not require any dialysis. He also had paracentesis done by GI with 1.1L of fluid removed and cultures from fluid showed no growth. I had a long discussion with his and given his condition did not improve over time she would like to take him home on hospice. Hospice to arrange for DME and transport. Treatment Plan Discharge Condition of Discharge Fair Disposition Hospice - Home Discharge Instructions Diet: Cardiac 2g Na,low cholest Activity: Bed rest Medications: see med sheet Follow Up Care Follow Up/Referral: hospice Discharge Statement: "Patient was advised to return to the ER or call 911 if any headaches, dizziness, shortness of breath, chest pain, abdominal pain, bleeding, fevers, or worsening of medical condition. Patient was counseled about treatment plan, medications, possible side effects, patientverbalized understanding. All questions were answered to the best of my ability. This discharge took greater then 30 minutes in planning, reviewing documentation, counseling the patient, and discussing with other team members." HERO VAZQUEZ MD Nov 05, 2024 10:59
[2024-11-05] MEDS: acetaZOLAMIDE SODIUM 500 MG VL IV ONE (11:03)
--- NOTE | 2024-11-05 23:11 | DVHPN2 ---
Progress Note - Dictate Date Seen: Nov 05, 2024 Has the PT tested + for MRSA If YES, has PT been informed?: No Medical Necessity Reason Pt with a Central, PICC or Fol: Yes The following are medically ne: Shah Catheter Reason for shah catheter: Strict I&O Subjective Patient seen and examined at bedside. Remains on supplemental oxygen Overnight events reviewed. vital signs Vital Sign Date Time Temp Pulse Resp B/P (MAP) Pulse Ox O2 Delivery O2 Flow Rate FiO2 11/05/24 15:15 119 19 118/76 (90) 95 11/05/24 14:00 Nasal Cannula* 2 28 11/05/24 12:00 97.1 97.1 Total Intake and Output 11/04/24 11/04/24 11/05/24 15:00 23:00 07:00 Intake Total 266.64 ml 331.64 ml 541.64 ml Output Total 2425 ml 1520 ml Balance 266.64 ml -2093.36 ml -978.36 ml medications Current Medications Medications Dose Ordered Sig/Darin Route Start Time Stop Time Status Last Admin Dose Admin Vancomycin HCl 250 ml @ 250 mls/hr Q1H IV 11/03/24 14:45 11/03/24 16:44 Cancel objective Gen.: Patient lying in bed in no apparent distress. On supplemental oxygen Head: Normocephalic, atraumatic. Eyes: EOMI/PERRLA. Ears: Normal hearing. Normal anatomy. Neck/trachea: Trachea midline, supple. Nose: Normal external anatomy. Mouth: Moist mucous membranes. Chest: Decreased air entry bilaterally. Wheezing heard. No rhonchi. Cardiovascular: Positive S1, positive S2. Regular rate and rhythm. Abdomen: Positive bowel sounds in all 4 quadrants. Soft, non-tender, non- distended. : Deferred. Rectal: Deferred. Skin: Warm, dry. Intact. Extremities: 2+ radial pulses bilaterally. No lower extremity edema. Neuro: Awake, alert, oriented x1. No gross motor or sensory deficits. Cranial nerves II through XII intact. laboratory and microbiology Laboratory Tests 11/05/24 06:25 Test 11/05/24 06:25 Range/Units Serum Glucose 166 H 74-106 mg/dL Assessment/Plan Impression: Acute hypoxic respiratory failure Dependence on supplemental oxygen Atrial fibrillation CHF, possible Dyspnea COPD exacerbation Nicotine dependence Cannabinoid use Obesity BMI 34.5 Events: Remains on supplemental oxygen On 3 LPM via nasal cannula Taper O2 as tolerated Maintaining 1:1 sitter for safety. CXR today reveals no pleural effusion. Mild congestion, slightly improved Head of bed elevation Aspiration precautions. Continue bronchodilators - on Xopenex due to tachycardia Pulmicort 0.5 mg q.12 hours. Continue antibiotics Continue IV steroids NGT with coffee-ground material - Monitor hemoglobin Monitor BP. Abnormal EEG Neurology recommendations appreciated. Pepcid for GI prophylaxis Accu-Cheks, ISS Diurese with Lasix Monitor renal function Monitor electrolytes, supplement as necessary Monitor ins and outs - Shah in place Poor prognosis Supportive care. Plan for discharge home on Hospice Labs and imaging reviewed. Rest of plan as noted below. Plan: Supplemental oxygen Titrate to keep O2 sats above 92%. Patient is s/p ultrasound-guided paracentesis on 11/02/24 with drainage of 1100 mL of serous fluid. Note, Rapid response was called on 11/01/24 - U-tox noted to be cannabinoid positive. Patient received doses of Narcan Concern for patient getting substances from spouse. Continue bronchodilators. Pulmicort BID IV steroids Follow up Neurology recommendations Follow up Cardiology recommendations NGT in place Monitor hemoglobin Diurese to euvolemia Fluid and salt restriction Monitor renal function. Monitor electrolytes. Supplement as necessary. Monitor ins and outs. Smoking cessation counseling Counseled against substance abuse. Poor prognosis DC home on hospice. DVT prophylaxis. Prognosis: Poor given patient's multiple co-morbidities. Rest of plan per hospitalist and other consultants. Thank you, Dr. Clement, for allowing me to participate in this patient's care. Further recommendations will depend on the patient's clinical course. Please do not hesitate to contact me if you have any questions or concerns. This medical document was created using an electronic medical record system with [employer] dictation system. Although these documentations are being carefully reviewed, there may still be some phonetic and typographical changes. The errors are purely typographical, due to imperfection on the software program, and do not reflect any compromise in the patient's medical care. Dietary Evaluation Review Recommendations by RD: Dietary education by RD Comments: 1) Initiate MVI @ 1 tb qd 2) Add 60g CCHO restriction to cardiac diet 3) Advise patient to limit intake of added sugars including sugar-sweetened beverages, desserts, candy, etc. Aim for a consistent intake of complex carbohydrates spread throughout the day, paired with protein to promote glycemic control 4) Send order for glucometer to pharmacy. Review ADA SMBG guidelines: 80-130 mg/dL before meals and < 180 mg/dL 2-hr postprandial 5) Encourage optimal PO intake 6) Refer to outpatient RD/CDCES for diabetes education and weight management 7) Follow-up with cardiology, pulmonology, and nephrology 8) Follow-upw with social work therapist r/t substance abuse 9) Continue to monitor I&O, labs, and skin integrity Expected Outcomes/Goals: 1) appetite and labs to improve 2) wound to improve 3) f/u in 3-5 days Plan discussed with: Patient, Other (VALENTINA Ryan) DIRK LEVIN MD Nov 05, 2024 23:11
== END 2024-11-05 15:43 | disposition hospice, home (50) | DRG 432 ==
LOC: ER 22:34 → EDBD 22:34 → EDUNIT# 22:34 → OVERFLOW 10-27 03:09 → TELE-WESTW 10-27 03:10 → TELE-CENTR 10-28 19:55 → ICU WEST 11-01 12:25 → EAST 11-02 19:50
PROVIDERS: ADMIT Student in an Organized Health Care Education/Training Program; ATTEND Student in an Organized Health Care Education/Training Program
PROC: 5A09357 Assistance with Respiratory Ventilation, Less than 24 Consecutive Hours, Continuous Positive Airway Pressure (ICD-10-PCS; 2024-10-28)
PROC: 0W9G3ZX Drainage of Peritoneal Cavity, Percutaneous Approach, Diagnostic (ICD-10-PCS; principal; 2024-11-02)
DX: K70.31 Alcoholic cirrhosis of liver with ascites (principal); G93.41 Metabolic encephalopathy; J96.01 Acute respiratory failure with hypoxia; I50.23 Acute on chronic systolic (congestive) heart failure; N17.0 Acute kidney failure with tubular necrosis; J44.1 Chronic obstructive pulmonary disease with (acute) exacerbation; I42.0 Dilated cardiomyopathy; I48.92 Unspecified atrial flutter; I47.19 Other supraventricular tachycardia; G93.1 Anoxic brain damage, not elsewhere classified; E87.3 Alkalosis; J44.0 Chronic obstructive pulmonary disease with (acute) lower respiratory infection; Z51.5 Encounter for palliative care; I48.91 Unspecified atrial fibrillation; E11.65 Type 2 diabetes mellitus with hyperglycemia; E66.01 Morbid (severe) obesity due to excess calories; F15.10 Other stimulant abuse, uncomplicated; I11.0 Hypertensive heart disease with heart failure; F10.10 Alcohol abuse, uncomplicated; F17.210 Nicotine dependence, cigarettes, uncomplicated; F41.9 Anxiety disorder, unspecified; I35.0 Nonrheumatic aortic (valve) stenosis; K76.82 Hepatic encephalopathy; I27.20 Pulmonary hypertension, unspecified; I07.1 Rheumatic tricuspid insufficiency; Z99.81 Dependence on supplemental oxygen; Z90.49 Acquired absence of other specified parts of digestive tract; Z79.899 Other long term (current) drug therapy; Z83.3 Family history of diabetes mellitus; Z79.2 Long term (current) use of antibiotics; Z68.34 Body mass index [BMI] 34.0-34.9, adult; Z71.6 Tobacco abuse counseling; Y90.9 Presence of alcohol in blood, level not specified
CPT/HCPCS: 36415; 36600; 49083; 70450; 70551; 71045; 71250; 76705; 76775; 76942; 80053; 80061; 80202; 80307; 81001; 82140; 82248; 82570; 82728; 82805; 82962; 83036; 83735; 83880; 83986; 84100; 84300; 84439; 84443; 84481; 84484; 84550; 85025; 85379; 85610; 85730; 86704; 86706; 86708; 86803; 87040; 87081; 87086; 87205; 87340; 89051; 93005; 93306; 93925; 94640; 94660; 95819; 96374; 96375; 99291; G0378; J0153; J1815; J2543; J2704; J3470; J3490; J7060; P9047

== ENCOUNTER 2024-11-10 08:27 | Emergency (ER) | payer OTHER ==
[~2024-11-10] VITALS: Ht 177.8 cm; Wt 86.5 kg
[2024-11-10 09:09] VITALS: BP 112/67; RESP 18; TEMP 98.9; O2SAT 96
--- NOTE | 2024-11-10 09:09 | ED.PDOC ---
History of Present Illness HPI Comments 74 year old male presents to the ED via EMS with a chief complaint of generalized weakness onset 2 weeks. Per EMS, patient was discharged from [facility] on 11/05/24, generalized weakness has worsened since then. Patient initially came to ED on 10/26/24 for shortness of breath, was admitted, echo was done and showe d EF 20%. Patient was discharged home with with arrangements for hospice. EMS states patient was tachycardiac with HR 130. PMHx COPD, DVT, anxiety, IBS. Denies hematemesis, diarrhea, nausea, vomiting, abdominal pain, chest pain, dizziness, fever, chills. No other symptoms or modifying factors present at this time. Time Seen by MD: 08:20 Primary Care Provider: NONE Reviewed Notes: Medications, Allergies Allergies: Coded Allergies: NO KNOWN ALLERGIES (Unverified , 05/31/17) Home Meds Discontinued Scripts Azithromycin (ZITHROMAX TABLET) 250 Mg Tb, 250 MG PO DAILY for 5 Days, #5 TAB 0 Refills Prov:ANAYA MEEK 06/03/17 Cefdinir (Cefdinir) 300 Mg Cap, 1 CAP PO BID, #10 CAP Prov:ANAYA MEEK 06/03/17 Information Source: Patient Mode of Arrival: EMS Severity: Moderate Timing: Weeks Duration: Since onset Prehospital treatment: None Past Medical History PAST MEDICAL HISTORY: Anxiety, CHF, COPD, HTN Past Medical History (Other): IBS, DVT Surgical History: Cholecystectomy, Tonsillectomy Family History Family History: Unobtainable Social History Smoker: Cigarettes Alcohol: Occasionally Drugs: Marijuana Lives In: Home Constitutional: reports: weakness; denies: chills, diaphoresis, fatigue, fever, malaise, sweats, others EENTM: denies: blurred vision, double vision, ear bleeding, ear discharge, ear drainage, ear pain, ear ringing, eye pain, eye redness, hearing loss, mouth pain, mouth swelling, nasal discharge, nose bleeding, nose congestion, nose pain, photophobia, tearing, throat pain, throat swelling, voice changes, others Respiratory: denies: cough, hemoptysis, orthopnea, SOB at rest, shortness of breath, SOB with excertion, stridor, wheezing, others Cardiovascular: denies: chest pain, dizzy spells, diaphoresis, Dyspnea on exertion, edema, irregular heart beat, left arm pain, lightheadedness, p alpitations, PND, syncope, others Gastrointestinal: denies: abdomen distended, abdominal pain, blood streaked bowels, constipated, diarrhea, dysphagia, difficulty swallowing, hematemesis, melena, nausea, poor appetite, poor fluid intake, rectal bleeding, rectal pain, vomiting, others Genitourinary: denies: burning, dysuria, flank pain, frequency, hematuria, incontinence, penile discharge, penile sore, pain, testicle pain, testicle swelling, urgency, others Neurological: reports: weakness; denies: dizziness, fainting, headache, left sided numbness, left sided weakness, numbness, paresthesia, pre-existing deficit, right sided numbness, right sided weakness, seizure, speech problems, tingling, tremors, others Musculoskeletal: denies: back pain, gout, joint pain, joint swelling, muscle pain, muscle stiffness, neck pain, others Integumetry: denies: bruises, change in color, change in hair/nails, dryness, laceration, lesions, lumps, rash, wounds, others Allergic/Immunocompromised: denies: Difficulty Healing, Frequent Infections, Hives, Itching, others Hematologic/Lymphatic: denies: anemia, blood clots, easy bleeding, easy bruising, swollen glands, others Endocrine: denies: excessive hunger, excessive sweating, excessive thirst, excessive urination, flushing, intolerance to cold, intolerance to heat, unexplained weight gain, unexplained weight loss, others Psychiatric: denies: anxiety, bipolar disorder, depression, hopeless, panic disorder, schizophrenia, sleepless, suicidal, others All Other Systems: Reviewed and Negative Physical Exam General Appearance: Moderate Distress, Normal HEENT: Normal ENT Inspection, Pharynx Normal, TMs Normal Neck: Full Range of Motion, Non-Tender, Normal, Normal Inspection Respiratory: Chest Non-Tender, No Accessory Muscle Use, Other (Coarse breath sounds) Cardiovascular: No Edema, No JVD, No Murmur, No Gallop, Normal Peripheral Pulses, Regular Rate/Rhythm Breast Exam: Deferred Gastrointestinal: No Organomegaly, Non Tender, No Pulsatile Mass, Normal Bowel Sounds, Soft Genitalia: Deferred Pelvic: Deferred Rectal: Deferred Extremities: No calf tenderness, Normal capillary refill, Normal inspection, Normal range of motion, Non-tender, No pedal edema Musculoskeletal : Apperance: Normal Neurologic: Alert, sports fitness and wellness director II-XII nml as Tested, No Motor Deficits, Normal Affect, Normal Mood, No Sensory Deficits Cerebellar Function: Normal Reflexes: Normal Skin: Dry, Normal Color, Warm Peripheral Pulses: 3+ Radial (R), 3+ Radial (L) Lymphatic: No Adenopathy Was a procedure done? Was a procedure done?: No EKG EKG : Pulse Rate (adult): 120 Cardiac Rhythm: ST Differential Dx Considerations may include: Pneumonitis CHF X-Ray, Labs, Meds, VS Vital Signs Date Time Temp Pulse Resp B/P (MAP) Pulse Ox O2 Delivery O2 Flow Rate FiO2 11/10/24 09:22 120 11/10/24 09:17 130 11/10/24 09:09 98.9 131 18 112/67 96 98.9 Lab Test 11/10/24 09:51 Range/Units White Blood Count 11.7 #H 4.4-10.8 10^3/uL Red Blood Count 4.11 L 4.5-5.90 10^6/uL Hemoglobin 12.6 #L 13.5-17.5 g/dL Hematocrit 38.7 #L 41.0-53.0 % Mean Corpuscular Volume 94.2 80.0-100.0 fL Mean Corpuscular Hemoglobin 30.5 28.0-32.0 pg Mean Corpuscular Hemoglobin Concent 32.4 32.0-36.0 g/dL Red Cell Distribution Width 14.6 H 11.8-14.3 % Platelet Count 274 140-450 10^3/uL Mean Platelet Volume 9.2 6.9-10.8 fL Neutrophils (%) (Auto) 66.1 37.0-80.0 % Lymphocytes (%) (Auto) 21.1 10.0-50.0 % Monocytes (%) (Auto) 10.5 0.0-12.0 % Eosinophils (%) (Auto) 2.2 0.0-7.0 % Basophils (%) (Auto) 0.1 0.0-2.0 % Neutrophils # (Auto) 7.7 1.6-8.6 10 ^3/uL Lymphocytes # (Auto) 2.5 0.4-5.4 10 ^3/uL Monocytes # (Auto) 1.2 0-1.3 10 ^3/uL Eosinophils # (Auto) 0.3 0-0.8 10 ^3/uL Basophils # (Auto) 0 0-0.2 10 ^3/uL Nucleated Red Blood Cells 0.0 % Sodium Level 143 136-145 mmol/L Potassium Level 3.6 3.5-5.1 mmol/L Chloride Level 107 # 98-107 mmol/L Carbon Dioxide Level 29 # 20-31 mmol/L Anion Gap 7 5-15 Blood Urea Nitrogen 25 H 9-23 mg/dL Creatinine 1.28 0.700-1.30 mg/dL Glomerular Filtration Rate Calc 59 >90 mL/min BUN/Creatinine Ratio 19.5 10.0-20.0 Serum Glucose 176 H 74-106 mg/dL Calcium Level 9.0 8.7-10.4 mg/dL Troponin I High Sensitivity 26 </=54 ng/L B-Type Natriuretic Peptide 369.57 0-100 pg/mL [place] [id number] Ph: [phone] DIAGNOSTIC IMAGING Diagnostic Imaging Report : [id number] Signed PATIENT: ULISES HECTOR ACCT: [id number] UNIT: [id number] : 1950 LOC: ER ROOM / BED: / AGE / SEX: 74 / M ADM STATUS: REG ER SERVICE 09 ORDERING PHYSICIAN: TESS VAZ MD PROCEDURE(s): CXRP - CHEST PORTABLE REASON: sob ORDER NUMBER(s): [id number], ACCESSION NUMBER(s): [id number] CHEST RADIOGRAPH Indication: sob Technique: Single frontal view of the chest was obtained COMPARISON: XY CHEST PORTABLE on DOS: 11/05/24, XY CHEST PORTABLE on DOS: 11/03/24, CT CHEST WITHOUT CONTRAST on DOS: 11/03/24, XY CHEST PORTABLE on DOS: 11/03/24, XY CHEST PORTABLE on DOS: 11/01/24 FINDINGS: Lines and Tubes: None Lungs: Clear Pleura: No effusion. No pneumothorax. Cardiomediastinal contours: Unremarkable Bones: Unremarkable IMPRESSION: No acute disease. ATED BY: KADEN CALDERON MD DICTATED DATE/TIME: 11/10/24943 SIGNED BY: KADEN CALDERON MD SIGNED DATE/TIME: 11/10/24943 CC: Patient alert. Complaining of shortness a breath. Chest x-ray reviewed does not show any acute changes. BNP elevated. Was given Lasix. Blood sugar elevated. WBC elevated. He does have ejection fraction of 15%. Reviewed his previous visit. Explained to the patient. Continue monitoring. Time of 1ST Reevaluation: 08:50 Reevaluation 1ST: Unchanged Patient Education/Counseling: Diagnosis, Treatment, Prognosis Family Education/Counseling: No Family Present SEPSIS Sepsis Screen Physician Orders Chest Portable (11/10/24 09:11) Urinalysis (11/10/24 09:11) Electrocardigram (11/10/24 09:13) Furosemide Injection (Lasix Injection) (11/10/24 10:45) Vital Signs Date Time Temp Pulse Resp B/P (MAP) Pulse Ox O2 Delivery O2 Flow Rate FiO2 11/10/24 09:22 120 11/10/24 09:17 130 11/10/24 09:09 98.9 131 18 112/67 96 98.9 Laboratory Tests Test 11/10/24 09:51 White Blood Count 11.7 10^3/uL (4.4-10.8) #H Departure 1 Departure Time of Disposition: 10:41 Impression: Primary Impression: CHF (congestive heart failure) Qualified Codes: I50.9 - Heart failure, unspecified Additional Impressions: Leukocytosis Qualified Codes: D72.829 - Elevated white blood cell count, unspecified Uncontrolled diabetes mellitus Qualified Codes: E13.65 - Other specified diabetes mellitus with hyperglycemia Pneumonitis Disposition: ADMITTED INPATIENT Admit to: Med Surg Condition: Guarded Critical Care Note Critical Care Time?: Yes (90 min-critical care time only) Stability Stability form required: No Heart Score Heart Score: Heart Score Response (Comments) Value History N/A 0 EKG N/A 0 Age N/A 0 Risk Factors N/A 0 Troponin N/A 0 Total 0 I personally scribed for TESS VAZ MD ([email or web address]) on 11/10/24 at 09:09. Electronically submitted by Carla French ([email or web address]). I personally scribed for TESS VAZ MD ([email or web address]) on 11/10/24 at 09:22. Electronically submitted by Carla French ([email or web address]). I personally scribed for TESS VAZ MD ([email or web address]) on 11/10/24 at 10:24. Electronically submitted by Carla French ([email or web address]). TESS VAZ MD Nov 10, 2024 09:09
[2024-11-10 09:22] VITALS: PULSE 120
--- NOTE | 2024-11-10 09:46 | DVH ---
CHEST RADIOGRAPH Indication: sob Technique: Single frontal view of the chest was obtained COMPARISON: XY CHEST PORTABLE on DOS: 11/05/24, XY CHEST PORTABLE on DOS: 11/03/24, CT CHEST WITHOUT CONT RAST on DOS: 11/03/24, XY CHEST PORTABLE on DOS: 11/03/24, XY CHEST PORTABLE on DOS: 11/01/24 FINDINGS: Lines and Tubes: None Lungs: Clear Pleura: No effusion. No pneumothorax. Cardiomediastinal contours: Unremarkable Bones: Unremarkable IMPRESSION: No acute disease.
[2024-11-10 10:12] LABS: Hematocrit 38.7 % (41.0-53.0); Hemoglobin 12.6 g/dL (13.5-17.5); Mean Corpuscular Hemoglobin 30.5 pg (28.0-32.0); Mean Corpuscular Volume 94.2 fL (80.0-100.0); Nucleated Red Blood Cells % 0.0 %
[2024-11-10 10:16] LABS: Anion Gap 7 (5-15); Carbon Dioxide 29 mmol/L (20-31); Chloride 107 mmol/L (98-107); Potassium 3.6 mmol/L (3.5-5.1); Sodium 143 mmol/L (136-145)
[2024-11-10 10:17] LABS: Calcium 9.0 mg/dL (8.7-10.4)
[2024-11-10 10:22] LABS: BUN/Creatinine Ratio 19.5 (10.0-20.0); Blood Urea Nitrogen 25 mg/dL (9-23); Glucose 176 mg/dL (74-106)
[2024-11-10] MEDS ORDERED: PIPERACILLIN-TAZOB 3.375GM 100 ML IV ONE (10:45)
[2024-11-10] MEDS ORDERED: FUROSEMIDE 20 MG/2 ML VIAL IV ONE (10:45)
--- NOTE | 2024-11-12 07:13 | ECG ---
[facility] Test Date: 2024-11-10 Test Time: 09:17:46 Pat Name: ULISES HECTOR Department: [facility] ED Patient ID: [id number] Room: Gender: M Solutions Architect: tiffany : 1950 Requested By: TESS VAZ Order Number: [id number] Reading MD: Alex Rodriguez Measurements Intervals [place] Rate: 130 P: -64 [place]: 149 QRS: -56 QRSD: 112 T: 123 QT: 336 QTc: 494 Interpretive Statements Sinus or ectopic atrial tachycardia Left anterior fascicular block Abnormal R-wave progression, late transition LVH with secondary repolarization abnormality Borderline prolonged QT interval Electronically Signed On 11-13-2024 18:14:36 PDT by Alex Rodriguez Please click the below link to view image of tracing.
== END 2024-11-10 11:14 | disposition left against medical advice (07) ==
LOC: ER 08:27 → EDUNIT# 08:27 → EDBD 08:27 → ER 11:14
DX: I11.0 Hypertensive heart disease with heart failure (principal); I50.9 Heart failure, unspecified; E11.65 Type 2 diabetes mellitus with hyperglycemia; D72.829 Elevated white blood cell count, unspecified; J98.4 Other disorders of lung; J44.9 Chronic obstructive pulmonary disease, unspecified; F41.9 Anxiety disorder, unspecified; K58.9 Irritable bowel syndrome, unspecified; F17.210 Nicotine dependence, cigarettes, uncomplicated; F12.90 Cannabis use, unspecified, uncomplicated; F10.90 Alcohol use, unspecified, uncomplicated; Z90.89 Acquired absence of other organs; Z86.718 Personal history of other venous thrombosis and embolism; Z90.49 Acquired absence of other specified parts of digestive tract; Y90.9 Presence of alcohol in blood, level not specified
CPT/HCPCS: 36415; 71045; 80048; 83880; 84484; 85025; 93005